=== PATIENT | female | born 1985 | race Caucasian/White ===

== ENCOUNTER 2019-09-03 08:43 | Inpatient (IN) | payer SELFPAY ==
[2019-09-03] VITALS (7 sets, daily range): BP systolic 104–139; BP diastolic 50–85; PULSE 83–128; RESP 16–22; TEMP 37.2–39.1; O2SAT 96–98; BMI 29.8
--- NOTE | 2019-09-03 08:52 | ED_ITS ---
Entered by Judy Nuñez, acting as scribe for Crispin Hirsch DO Sep 03, 2019 08:43 HPI - Chest Pain General: Chief Complaint: Chest Pain Stated Complaint: Chest pain Time Seen by Provider: 09/03/19 08:48 Source: patient Mode of arrival: ambulatory Limitations: no limitations History of Present Illness: HPI narrative: 34 yo f came to the er pov with gianfranco bejaranoy for body aches, fever and cough. Onset was today. Pt states that she has mitral valve prolapse. Patient did also admit to use of methamphetamines 2 days ago. The fever and generalized body aches malaise began shortly after that. MD complaint: chest pain Pertinent past history: other (mitral valve prolapse) Severity: mild Associated symptoms: Reports fever(s); Deny abdominal pain, dyspnea, nausea, palpitations, syncope or vomiting Review of Systems Const: Reports: fever, body aches, fatigue and malaise ENMT: Denies: throat pain, ear pain, nasal discharge or nasal congestion Card: Denies: palpitations or syncope Resp: Reports: non-productive cough; Denies: shortness of breath GI: Denies: abdominal pain, nausea or vomiting : Denies: flank pain, difficulty urinating, painful urination, urinary frequency or urinary urgency Skin/Breast: Denies: rash or itching PFSH ED PFSH: Statuses (acute, chronic, etc) shown below reflect problem list status as previously entered and may not be historically accurate Medical History Congenital mitral valve prolapse (Resolved) History of bacteremia (Acute) IVDU (intravenous drug user) (Acute) Substance abuse (Acute) Surgical History H/O mitral valve repair (Acute) Family History Father Hepatitis C Mother Lung disease Social History Smoking and tobacco status: never smoked Alcohol intake: never Substance/Drug Use: current Substance/Drug use frequency: few times a week Substance/Drug use type: Marijuana, IV Drugs and Methamphetamine Physical Exam Const: GENERAL APPEARANCE: cooperative ORIENTATION/CONSCIOUSNESS: Yes awake, Yes oriented to person, Yes oriented to place and Yes oriented to time HENMT: COMMON NORMALS: normocephalic, head/scalp atraumatic, hearing grossly normal bilaterally, external ears normal, EAC's normal, TM's normal bilaterally, nasal mucous membranes and turbinates normal, moist oral mucous membranes and oropharynx normal HEAD & SCALP: normocephalic and atraumatic NOSE: nasal mucous membranes and turbinates normal EXTERNAL EAR: Yes external ears normal EXTERNAL AUDITORY CANAL: EAC's normal TYMPANIC MEMBRANE: TM's normal bilaterally Eye: COMMON NORMALS: PERRL, EOMs intact bilaterally, conjunctivae normal and no scleral icterus CONJUNCTIVA: Yes conjunctivae normal PUPIL: Yes PERRL Neck/C-Spine: COMMON NORMALS: full ROM, no lymphadenopathy, supple and no JVD Lymph: LYMPHATIC: no lymphadenopathy noted and no lymphedema noted Resp: COMMON NORMALS: normal respiratory effort, no retractions, no use of accessory muscles and clear to auscultation bilaterally AUSCULTATION: clear to auscultation bilaterally Cardio: COMMON NORMALS: no JVD, regular rhythm and no murmurs RATE: tachycardic RHYTHM: regular rhythm Extremity: COMMON NORMALS: normal to inspection, normal capillary refill, no clubbing, cyanosis or edema, no calf tenderness and no pedal edema Neuro: SENSORIUM/ORIENTATION: Yes oriented to person, Yes oriented to place and Yes oriented to time Skin: COMMON NORMALS: no rashes or lesions noted NARRATIVE SKIN EXAM: Neurotic excoriation of the face and forearms GENERAL SKIN EXAM: no rashes or lesions noted Course ED course: I suspect the patient is septic most likely from his IV drug use she is previously had septic emboli according to her old records. Discussed this with her we will start her on IV antibiotics Rocephin 2 g and vancomycin. Discussed with Dr. Chase she will accept the patient to her service and is seen the patient in ER. Vital Signs: Vital signs: Vital Signs Temperature 99.4 F 09/04/19 11:13 Pulse Rate 95 09/04/19 11:13 Respiratory Rate 22 H 09/04/19 11:13 Blood Pressure 156/70 09/04/19 11:13 Pulse Oximetry 96 09/04/19 11:13 MDM - Chest Pain Lab Data: Labs: Lab Results 09/03/19 09/03/19 09/03/19 Range/Units 09:25 09:25 09:25 WBC (4.0-10.0) 10^3/ uL RBC (4.1-5.3) 10^6/u L Hgb (11.5-15.3) g/dL Hct (37.0-47.0) % MCV (81-99) fL MCH (28.0-34.0) pg MCHC (30.0-36.0) g/dL RDW (12.1-15.1) % Plt Count (130-400) 10^3/c mm MPV (7.4-10.4) fL Neut % (Auto) % Lymph % (Auto) % [place] % (Auto) % Eos % (Auto) % Baso % (Auto) % Neut # (Auto) (1.8-7.7) 10^3/u L Lymph # (Auto) (0.8-4.8) 10^3/u L [place] # (Auto) (0.2-0.9) 10^3/u L Eos # (Auto) (0.0-0.8) 10^3/u L Baso # (Auto) (0.0-0.1) 10^3/u L Nucleated RBC % (a uto) % Nucleated RBCs # /100WBC PT (10.5-13.3) SECO NDS INR (0.8-1.2) APTT (23.9-36.7) SECO NDS Sodium (136-145) mmol/L Potassium (3.5-5.1) mmol/L Chloride (98-107) mmol/L Carbon Dioxide (22-29) mmol/L Anion Gap (5-19) BUN (6-20) mg/dL Creatinine (0.5-0.9) mg/dL GFR Calculation (90-130) mL/min Glucose (74-109) mg/dL Lactic Acid (0.5-2.2) mmol/L Calcium (8.6-10.0) mg/Dl Total Bilirubin (0.15-1.2) mg/dL AST (0-32) U/L ALT (0-33) U/L Alkaline Phosphata se (35-105) IU/L Troponin T Baselin e (0-10) ng/mL Troponin T 120 Min [place] (0-10) ng/mL Delta Troponin T (0-10) ABS# Total Protein (6.6-8.7) g/dL Albumin (3.5-5.2) g/dL Globulin (1.3-4.6) g/dL HCG, Qual Negative (Negative) Urine Color Dark yellow (Yellow) Urine Appearance Hazy A (CLEAR) Urine pH 5 (5-7) Ur Specific Gravit y 1.015 (1.005-1.030) Urine Protein 1+ H (Negative) Urine Glucose (UA) Norm (Normal) Urine Ketones Negative (Negative) Urine Occult Blood Neg (Negative) Urine Nitrate Negative (Negative) Urine Bilirubin 1+ H (NEGATIVE) Urine Urobilinogen 12 H (Negative) mg/dL Ur Leukocyte Marcia ase Negative (Negative) Urine RBC None (0-2) /hpf Urine WBC 0-4 H (0-5) /hpf Ur Squamous Epith Cells 25-40 H (0-5) Urine Bacteria 1+ H (NONE) Urine Mucus Trace Influenza Type A A g Negative (Negative) POC Influenza B Ag Negative (Negative) 09/03/19 09/03/19 09/03/19 Range/Units 09:50 09:50 09:50 WBC 10.4 H (4.0-10.0) 10^3/ uL RBC 4.68 (4.1-5.3) 10^6/u L Hgb 13.4 (11.5-15.3) g/dL Hct 40.4 (37.0-47.0) % MCV 86.3 (81-99) fL MCH 28.6 (28.0-34.0) pg MCHC 33.2 (30.0-36.0) g/dL RDW 13.2 (12.1-15.1) % Plt Count 149 (130-400) 10^3/c mm MPV 10.5 H (7.4-10.4) fL Neut % (Auto) 84.5 % Lymph % (Auto) 5.8 % [place] % (Auto) 8.3 % Eos % (Auto) 0.0 % Baso % (Auto) 0.2 % Neut # (Auto) 8.8 H (1.8-7.7) 10^3/u L Lymph # (Auto) 0.6 L (0.8-4.8) 10^3/u L [place] # (Auto) 0.9 (0.2-0.9) 10^3/u L Eos # (Auto) 0.0 (0.0-0.8) 10^3/u L Baso # (Auto) 0.0 (0.0-0.1) 10^3/u L Nucleated RBC % (a uto) 0 % Nucleated RBCs # 0.0 /100WBC PT (10.5-13.3) SECO NDS INR (0.8-1.2) APTT (23.9-36.7) SECO NDS Sodium 132 L (136-145) mmol/L Potassium 3.9 (3.5-5.1) mmol/L Chloride 97 L (98-107) mmol/L Carbon Dioxide 23 (22-29) mmol/L Anion Gap 15.9 (5-19) BUN 15 (6-20) mg/dL Creatinine 0.8 (0.5-0.9) mg/dL GFR Calculation 81.6 L (90-130) mL/min Glucose 126 H (74-109) mg/dL Lactic Acid 1.0 (0.5-2.2) mmol/L Calcium 9.9 (8.6-10.0) mg/Dl Total Bilirubin 0.4 (0.15-1.2) mg/dL AST 25 (0-32) U/L ALT 28 (0-33) U/L Alkaline Phosphata se 94 (35-105) IU/L Troponin T Baselin e (0-10) ng/mL Troponin T 120 Min [place] (0-10) ng/mL Delta Troponin T (0-10) ABS# Total Protein 7.7 (6.6-8.7) g/dL Albumin 3.6 (3.5-5.2) g/dL Globulin 4.1 (1.3-4.6) g/dL HCG, Qual (Negative) Urine Color (Yellow) Urine Appearance (CLEAR) Urine pH (5-7) Ur Specific Gravit y (1.005-1.030) Urine Protein (Negative) Urine Glucose (UA) (Normal) Urine Ketones (Negative) Urine Occult Blood (Negative) Urine Nitrate (Negative) Urine Bilirubin (NEGATIVE) Urine Urobilinogen (Negative) mg/dL Ur Leukocyte Marcia ase (Negative) Urine RBC (0-2) /hpf Urine WBC (0-5) /hpf Ur Squamous Epith Cells (0-5) Urine Bacteria (NONE) Urine Mucus Influenza Type A A g (Negative) POC Influenza B Ag (Negative) 09/03/19 09/03/19 09/03/19 Range/Units 09:50 09:50 11:51 WBC (4.0-10.0) 10^3/ uL RBC (4.1-5.3) 10^6/u L Hgb (11.5-15.3) g/dL Hct (37.0-47.0) % MCV (81-99) fL MCH (28.0-34.0) pg MCHC (30.0-36.0) g/dL RDW (12.1-15.1) % Plt Count (130-400) 10^3/c mm MPV (7.4-10.4) fL Neut % (Auto) % Lymph % (Auto) % [place] % (Auto) % Eos % (Auto) % Baso % (Auto) % Neut # (Auto) (1.8-7.7) 10^3/u L Lymph # (Auto) (0.8-4.8) 10^3/u L [place] # (Auto) (0.2-0.9) 10^3/u L Eos # (Auto) (0.0-0.8) 10^3/u L Baso # (Auto) (0.0-0.1) 10^3/u L Nucleated RBC % (a uto) % Nucleated RBCs # /100WBC PT 14.20 H (10.5-13.3) SECO NDS INR 1.07 (0.8-1.2) APTT 29.1 (23.9-36.7) SECO NDS Sodium (136-145) mmol/L Potassium (3.5-5.1) mmol/L Chloride (98-107) mmol/L Carbon Dioxide (22-29) mmol/L Anion Gap (5-19) BUN (6-20) mg/dL Creatinine (0.5-0.9) mg/dL GFR Calculation (90-130) mL/min Glucose (74-109) mg/dL Lactic Acid (0.5-2.2) mmol/L Calcium (8.6-10.0) mg/Dl Total Bilirubin (0.15-1.2) mg/dL AST (0-32) U/L ALT (0-33) U/L Alkaline Phosphata se (35-105) IU/L Troponin T Baselin e 6 (0-10) ng/mL Troponin T 120 Min [place] 7.10 (0-10) ng/mL Delta Troponin T 1.10 (0-10) ABS# Total Protein (6.6-8.7) g/dL Albumin (3.5-5.2) g/dL Globulin (1.3-4.6) g/dL HCG, Qual (Negative) Urine Color (Yellow) Urine Appearance (CLEAR) Urine pH (5-7) Ur Specific Gravit y (1.005-1.030) Urine Protein (Negative) Urine Glucose (UA) (Normal) Urine Ketones (Negative) Urine Occult Blood (Negative) Urine Nitrate (Negative) Urine Bilirubin (NEGATIVE) Urine Urobilinogen (Negative) mg/dL Ur Leukocyte Marcia ase (Negative) Urine RBC (0-2) /hpf Urine WBC (0-5) /hpf Ur Squamous Epith Cells (0-5) Urine Bacteria (NONE) Urine Mucus Influenza Type A A g (Negative) POC Influenza B Ag (Negative) Imaging Data^: CXR: Radiologist's impression: PORTABLE CHEST HISTORY: chest pain COMPARISON: 01/30/2019 Mild pulmonary hyperexpansion. Slight elevation of the LEFT hemidiaphragm. No pneumonia. Normal vasculature. No pleural effusion or pneumothorax. Cardiac size: Normal. Mediastinum/Aorta: Normal mediastinum. No osseous abnormality seen. Surgical clips near the LEFT thoracic inlet. XR/XR chest 1V portable [id number] IMPRESSION: Mild emphysema. No pneumonia. Dictated By:Linda Ross DO Discharge Plan Discharge Patient Disposition: Admitted As Inpatient Admit Provider: Kayce Chase Clinical Impression: Substance abuse Sepsis Qualifiers: Sepsis type: sepsis due to unspecified organism Sepsis acute organ dysfunction status: with acute organ dysfunction Severe sepsis acute organ dysfunction type: unspecified Severe sepsis shock status: without septic shock Qualified Code(s): A41.9 - Sepsis, unspecified organism Endocarditis Qualifiers: Endocarditis type: infective Infective endocarditis organism: bacterial Chronicity: acute Qualified Code(s): I33.0 - Acute and subacute infective endocarditis Condition: Stable Referrals: Maria T Gipson FNP [Primary Care Provider] - Discharge Date/Time: 09/03/19 15:36 Coding Level of Care Code ED Fine Jewelry Sales Associate for Chg Fwd Exam Problem Focused The documentation recorded by the Joaquin banerjee Stephanie Lyn, accurately reflects the service I personally performed and the decisions made by Torrey reeder Curtis L, DO Sep 03, 2019 08:43
--- NOTE | 2019-09-03 09:03 | XR_ITS ---
WS: [id number] PORTABLE CHEST HISTORY: chest pain COMPARISON: 01/30/2019 Mild pulmonary hyperexpansion. Slight elevation of the LEFT hemidiaphragm. No pneumonia. Normal vascu lature. No pleural effusion or pneumothorax. Cardiac size: Normal. Mediastinum/Aorta: Normal mediastinum. No osseous abnormality seen. Surgical clips near the LEFT thoracic inlet. XR/XR chest 1V portable [id number] IMPRESSION: Mild emphysema. No pneumonia.
[2019-09-03] MEDS: acetaminophen 325 mg Tablet 650 MG PO (09:42)
[2019-09-03 09:45] LABS: HCG Qualitative Urine. Negative (Negative)
[2019-09-03 10:03] LABS: Basophils % 0.2 %; Hematocrit 40.4 % (37.0-47.0); Hemoglobin 13.4 g/dL (11.5-15.3); Lymphocytes # 0.6 10^3/uL (0.8-4.8); Lymphocytes % 5.8 %; Mean Corpuscular HGB Conc 33.2 g/dL (30.0-36.0); Mean Corpuscular Hemoglobin 28.6 pg (28.0-34.0); Mean Corpuscular Volume 86.3 fL (81-99); Mean Platelet Volume 10.5 fL (7.4-10.4); Monocytes # 0.9 10^3/uL (0.2-0.9); Monocytes % 8.3 %; Neutrophils # 8.8 10^3/uL (1.8-7.7); Neutrophils % 84.5 %; Nucleated Red Blood Cells % 0 %; Platelet Count 149 10^3/cmm (130-400); Red Blood Count 4.68 10^6/uL (4.1-5.3); Red Cell Distribution Width 13.2 % (12.1-15.1); White Blood Count 10.4 10^3/uL (4.0-10.0)
[2019-09-03] MEDS: SODIUM CHLORIDE 0.9% 2367.8 ML IV (10:03)
[2019-09-03 10:04] LABS: Add Urine Microscopic? YES; Bilirubin Urine 1+ (NEGATIVE); Blood Urine Neg (Negative); Glucose Urine UA Norm (Normal); Ketones Urine Negative (Negative); Leukocyte Esterase Urine Negative (Negative); Nitrate Urine Negative (Negative); Protein Urine 1+ (Negative); Specific Gravity, Urine 1.015 (1.005-1.030); Urine Appearance Hazy (CLEAR); Urine Color Dark Yellow (Yellow); Urobilinogen Urine 12 mg/dL (Negative); pH Urine 5 (5-7)
[2019-09-03 10:12] LABS: INR 1.07 (0.8-1.2)
[2019-09-03 10:13] LABS: Partial Thromboplastin Time 29.1 SECONDS (23.9-36.7)
[2019-09-03 10:19] LABS: Bacteria Urine 1+; Mucus Urine TRACE; Squamous Epithelial Cell Urine 25-40 (0-5); WBC Urine 0-4 /hpf (0-5)
[2019-09-03 10:20] LABS: Add Urine Culture? No
[2019-09-03 10:21] LABS: Alanine Aminotransferase 28 U/L (0-33); Albumin Level 3.6 g/dL (3.5-5.2); Alkaline Phosphatase 94 IU/L (35-105); Anion Gap 15.9 (5-19); Aspartate Amino Transferase 25 U/L (0-32); Blood Urea Nitrogen 15 mg/dL (6-20); Calcium 9.9 mg/Dl (8.6-10.0); Carbon Dioxide 23 mmol/L (22-29); Chloride 97 mmol/L (98-107); Globulin 4.1 g/dL (1.3-4.6); Glomerular Filtration Rate 81.6 mL/min (90-130); Glucose 126 mg/dL (74-109); Potassium 3.9 mmol/L (3.5-5.1); Sodium 132 mmol/L (136-145); Total Bilirubin 0.4 mg/dL (0.15-1.2); Total Protein 7.7 g/dL (6.6-8.7)
[2019-09-03 10:45] LABS: Influenza A by IFA Negative (Negative); Influenza B by IFA Negative (Negative)
--- NOTE | 2019-09-03 10:57 | ECG_ITS ---
Measurements Intervals [place] Rate: 119 P: 68 WV: 137 QRS: -35 QRSD: 92 T: 40 QT: 284 QTc: 401 SINUS TACHYCARDIA POSSIBLE LEFT ATRIAL ENLARGEMENT [-0.1mV P WAVE IN V1/V2] MARKED LEFT AXIS DEVIATION [QRS AXIS < -30] INCOMPLETE RIGHT BUNDLE BRANCH BLOCK [90+ ms QRS DURATION, TERMINAL R IN V1/V2, 40+ ms S IN I/aVL/V4/V5/V6] Compared to ECG 01/28/2019 14:08:20 Sinus rhythm no longer present T-wave abnormality no longer present Possible ischemia no longer present Electronically Signed On 09-03-2019 15:39:36 METALLURGICAL LAB TECHNICIAN by Wilver Harding M.D. [id number]
[2019-09-03 11:21] LABS: Troponin(5th) Baseline 6 ng/mL (0-10)
--- NOTE | 2019-09-03 12:57 | ECG_ITS ---
Measurements Intervals [place] Rate: 108 P: 70 PA: 140 QRS: -51 QRSD: 88 T: 27 QT: 309 QTc: 415 SINUS TACHYCARDIA LEFT AXIS DEVIATION [QRS AXIS < -30] POSSIBLE RIGHT VENTRICULAR CONDUCTION DELAY [RSR (QR) IN V1/V2] MODERATE ST DEPRESSION [0.05+ mV ST DEPRESSION] Compared to ECG 01/28/2019 14:08:20 ST (T wave) deviation now present Sinus rhythm no longer present Incomplete right bundle-branch block no longer present T-wave abnormality no longer present Possible ischemia no longer present Electronically Signed On 09-03-2019 15:42:10 TRADE SALES ASSISTANT by Wilver Harding M.D. [id number]
[2019-09-03] MEDS: cefTRIAXone 2,000 MG in sodium chloride 0.9% (plus) 50 ML 100 MG IV (13:04)
--- NOTE | 2019-09-03 14:00 | PC.NURSE ---
Med surg is not ready for report, room still dirty
--- NOTE | 2019-09-03 15:25 | PC.PHAR ---
Vancomycin dosing per pharmacy 1250mg q12h Patient: Floor: Age: 34 yo Serum creatinine: 0.8 mg/dL Height: 63.8 Inches Weight (kg): 80 IBW (kg): 54.24 Dosing wt(kg): 80 Estimated Creatinine clearance (ml/min): 84.0 CRCL method: Cockcroft and Gault using ibw(default). Drug selected: Vancomycin Loading dose (mg): Vd (liters): 56.0 (factor used: 0.7 L/kg) Qasim (hr-1): 0.074 Half life (hrs): 9.37 CLvanco= 4.144 L/hr Recommended dose: 1250 mg Interval: 12 hrs Infusion time (hrs): 1 Predicted peak (mcg/mL): 36.6 Predicted trough (mcg/mL): 16.22 Total body weight is being used for vancomycin dosing. Recommendations: Give Vancomycin 1250 mg q 12 hrs with an expected Cpeak of 36.6 mcg/ml and an expected Ctrough of 16.22 mcg/ml
[2019-09-03] MEDS: HYDROcodone-acetaminophen 5-325 mg Tablet 1 TAB PO ×2 (15:40→21:59)
--- NOTE | 2019-09-03 16:22 | PM.HP ---
Providers/Chief Complaint Admitting Physician: Kayce Chase MD Primary Care Provider: Maria T Gipson Chief Complaint: sepsis History of Present Illness Margarita Cortes is a 34 year old female that presents to the emergency department today for onset of fever and chills. She reported that her symptoms started 2 days ago after her last use of IV methamphetamine. She stated that she is continued to have fevers and nausea. She reports that she had not been doing well prior to this episode. She stated that in April of last year she was diagnosed with bacteremia and underwent 6 weeks of IV antibiotics twice a day. She reported that she completed that course and did not miss any doses of antibiotic. She reported that she last injected into her left arm, she has not noticed any skin changes, no skin drainage or identifiable abscess formation. She denies any sick contacts. St[place] and [place], denies using any dirty needles. Patient denies any cough or sputum production. Patient denies any abdominal pain, no diarrhea or constipation. Patient was seen and evaluated in the emergency department noted to have concern for sepsis and given IV antibiotics and IV fluids. Initially noted to be hypotensive, this resolved with IV fluids. At time of my exam patient is reporting chest pain in the right upper chest and shoulder, she stated that it only started after her IV was placed. She does state some pleuritic chest pain with deep inspiration. Review of Systems Const: Reports: fever Eyes: Denies: change in vision ENMT: Denies: throat pain, ear pain, nasal discharge or nasal congestion Card: Denies: palpitations or syncope Resp: Reports: pain on inspiration; Denies: shortness of breath GI: Reports: nausea; Denies: abdominal pain or vomiting : Denies: flank pain, difficulty urinating, painful urination, urinary frequency, urinary urgency, vaginal discharge or irregular period Musc: Denies: extremity pain or muscle cramps Skin/Breast: Denies: rash or itching Neuro: Reports: headache; Denies: dizziness Psych: Denies: anxiety or depression Endo: Denies: excessive urination or hot flashes Boni/Lymph: Denies: easy bruising or easy bleeding Medications/Allergies Home Medications Medication Instructions Recorded Confirmed Last Taken Type aspirin 81 mg PO DAILY 09/03/19 09/03/19 09/01/19 History Allergies Allergy/AdvReac Type Severity Reaction Status Date / Time No Known Allergies Allergy Verified 09/03/19 08:55 PFSH Acute PFSH: Statuses (acute, chronic, etc) shown below reflect problem list status as previously entered and may not be historically accurate Medical History (Updated 09/03/19 @ 16:29 by Kayce Chase DO) Congenital mitral valve prolapse (Resolved) History of bacteremia (Acute) IVDU (intravenous drug user) (Acute) Substance abuse (Acute) Surgical History (Updated 09/03/19 @ 16:29 by Kayce Chase DO) H/O mitral valve repair (Acute) Family History (Updated 09/03/19 @ 16:30 by Kayce Chase DO) Father Hepatitis C Mother Lung disease Social History (Updated 09/03/19 @ 16:32 by Kayce Chase DO) Smoking and tobacco status: never smoked Alcohol intake: never Substance/Drug Use: current Substance/Drug use frequency: few times a week Substance/Drug use type: Marijuana, IV Drugs and Methamphetamine Vitals/I&O/Wt Last Vital Signs Temp 101.6 F H 09/03/19 15:57 Pulse 113 H 09/03/19 15:57 Resp 19 H 09/03/19 15:57 BP 139/82 09/03/19 15:57 Pulse Ox 97 09/03/19 15:57 Weight last 48 hrs Weight 78.925 kg Physical Exam Const: COMMON NORMALS: oriented x3 and alert GENERAL APPEARANCE: cooperative ORIENTATION/CONSCIOUSNESS: Yes awake, Yes oriented to person, Yes oriented to place and Yes oriented to time HENMT: COMMON NORMALS: normocephalic and head/scalp atraumatic HEAD & SCALP: normocephalic and atraumatic Eye: COMMON NORMALS: PERRL PUPIL: Yes PERRL Neck/C-Spine: COMMON NORMALS: supple GENERAL: Yes normal visual inspection Resp: AUSCULTATION: clear to auscultation bilaterally, no rhonchi and no wheezes OTHER: Obvious discomfort with inspiration Cardio: OTHER: Tachycardic, regular rhythm, faint systolic murmur GI: COMMON NORMALS: soft to palpation and non-tender INSPECTION: No abdominal distension AUSCULTATION: Yes normoactive bowel sounds PALPATION: Yes soft : COMMON NORMALS: Yes no CVA tenderness BLADDER/KIDNEY EXAM: Yes no CVA tenderness Back/Pelvis: COMMON NORMALS: no CVA tenderness Extremity: COMMON NORMALS: no clubbing, cyanosis or edema and no calf tenderness Neuro: COMMON NORMALS: oriented x3, CN's II-XII intact bilaterally, moves all extremities and no focal motor deficits SENSORIUM/ORIENTATION: Yes alert, Yes oriented to person, Yes oriented to place and Yes oriented to time SPEECH: speech normal Psych: COMMON NORMALS: mental status grossly normal and cooperative Skin: NARRATIVE SKIN EXAM: Multiple track lewis over the upper extremities Data Micro: Micro: Microbiology 09/03/19 10:32 Blood Culture - Pr eliminary Blood SPECIMEN [facility] 09/03/19 09:50 Blood Culture - Pr eliminary Blood SPECIMEN [facility] Imaging^: CXR: I personally reviewed and interpreted this imaging study as follows: My impression: No acute cardiopulmonary process A&P Assessment and plan (1) Sepsis: Sepsis with concern for recent IV drug use and a history of MSSA bacteremia. We will continue on broad-spectrum IV antibiotics with vancomycin and Rocephin. Patient with fever of 101.6 ?F, tachycardia, hypotension in the ER, now resolved with IV fluids. We will continue with aggressive IV fluids Blood cultures ordered and pending No other identifiable infectious etiology at this time Patient reporting sharp chest pain on the right side of the chest with deep inspiration, will further evaluate with CT angios of the chest Status: Acute Qualifiers: Sepsis acute organ dysfunction status: with acute organ dysfunction Sepsis type: sepsis due to unspecified organism Severe sepsis acute organ dysfunction type: unspecified Severe sepsis shock status: without septic shock Qualified Code(s): A41.9 - Sepsis, unspecified organism; R65.20 - Severe sepsis without septic shock Code(s): A41.9 - Sepsis, unspecified organism (2) IVDU (intravenous drug user): Patient reports regular IV drug use with methamphetamines, last use 2 days ago when her symptoms began. Patient is in agreement to checking hepatitis and HIV status Status: Acute Code(s): F19.90 - Other psychoactive substance use, unspecified, uncomplicated (3) Congenital mitral valve prolapse: Reports congenital heart defect with what sounds like VSD repair and mitral valve repair as a child Status: Resolved Code(s): Q23.8 - Other congenital malformations of aortic and mitral valves Attestations Medical Necessity Statement*: Patient requires hospitalization due to concern for sepsis with recent IV drug use and history of MSSA bacteremia. Expected stay greater than 2 midnights. Coding Level of Care Code Acute Fiberglass Machine Operator for [facility] Fwd Diagnoses Sepsis A41.9; R65.20 Sepsis acute organ dysfunction status: with acute organ dysfunction Sepsis type: sepsis due to unspecified organism Severe sepsis acute organ dysfunction type: unspecified Severe sepsis shock status: without septic shock IVDU (intravenous drug user) F19.90 Congenital mitral valve prolapse Q23.8
--- NOTE | 2019-09-03 16:57 | ECG_ITS ---
Measurements Intervals [place] Rate: 95 P: 46 CO: 123 QRS: -47 QRSD: 110 T: 31 QT: 352 QTc: 443 SINUS RHYTHM INCOMPLETE RIGHT BUNDLE BRANCH BLOCK [90+ ms QRS DURATION, TERMINAL R IN V1/V2, 40+ ms S IN I/aVL/V4/V5/V6] LEFT ANTERIOR FASCICULAR BLOCK [QRS AXIS <= -45, QR IN I, RS IN II] Compared to ECG 01/28/2019 14:08:20 Left anterior fascicular block now present Left-axis deviation no longer present T-wave abnormality no longer present Possible ischemia no longer present Electronically Signed On 09-03-2019 15:41:11 RESEARCH GREENHOUSE SUPERVISOR by Wilver Harding M.D. [id number]
[2019-09-03] MEDS: sodium chloride 0.9% 1,000 ML 125 ML IV (18:26)
[2019-09-03] MEDS: enoxaparin 40 mg/0.4 mL Syringe SUBCUT (18:26)
--- NOTE | 2019-09-03 21:13 | PM.EVENT ---
Event Note Event Note: CTA cancelled as we could not get sufficient IV after multiple attempts. Has an EJ for antibiotics. Discussed with Dr Chase. She will address in am. Pt is on prophylactic lovenox. Discussed with nursing.
[2019-09-04] VITALS (8 sets, daily range): BP systolic 103–156; BP diastolic 66–78; PULSE 62–112; RESP 18–40; TEMP 37.2–39.2; O2SAT 92–96; BMI 29.2
[2019-09-04] MEDS: sodium chloride 0.9% 1,000 ML 125 ML IV ×2 (03:44→15:44)
[2019-09-04] MEDS: acetaminophen 325 mg Tablet 650 MG PO ×2 (04:21→20:31)
[2019-09-04 06:09] LABS: Basophils % 0.1 %; Eosinophils % 0.1 %; Hematocrit 34.4 % (37.0-47.0); Hemoglobin 10.8 g/dL (11.5-15.3); Lymphocytes # 0.7 10^3/uL (0.8-4.8); Mean Corpuscular HGB Conc 31.4 g/dL (30.0-36.0); Mean Corpuscular Hemoglobin 27.3 pg (28.0-34.0); Mean Corpuscular Volume 87.1 fL (81-99); Mean Platelet Volume 11.6 fL (7.4-10.4); Monocytes # 1.5 10^3/uL (0.2-0.9); Monocytes % 18.6 %; Neutrophils # 5.9 10^3/uL (1.8-7.7); Neutrophils % 72.7 %; Nucleated Red Blood Cells % 0 %; Platelet Count 125 10^3/cmm (130-400); Red Blood Count 3.95 10^6/uL (4.1-5.3); Red Cell Distribution Width 13.6 % (12.1-15.1); White Blood Count 8.2 10^3/uL (4.0-10.0)
[2019-09-04 06:31] LABS: Alanine Aminotransferase 16 U/L (0-33); Albumin Level 3.2 g/dL (3.5-5.2); Alkaline Phosphatase 69 IU/L (35-105); Anion Gap 14.3 (5-19); Aspartate Amino Transferase 16 U/L (0-32); Blood Urea Nitrogen 5 mg/dL (6-20); Calcium 8.5 mg/Dl (8.6-10.0); Carbon Dioxide 21 mmol/L (22-29); Chloride 101 mmol/L (98-107); Globulin 2.4 g/dL (1.3-4.6); Glomerular Filtration Rate 140.4 mL/min (90-130); Glucose 156 mg/dL (74-109); Potassium 3.3 mmol/L (3.5-5.1); Sodium 133 mmol/L (136-145); Total Bilirubin 0.3 mg/dL (0.15-1.2); Total Protein 5.6 g/dL (6.6-8.7)
[2019-09-04 06:33] LABS: Slide Review Slide Review Perform
[2019-09-04] MEDS: HYDROcodone-acetaminophen 5-325 mg Tablet 1 TAB PO ×2 (08:44→12:36)
[2019-09-04] MEDS: cefTRIAXone 2,000 MG in sodium chloride 0.9% (plus) 50 ML 100 MG IV (12:39)
--- NOTE | 2019-09-04 15:07 | PC.CHAP ---
Pastoral Care Encounter/Spiritual Assessment Type of Contact [] Declined president and chief executive officer visit [] Patient/Family/Request visit [] Outpatient visit [] Follow-up visit [] Physician referral [] Code/Alert [x] Routine visit [] Staff referral [] Actively dying [] Patient sleeping [] Family support [] [] Out of room [] Palliative care [] [] Receiving care in room [] Pre-surgical visit [] Trauma [] Long length of stay [] ICU visit [] Other: Relational/Emotional Strength [] Patient feels connected with others/family/visitors/staff [] Distress [] Loneliness/isolation [] Abandonment Spirituality of Patient [x] Person of Cesia [] Attends Yazidism of their Cesia [] Believes in Prayer [] Reads Bible or Presybeterian materials [] There are Spiritual issues to be addressed [employer] Systems Administrator Interventions [x] Prayer [x] Active listening [x] Non-anxious presence [x] Spiritual/emotional support [x] Crisis/trauma care [x] Spiritual counseling [] Bereavement support [] Provided bereavement packet [] Provided Bible/devotional materials [] Provided toy/stuffed animal, coloring book to patient or family member [X] Completed spiritual assessment [] Provided Communion [] Anointing/[place] [] Salvation [] Other: Impact on Illness or Injury [] Angry [] Fearful [] Anxious [] Often cries [] Exhaustion [] Unable to work [] Unable to attend restorationist [] Unable to walk/stand [] Unable to read [] Unable to drive [] Unable to eat/drink [] Unable to sleep [] Unable to be with family [] Other: Summary PAYIENTgoes to bahai some times president and chief executive officer had a very time with the patient. Time spent with patient 20 min.
[2019-09-04] MEDS: enoxaparin 40 mg/0.4 mL Syringe SUBCUT (15:43)
--- NOTE | 2019-09-04 16:10 | PM.PN ---
Subjective Subjective: Interval history: Patient in bed at time of exam today. She reported some continued pleuritic pain in the right side of her chest. Denied any nausea or vomiting. Patient reports a headache that improved. Vitals/I&O/Wt Last Vital Signs Temp 99.1 F 09/04/19 15:21 Pulse 90 09/04/19 15:32 Resp 18 09/04/19 15:21 BP 103/73 09/04/19 15:21 Pulse Ox 93 09/04/19 15:32 09/04/19 09/04/19 09/04/19 06:59 14:59 22:59 Intake Total 1456.25 / 1696.25 840 / 840 793.75 / 1633.75 Output Total 120 / 120 801 / 801 Balance 1336.25 / 1576.25 39 / 39 793.75 / 832.75 Weight last 48 hrs Weight 77.252 kg Weight 77.252 kg Weight 78.925 kg Physical Exam Const: COMMON NORMALS: oriented x3 and alert GENERAL APPEARANCE: cooperative ORIENTATION/CONSCIOUSNESS: Yes awake, Yes oriented to person, Yes oriented to place and Yes oriented to time HENMT: COMMON NORMALS: normocephalic and head/scalp atraumatic HEAD & SCALP: normocephalic and atraumatic Eye: COMMON NORMALS: PERRL PUPIL: Yes PERRL Neck/C-Spine: COMMON NORMALS: supple GENERAL: Yes normal visual inspection Resp: COMMON NORMALS: clear to auscultation bilaterally AUSCULTATION: clear to auscultation bilaterally, no rhonchi and no wheezes OTHER: Obvious discomfort with inspiration Cardio: OTHER: Regular rate and regular rhythm, faint systolic murmur GI: COMMON NORMALS: soft to palpation and non-tender INSPECTION: No abdominal distension AUSCULTATION: Yes normoactive bowel sounds PALPATION: Yes soft : COMMON NORMALS: Yes no CVA tenderness BLADDER/KIDNEY EXAM: Yes no CVA tenderness Back/Pelvis: COMMON NORMALS: no CVA tenderness Extremity: COMMON NORMALS: no clubbing, cyanosis or edema and no calf tenderness Neuro: COMMON NORMALS: oriented x3, CN's II-XII intact bilaterally, moves all extremities and no focal motor deficits SENSORIUM/ORIENTATION: Yes alert, Yes oriented to person, Yes oriented to place and Yes oriented to time SPEECH: speech normal Psych: COMMON NORMALS: mental status grossly normal and cooperative Skin: NARRATIVE SKIN EXAM: Multiple track lewis over the upper extremities Data Micro: Micro: Microbiology 09/03/19 09:50 Blood Culture - Pr eliminary Blood Gram positive c occi 09/03/19 10:32 Blood Culture - Pr eliminary Blood Gram positive c occi A&P Assessment and plan (1) Sepsis: Sepsis with concern for recent IV drug use and a history of MSSA bacteremia. Continue on broad-spectrum IV antibiotics with vancomycin and Rocephin. Blood cultures showing gram-positive cocci Patient reporting sharp chest pain on the right side of the chest with deep inspiration, will further evaluate with CTA of the chest Status: Acute Qualifiers: Sepsis acute organ dysfunction status: with acute organ dysfunction Sepsis type: sepsis due to unspecified organism Severe sepsis acute organ dysfunction type: unspecified Severe sepsis shock status: without septic shock Qualified Code(s): A41.9 - Sepsis, unspecified organism; R65.20 - Severe sepsis without septic shock Code(s): A41.9 - Sepsis, unspecified organism (2) IVDU (intravenous drug user): Patient reports regular IV drug use with methamphetamines, last use 2 days prior to admission Status: Acute Code(s): F19.90 - Other psychoactive substance use, unspecified, uncomplicated (3) Congenital mitral valve prolapse: Reports congenital heart defect with what sounds like VSD repair and mitral valve repair as a child Status: Resolved Code(s): Q23.8 - Other congenital malformations of aortic and mitral valves Attestations Medical Necessity Statement*: Continue on broad-spectrum antibiotics and await further blood cultures. 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
[2019-09-05] VITALS (7 sets, daily range): BP systolic 94–133; BP diastolic 61–74; PULSE 70–106; RESP 18–24; TEMP 36.9–39; O2SAT 92–99
[2019-09-05] MEDS: acetaminophen 325 mg Tablet 650 MG PO ×2 (08:50→16:06)
[2019-09-05 08:55] LABS: HIV 1 & 2 Antibody Non-Reactive (Non-Reactiv); HIV 1 & 2 Antigen Non-Reactive (Non-Reactiv)
--- NOTE | 2019-09-05 09:40 | CT_ITS ---
WS: [id number] CTA OF THE CHEST WITH PULMONARY EMBOLISM PROTOCOL TECHNIQUE: High-resolution contrast enhanced CTA of the chest with coronal and sagittal reformatted i mages with pulmonary embolism protocol. MIP images are also reviewed. CLINICAL INFORMATION: chest pain COMPARISON: CTA chest 6 DLP: 518.[address] scans at [facility] use at least one of these dose optimization techniques: automat ed exposure control; mA and/or kV adjustment per patient size (includes targeted exams where dose is matched to clinical indication); or iterative reconstruction. FINDINGS: Proximal main pulmonary arteries are normal. No visualized filling defects in the pulmonary arteries. No visualized pulmonary emboli. Again seen are multiple bilateral pulmonary opacities with varying wall thicknesses suspicious for se ptic emboli. This is significantly progressed since the prior examination with multiple new and large r cavitating opacities.Several of these are in a subpleural location. Largest opacities measuring 2.5 to 3 cm. Associated feeding vessels specific for septic emboli. Small bilateral pleural effusions ar e new from previous. Normal caliber thoracic aorta. Prominent anterior mediastinal and hilar lymph nodes likely reactive. Normal caliber upper abdominal aorta. CT/CT angio chest PE protcl [id number] IMPRESSION: 1. Proximal main pulmonary arteries are normal. No filling defects to indicate pulmonary embolus. 2. Again seen are cavitating bilateral pulmonary opacities significantly progr essed compared to January 28, 2019 most likely due to multifocal bilateral septic emboli with feeding vessels. Also consider superimposed bacterial, fungal, or m ycobacterial cavitating infection. 3. Largest opacities measuring 2.5 CM. 4. Small bilateral pleural effusions.
--- NOTE | 2019-09-05 09:40 | USCV_ITS ---
SebastianMargarita Age: 34 Gender: F : 1985 Exam Date: 09/05/2019 18:06 Ordering Phys: Kayce Chase DO Technologist: Brandy Plummer Exam Location: [facility] [place] Indication: EMBOLI BP: / HR: 97 Rhythm: Sinus Technical Quality: Adequate MEASUREMENTS (Male / Female) Normal Values 2D ECHO LV Diastolic Diameter PLAX 4.2 cm 4.2 - 5.9 / 3.9 - 5.3 cm LV Systolic Diameter PLAX 2.7 cm LV Chamber Size 4.6 cm IVS Diastolic Thickness 1.2 cm 0.6 - 1.0 / 0.6 - 0.9 cm IVS Systolic Thickness 1.4 cm LVPW Diastolic Thickness 1.4 cm 0.6 - 1.0 / 0.6 - 0.9 cm LVPW Systolic Thickness 1.6 cm RV Chamber Size 3.3 cm LVOT Diameter 2.0 cm LV Ejection Fraction 2D Teich 65.7 % LV Ejection Fraction MOD 2C 51.7 % LV Ejection Fraction 2C AL 47.9 % LA Diameter 3.5 cm LA Width 3.2 cm LA Height 3.8 cm RA Width 4.7 cm RA Height 5.3 cm Aorta at Sinotubular Diameter 2.4 cm M-MODE LV Diastolic Diameter MM 4.8 cm 4.2 - 5.9 / 3.9 - 5.3 cm LV Systolic Diameter MM 3.2 cm LV Ejection Fraction MM Teich 59.8 % IVS Diastolic Thickness MM 0.9 cm 0.6 - 1.0 / 0.6 - 0.9 cm IVS Systolic Thickness MM 1.0 cm LVPW Diastolic Thickness MM 1.0 cm 0.6 - 1.0 / 0.6 - 0.9 cm LVPW Systolic Thickness MM 1.3 cm RV Diastolic Diameter MM 1.7 cm Aortic Annulus Diameter 3.4 cm LA Ao Ratio MM 1.0 MV E Point Septal Separation 0.5 cm DOPPLER AV Peak Velocity 209.0 cm/s LVOT Peak Velocity 118.0 cm/s AV Area Cont Eq vti 2.0 cm squared AV Area Cont Eq pk 1.8 cm squared MV Area PHT 4.0 cm squared Mitral E to A Ratio 1.1 MV E' Velocity 13.0 cm/s Mitral E to MV E' Ratio 7.7 Mitral E to LV E' Lateral Ratio 8.5 Mitral E to LV E' Septal Ratio 7.0 TR Peak Velocity 299.9 cm/s TR Peak Gradient 36.0 mmHg TR Mean Velocity 225.9 cm/s TR Mean Gradient 22.7 mmHg TR Velocity Time Integral 72.5 cm TV Peak E Velocity 99.0 cm/s Right Atrial Pressure 3.0 mmHg Pulmonary Artery Systolic Pressu 39.0 mmHg PV Peak Velocity 92.0 cm/s RV Acceleration Time 0.1 s RV Ejection Time 0.3 s RV AcT/ET 0.4 FINDINGS Left Ventricle Normal left ventricular size and systolic function, EF 60 %. No gross wall motion normalities. Right Ventricle The right ventricle is normal in size and function. Right Atrium Mildly increased right atrial size. Left Atrium The left atrium is normal in size. Mitral Valve Minimally thickened mitral valve Aortic Valve Thickened aortic valve. Mild aortic valve regurgitation. Tricuspid Valve Thickening in the septal leaflet of the tricuspid valve. Some echodensity was noted in the chordal structures attached to the septal leaflet. No definite vegetations are noted.moderate tricuspid valve regurgitation. Estimated pulmonary artery peak systolic pressure of 39 mmHg Pulmonic Valve No gross abnormalities noted Pericardium No pericardial effusion. Aorta Normal ascending aorta dimension. CONCLUSIONS Normal left ventricular size and systolic function, EF 60 %. No gross wall motion normalities. Mildly increased right atrial size. Thickened aortic valve. Mild aortic valve regurgitation. Thickening in the septal leaflet of the tricuspid valve. Some echodensity was noted in the chordal structures attached to the septal leaflet. No definite vegetations are note. Estimated pulmonary artery peak systolic pressure of 39 mmHg No pericardial effusion No atrial septal defect, based on color flow Doppler examination Compared to the previous study from January 2019, there may not be a significant change. However because of the difference in the technical quality, exact comparison is difficult Dr Cameron Pena MD [facility] (Electronically Signed) Final Date: 05 September 2019 18:55 S
[2019-09-05] MEDS: iohexol 350 mg/mL 100 mL Btl IV (11:33)
--- NOTE | 2019-09-05 14:20 | P.PN_ITS ---
Subjective Subjective: Interval history: Patient awake in bed at time of exam today. She reported that the pain in the right side of her chest has improved. She denies any nausea or vomiting. Discussed with patient the positive blood culture findings IV antibiotics and further work-up, she verbalized understanding and agreed with plan. Vitals/I&O/Wt Last Vital Signs Temp 98.4 F 09/05/19 12:00 Pulse 78 09/05/19 12:00 Resp 20 H 09/05/19 12:00 BP 108/62 09/05/19 12:00 Pulse Ox 97 09/05/19 12:00 09/04/19 09/05/19 09/05/19 22:59 06:59 14:59 Intake Total 2195.00 / 3035.00 400 / 3435.00 835.75 / 835.75 Output Total 200 / 1001 400 / 400 Balance 1994. / 2033.00 400 / 2434.00 435.75 / 435.75 Weight last 48 hrs Weight 80.331 kg Weight 77.252 kg Weight 77.252 kg Physical Exam Const: COMMON NORMALS: oriented x3 and alert GENERAL APPEARANCE: cooperative ORIENTATION/CONSCIOUSNESS: Yes awake, Yes oriented to person, Yes oriented to place and Yes oriented to time HENMT: COMMON NORMALS: normocephalic and head/scalp atraumatic HEAD & SCALP: normocephalic and atraumatic Eye: COMMON NORMALS: PERRL PUPIL: Yes PERRL Neck/C-Spine: COMMON NORMALS: supple GENERAL: Yes normal visual inspection Resp: COMMON NORMALS: clear to auscultation bilaterally AUSCULTATION: clear to auscultation bilaterally, no rhonchi and no wheezes OTHER: Obvious discomfort with inspiration Cardio: OTHER: Regular rate and regular rhythm, faint systolic murmur GI: COMMON NORMALS: soft to palpation and non-tender INSPECTION: No abdominal distension AUSCULTATION: Yes normoactive bowel sounds PALPATION: Yes soft Extremity: COMMON NORMALS: no clubbing, cyanosis or edema and no calf tenderness Neuro: COMMON NORMALS: oriented x3, CN's II-XII intact bilaterally, moves all extremities and no focal motor deficits SENSORIUM/ORIENTATION: Yes alert, Yes oriented to person, Yes oriented to place and Yes oriented to time SPEECH: speech normal Psych: COMMON NORMALS: mental status grossly normal and cooperative Skin: NARRATIVE SKIN EXAM: Multiple track lewis over the upper extremities Data Micro: Micro: Microbiology 09/03/19 10:32 Blood Culture - Pr eliminary Blood Staphylococcus aureus 09/03/19 09:50 Blood Culture - Pr eliminary Blood Staphylococcus aureus 09/04/19 16:50 Blood Culture - Pr eliminary Blood SPECIMEN [facility] 09/04/19 16:56 Blood Culture - Pr eliminary Blood SPECIMEN [facility] Imaging^: CTA Chest: Radiologist's impression: 1. Proximal main pulmonary arteries are normal. No f illing defects to indicate pulmonary embolus. 2. Again seen are cavitating bilateral pulmonary opacities significantly progressed compared to January 28, 2019 most likely due to multifocal bilateral sep tic emboli with feeding vessels. Also consider superimposed bacterial, fungal, or mycobacterial cavitating infection. 3. Largest opacities measuring 2.5 CM. 4. Small bilateral pleural effusions. A&P Assessment and plan (1) Sepsis: Sepsis with concern for recent IV drug use and a history of MSSA basilio teremia. Continue on broad-spectrum IV antibiotics with vancomycin and Rocephin. Blood cultures showing FRAX at this time, will continue to follow with results Patient with multiple septic emboli on CTA as noted above We will consult cardiology for JESSE Status: Acute Qualifiers: Sepsis acute organ dysfunction status: with acute organ dysfunction Sepsis type: sepsis due to unspecified organism Severe sepsis acute organ dysfunction type: unspecified Severe sepsis shock status: without septic shock Qualified Code(s): A41.9 - Sepsis, unspecified organism; R65.20 - Severe sepsis without septic shock Code(s): A41.9 - Sepsis, unspecified organism (2) IVDU (intravenous drug user): Patient reports regular IV drug use with methamphetamines, last use 2 days prior to admission Status: Acute Code(s): F19.90 - Other psychoactive substance use, unspecified, uncomplicated (3) Congenital mitral valve prolapse: Reports congenital heart defect with what sounds like VSD repair and mitral valve repair as a child Status: Resolved Code(s): Q23.8 - Other congenital malformations of aortic and mitral valves Additional A&P Information Additional A&P Information: Will continue on broad-spectrum antibiotics. Will repeat blood culture. Called cardiology, Dr. Pena, for consultation and for JESSE due to staph aureus on blood cultures. Patient with worsening septic emboli. 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
--- NOTE | 2019-09-05 14:24 | XR_ITS ---
WS: [id number] Portable AP upright chest, 09/05/2019 Clinical Data: POST PICC PLACEMENT Comparison: Portable chest, 09/03/2019 Findings: A right PICC line has been inserted. The original film showed that the tip ended at approxi mately the T7-T8 disc level. The catheter was advanced and now ends at the T8-T9 disc level. No pneum othorax is seen. Impression: Satisfactory placement of right PICC line.
[2019-09-05] MEDS: cefTRIAXone 2,000 MG in sodium chloride 0.9% (plus) 50 ML 100 MG IV (16:11)
[2019-09-05] MEDS: enoxaparin 40 mg/0.4 mL Syringe SUBCUT (16:20)
--- NOTE | 2019-09-05 17:53 | PM.CONSULT ---
Providers/Reason For Consult Consulting Physican/Specialty*: Demetrio Pena MD/cardiology Reason for Consult*: Patient is due history of congenital heart disease, status post heart surgery, presenting with the clinical features of endocarditis Attending Physician: Kayce Chase MD Primary Care Provider: Maria T Gipson History of Present Illness History of Present Illness Margarita Cortes is a 34 year old female with a history of endocarditis and IV drug abuse, is presenting with a 2-day history of fever, chills and generalized weakness. This patient has been using IV methamphetamine for the last 5 years or so. In January of last year, she was admitted to the hospital with similar symptoms and was diagnosed with endocarditis. She had a methicillin sensitive staph aureus at that time. Apparently she had a 6 weeks of antibiotic treatment. Clinically improved. She has been doing okay since then. She refuses IV methamphetamine on a regular basis. She vehemently denies any history of sharing of needles. She has a history of polysubstance abuse- oxycodone and Dilaudid in the past, while she was in [place]. According to her, she has a history of chronic back pain and started using prescription pain medications initially. Later on she started using the street drugs. She participated in a rehabilitation program in [place]. Then when she moved to [place], she started using the IV drugs. She has a history of congenital heart disease. 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 At the age of 5 months, she had open-heart surgery and the defects were closed. The details are not available. She hasn't had any cardiac follow-up. She hasn't had any specific cardiac illness since then. She used to get heart failure? Prior to the open-heart surgery. Her grandfather who also had similar heart problems, as per the patient. She has no history for any recurrent UTI, throat infection. She had a features of possible septic emboli in the lungs based on the CT scan during the last hospital admission. Her transthoracic echocardiogram at that time was unremarkable. The JESSE also did not reveal any vegetations at that time. Patient had a T-max of 103 last night. Currently her temperature is in the 99-100 range. Review of Systems Const: Reports: fever, chills, change in appetite, fatigue, malaise, night sweats and other (Anorexia) Eyes: Denies: change in vision, blurry vision or eye discomfort ENMT: Denies: bleeding gums, nose bleeds or other (Spinning Sensation, Trouble Swallowing) Card: Denies: syncope, pre-syncope, shortness of breath when lying down or leg pain with exertion Resp: Reports: other (She has a pleuritic type of pain involving the right inframammary region.); Denies: productive cough, change in phlegm color or coughing up blood GI: Denies: vomiting, vomiting blood, bloating, blood in stool or black tarry stool : Denies: blood in urine Musc: Denies: neck pain, extremity pain, extremity swelling, redness, muscle cramps, muscle weakness or other (Neck Pain or Swollen Glands) Skin/Breast: Denies: rash, itching, redness, new lesion, changes in skin color, yellow skin, nail changes or breast mass/lump Neuro: Denies: headache, changes in sensation, lack of coordination, frequent falls, dizziness, vertigo, seizure-like activity or other (TIA, Numbness) Psych: Reports: other (Delusions, Disorientation, or Insomnia); Denies: visual hallucinations, auditory hallucinations or tactile hallucinations Endo: Denies: excessive urination, excessive thirst or other (Abnormal Hair Loss) Boni/Lymph: Denies: easy bruising All/Imm: Denies: hives Meds/Allergies Home Medications and Allergies Home Medications Medication Instructions Recorded Confirmed Type aspirin 81 mg PO DAILY 09/03/19 09/03/19 History Allergies Allergy/AdvReac Type Severity Reaction Status Date / Time No Known Allergies Allergy Verified 09/03/19 08:55 Current Medications Current Medications Generic Name Dose Route Start Last Admin Trade Name Freq PRN Reason Stop Dose Admin Acetaminophen 650 mg 09/03/19 15:10 09/05/19 16:06 Tylenol PO 650 mg Q6H PRN Administration Mild/Mod Pain Or Temp >/= 101 Hydrocodone Bitart/Acetaminophen 1 tab 09/03/19 15:10 09/04/19 12:36 Dudley 5-325 Mg PO 1 tab Q4H PRN Administration MODERATE TO SEVERE PAIN Enoxaparin Sodium 40 mg 09/03/19 15:15 09/05/19 16:20 Lovenox SUBCUT 40 mg Q24H TONA Administration Sodium Chloride 1,000 mls @ 75 mls/hr 09/03/19 15:15 09/05/19 10:20 Sodium Chloride 0.9% IV Infused .[id number] TONA Infusion Ceftriaxone Sodium 2,000 mg/ 50 mls @ 100 mls/hr 09/04/19 13:00 09/05/19 16:11 Sodium Chloride IV 100 mls/hr Q24H TONA Administration Protocol PFSH Acute PFSH: Statuses (acute, chronic, etc) shown below reflect problem list status as previously entered and may not be historically accurate Medical History Congenital mitral valve prolapse (Resolved) History of bacteremia (Acute) IVDU (intravenous drug user) (Acute) Known to have moderate tricuspid irritation based on the echocardiogram during the previous hospital admission. Substance abuse (Acute) Tricuspid regurgitation (Acute) Surgical History H/O mitral valve repair (Acute) History of appendectomy (Acute) History of (Acute) x2 History of hysterectomy (Acute) Family History (Updated 09/05/19 @ 18:29 by Cameron Pena MD) Father Hepatitis C Mother Lung disease Grandfather Congenital heart disease ASD with the mitral valve prolapse Social History Smoking and tobacco status: never smoked Alcohol intake: never Substance/Drug Use: current Substance/Drug use frequency: few times a week Substance/Drug use type: Marijuana, IV Drugs and Methamphetamine Vitals/I&O/Wt Last Vital Signs Temp 102.2 F H 09/05/19 16:00 Pulse 93 09/05/19 16:00 Resp 18 09/05/19 16:00 BP 101/69 09/05/19 16:00 Pulse Ox 92 09/05/19 16:00 09/05/19 09/05/19 09/05/19 06:59 14:59 22:59 Intake Total 400 / 3435.00 835.75 / 835.75 Output Total 400 / 400 Balance 400 / 2434.00 435.75 / 435.75 Weight last 48 hrs Weight 177 lb 1.6 oz Weight 170 lb 5 oz Weight 170 lb 5 oz Physical Exam Const: COMMON NORMALS: oriented x3, alert and well nourished GENERAL APPEARANCE: cooperative, well developed, anxious and diaphoretic HENMT: MOUTH: lip normal; no other (ulcers or bleeding) TEETH & GINGIVA: no other (bleeding observed and inflammation present) Eye: COMMON NORMALS: PERRL and conjunctivae normal CONJUNCTIVA: Yes conjunctivae normal SCLERA: sclerae normal PUPIL: Yes PERRL OTHER: Minimal pallor. No icterus or lymphadenopathy. Neck/C-Spine: COMMON NORMALS: thyroid normal THYROID: thyroid normal CAROTIDS: Yes normal carotid upstroke (and runoff) Chest: COMMONS NORMALS: inspection of chest normal Resp: COMMON NORMALS: clear to auscultation bilaterally EFFORT & INSPECTION: Yes symmetric chest movement and No uses accessory muscles AUSCULTATION: clear to auscultation bilaterally, no crackles and no wheezes Cardio: COMMON NORMALS: regular rate and regular rhythm PALPATION: no heave, no palpable S3 and no thrill RATE: regular rate RHYTHM: regular rhythm BRUITS: no abdominal aortic bruits PERIPHERAL PULSES: femoral pulses present positive bilateral (Normal), posterior tibial pulses present positive bilateral (Normal) and dorsalis pedis pulses present positive bilateral (Normal) GI: AUSCULTATION: Yes normoactive bowel sounds and No abdominal bruit PALPATION: No tender, No hepatomegaly, No splenomegaly and No mass Back/Pelvis: GENERAL BACK: No swelling and No other (joint deformities) THORACIC SPINE/UPPER BACK: No kyphosis present LUMBAR SPINE/LOWER BACK: No lumbar scoliosis present Extremity: COMMON NORMALS: negative for no clubbing, cyanosis or edema and negative for no pedal edema GENERAL: No cyanosis Neuro: COMMON NORMALS: oriented x3; negative for no focal motor deficits SENSORIUM/ORIENTATION: Yes alert MOTOR EXAM: No tremor Psych: MOOD & AFFECT: Yes other (Normal mood and affect) Skin: COMMON NORMALS: skin turgor normal; negative for no petechiae GENERAL SKIN EXAM: turgor normal, scars and other (Multiple needle lewis in the upper extremities) NAILS: no clubbing, not discolored and no other (cyanosis) Data Micro: Micro: Microbiology 09/04/19 16:50 Blood Culture - Pr eliminary Blood NEGATIVE TO EDWIN E 09/04/19 16:56 Blood Culture - Pr eliminary Blood NEGATIVE TO EDWIN E 09/03/19 10:32 Blood Culture - Pr eliminary Blood Staphylococcus aureus 09/03/19 09:50 Blood Culture - Pr eliminary Blood Staphylococcus aureus A&P Assessment and plan (1) 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: Most likely patient has endocarditis involving the right side of the heart valves. She has a history of methicillin sensitive staph aureus infection in January 2019. Her current blood culture also grew staph aureus. Hemodynamically she seems to be stable. Transthoracic echocardiogram is pending. She may require a transesophageal echocardiogram which will be decided after reviewing the transthoracic echocardiogram Status: Acute Code(s): I39 - 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 (2) IVDU (intravenous drug user): Patient has a history of multiple drug abuse. She is actively abusing IV methamphetamine. Clinical features may suggest endocarditis involving the right-sided valves . Hemodynamically she is stable. Status: Acute Code(s): F19.90 - Other psychoactive substance use, unspecified, uncomplicated (3) H/O mitral valve repair: Patient had a ASD repair and mitral valve repair as a 5-month-old child. Details are not available. No evidence of any ASD or significant mitral regurgitation based on the JESSE in January. The JESSE report is as mentioned below. Status: Acute Code(s): Z98.890 - Other specified postprocedural states (4) Tricuspid regurgitation: Had moderate tricuspid regurgitation by echocardiogram in January 2019. Most likely she may have infection involving the right-sided valves. Status: Acute Qualifiers: Cardiac valve disease etiology: nonrheumatic Qualified Code(s): I36.1 - Nonrheumatic tricuspid (valve) insufficiency Code(s): I07.1 - Rheumatic tricuspid insufficiency Additional A&P Information Additional A&P Information: Patient has a history of hepatitis?. Currently she has a mild anemia and hypokalemia. 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
[2019-09-05] MEDS: sodium chloride 0.9% 1,000 ML 75 ML IV (21:11)
[2019-09-05] MEDS: HYDROcodone-acetaminophen 5-325 mg Tablet 1 TAB PO (21:45)
[2019-09-06] VITALS: BP 98/66; PULSE 98; RESP 20; TEMP 37.7; O2SAT 96
[2019-09-06 04:00] VITALS: BP 105/73; PULSE 106; RESP 18; TEMP 39.3; O2SAT 94
[2019-09-06] MEDS: acetaminophen 325 mg Tablet 650 MG PO (04:44)
[2019-09-06 05:14] LABS: Basophils % 0.2 %; Eosinophils # 0.1 10^3/uL (0.0-0.8); Eosinophils % 0.7 %; Hemoglobin 10.9 g/dL (11.5-15.3); Lymphocytes # 0.7 10^3/uL (0.8-4.8); Mean Corpuscular HGB Conc 32.1 g/dL (30.0-36.0); Mean Corpuscular Hemoglobin 28.3 pg (28.0-34.0); Mean Corpuscular Volume 88.3 fL (81-99); Mean Platelet Volume 10.4 fL (7.4-10.4); Monocytes # 1.8 10^3/uL (0.2-0.9); Neutrophils # 6.5 10^3/uL (1.8-7.7); Neutrophils % 70.9 %; Nucleated Red Blood Cells % 0 %; Platelet Count 151 10^3/cmm (130-400); Red Blood Count 3.85 10^6/uL (4.1-5.3); Red Cell Distribution Width 13.9 % (12.1-15.1); White Blood Count 9.2 10^3/uL (4.0-10.0)
[2019-09-06 05:36] LABS: Alanine Aminotransferase 16 U/L (0-33); Alkaline Phosphatase 78 IU/L (35-105); Anion Gap 14.5 (5-19); Blood Urea Nitrogen 6 mg/dL (6-20); Calcium 8.4 mg/Dl (8.6-10.0); Carbon Dioxide 24 mmol/L (22-29); Chloride 96 mmol/L (98-107); Globulin 2.7 g/dL (1.3-4.6); Glomerular Filtration Rate 181.6 mL/min (90-130); Glucose 164 mg/dL (74-109); Potassium 3.5 mmol/L (3.5-5.1); Sodium 131 mmol/L (136-145); Total Bilirubin 0.2 mg/dL (0.15-1.2); Total Protein 5.7 g/dL (6.6-8.7)
[2019-09-06 05:56] LABS: Aspartate Amino Transferase 20 U/L (0-32)
[2019-09-06 07:53] VITALS: BP 90/64; RESP 18; TEMP 36.8; O2SAT 96
[2019-09-06] MEDS: sodium chloride 0.9% 1,000 ML 75 ML IV (08:22)
--- NOTE | 2019-09-06 10:07 | P.PN_ITS ---
Subjective Subjective: Interval history: Patient has been afebrile for the last 8 hours. She seems to be responding to the antibiotics. Still has some minimal pain in the right inframammary region, pleuritic type. The echocardiogram from yesterday revealed a moderate tricuspid regurgitation. Thickened tricuspid valve, septal leaflet. No obvious vegetations are noted. Medications: Reviewed: Yes (Patient is currently on vancomycin and ceftriaxone.) Medication Review Details: So far she has no medication side effects. Vitals/I&O/Wt Last Vital Signs Temp 98.2 F 09/06/19 07:53 Pulse 106 H 09/06/19 04:00 Resp 18 09/06/19 07:53 BP 90/64 09/06/19 07:53 Pulse Ox 96 09/06/19 07:53 T-max of 102.7 at 4 AM 09/05/19 09/06/19 09/06/19 22:59 06:59 14:59 Intake Total 530 / 1365.75 400 / 1765.75 838.75 / 838.75 Output Total 200 / 600 Balance 530 / 965.75 200 / 1165.75 838.75 / 838.75 Weight last 48 hrs Weight 181 lb Weight 181 lb 1.6 oz Weight 177 lb 1.6 oz Physical Exam Const: COMMON NORMALS: oriented x3, alert and well nourished GENERAL APPEARANCE: cooperative, well developed, anxious and diaphoretic HENMT: MOUTH: lip normal; no other (ulcers or bleeding) TEETH & GINGIVA: no other (bleeding observed and inflammation present) Eye: COMMON NORMALS: PERRL and conjunctivae normal (No hemorrhages or jaundice) CONJUNCTIVA: Yes conjunctivae normal (No hemorrhages or jaundice) SCLERA: sclerae normal (No discolorations) PUPIL: Yes PERRL OTHER: Minimal pallor. No icterus or lymphadenopathy. Neck/C-Spine: COMMON NORMALS: thyroid normal THYROID: thyroid normal CAROTIDS: Yes normal carotid upstroke (and runoff) Chest: COMMONS NORMALS: inspection of chest normal Resp: COMMON NORMALS: clear to auscultation bilaterally EFFORT & INSPECTION: Yes symmetric chest movement and No uses accessory muscles AUSCULTATION: clear to auscultation bilaterally, no crackles and no wheezes Cardio: COMMON NORMALS: regular rate and regular rhythm PALPATION: no heave, no palpable S3 and no thrill RATE: regular rate RHYTHM: regular rhythm BRUITS: no abdominal aortic bruits PERIPHERAL PULSES: femoral pulses present positive bilateral (Normal), posterior tibial pulses present positive bilateral (Normal) and dorsalis pedis pulses present positive bilateral (Normal) GI: AUSCULTATION: Yes normoactive bowel sounds and No abdominal bruit PALPATION: No tender, No hepatomegaly, No splenomegaly and No mass Back/Pelvis: GENERAL BACK: No swelling and No other (joint deformities) THORACIC SPINE/UPPER BACK: No kyphosis present LUMBAR SPINE/LOWER BACK: No lumbar scoliosis present Extremity: COMMON NORMALS: negative for no clubbing, cyanosis or edema and negative for no pedal edema GENERAL: No cyanosis Neuro: COMMON NORMALS: oriented x3; negative for no focal motor deficits SENSORIUM/ORIENTATION: Yes alert MOTOR EXAM: No tremor Psych: MOOD & AFFECT: Yes other (Normal mood and affect) Skin: COMMON NORMALS: skin turgor normal; negative for no petechiae GENERAL SKIN EXAM: turgor normal, scars and other (Multiple needle lewis in the upper extremities) NAILS: no clubbing, not discolored and no other (cyanosis) Data Micro: Micro: Microbiology 09/06/19 05:45 Blood Culture - Pr eliminary Blood SPECIMEN [facility] 09/06/19 05:45 Blood Culture - Pr eliminary Blood SPECIMEN [facility] 09/04/19 16:50 Blood Culture - Pr eliminary Blood Gram positive c occi 09/04/19 16:56 Blood Culture - Pr eliminary Blood Gram positive c occi 09/03/19 10:32 Blood Culture - Pr eliminary Blood Staphylococcus aureus 09/03/19 09:50 Blood Culture - Pr eliminary Blood Staphylococcus aureus Imaging^: Echo: My impression: Normal left ventricular size and systolic function, EF 60 %. No gross wall motion normalities. Mildly increased right atrial size. Thickened aortic valve. Mild aortic valve regurgitation. Thickening in the septal leaflet of the tricuspid valve. Some echodensity was noted in the chordal structures attached to the septal leaflet. No definite vegetations are note. Estimated pulmonary artery peak systolic pressure of 39 mmHg No pericardial effusion No atrial septal defect, based on color flow Doppler examination Compared to the previous study from January 2019, there may not be a significant change. However because of the difference in the technical quality, exact comparison is difficult A&P Assessment and plan (1) 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: Most likely patient has endocarditis involving the right sided heart valves. She has a history of methicillin sensitive staph aureus infection in January 2019. Her current blood culture also grew staph aureus. Hemodynamically she seems to be stable. The echocardiogram findings are as mentioned below. We may consider doing a transesophageal echocardiogram next week. Status: Acute Code(s): I39 - 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 (2) IVDU (intravenous drug user): Patient has a history of multiple drug abuse. She is actively abusing IV methamphetamine. Clinical features may suggest endocarditis involving the right-sided valves . Hemodynamically she is stable. Status: Acute Code(s): F19.90 - Other psychoactive substance use, unspecified, uncomplicated (3) H/O mitral valve repair: Patient had a ASD repair and mitral valve repair as a 5-month-old child. Details are not available. No evidence of any ASD or significant mitral regurgitation based on the JESSE in January. The JESSE report is as mentioned below. Status: Acute Code(s): Z98.890 - Other specified postprocedural states (4) Tricuspid regurgitation: There is no worsening of the tricuspid irritation, based on the repeat echocardiogram. Status: Acute Qualifiers: Cardiac valve disease etiology: nonrheumatic Qualified Code(s): I36.1 - Nonrheumatic tricuspid (valve) insufficiency Code(s): I07.1 - Rheumatic tricuspid insufficiency Additional A&P Information Additional A&P Information: Patient has a history of hepatitis?. Currently she has a mild anemia and hypokalemia. 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
[2019-09-06 11:32] VITALS: BP 94/62; PULSE 87; RESP 18; TEMP 37.1; O2SAT 93
--- NOTE | 2019-09-06 11:50 | PM.PN ---
Subjective Subjective: Interval history: Patient reports feeling better today, no further fever or chills. She stated that her rib pain is slightly improved. Discussed with patient blood culture findings and concern for bacterial endocarditis, she verbalized understanding Vitals/I&O/Wt Last Vital Signs Temp 98.7 F 09/06/19 11:32 Pulse 87 09/06/19 11:32 Resp 18 09/06/19 11:32 BP 94/62 09/06/19 11:32 Pulse Ox 93 09/06/19 11:32 09/05/19 09/06/19 09/06/19 22:59 06:59 14:59 Intake Total 530 / 1365.75 400 / 1765.75 1898.75 / 1898.75 Output Total 200 / 600 Balance 530 / 965.75 200 / 1165.75 1898.75 / 1898.75 Weight last 48 hrs Weight 82.1 kg Weight 82.146 kg Weight 80.331 kg Physical Exam Const: COMMON NORMALS: oriented x3 and alert GENERAL APPEARANCE: cooperative ORIENTATION/CONSCIOUSNESS: Yes awake, Yes oriented to person, Yes oriented to place and Yes oriented to time HENMT: COMMON NORMALS: normocephalic and head/scalp atraumatic HEAD & SCALP: normocephalic and atraumatic Eye: COMMON NORMALS: PERRL PUPIL: Yes PERRL Neck/C-Spine: COMMON NORMALS: supple GENERAL: Yes normal visual inspection Resp: COMMON NORMALS: clear to auscultation bilaterally AUSCULTATION: clear to auscultation bilaterally, no rhonchi and no wheezes Cardio: OTHER: Regular rate and regular rhythm, faint systolic murmur GI: COMMON NORMALS: soft to palpation and non-tender INSPECTION: No abdominal distension AUSCULTATION: Yes normoactive bowel sounds PALPATION: Yes soft : COMMON NORMALS: Yes no CVA tenderness BLADDER/KIDNEY EXAM: Yes no CVA tenderness Back/Pelvis: COMMON NORMALS: no CVA tenderness Extremity: COMMON NORMALS: no clubbing, cyanosis or edema and no calf tenderness Neuro: COMMON NORMALS: oriented x3, CN's II-XII intact bilaterally, moves all extremities and no focal motor deficits SENSORIUM/ORIENTATION: Yes alert, Yes oriented to person, Yes oriented to place and Yes oriented to time SPEECH: speech normal Psych: COMMON NORMALS: mental status grossly normal and cooperative Skin: NARRATIVE SKIN EXAM: Multiple track lewis over the upper extremities Data Micro: Micro: Microbiology 09/06/19 05:45 Blood Culture - Pr eliminary Blood SPECIMEN [facility] 09/06/19 05:45 Blood Culture - Pr eliminary Blood SPECIMEN [facility] 09/04/19 16:50 Blood Culture - Pr eliminary Blood Gram positive c occi 09/04/19 16:56 Blood Culture - Pr eliminary Blood Gram positive c occi 09/03/19 10:32 Blood Culture - Pr eliminary Blood Staphylococcus aureus 09/03/19 09:50 Blood Culture - Pr eliminary Blood Staphylococcus aureus A&P Assessment and plan (1) Sepsis: Sepsis with concern for recent IV drug use and a history of MSSA bacteremia. Continue on broad-spectrum IV antibiotics with vancomycin and Rocephin. Blood cultures showing staph aureus at this time, will continue to follow with results Patient with multiple septic emboli on CTA as noted above Dr. Pena consulted, appreciate recommendations and assistance in patient's care. Plan for JESSE Status: Acute Qualifiers: Sepsis acute organ dysfunction status: with acute organ dysfunction Sepsis type: sepsis due to unspecified organism Severe sepsis acute organ dysfunction type: unspecified Severe sepsis shock status: without septic shock Qualified Code(s): A41.9 - Sepsis, unspecified organism; R65.20 - Severe sepsis without septic shock Code(s): A41.9 - Sepsis, unspecified organism (2) IVDU (intravenous drug user): Patient reports regular IV drug use with methamphetamines, last use 2 days prior to admission Status: Acute Code(s): F19.90 - Other psychoactive substance use, unspecified, uncomplicated (3) Congenital mitral valve prolapse: Reports congenital heart defect with what sounds like VSD repair and mitral valve repair as a child Status: Resolved Code(s): Q23.8 - Other congenital malformations of aortic and mitral valves Additional A&P Information Additional A&P Information: Will continue on broad-spectrum antibiotics until further microbiology returns. 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
[2019-09-06] MEDS: cefTRIAXone 2,000 MG in sodium chloride 0.9% (plus) 50 ML 100 MG IV (13:14)
[2019-09-06] MEDS: enoxaparin 40 mg/0.4 mL Syringe SUBCUT (15:22)
[2019-09-06] MEDS: HYDROcodone-acetaminophen 5-325 mg Tablet 1 TAB PO ×2 (15:22→21:29)
[2019-09-06 15:33] VITALS: BP 94/64; PULSE 90; RESP 18; TEMP 37.7; O2SAT 98
[2019-09-06 16:34] LABS: Vancomycin Trough 8.1 ug/mL (10-15)
[2019-09-06 19:35] VITALS: BP 91/61; PULSE 84; RESP 18; TEMP 37.7; O2SAT 95
[2019-09-07] VITALS: BP 92/59; PULSE 93; RESP 20; TEMP 37.1; O2SAT 93
--- NOTE | 2019-09-07 00:16 | PC.PHAR ---
Trough level is 8.1. Vancomycin dosage is adjusted from 1250mg IVPB every 12 hours to 1500mg IVPB every 12 hours with another trough to be obtained before the third 1500mg dose.
[2019-09-07 04:00] VITALS: BP 88/65; PULSE 91; RESP 24; TEMP 37.2; O2SAT 95
[2019-09-07 07:31] VITALS: BP 90/62; PULSE 89; RESP 20; TEMP 37.5; O2SAT 96
[2019-09-07] MEDS: HYDROcodone-acetaminophen 5-325 mg Tablet 1 TAB PO ×2 (08:45→20:51)
[2019-09-07] MEDS: ondansetron 2 mg/ML SDV 2 mL 4 MG IVP ×2 (09:37→17:32)
--- NOTE | 2019-09-07 10:10 | PM.PN ---
Subjective Subjective: Interval history: Patient resting comfortably in bed at time of exam this morning. Reported slightly improved pleuritic chest pain on the right, no nausea or vomiting, tolerating regular diet. She verbalizes understanding for continued hospitalization and need for further work-up due to MSSA bacteremia and concern for endocarditis Vitals/I&O/Wt Last Vital Signs Temp 99.5 F 09/07/19 07:31 Pulse 89 09/07/19 07:31 Resp 20 H 09/07/19 07:31 BP 90/62 09/07/19 07:31 Pulse Ox 96 09/07/19 07:31 09/06/19 09/07/19 09/07/19 22:59 06:59 14:59 Intake Total 240 / 240 Output Total 200 / 200 300 / 500 Balance -200 / 2170.75 -300 / 1870.75 240 / 240 Weight last 48 hrs Weight 79.18 kg Weight 82.1 kg Weight 82.146 kg Physical Exam Const: COMMON NORMALS: oriented x3 and alert GENERAL APPEARANCE: cooperative ORIENTATION/CONSCIOUSNESS: Yes awake, Yes oriented to person, Yes oriented to place and Yes oriented to time HENMT: COMMON NORMALS: normocephalic and head/scalp atraumatic HEAD & SCALP: normocephalic and atraumatic Eye: COMMON NORMALS: PERRL PUPIL: Yes PERRL Neck/C-Spine: COMMON NORMALS: supple GENERAL: Yes normal visual inspection Resp: COMMON NORMALS: clear to auscultation bilaterally AUSCULTATION: clear to auscultation bilaterally, no rhonchi and no wheezes Cardio: OTHER: Regular rate and regular rhythm, faint systolic murmur GI: COMMON NORMALS: soft to palpation and non-tender INSPECTION: No abdominal distension AUSCULTATION: Yes normoactive bowel sounds PALPATION: Yes soft : COMMON NORMALS: Yes no CVA tenderness BLADDER/KIDNEY EXAM: Yes no CVA tenderness Back/Pelvis: COMMON NORMALS: no CVA tenderness Extremity: COMMON NORMALS: no clubbing, cyanosis or edema and no calf tenderness Neuro: COMMON NORMALS: oriented x3, CN's II-XII intact bilaterally, moves all extremities and no focal motor deficits SENSORIUM/ORIENTATION: Yes alert, Yes oriented to person, Yes oriented to place and Yes oriented to time SPEECH: speech normal Psych: COMMON NORMALS: mental status grossly normal and cooperative Skin: NARRATIVE SKIN EXAM: Multiple track lewis over the upper extremities Data Micro: Micro: Microbiology 09/06/19 05:45 Blood Culture - Pr eliminary Blood NEGATIVE TO EDWIN E 09/06/19 05:45 Blood Culture - Pr eliminary Blood NEGATIVE TO EDWIN E 09/03/19 10:32 Blood Culture - Fi nal Blood Staphylococcus aureus 09/03/19 09:50 Blood Culture - Fi nal Blood Staphylococcus aureus A&P Assessment and plan (1) Sepsis: Sepsis with concern for recent IV drug use and a history of MSSA bacteremia/bacterial endocarditis Dr. Pena consulted for JESSE Will discuss with infectious disease specialist, LUZ MARINA on vancomycin of 2, will continue with both agents at this time until further recommendations obtained due to patient's recurrence of bacteremia Status: Acute Qualifiers: Sepsis acute organ dysfunction status: with acute organ dysfunction Sepsis type: sepsis due to unspecified organism Severe sepsis acute organ dysfunction type: unspecified Severe sepsis shock status: without septic shock Qualified Code(s): A41.9 - Sepsis, unspecified organism; R65.20 - Severe sepsis without septic shock Code(s): A41.9 - Sepsis, unspecified organism (2) IVDU (intravenous drug user): Patient reports regular IV drug use with methamphetamines, last use 2 days prior to admission Status: Acute Code(s): F19.90 - Other psychoactive substance use, unspecified, uncomplicated (3) Congenital mitral valve prolapse: Reports congenital heart defect with what sounds like VSD repair and mitral valve repair as a child Status: Resolved Code(s): Q23.8 - Other congenital malformations of aortic and mitral valves Additional A&P Information Additional A&P Information: . Attestations Medical Necessity Statement*: Patient requires further hospitalization due to bacterial endocarditis with MSSA bacteremia and IV drug use with recurrence of bacterial endocarditis Coding Level of Care Code Acute Street Supervisor for [facility] Diagnoses Sepsis A41.9; R65.20 Sepsis acute organ dysfunction status: with acute organ dysfunction Sepsis type: sepsis due to unspecified organism Severe sepsis acute organ dysfunction type: unspecified Severe sepsis shock status: without septic shock IVDU (intravenous drug user) F19.90 Congenital mitral valve prolapse Q23.8
--- NOTE | 2019-09-07 10:58 | PC.NURSE ---
Pt had episode of emesis this am stating I just got real hot and nauseated . Cool washcloths placed on forehead. PRN zofran administered with relief noted.
[2019-09-07 11:35] VITALS: BP 93/63; PULSE 72; RESP 18; TEMP 37.3; O2SAT 94
[2019-09-07] MEDS: cefTRIAXone 2,000 MG in sodium chloride 0.9% (plus) 50 ML 100 MG IV (12:32)
--- NOTE | 2019-09-07 13:42 | PM.PN ---
Subjective Subjective: Interval history: Patient continues to remain afebrile. Denies any chest pain or shortness of breath. No chills. No unusual shortness of breath. The echocardiogram from 09/05/2019 revealed a moderate tricuspid regurgitation. Thickened tricuspid valve, septal leaflet. No obvious vegetations are noted. Medications: Reviewed: Yes (Patient is currently on vancomycin and ceftriaxone.) Medication Review Details: So far she has no medication side effects. Vitals/I&O/Wt Last Vital Signs Temp 99.1 F 09/07/19 11:35 Pulse 72 09/07/19 11:35 Resp 18 09/07/19 11:35 BP 93/63 09/07/19 11:35 Pulse Ox 94 09/07/19 11:35 09/06/19 09/07/19 09/07/19 22:59 06:59 14:59 Intake Total 240 / 240 Output Total 200 / 200 300 / 500 Balance -200 / 2220.75 -300 / 1920.75 240 / 240 Weight last 48 hrs Weight 174 lb 9 oz Weight 181 lb Weight 181 lb 1.6 oz Physical Exam Const: COMMON NORMALS: oriented x3, alert and well nourished GENERAL APPEARANCE: cooperative, well developed, anxious and diaphoretic HENMT: MOUTH: lip normal; no other (ulcers or bleeding) TEETH & GINGIVA: no other (bleeding observed and inflammation present) Eye: COMMON NORMALS: PERRL and conjunctivae normal (No hemorrhages or jaundice) CONJUNCTIVA: Yes conjunctivae normal (No hemorrhages or jaundice) SCLERA: sclerae normal (No discolorations) PUPIL: Yes PERRL OTHER: Minimal pallor. No icterus or lymphadenopathy. Neck/C-Spine: COMMON NORMALS: thyroid normal THYROID: thyroid normal CAROTIDS: Yes normal carotid upstroke (and runoff) Chest: COMMONS NORMALS: inspection of chest normal Resp: COMMON NORMALS: clear to auscultation bilaterally EFFORT & INSPECTION: Yes symmetric chest movement and No uses accessory muscles AUSCULTATION: clear to auscultation bilaterally, no crackles and no wheezes Cardio: COMMON NORMALS: regular rate JUGULAR VENOUS DISTENTION: JVD present PALPATION: normal PMI, no heave, no palpable S3 and no thrill RATE: regular rate HEART SOUNDS: murmur systolic Location: left sternal border (Grade 3/6) Intensity: III/ Timing: early and no rubs BRUITS: no abdominal aortic bruits PERIPHERAL PULSES: femoral pulses present positive bilateral (Normal), posterior tibial pulses present positive bilateral (Normal) and dorsalis pedis pulses present positive bilateral (Normal) GI: AUSCULTATION: Yes normoactive bowel sounds and No abdominal bruit PALPATION: No tender, No hepatomegaly, No splenomegaly and No mass Back/Pelvis: GENERAL BACK: No swelling and No other (joint deformities) THORACIC SPINE/UPPER BACK: No kyphosis present LUMBAR SPINE/LOWER BACK: No lumbar scoliosis present Extremity: COMMON NORMALS: negative for no clubbing, cyanosis or edema and negative for no pedal edema GENERAL: No cyanosis Neuro: COMMON NORMALS: oriented x3; negative for no focal motor deficits SENSORIUM/ORIENTATION: Yes alert MOTOR EXAM: No tremor Psych: MOOD & AFFECT: Yes other (Normal mood and affect) Skin: GENERAL SKIN EXAM: no ecchymo, no erythema, scars (Multiple needle lewis) and other (Multiple needle lewis in the upper extremities) NAILS: no clubbing, not discolored and no other (cyanosis) Data Micro: Micro: Microbiology 09/04/19 16:50 Blood Culture - Pr eliminary Blood Staphylococcus aureus 09/06/19 05:45 Blood Culture - Pr eliminary Blood NEGATIVE TO EDWIN E 09/06/19 05:45 Blood Culture - Pr eliminary Blood NEGATIVE TO EDWIN E 09/03/19 10:32 Blood Culture - Fi nal Blood Staphylococcus aureus 09/03/19 09:50 Blood Culture - Fi nal Blood Staphylococcus aureus A&P Assessment and plan (1) 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: Most likely patient has endocarditis involving the right sided heart valves. She has a history of methicillin sensitive staph aureus infection in January 2019. Her current blood culture also grew staph aureus. Hemodynamically she seems to be stable. The echocardiogram findings are as mentioned below. Because of the recurrent endocarditis, I may go and and schedule her for a transesophageal echocardiogram tomorrow. The need for the test was discussed with the patient detail which she understood well. The sensitivity of the organism is still pending Status: Acute Code(s): I39 - 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 (2) IVDU (intravenous drug user): Patient has a history of multiple drug abuse. She is actively abusing IV methamphetamine. Clinical features may suggest endocarditis involving the right-sided valves . Hemodynamically she is stable. Patient is strongly advised to quit the current lifestyle. The implications were once again discussed Status: Acute Code(s): F19.90 - Other psychoactive substance use, unspecified, uncomplicated (3) H/O mitral valve repair: Patient had a ASD repair and mitral valve repair as a 5-month-old child. Details are not available. No evidence of any ASD or significant mitral regurgitation based on the JESSE in January. The JESSE report is as mentioned below. Status: Acute Code(s): Z98.890 - Other specified postprocedural states (4) Tricuspid regurgitation: There is no worsening of the tricuspid regurgitation , based on the repeat echocardiogram. After reviewing the repeat JESSE, further recommendations will be made Status: Acute Qualifiers: Cardiac valve disease etiology: nonrheumatic Qualified Code(s): I36.1 - Nonrheumatic tricuspid (valve) insufficiency Code(s): I07.1 - Rheumatic tricuspid insufficiency Additional A&P Information Additional A&P Information: Patient has a history of hepatitis?. Currently she has a mild anemia and hypokalemia. Attestations Medical Necessity Statement*: Patient requires continued hospital stay for close monitoring and further management Coding Level of Care Code Acute Storage Facility Housekeeper for [facility] Fwd Exam Problem Focused Diagnoses 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 I39 IVDU (intravenous drug user) F19.90 H/O mitral valve repair Z98.890 Tricuspid regurgitation I36.1 Cardiac valve disease etiology: nonrheumatic
[2019-09-07] MEDS: enoxaparin 40 mg/0.4 mL Syringe SUBCUT (14:22)
[2019-09-07 15:29] VITALS: BP 101/68; PULSE 75; RESP 18; TEMP 37; O2SAT 99
--- NOTE | 2019-09-07 19:12 | PC.NURSE ---
Introduction of staff and report received, aidet.
[2019-09-07 19:35] VITALS: BP 92/67; PULSE 83; RESP 22; TEMP 37.2; O2SAT 96
[2019-09-08] VITALS (12 sets, daily range): BP systolic 85–97; BP diastolic 59–68; PULSE 71–90; RESP 16–26; TEMP 36.8–37.6; O2SAT 92–99; BMI 29.7
[2019-09-08 00:32] LABS: Hepatitis A Antibody IgM. Non-Reactive (Nonreactive); Hepatitis B Core IgM Non-Reactive (Nonreactive); Hepatitis B Surface Antigen. Non-Reactive (Nonreactive); Hepatitis C Virus Antibody Reactive (Nonreactive)
--- NOTE | 2019-09-08 08:30 | USCV_ITS ---
Margarita Cortes Age: 34 Gender: F : 1985 Exam Date: 09/08/2019 09:02 Ordering Phys: Cameron Pena MD ([email or web address]) Technologist: Jaswant Meyers Exam Location: [facility] [place] Indication: ENDOCARDITIS BP: / HR: Rhythm: Sinus Technical Quality: MEASUREMENTS (Male / Female) Normal Values Medications Propofol, administered by anesthesia service. Please refer to the anesthesia report for details Complications None Proc. Components The patient was brought to the JESSE examination room(CSU) in a fasting state after obtaining an informed consent. The JESSE probe was passed into the posterior pharynx , mid-esophagus, distal esophagus, and gastric fundus. JESSE was performed at multiple levels. The patient tolerated the procedure well and there were no complications. FINDINGS Left Ventricle Normal left ventricular size and systolic function, EF around 55% Right Ventricle Normal size and ejection fraction. Right Atrium No gross abnormalities noted . Intracavitary masses Left Atrium No intracavitary masses. LA Appendage Appendage is of normal size and contractility. No intracavitary masses noted. IA Septum The septum appeared to be intact with no evidence of any atrial septal defect or patent foramen ovale, by color flow Doppler examination or by saline contrast injection Mitral Valve Normal morphology with no significant lesions. Masses or vegetations noted Aortic Valve The valve is minimally thickened with trace of aortic regurgitation Tricuspid Valve Anterior and the posterior leaflet of the tricuspid valve was found to be thickened with echodensities , appears to be extending into the chordal structures. There is a globular pedunculated lesion, measuring 0.6 x 0.5 cm, possibly attached to one of the chordae of the posterior leaflet with a central echolucency and has minimal free mobility. Mild to moderate tricuspid regurgitation, eccentric. Pulmonic Valve Patient be of normal morphology with no significant abnormality. No masses or vegetations noted Pericardium No pericardial effusion Aorta Was of normal size CONCLUSIONS This exam was completed on a TosmiiCard Aplio 500 with a PET-512MC Transesophogeal transducer. #1. Multiple echodensities on the ventricular side of the posterior and anterior leaflets of the tricuspid valve, possibly involving the chordal structures, may suggest a vegetation , but is very atypical. Post surgical changes is a consideration(she has a history of valve surgery as an infant) #2. Mild to moderate tricuspid regurgitation. #3. Thickened aortic valve with trace of aortic regurgitation #4. No other intracardiac masses. #5. No evidence of ASD or patent foramen ovale, based on the color flow Doppler examination #6. Normal LV size and ejection fraction Compared to the study from 01/30/2019, the echodense mass lesions appear to be new Dr Cameron Pena MD FACC (Electronically Signed) Final Date: 08 September 2019 18:16 S
--- NOTE | 2019-09-08 09:14 | P.ANES_ITS ---
Pre-Anesthetic Assessment Pre-Anesthetic Assessment: Height/Weight: Height 1.63 m Weight 78.471 kg Temp Pulse Resp BP Pulse Ox 99.6 F 85 26 H 89/68 95 09/08/19 09:04 09/08/19 09:04 09/08/19 09:04 09/08/19 09:04 09/08/19 09:04 Preop Diagnosis: Sepsis Proposed Procedure: Operation Date: 09/08/19 09:00 Proposed Procedures p JESSE (Transesophageal Echocardiogram)(Left) - Cameron Pena MD Familial anesthetic complications: No trouble with anesthesia Was Beta Jae taken within 24 hours: N/A Last intake: Dinner at 1600 yesterday 09/07 Social: Social History: No alcohol and No tobacco Comment: methamphetamine use (last used 2 days before hospital admission) Exam: Pre-Anes Outpt Exam: alert, oriented x 3, clear to auscultation bilaterally and regular rate & rhythm Additional Exam Findings (including area of procedure): Murmur Airway: Cervical ROM: WNL MP: 3 Additional comments: Chipped and missing teeth Pulmonary: Pulmonary: None reported Comments: Not currently short of milvia th, did feel short of breath with admission whenever she would bend over CV/HEM: Comments: Hx of ASD repair and MV repair as [age] year old child; currently with murmur, concern for infective endocarditis as patient is IVDU and high fever : : None reported Hepatic: Hepatic: None reported GI: GI: None reported Metabolic: Metabolic: None reported Musc/skel: Musc/skel: None reported Neuropsych: Neuropsych: None reported Anesthetic Plan: ASA status: IV Anesthesia: MAC Risk of > 500 ml blood loss (7ml/kg in children): No Meds/Allergies Current Medications: Current Medications Generic Name Dose Route Start Last Admin Trade Name Freq PRN Reason Stop Dose Admin Acetaminophen 650 mg 09/03/19 15:10 09/06/19 04:44 Tylenol PO 650 mg Q6H PRN Administration Mild/Mod Pain Or Temp >/= 101 Hydrocodone Bitart /Acetaminophen 1 tab 09/03/19 15:10 09/07/19 20:51 Burley 5-325 Mg PO 1 tab Q4H PRN Administration MODERATE TO SEVER E PAIN Enoxaparin Sodium 40 mg 09/03/19 15:15 09/07/19 14:22 Lovenox SUBCUT 40 mg Q24H TONA Administration Ceftriaxone Sodium 2,000 mg/ 50 mls @ 100 mls/ hr 09/04/19 13:00 09/07/19 14:00 Sodium Chloride IV Infused Q24H TONA Infusion Protocol Vancomycin HCl 1,5 00 mg/ 250 mls @ 250 mls /hr 09/07/19 10:00 09/07/19 23:30 Sodium Chloride IV Infused Q12H TONA Infusion Ondansetron HCl 4 mg 09/03/19 15:10 09/07/19 17:32 Zofran IVP 4 mg Q8H PRN Administration vomiting, or N/V if npo PFSH Anesthesia PFSH: Medical History (Updated 09/05/19 @ 18:33 by Cameron Pena MD) Congenital mitral valve prolapse (Resolved) 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 (Acute) History of bacteremia (Acute) IVDU (intravenous drug user) (Acute) Known to have moderate tricuspid irritation based on the echocardiogram during the previous hospital admission. Substance abuse (Acute) Tricuspid regurgitation (Acute) Surgical History (Updated 09/06/19 @ 13:48 by Cameron Pena MD) H/O mitral valve repair (Acute) History of appendectomy (Acute) History of (Acute) x2 History of hysterectomy (Acute) Family History (Updated 09/05/19 @ 18:29 by Cameron Pena MD) Father Hepatitis C Mother Lung disease Grandfather Congenital heart disease ASD with the mitral valve prolapse Social History Smoking and tobacco status: never smoked Alcohol intake: never Substance/Drug Use: current Substance/Drug use frequency: few times a week Substance/Drug use type: Marijuana, IV Drugs and Methamphetamine Data Anesthesia CBC & Chem 7: 09/06/19 04:56 09/06/19 04:56 Other Labs: Laboratory Results - last 48 hr 09/04/19 09/06/19 09:50 04:56 Vancomycin Trough 8.1 L Hepatitis A IgM Ab Non-reactive Hep Bs Antigen Non-reactive Hep B Core IgM Ab Non-reactive Hepatitis C Antibody Reactive Micro: Microbiology 09/04/19 16:50 Blood Culture - Preliminary Blood Staphylococcus aureus 09/06/19 05:45 Blood Culture - Preliminary Blood NEGATIVE TO DATE 09/06/19 05:45 Blood Culture - Preliminary Blood NEGATIVE TO DATE Cardiac Studies: No Data to Display
[2019-09-08] MEDS: sodium chloride 0.9% 1,000 ML 30 ML IV (09:50)
--- NOTE | 2019-09-08 10:08 | SUR.PHASEI ---
Patient reports no pain at this time.
--- NOTE | 2019-09-08 10:15 | SUR.PHASEI ---
Post procedure. No pain reported. Responds to verbal and tactile stimuli. Patient at pre procedure baseline. MD discussed findings with the patient. No c/o at this time or questions. Returned to floor via wheelchair. Report to Danna BRAMBILA.
[2019-09-08 12:03] LABS: Vancomycin Trough 4.7 ug/mL (10-15)
[2019-09-08] MEDS: ondansetron 4 MG Tablet PO (14:22)
[2019-09-08] MEDS: nafcillin 2,000 MG in sodium chloride 0.9% (plus) 50 ML 50 MG IV ×3 (14:23→22:09)
--- NOTE | 2019-09-08 14:24 | P.PN_ITS ---
Subjective Subjective: Interval history: Patient awake in bed at time of exam this afternoon. Reported that she has some nausea after JESSE today, no other concerns. Reported slight improvement in her pleuritic pain on the right Medications: Reviewed: Yes (Patient is currently on vancomycin and ceftriaxone.) Vitals/I&O/Wt Last Vital Signs Temp 98.9 F 09/08/19 11:28 Pulse 71 09/08/19 11:28 Resp 18 09/08/19 13:05 BP 91/62 09/08/19 11:28 Pulse Ox 95 09/08/19 13:05 09/07/19 09/08/19 09/08/19 22:59 06:59 14:59 Intake Total 720 / 1500 250 / 1750 460 / 460 Balance 720 / 1500 250 / 1750 460 / 460 Weight last 48 hrs Weight 78.471 kg Weight 78.67 kg Weight 79.18 kg Physical Exam Const: COMMON NORMALS: oriented x3 and alert GENERAL APPEARANCE: cooperative ORIENTATION/CONSCIOUSNESS: Yes awake, Yes oriented to person, Yes oriented to place and Yes oriented to time HENMT: COMMON NORMALS: normocephalic and head/scalp atraumatic HEAD & SCALP: normocephalic and atraumatic Eye: COMMON NORMALS: PERRL PUPIL: Yes PERRL Neck/C-Spine: COMMON NORMALS: supple GENERAL: Yes normal visual inspection Resp: COMMON NORMALS: clear to auscultation bilaterally AUSCULTATION: clear to auscultation bilaterally, no rhonchi and no wheezes Cardio: OTHER: Regular rate and regular rhythm, faint systolic murmur GI: COMMON NORMALS: soft to palpation and non-tender INSPECTION: No abdominal distension AUSCULTATION: Yes normoactive bowel sounds PALPATION: Yes soft Extremity: COMMON NORMALS: no clubbing, cyanosis or edema and no calf tenderness Neuro: COMMON NORMALS: oriented x3, CN's II-XII intact bilaterally, moves all extremities and no focal motor deficits SENSORIUM/ORIENTATION: Yes alert, Yes oriented to person, Yes oriented to place and Yes oriented to time SPEECH: speech normal Psych: COMMON NORMALS: mental status grossly normal and cooperative Data Micro: Micro: Microbiology 09/04/19 16:50 Blood Culture - Pr eliminary Blood Staphylococcus aureus A&P Assessment and plan (1) Sepsis: 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 Pena Status: Acute Qualifiers: Sepsis acute organ dysfunction status: with acute organ dysfunction Sepsis type: sepsis due to unspecified organism Severe sepsis acute organ dysfunction type: unspecified Severe sepsis shock status: without septic shock Qualified Code(s): A41.9 - Sepsis, unspecified organism; R65.20 - Severe sepsis without septic shock Code(s): A41.9 - Sepsis, unspecified organism (2) IVDU (intravenous drug user): Patient reports regular IV drug use with methamphetamines, last use 2 days prior to admission Status: Acute Code(s): F19.90 - Other psychoactive substance use, unspecified, uncomplicated (3) Congenital mitral valve prolapse: Reports congenital heart defect with what sounds like VSD repair and mitral valve repair as a child Status: Resolved Code(s): Q23.8 - Other congenital malformations of aortic and mitral valves Attestations Medical Necessity Statement*: Patient requires continued hospitalization due to bacterial endocarditis Coding Level of Care Code Acute Help Desk Support for [facility] Diagnoses Sepsis A41.9; R65.20 Sepsis acute organ dysfunction status: with acute organ dysfunction Sepsis type: sepsis due to unspecified organism Severe sepsis acute organ dysfunction type: unspecified Severe sepsis shock status: without septic shock IVDU (intravenous drug user) F19.90 Congenital mitral valve prolapse Q23.8
[2019-09-08] MEDS: enoxaparin 40 mg/0.4 mL Syringe SUBCUT (16:42)
[2019-09-08] MEDS: HYDROcodone-acetaminophen 5-325 mg Tablet 1 TAB PO (16:52)
--- NOTE | 2019-09-08 19:54 | PM.PN ---
Subjective Subjective: Interval history: Patient continues to remain afebrile. Denies any chest pain or shortness of breath. No chills. No unusual shortness of breath. The echocardiogram from 09/05/2019 revealed a moderate tricuspid regurgitation. Thickened tricuspid valve, septal leaflet. No obvious vegetations are noted. She has the transesophageal echocardiogram today. She was found to have echodense mass on the ventricular side of the tricuspid leaflets-both anterior and posterior. There was a small globular pedunculated mass as well on the ventricular side. Medications: Reviewed: Yes (Patient is currently on vancomycin and ceftriaxone.) Medication Review Details: So far she has no medication side effects. Vitals/I&O/Wt Last Vital Signs Temp 99.0 F 09/08/19 15:17 Pulse 90 09/08/19 15:17 Resp 20 H 09/08/19 15:17 BP 86/59 09/08/19 15:17 Pulse Ox 99 09/08/19 15:17 09/08/19 09/08/19 09/08/19 06:59 14:59 22:59 Intake Total 250 / 1750 460 / 460 50 / 510 Balance 250 / 1750 460 / 460 50 / 510 Weight last 48 hrs Weight 173 lb Weight 173 lb 7 oz Weight 174 lb 9 oz Physical Exam Const: COMMON NORMALS: oriented x3, alert and well nourished GENERAL APPEARANCE: cooperative, well developed, anxious and diaphoretic HENMT: MOUTH: lip normal; no other (ulcers or bleeding) TEETH & GINGIVA: no other (bleeding observed and inflammation present) Eye: COMMON NORMALS: PERRL and conjunctivae normal (No hemorrhages or jaundice) CONJUNCTIVA: Yes conjunctivae normal (No hemorrhages or jaundice) SCLERA: sclerae normal (No discolorations) PUPIL: Yes PERRL OTHER: Minimal pallor. No icterus or lymphadenopathy. Neck/C-Spine: COMMON NORMALS: thyroid normal THYROID: thyroid normal CAROTIDS: Yes normal carotid upstroke (and runoff) Chest: COMMONS NORMALS: inspection of chest normal Resp: COMMON NORMALS: clear to auscultation bilaterally EFFORT & INSPECTION: Yes symmetric chest movement and No uses accessory muscles AUSCULTATION: clear to auscultation bilaterally, no crackles and no wheezes Cardio: COMMON NORMALS: regular rate JUGULAR VENOUS DISTENTION: JVD present PALPATION: normal PMI, no heave, no palpable S3 and no thrill RATE: regular rate HEART SOUNDS: murmur systolic Location: left sternal border (Grade 3/6) Intensity: III/ Timing: early and no rubs BRUITS: no abdominal aortic bruits PERIPHERAL PULSES: femoral pulses present positive bilateral (Normal), posterior tibial pulses present positive bilateral (Normal) and dorsalis pedis pulses present positive bilateral (Normal) GI: AUSCULTATION: Yes normoactive bowel sounds and No abdominal bruit PALPATION: No tender, No hepatomegaly, No splenomegaly and No mass Back/Pelvis: GENERAL BACK: No swelling and No other (joint deformities) THORACIC SPINE/UPPER BACK: No kyphosis present LUMBAR SPINE/LOWER BACK: No lumbar scoliosis present Extremity: COMMON NORMALS: negative for no clubbing, cyanosis or edema and negative for no pedal edema GENERAL: No cyanosis Neuro: COMMON NORMALS: oriented x3; negative for no focal motor deficits SENSORIUM/ORIENTATION: Yes alert MOTOR EXAM: No tremor Psych: MOOD & AFFECT: Yes other (Normal mood and affect) Skin: COMMON NORMALS: negative for no petechiae GENERAL SKIN EXAM: no ecchymo, no erythema, scars (Multiple needle lewis) and other (Multiple needle lewis in the upper extremities) NAILS: no clubbing, not discolored and no other (cyanosis) Data Micro: Micro: Microbiology 09/04/19 16:50 Blood Culture - Pr eliminary Blood Staphylococcus aureus A&P Assessment and plan (1) 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: 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 She needs to have a follow-up JESSE in 6 weeks. May continue the antibiotics, based on the sensitivity The JESSE findings are discussed with the patient. Status: Acute Code(s): I39 - 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 (2) IVDU (intravenous drug user): Patient has a history of multiple drug abuse. She is actively abusing IV methamphetamine. Clinical features may suggest endocarditis involving the right-sided valves . Hemodynamically she is stable. Patient is strongly advised to quit the current lifestyle. The implications were once again discussed Status: Acute Code(s): F19.90 - Other psychoactive substance use, unspecified, uncomplicated (3) H/O mitral valve repair: History on the JESSE findings, it is not clear to me whether the patient had any ASD or mitral valve repair . It is possible that she may have had some intervention of the tricuspid leaflets. We will try to get her cardiac surgery report, if possible (Patient had a ASD repair and mitral valve repair as a 5-month-old child. Details are not available. No evidence of any ASD or significant mitral regurgitation based on the JESSE in January. The JESSE report is as mentioned below.) Status: Acute Code(s): Z98.890 - Other specified postprocedural states (4) Tricuspid regurgitation: There is no worsening of the tricuspid regurgitation , based on the repeat echocardiogram. May continue on the current medications. It is a good sign that the patient has no worsening of the TR based on the JESSE Status: Acute Qualifiers: Cardiac valve disease etiology: nonrheumatic Qualified Code(s): I36.1 - Nonrheumatic tricuspid (valve) insufficiency Code(s): I07.1 - Rheumatic tricuspid insufficiency Additional A&P Information Patient has a history of hepatitis?. Currently she has a mild anemia and hypokalemia. 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
[2019-09-09] VITALS: BP 100/67; PULSE 82; RESP 18; TEMP 36.8; O2SAT 96
[2019-09-09] MEDS: nafcillin 2,000 MG in sodium chloride 0.9% (plus) 50 ML 50 MG IV ×3 (02:00→18:48)
[2019-09-09 03:40] LABS: Gentamicin Trough 0.4 ug/mL (0.0-8.0)
[2019-09-09 04:00] VITALS: BP 120/72; PULSE 88; RESP 20; TEMP 36.9; O2SAT 94
[2019-09-09 07:47] VITALS: BP 93/63; PULSE 86; RESP 20; TEMP 37.1; O2SAT 97
--- NOTE | 2019-09-09 09:56 | XR_ITS ---
WS: [id number] CHEST XRAY TECHNIQUE: Portable chest. CLINICAL INFORMATION: PICC PLACEMENT COMPARISON: None. FINDINGS: Right PICC line in good position mid SVC. No pneumothorax. Bilateral patchy infiltrates and cavitary septic emboli unchanged. XR/XR chest 1V portable [id number] IMPRESSION: Right PICC line in good position mid SVC. No pneumothorax.
--- NOTE | 2019-09-09 10:47 | P.PN_ITS ---
Subjective Subjective: Interval history: Patient awake in bed at time of exam today. She reported some continued intermittent pleuritic chest pain on the right side, no other concerns at this time. Discussed with her plan for new PICC line placement and continued IV antibiotics due to concern for bacterial endocarditis and she verbalized understanding. Medications: Reviewed: Yes (Patient is currently on vancomycin and ceftriaxo ne.) Vitals/I&O/Wt Last Vital Signs Temp 98.7 F 09/09/19 07:47 Pulse 86 09/09/19 07:47 Resp 20 H 09/09/19 07:47 BP 93/63 09/09/19 07:47 Pulse Ox 97 09/09/19 07:47 09/08/19 09/09/19 09/09/19 22:59 06:59 14:59 Intake Total 949.5 / 1409.5 305 / 1714.5 360 / 360 Balance 949.5 / 1409.5 305 / 1714.5 360 / 360 Weight last 48 hrs Weight 78.018 kg Weight 78.471 kg Weight 78.67 kg Physical Exam Const: COMMON NORMALS: oriented x3 and alert GENERAL APPEARANCE: cooperative ORIENTATION/CONSCIOUSNESS: Yes awake, Yes oriented to person, Yes oriented to place and Yes oriented to time HENMT: COMMON NORMALS: normocephalic and head/scalp atraumatic HEAD & SCALP: normocephalic and atraumatic Eye: COMMON NORMALS: PERRL PUPIL: Yes PERRL Neck/C-Spine: COMMON NORMALS: supple GENERAL: Yes normal visual inspection Resp: COMMON NORMALS: clear to auscultation bilaterally AUSCULTATION: clear to auscultation bilaterally, no rhonchi and no wheezes Cardio: OTHER: Regular rate and regular rhythm, faint systolic murmur GI: COMMON NORMALS: soft to palpation and non-tender INSPECTION: No abdominal distension AUSCULTATION: Yes normoactive bowel sounds PALPATION: Yes soft : COMMON NORMALS: Yes no CVA tenderness BLADDER/KIDNEY EXAM: Yes no CVA tenderness Back/Pelvis: COMMON NORMALS: no CVA tenderness Extremity: COMMON NORMALS: no clubbing, cyanosis or edema and no calf tenderness Neuro: COMMON NORMALS: oriented x3, CN's II-XII intact bilaterally, moves all extremities and no focal motor deficits SENSORIUM/ORIENTATION: Yes alert, Yes oriented to person, Yes oriented to place and Yes oriented to time SPEECH: speech normal Psych: COMMON NORMALS: mental status grossly normal and cooperative Data Micro: Micro: Microbiology 09/04/19 16:50 Blood Culture - Pr eliminary Blood Staphylococcus aureus A&P Assessment and plan (1) Sepsis: 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 Continue with IV antibiotics, on nafcillin and gentamicin JESSE showing multiple echodensities on the ventricular side of the posterior and anterior leaflets of the tricuspid valve Status: Acute Qualifiers: Sepsis acute organ dysfunction status: with acute organ dysfunction Sepsis type: sepsis due to unspecified organism Severe sepsis acute organ dysfunction type: unspecified Severe sepsis shock status: without septic shock Qualified Code(s): A41.9 - Sepsis, unspecified organism; R65.20 - Severe sepsis without septic shock Code(s): A41.9 - Sepsis, unspecified organism (2) IVDU (intravenous drug user): Patient reports regular IV drug use with methamphetamines, last use 2 days prior to admission Status: Acute Code(s): F19.90 - Other psychoactive substance use, unspecified, uncomplicated (3) Congenital mitral valve prolapse: Reports congenital heart defect with what sounds like VSD repair and mitral valve repair as a child Status: Resolved Code(s): Q23.8 - Other congenital malformations of aortic and mitral valves Additional A&P Information Diet: Regular diet DVT prophylaxis: Lovenox Attestations Medical Necessity Statement*: Patient requires continued hospitalization due to bacterial endocarditis Coding Level of Care Code Acute 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
[2019-09-09 11:38] VITALS: BP 101/66; PULSE 82; RESP 18; TEMP 36.6; O2SAT 97
--- NOTE | 2019-09-09 14:10 | P.PN_ITS ---
Subjective Subjective: Interval history: Patient continues to remain afebrile. Denies any chest pain or shortness of breath. No chills. No unusual shortness of breath. She has the transesophageal echocardiogram yesterday. She was found to have echodense mass on the ventricular side of the tricuspid leaflets-both anterior and posterior. There was a small globular pedunculated mass as well on the ventricular side. Medications: Reviewed: Yes (Patient is currently on vancomycin and ceftriaxone.) Medication Review Details: So far she has no medication side effects. Vitals/I&O/Wt Last Vital Signs Temp 97.9 F 09/09/19 11:38 Pulse 82 09/09/19 11:38 Resp 18 09/09/19 11:38 BP 101/66 09/09/19 11:38 Pulse Ox 97 09/09/19 11:38 09/08/19 09/09/19 09/09/19 22:59 06:59 14:59 Intake Total 949.5 / 1409.5 305 / 1714.5 600 / 600 Balance 949.5 / 1409.5 305 / 1714.5 600 / 600 Weight last 48 hrs Weight 170 lb Weight 172 lb Weight 173 lb Weight 173 lb 7 oz Physical Exam Const: COMMON NORMALS: oriented x3, alert and well nourished GENERAL APPEARANCE: cooperative, well developed, anxious and diaphoretic HENMT: MOUTH: lip normal; no other (ulcers or bleeding) TEETH & GINGIVA: no other (bleeding observed and inflammation present) Eye: COMMON NORMALS: PERRL and conjunctivae normal (No hemorrhages or jaundice) CONJUNCTIVA: Yes conjunctivae normal (No hemorrhages or jaundice) SCLERA: sclerae normal (No discolorations) PUPIL: Yes PERRL OTHER: Minimal pallor. No icterus or lymphadenopathy. Neck/C-Spine: COMMON NORMALS: thyroid normal THYROID: thyroid normal CAROTIDS: Yes normal carotid upstroke (and runoff) Chest: COMMONS NORMALS: inspection of chest normal Resp: COMMON NORMALS: clear to auscultation bilaterally EFFORT & INSPECTION: Yes symmetric chest movement and No uses accessory muscles AUSCULTATION: clear to auscultation bilaterally, no crackles and no wheezes Cardio: COMMON NORMALS: regular rate JUGULAR VENOUS DISTENTION: JVD present PALPATION: normal PMI, no heave, no palpable S3 and no thrill RATE: regular rate HEART SOUNDS: murmur systolic Location: left sternal border (Grade 3/6) Intensity: III/ Timing: early and no rubs BRUITS: no abdominal aortic bruits PERIPHERAL PULSES: femoral pulses present positive bilateral (Normal), posterior tibial pulses present positive bilateral (Normal) and dorsalis pedis pulses present positive bilateral (Normal) GI: AUSCULTATION: Yes normoactive bowel sounds and No abdominal bruit PALPATION: No tender, No hepatomegaly, No splenomegaly and No mass Back/Pelvis: GENERAL BACK: No swelling and No other (joint deformities) THORACIC SPINE/UPPER BACK: No kyphosis present LUMBAR SPINE/LOWER BACK: No lumbar scoliosis present Extremity: COMMON NORMALS: negative for no clubbing, cyanosis or edema and negative for no pedal edema GENERAL: No cyanosis Neuro: COMMON NORMALS: oriented x3; negative for no focal motor deficits SENSORIUM/ORIENTATION: Yes alert MO TOR EXAM: No tremor Psych: MOOD & AFFECT: Yes other (Normal mood and affect) Skin: COMMON NORMALS: negative for no petechiae GENERAL SKIN EXAM: no ecchymo, no erythema, scars (Multiple needle lewis) and other (Multiple needle lewis in the upper extremities) NAILS: no clubbing, not discolored and no other (cyanosis) Data Micro: Micro: Microbiology 09/04/19 16:50 Blood Culture - Pr eliminary Blood Staphylococcus aureus A&P Assessment and plan (1) 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: 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 She needs to have a follow-up JESSE in 6 weeks. May continue the antibiotics, based on the sensitivity The JESSE findings are discussed with the patient. She seems to be sensitive to the current antibiotics. This may be continued. Status: Acute Code(s): I39 - 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 (2) IVDU (intravenous drug user): Patient has a history of multiple drug abuse. She is actively abusing IV methamphetamine. Clinical features may suggest endocarditis involving the right-sided valves . Hemodynamically she is stable. Patient is strongly advised to quit the current lifestyle. The implications were once again discussed Status: Acute Code(s): F19.90 - Other psychoactive substance use, unspecified, uncomplicated (3) Tricuspid regurgitation: There is no worsening of the tricuspid regurgitation , based on the repeat echocardiogram. May continue on the current medications. It is a good sign that the patient has no worsening of the TR based on the JESSE Status: Acute Qualifiers: Cardiac valve disease etiology: nonrheumatic Qualified Code(s): I36.1 - Nonrheumatic tricuspid (valve) insufficiency Code(s): I07.1 - Rheumatic tricuspid insufficiency (4) History of congenital heart disease: Patient has a history of congenital heart disease and had heart surgery at the age of 5 months. According the patient, she had a hole in the heart and a leaky valve?. No surgical report available at this time. She did not have any evidence of mitral valve disease based on the JESSE. It is very possible that she had some surgical intervention of the tricuspid leaflets. Status: Acute Code(s): Z87.74 - Personal history of (corrected) congenital malformations of heart and circulatory system Additional A&P Information Patient has a history of hepatitis?. Currently she has a mild anemia and hypokalemia. Attestations Medical Necessity Statement*: Disposition as per the primary. 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
[2019-09-09 15:40] VITALS: BP 87/63; PULSE 80; RESP 20; TEMP 37.5; O2SAT 95
[2019-09-09] MEDS: enoxaparin 40 mg/0.4 mL Syringe SUBCUT (18:48)
--- NOTE | 2019-09-09 19:16 | PC.NURSE ---
Introduction of staff and report received, aidet.
[2019-09-09] MEDS: HYDROcodone-acetaminophen 5-325 mg Tablet 1 TAB PO (19:48)
[2019-09-09 19:49] VITALS: BP 88/58; PULSE 89; RESP 20; TEMP 36.9; O2SAT 97
[2019-09-09] MEDS: nafcillin 2,000 MG in sodium chloride 0.9% (plus) 50 ML 100 MG IV (22:33)
[2019-09-10] VITALS (7 sets, daily range): BP systolic 82–119; BP diastolic 57–75; PULSE 79–89; RESP 18–20; TEMP 36.8–37.3; O2SAT 93–98
[2019-09-10] MEDS: nafcillin 2,000 MG in sodium chloride 0.9% (plus) 50 ML 100 MG IV ×2 (03:14→22:14)
[2019-09-10] MEDS: nafcillin 2,000 MG in sodium chloride 0.9% (plus) 50 ML 50 MG IV ×3 (06:47→13:59)
--- NOTE | 2019-09-10 12:10 | PM.PN ---
Subjective Subjective: Interval history: Geri has no complaints. Medications: Reviewed: Yes Vitals/I&O/Wt Last Vital Signs Temp 98.7 F 09/10/19 11:24 Pulse 84 09/10/19 11:24 Resp 18 09/10/19 11:24 BP 94/63 09/10/19 11:24 Pulse Ox 96 09/10/19 11:24 09/09/19 09/10/19 09/10/19 22:59 06:59 14:59 Intake Total 640 / 1290 100 / 1390 290 / 290 Balance 640 / 1290 100 / 1390 290 / 290 Weight last 48 hrs Weight 77.819 kg Weight 77.111 kg Weight 78.018 kg Physical Exam Narrative: EXAM NARRATIVE: General exam is no apparent distress Cardiovascular regular rate and rhythm without murmur Lungs clear Abdomen is soft with positive bowel sounds Extremities no cyanosis clubbing or edema. 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 Cultures indicate methicillin sensitive staph aureus. Planning on 10 to 14 days of IV antibiotics, followed by course of amoxicillin and rifampin. This is based on study of conversion to oral treatment on left-sided endocarditis. Unfortunately, patient is not a candidate for long-term IV antibiotics at home secondary to her repetitive IV drug use and it would be unsafe currently to send her home with a PICC line. This is the most reasonable option at this time. Status: Acute Qualifiers: Sepsis acute organ dysfunction status: with acute organ dysfunction Sepsis type: sepsis due to unspecified organism Severe sepsis acute organ dysfunction type: unspecified Severe sepsis shock status: without septic shock Qualified Code(s): A41.9 - Sepsis, unspecified organism; R65.20 - Severe sepsis without septic shock Code(s): A41.9 - Sepsis, unspecified organism (2) IVDU (intravenous drug user): Patient reports regular IV drug use with methamphetamines, last use 2 days prior to admission Status: Acute Code(s): F19.90 - Other psychoactive substance use, unspecified, uncomplicated (3) Congenital mitral valve prolapse: Reports congenital heart defect with what sounds like VSD repair and mitral valve repair as a child Status: Resolved Code(s): Q23.8 - Other congenital malformations of aortic and mitral valves Additional A&P Information Continue Lovenox for DVT prophylaxis Attestations Medical Necessity Statement*: Needs continued hospitalization for IV antibiotics secondary to endocarditis Coding Level of Care Code Acute 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
[2019-09-10] MEDS: enoxaparin 40 mg/0.4 mL Syringe SUBCUT (15:40)
--- NOTE | 2019-09-10 19:35 | P.PN_ITS ---
Subjective Subjective: Interval history: Patient continues to remain afebrile. Denies any chest pain or shortness of breath. No chills. No unusual shortness of breath. She has the transesophageal echocardiogram yesterday. She was found to have echodense mass on the ventricular side of the tricuspid leaflets-both anterior and posterior. There was a small globular pedunculated mass as well on the ventricular side. Medications: Reviewed: Yes (Patient is on nafcillin and gentamicin) Medication Review Details: So far she has no medication side effects. Vitals/I&O/Wt Last Vital Signs Temp 99.2 F 09/10/19 15:31 Pulse 80 09/10/19 15:31 Resp 18 09/10/19 15:31 BP 84/58 09/10/19 15:31 Pulse Ox 96 09/10/19 15:31 09/10/19 09/10/19 09/10/19 06:59 14:59 22:59 Intake Total 100 / 1390 580 / 580 580 / 1160 Balance 100 / 1390 580 / 580 580 / 1160 Weight last 48 hrs Weight 171 lb 9 oz Weight 170 lb Weight 172 lb Physical Exam Const: COMMON NORMALS: oriented x3, alert and well nourished GENERAL APPEARANCE: cooperative, well developed, anxious and diaphoretic HENMT: MOUTH: lip normal; no other (ulcers or bleeding) TEETH & GINGIVA: no other (bleeding observed and inflammation present) Eye: COMMON NORMALS: PERRL and conjunctivae normal (No hemorrhages or jaundice) CONJUNCTIVA: Yes conjunctivae normal (No hemorrhages or jaundice) SCLERA: sclerae normal (No discolorations) PUPIL: Yes PERRL OTHER: Minimal pallor. No icterus or lymphadenopathy. Neck/C-Spine: COMMON NORMALS: thyroid normal THYROID: thyroid normal CAROTIDS: Yes normal carotid upstroke (and runoff) Chest: COMMONS NORMALS: inspection of chest normal Resp: COMMON NORMALS: clear to auscultation bilaterally EFFORT & INSPECTION: Yes symmetric chest movement and No uses accessory muscles AUSCULTATION: clear to auscultation bilaterally, no crackles and no wheezes Cardio: COMMON NORMALS: regular rate JUGULAR VENOUS DISTENTION: JVD present PALPATION: normal PMI, no heave, no palpable S3 and no thrill RATE: regular rate HEART SOUNDS: murmur systolic Location: left sternal border (Grade 3/6) Intensity: III/ Timing: early and no rubs BRUITS: no abdominal aortic bruits PERIPHERAL PULSES: femoral pulses present positive bilateral (Normal), posterior tibial pulses present positive bilateral (Normal) and dorsalis pedis pulses present positive bilateral (Normal) GI: AUSCULTATION: Yes normoactive bowel sounds and No abdominal bruit PALPATION: No tender, No hepatomegaly, No splenomegaly and No mass Back/Pelvis: GENERAL BACK: No swelling and No other (joint deformities) THORACIC SPINE/UPPER BACK: No kyphosis present LUMBAR SPINE/LOWER BACK: No lumbar scoliosis present Extremity: COMMON NORMALS: negative for no clubbing, cyanosis or edema and negative for no pedal edema GENERAL: No cyanosis Neuro: COMMON NORMALS: oriented x3; negative for no focal motor deficits SENSORIUM/ORIENTATION: Yes alert MOTOR EXAM: No tremor Psych: MOOD & AFFECT: Yes other (Normal mood and affect) Skin: COMMON NORMALS: negative for no petechiae GENERAL SKIN EXAM: no ecchymo, no erythema, scars (Multiple needle lewis) and other (Multiple needle lewis in the upper extremities) NAILS: no clubbing, not discolored and no other (cyanosis) A&P Assessment and plan (1) 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: 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 She needs to have a follow-up JESSE in 6 weeks. May continue the antibiotics, based on the sensitivity The JESSE findings are discussed with the patient. She seems to be sensitive to the current antibiotics. This may be continued. Status: Acute Code(s): I39 - 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 (2) IVDU (intravenous drug user): Patient has a history of multiple drug abuse. She is actively abusing IV methamphetamine. Clinical features may suggest endocarditis involving the right-sided valves . Hemodynamically she is stable. Patient is strongly adv ised to quit the current lifestyle. The implications were once again discussed Status: Acute Code(s): F19.90 - Other psychoactive substance use, unspecified, uncomplicated (3) Tricuspid regurgitation: There is no worsening of the tricuspid regurgitation , based on the repeat echocardiogram. May continue on the current medications. It is a good sign that the patient has no worsening of the TR based on the JESSE Status: Acute Qualifiers: Cardiac valve disease etiology: nonrheumatic Qualified Code(s): I36.1 - Nonrheumatic tricuspid (valve) insufficiency Code(s): I07.1 - Rheumatic tricuspid insufficiency (4) History of congenital heart disease: Patient has a history of congenital heart disease and had heart surgery at the age of 5 months. According the patient, she had a hole in the heart and a leaky valve?. No surgical report available at this time. She did not have any evidence of mitral valve disease based on the JESSE. It is very possible that she had some surgical intervention of the tricuspid leaflets. Status: Acute Code(s): Z87.74 - Personal history of (corrected) congenital malformations of heart and circulatory system Additional A&P Information Patient has a history of hepatitis?. Currently she has a mild anemia and hypokalemia. Coding Level of Care Code Acute Pc Installation Engineer for [facility] Diagnoses 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 I39 IVDU (intravenous drug user) F19.90 Tricuspid regurgitation I36.1 Cardiac valve disease etiology: nonrheumatic History of congenital heart disease Z87.74
[2019-09-10] MEDS: sodium chloride 0.9% 100 ML 10 ML (22:16)
[2019-09-11] MEDS: nafcillin 2,000 MG in sodium chloride 0.9% (plus) 50 ML 50 MG IV ×6 (02:01→22:20)
[2019-09-11 02:46] LABS: Basophils % 0.3 %; Eosinophils # 0.3 10^3/uL (0.0-0.8); Eosinophils % 2.8 %; Hematocrit 36.1 % (37.0-47.0); Hemoglobin 11.7 g/dL (11.5-15.3); Lymphocytes # 1.5 10^3/uL (0.8-4.8); Lymphocytes % 16.9 %; Mean Corpuscular HGB Conc 32.4 g/dL (30.0-36.0); Mean Corpuscular Hemoglobin 27.2 pg (28.0-34.0); Mean Platelet Volume 9.2 fL (7.4-10.4); Monocytes # 0.9 10^3/uL (0.2-0.9); Monocytes % 9.9 %; Neutrophils % 67.5 %; Nucleated Red Blood Cells % 0 %; Platelet Count 328 10^3/cmm (130-400); Red Cell Distribution Width 14.1 % (12.1-15.1); White Blood Count 8.9 10^3/uL (4.0-10.0)
[2019-09-11 03:27] LABS: Anion Gap 15.8 (5-19); Blood Urea Nitrogen 10 mg/dL (6-20); Calcium 8.8 mg/Dl (8.6-10.0); Carbon Dioxide 25 mmol/L (22-29); Chloride 99 mmol/L (98-107); Glomerular Filtration Rate 181.6 mL/min (90-130); Glucose 124 mg/dL (74-109); Potassium 4.8 mmol/L (3.5-5.1); Sodium 135 mmol/L (136-145)
[2019-09-11 04:00] VITALS: BP 122/80; PULSE 83; RESP 18; TEMP 36.7; O2SAT 97
[2019-09-11 07:33] VITALS: BP 112/72; PULSE 77; RESP 18; TEMP 36.8; O2SAT 97
[2019-09-11 11:14] VITALS: BP 104/63; PULSE 82; RESP 18; TEMP 37.1; O2SAT 95
--- NOTE | 2019-09-11 13:58 | P.PN_ITS ---
Subjective Subjective: Interval history: Margarita reports she is doing fine. No specific concerns today. No pain. Medications: Reviewed: Yes Vitals/I&O/Wt Last Vital Signs Temp 98.8 F 09/11/19 11:14 Pulse 82 09/11/19 11:14 Resp 18 09/11/19 11:14 BP 104/63 09/11/19 11:14 Pulse Ox 95 09/11/19 11:14 09/10/19 09/11/19 09/11/19 22:59 06:59 14:59 Intake Total 740 / 1370 630 / 2000 760 / 760 Balance 740 / 1370 630 / 2000 760 / 760 Weight last 48 hrs Weight 77.621 kg Weight 77.819 kg Physical Exam Narrative: EXAM NARRATIVE: General exam no apparent distress Cardiovascular regular in rhythm without murmur Lungs clear Abdomen is soft, positive bowel sounds Extremities no cyanosis clubbing or edema Data Micro: Micro: Microbiology 09/04/19 16:56 Blood Culture - Fi nal Blood Staphylococcus aureus 09/04/19 16:50 Blood Culture - Fi nal Blood Staphylococcus aureus 09/06/19 05:45 Blood Culture - Fi nal Blood NO GROWTH AFTER 5 DAYS 09/06/19 05:45 Blood Culture - Fi nal Blood NO GROWTH AFTER 5 DAYS A&P Assessment and plan (1) Sepsis: 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 Cultures indicate methicillin sensiti ve staph aureus. Planning on 10 to 14 days of IV antibiotics, followed by course of amoxicillin and rifampin. This is based on study of conversion to oral treatment on left- sided endocarditis. Unfortunately, patient is not a candidate for long-term IV antibiotics at home secondary to her repetitive IV drug use and it would be unsafe currently to send her home with a PICC line. This is the most reasonable option at this time. I discussed this in detail with the patient. Currently we are planning on giving her IV antibiotics until the or and then discharged home on oral Status: Acute Qualifiers: Sepsis acute organ dysfunction status: with acute organ dysfunction Sepsis type: sepsis due to unspecified organism Severe sepsis acute organ dysfunction type: unspecified Severe sepsis shock status: without septic shock Qualified Code(s): A41.9 - Sepsis, unspecified organism; R65.20 - Severe sepsis without septic shock Code(s): A41.9 - Sepsis, unspecified organism (2) IVDU (intravenous drug user): Patient reports regular IV drug use with methamphetamines, last use 2 days prior to admission Status: Acute Code(s): F19.90 - Other psychoactive substance use, unspecified, uncomplicated (3) Congenital mitral valve prolapse: Reports congenital heart defect with what sounds like VSD repair and mitral valve repair as a child Status: Resolved Code(s): Q23.8 - Other congenital malformations of aortic and mitral valves Additional A&P Information Continue Lovenox for DVT prophylaxis Attestations Medical Necessity Statement*: Needs continued hospitalization for IV antibiotics related to endocarditis Coding Level of Care Code Acute 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
[2019-09-11 15:56] VITALS: BP 123/80; PULSE 71; RESP 18; TEMP 36.7; O2SAT 99
[2019-09-11] MEDS: enoxaparin 40 mg/0.4 mL Syringe SUBCUT (16:26)
--- NOTE | 2019-09-11 18:39 | PM.PN ---
Subjective Subjective: Interval history: The patient is feeling okay with no chest pain. No shortness of breath. No palpitation. The telemetry shows sinus rhythm with no evidence of any arrhythmias or heart block. Patient is on IV antibiotics and has not had any side effects so far. She continues to remain afebrile. Vitals/I&O/Wt Last Vital Signs Temp 98.0 F 09/11/19 15:56 Pulse 71 09/11/19 15:56 Resp 18 09/11/19 15:56 BP 123/80 09/11/19 15:56 Pulse Ox 99 09/11/19 15:56 09/11/19 09/11/19 09/11/19 06:59 14:59 22:59 Intake Total 630 / 1999 810 / 810 50 / 860 Balance 630 / 1999 810 / 810 50 / 860 Weight last 48 hrs Weight 171 lb 2 oz Weight 171 lb 9 oz Physical Exam Narrative: EXAM NARRATIVE: GENERAL: The patient is alert and oriented times three. Not in any acute distress. HEENT: No significant pallor, icterus or lymphadenopathy.Oral cavity: There are no mucous membrane lesions. NECK: Trachea appears to be central. No masses noted. No JVD or thyromegaly appreciated. RESPIRATORY: Chest is symmetrical. No intercostals muscle retraction or any accessory muscle activation. There is no chest wall tenderness. Breath sounds are heard bilaterally. No rales or rhonchi heard. No evidence of any consolidation. BREASTS: Deferred. HEART: The heart sounds are normal. No S3 or S4. Short systolic murmur in the left sternal border. No diastolic murmurs. No pericardial rub.. No pericardial rub ABDOMEN: No vessel pulsations or distention. No tenderness. No organomegaly appreciated. Bowel sounds are normally heard. : Deferred. RECTAL: Deferred. LYMPHATIC: No lymphadenopathy noted in the neck or groin. EXTREMITIES: No edema or cyanosis. No clubbing. Peripheral pulses are palpated in fairly good volume and amplitude. Patient has extensive needle markings in the upper extremities MUSCULOSKELETAL: No acute joint deformities or swelling SKIN: There are no significant scars or skin rash noted. NEUROPSYCHIATRIC: The patient is alert and oriented x3. Appears to be in a good mood. No tremors or rigidity noted. Data Micro: Micro: Microbiology 09/04/19 16:56 Blood Culture - Fi nal Blood Staphylococcus aureus 09/04/19 16:50 Blood Culture - Fi nal Blood Staphylococcus aureus 09/06/19 05:45 Blood Culture - Fi nal Blood NO GROWTH AFTER 5 DAYS 09/06/19 05:45 Blood Culture - Fi nal Blood NO GROWTH AFTER 5 DAYS A&P Assessment and plan (1) 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: Patient has features of her tricuspid valve endocarditis. He has no evidence of any recurrence of septic embolization. Remains afebrile. Seems to be responding to antibiotics appropriately. May continue on the current medications. Status: Acute Code(s): I39 - 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 (2) History of congenital heart disease: Patient had some type of congenital heart surgery details are not available. Her tricuspid valve seems to have had some surgical intervention. Status: Acute Code(s): Z87.74 - Personal history of (corrected) congenital malformations of heart and circulatory system (3) Tricuspid regurgitation: Patient has mild to moderate tricuspid regurgitation by echocardiogram. Clinically there is no worsening of the TR. May continue on the current measures. Consider repeat JESSE in 6 weeks Status: Acute Qualifiers: Cardiac valve disease etiology: nonrheumatic Qualified Code(s): I36.1 - Nonrheumatic tricuspid (valve) insufficiency Code(s): I07.1 - Rheumatic tricuspid insufficiency (4) IVDU (intravenous drug user): Patient has a history of multiple drug abuse. Strongly advised to quit. Patient seems to understand the implications Status: Acute Code(s): F19.90 - Other psychoactive substance use, unspecified, uncomplicated Additional A&P Information Since the patient is stable from a cardiac standpoint, I may sign off at this time. Feel free to contact me, if there is any change of her status. Need to schedule for a JESSE as an outpatient in 6 weeks Attestations Medical Necessity Statement*: Deferred to the primary Coding Level of Care Code Acute Advisor Adv[employer] F[employer] for [employer] Diagnoses 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 I39 History of congenital heart disease Z87.74 Tricuspid regurgitation I36.1 Cardiac valve disease etiology: nonrheumatic IVDU (intravenous drug user) F19.90
[2019-09-11 20:00] VITALS: BP 109/74; PULSE 77; RESP 19; TEMP 36.8; O2SAT 95
[2019-09-11] MEDS: acetaminophen 325 mg Tablet 650 MG PO (20:23)
[2019-09-12] VITALS: BP 111/75; PULSE 78; RESP 19; TEMP 36.3; O2SAT 97
[2019-09-12] MEDS: nafcillin 2,000 MG in sodium chloride 0.9% (plus) 50 ML 50 MG IV ×5 (01:39→18:07)
[2019-09-12 04:00] VITALS: BP 97/64; PULSE 87; RESP 19; TEMP 36.6; O2SAT 98
[2019-09-12 05:02] VITALS: BMI 29.5
[2019-09-12 08:00] VITALS: BP 119/73; PULSE 74; RESP 18; TEMP 36.9; O2SAT 94
[2019-09-12 11:02] VITALS: BP 118/77; PULSE 79; RESP 18; TEMP 36.9; O2SAT 92
--- NOTE | 2019-09-12 11:18 | P.PN_ITS ---
Subjective Subjective: Interval history: Margarita reports she is doing well. She has no complaints. Medications: Reviewed: Yes Vitals/I&O/Wt Last Vital Signs Temp 98.5 F 09/12/19 11:02 Pulse 79 09/12/19 11:02 Resp 18 09/12/19 11:02 BP 118/77 09/12/19 11:02 Pulse Ox 92 09/12/19 11:02 09/11/19 09/12/19 09/12/19 22:59 06:59 14:59 Intake Total 100 / 910 150 / 1060 Balance 100 / 910 150 / 1060 Weight last 48 hrs Weight 78.046 kg Weight 77.621 kg Physical Exam Narrative: EXAM NARRATIVE: General exam no apparent distress Cardiovascular regular rate and rhythm without murmur Lungs clear Abdomen is soft, positive bowel sounds Extremities no cyanosis clubbing or edema Data : 09/11/19 02:30 09/11/19 02:30 Micro: Microbiology 09/04/19 16:56 Blood Culture - Final Blood Staphylococcus aureus 09/04/19 16:50 Blood Culture - Final Blood Staphylococcus aureus 09/06/19 05:45 Blood Culture - Final Blood NO GROWTH AFTER 5 DAYS 09/06/19 05:45 Blood Culture - Final Blood NO GROWTH AFTER 5 DAYS A&P Assessment and plan (1) Sepsis: 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 Cultures indicate methicillin sensitive staph aureus. Planning on 10 to 14 days of IV antibiotics, followed by course of amoxicillin and rifampin. This is based on study of conversion to oral treatment on left- sided endocarditis. Unfortunately, patient is not a candidate for long-term IV antibiotics at home secondary to her repetitive IV drug use and it would be unsafe currently to send her home with a PICC line. This is the most reasonable option at this time. I discussed this in detail with the patient. Currently we are planning on giving her IV antibiotics until the or and then discharged home on oral. No changes to this plan currently. She has remained afebrile. Last cultures negative. Status: Acute Qualifiers: Sepsis acute organ dysfunction status: with acute organ dysfunction Sepsis type: sepsis due to unspecified organism Severe sepsis acute organ dysfunction type: unspecified Severe sepsis shock status: without septic shock Qualified Code(s): A41.9 - Sepsis, unspecified organism; R65.20 - Severe sepsis without septic shock Code(s): A41.9 - Sepsis, unspecified organism (2) IVDU (intravenous drug user): Patient reports regular IV drug use with methamphetamines, last use 2 days prior to admission Status: Acute Code(s): F19.90 - Other psychoactive substance use, unspecified, uncomplicated (3) Congenital mitral valve prolapse: Reports congenital heart defect with what sounds like VSD repair and mitral valve repair as a child Status: Resolved Code(s): Q23.8 - Other congenital malformations of aortic and mitral valves Additional A&P Information Continue Lovenox for DVT prophylaxis Attestations Medical Necessity Statement*: Needs continued hospitalization for IV antibiotics related to endocarditis Coding Level of Care Code Acute 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
[2019-09-12 15:19] VITALS: BP 110/63; PULSE 90; RESP 18; TEMP 37; O2SAT 99
[2019-09-12] MEDS: enoxaparin 40 mg/0.4 mL Syringe SUBCUT (16:13)
[2019-09-12 19:27] VITALS: BP 97/63; PULSE 87; RESP 18; TEMP 37.1; O2SAT 99
[2019-09-13] VITALS (7 sets, daily range): BP systolic 108–126; BP diastolic 71–78; PULSE 76–93; RESP 16–19; TEMP 36.8–37.2; O2SAT 96–100
[2019-09-13] MEDS: nafcillin 2,000 MG in sodium chloride 0.9% (plus) 50 ML 50 MG IV ×6 (00:07→21:43)
--- NOTE | 2019-09-13 10:52 | P.PN_ITS ---
Subjective Subjective: Interval history: Margarita reports that she is doing fine. No changes. Medications: Reviewed: Yes Vitals/I&O/Wt Last Vital Signs Temp 98.7 F 09/13/19 07:34 Pulse 93 09/13/19 07:34 Resp 16 09/13/19 07:34 BP 110/74 09/13/19 07:34 Pulse Ox 96 09/13/19 07:34 09/12/19 09/13/19 09/13/19 22:59 06:59 14:59 Intake Total 50 / 100 150 / 250 120 / 120 Balance 50 / 100 150 / 250 120 / 120 Weight last 48 hrs Weight 78.562 kg Weight 78.046 kg Physical Exam Narrative: EXAM NARRATIVE: General exam no apparent distress Cardiovascular regular rate and rhythm without murmur Lungs clear Abdomen is soft and positive bowel sounds Extremities no cyanosis clubbing or edema Data : 09/11/19 02:30 09/11/19 02:30 A&P Assessment and plan (1) Sepsis: 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 Cultures indicate methicillin sensitive staph aureus. Planning on 10 to 14 days of IV antibiotics, followed by course of amoxicillin and rifampin. This is based on study of conversion to oral treatment on left- sided endocarditis. Unfortunately, patient is not a candidate for long-term IV antibiotics at home secondary to her repetitive IV drug use and it would be unsafe currently to send her home with a PICC line. This is the most reasonable option at this time. I discussed this in detail with the patient. Currently we are planning on giving her IV antibiotics until the and then discharge home on oral. No changes to this plan currently. She has remained afebrile. Last cultures negative. Status: Acute Qualifiers: Sepsis acute organ dysfunction status: with acute organ dysfunction Sepsis type: sepsis due to unspecified organism Severe sepsis acute organ dysf unction type: unspecified Severe sepsis shock status: without septic shock Qualified Code(s): A41.9 - Sepsis, unspecified organism; R65.20 - Severe sepsis without septic shock Code(s): A41.9 - Sepsis, unspecified organism (2) IVDU (intravenous drug user): Patient reports regular IV drug use with methamphetamines, last use 2 days prior to admission Status: Acute Code(s): F19.90 - Other psychoactive substance use, unspecified, uncomplicated (3) Congenital mitral valve prolapse: Reports congenital heart defect with what sounds like VSD repair and mitral valve repair as a child Status: Resolved Code(s): Q23.8 - Other congenital malformations of aortic and mitral valves Additional A&P Information Continue Lovenox for DVT prophylaxis Attestations 2 Medical Necessity Statement*: Needs continued hospitalization for IV antibiotics related to endocarditis Coding Level of Care Code Acute Finger Grip Machine Operator for [facility] F[facility] Diagnoses Sepsis A41.9; R65.20 Sepsis acute organ dysfunction status: with acute organ dysfunction Sepsis type: sepsis due to unspecified organism Severe sepsis acute organ dysfunction type: unspecified Severe sepsis shock status: without septic shock IVDU (intravenous drug user) F19.90 Congenital mitral valve prolapse Q23.8
[2019-09-13] MEDS: enoxaparin 40 mg/0.4 mL Syringe SUBCUT (15:32)
[2019-09-14] MEDS: nafcillin 2,000 MG in sodium chloride 0.9% (plus) 50 ML 50 MG IV ×6 (01:23→21:10)
[2019-09-14 03:42] VITALS: BP 100/67; PULSE 85; RESP 18; TEMP 36.9; O2SAT 97
[2019-09-14 07:26] VITALS: BP 101/71; PULSE 87; RESP 20; TEMP 36.8; O2SAT 98
[2019-09-14 11:02] VITALS: BP 110/57; PULSE 90; RESP 20; TEMP 37; O2SAT 98
--- NOTE | 2019-09-14 13:27 | P.PN_ITS ---
Subjective Subjective: Interval history: Margarita reports she is doing okay. No specific concerns today. Medications: Reviewed: Yes Vitals/I&O/Wt Last Vital Signs Temp 98.6 F 09/14/19 11:02 Pulse 90 09/14/19 11:02 Resp 20 H 09/14/19 11:02 BP 110/57 09/14/19 11:02 Pulse Ox 98 09/14/19 11:02 09/13/19 09/14/19 09/14/19 22:59 06:59 14:59 Intake Total 550 / 1228 260 / 1488 480 / 480 Balance 550 / 1228 260 / 1488 480 / 480 Weight last 48 hrs Weight 75.381 kg Weight 78.562 kg Physical Exam Narrative: EXAM NARRATIVE: General exam is no apparent distress Cardiovascular regular rate and rhythm without murmur Lungs clear Abdomen positive bowel sounds Extremities no cyanosis clubbing or edema Data : 09/11/19 02:30 09/11/19 02:30 A&P Assessment and plan (1) Sepsis: 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 Cultures indicate methicillin sensitive staph aureus. Planning on 10 to 14 days of IV antibiotics, followed by course of amoxicillin and rifampin. This is based on study of conversion to oral treatment on left- sided endocarditis. Unfortunately, patient is not a candidate for long-term IV antibiotics at home secondary to her repetitive IV drug use and it would be unsafe currently to send her home with a PICC line. This is the most reasonable option at this time. I discussed this in detail with the patient. Currently we are planning on giving her IV antibiotics until the and then discharge home on oral. No changes to this plan currently. She has remained afebrile. Last cultures negative on September 06. Status: Acute Qualifiers: Sepsis acute organ dysfunction status: with acute organ dysfunction Sepsis type: sepsis due to unspecified organism Severe sepsis acute organ dysfunction type: unspecified Severe sepsis shock status: without septic shock Qualified Code(s): A41.9 - Sepsis, unspecified organism; R65.20 - Severe sepsis without septic shock Code(s): A41.9 - Sepsis, unspecified organism (2) IVDU (intravenous drug user): Patient reports regular IV drug use with methamphetamines, last use 2 days prior to admission Status: Acute Code(s): F19.90 - Other psychoactive substance use, unspecified, uncomplicated (3) Congenital mitral valve prolapse: Reports congenital heart defect with what sounds like VSD repair and mitral valve repair as a child Status: Resolved Code(s): Q23.8 - Other congenital malformations of aortic and mitral valves Additional A&P Information No changes needed at this time. Continues to remain stable. Continue Lovenox for DVT prophylaxis Attestations Medical Necessity Statement*: Needs continued hospitalization for IV anti biotics secondary to endocarditis Coding Level of Care Code Acute Automatic Packer Operator for [facility] Fwd Diagnoses Sepsis A41.9; R65.20 Sepsis acute organ dysfunction status: with acute organ dysfunction Sepsis type: sepsis due to unspecified organism Severe sepsis acute organ dysfunction type: unspecified Severe sepsis shock status: without septic shock IVDU (intravenous drug user) F19.90 Congenital mitral valve prolapse Q23.8
[2019-09-14] MEDS: enoxaparin 40 mg/0.4 mL Syringe SUBCUT (16:19)
[2019-09-14 17:00] VITALS: BP 106/74; PULSE 91; RESP 18; TEMP 36.9; O2SAT 98
--- NOTE | 2019-09-14 19:00 | PC.NURSE ---
Introduction of staff and report received, aidet.
[2019-09-14 19:54] VITALS: BP 128/82; PULSE 82; RESP 19; TEMP 36.8; O2SAT 99
[2019-09-15] VITALS (7 sets, daily range): BP systolic 105–125; BP diastolic 60–74; PULSE 77–125; RESP 18–20; TEMP 36.6–37.1; O2SAT 93–100
[2019-09-15] MEDS: nafcillin 2,000 MG in sodium chloride 0.9% (plus) 50 ML 50 MG IV ×6 (03:33→21:45)
[2019-09-15] MEDS: enoxaparin 40 mg/0.4 mL Syringe SUBCUT (14:39)
--- NOTE | 2019-09-15 15:21 | USCV_ITS ---
Margarita Cortes Age: 34 Gender: F : 1985 Exam Date: 09/15/2019 16:26 Ordering Phys: Rudi Nielson MD Technologist: Sharmaine Liang [place]am [place] [facility] [place] Indication: dvt HISTORY: pt has PICC PROCEDURES: Venous duplex imaging was performed in only the right upper extremity. The following venous structures were evaluated: internal jugular vein, subclavian vein, axillary vein, and brachial veins. In addition, the basilic vein, cephalic vein, radial vein, and ulnar vein. Serial compression, augmentation maneuvers, and spectral Doppler flow evaluation were performed. FINDINGS: Partial thrombus seen within the right axillary surrounding the PICC line. No other thrombus is noted at this time. Echogenic material in the lumen of the axillary vein, surrounding the PICC line, causing partial compressibility. CONCLUSIONS Features of possible thrombus around the PICC line in the right axillary vein, causing partial occlusion. No previous studies available for comparison Dr Cameron Pena MD [facility] (Electronically Signed) Final Date: 16 September 2019 17:25 S
--- NOTE | 2019-09-15 19:00 | PC.NURSE ---
INTRODUCTION OF STAFF AND REPORT RECEIVED,AIDET.
--- NOTE | 2019-09-15 19:06 | PC.CHAP ---
Pastoral Care Encounter/Spiritual Assessment Type of Contact [] Declined intensive care medicine specialist visit [] Patient/Family/Request visit [] Outpatient visit [] Follow-up visit [] Physician referral [] Code/Alert [x] Routine visit [] Staff referral [] Actively dying [] Patient sleeping [] Family support [] [] Out of room [] Palliative care [] [] Receiving care in room [] Pre-surgical visit [] Trauma [x] Long length of stay [] ICU visit [] Other: Relational/Emotional Strength [] Patient feels connected with others/family/visitors/staff [] Distress [] Loneliness/isolation [] Abandonment Spirituality of Patient [] Person of Cesia [] Attends Faith of their Cesia [] Believes in Prayer [] Reads Bible or Baptism materials [] There are Spiritual issues to be addressed Manager Clinical Informatics Interventions [] Prayer [x] Active listening [x] Non-anxious presence [] Spiritual/emotional support [] Crisis/trauma care [] Spiritual counseling [] Bereavement support [] Provided bereavement packet [] Provided Bible/devotional materials [] Provided toy/stuffed animal, coloring book to patient or family member [] Completed spiritual assessment [] Provided Communion [] Anointing/[place]ron [] Salvation [] Other: Impact on Illness or Injury [] Angry [] Fearful [x] Anxious [] Often cries [] Exhaustion [] Unable to work [] Unable to attend mandaeism [] Unable to walk/stand [] Unable to read [] Unable to drive [] Unable to eat/drink [] Unable to sleep [] Unable to be with family [] Other: Summary Patient expressed that she has been in the hospital nearly two weeks and is ready to go home. She declined prayer and stated that she didn't need anything from the chaplains. I let her know that she could let the nurses know if she wanted to see a intensive care medicine specialist and they would contact us. Time spent with patient 5 minutes
--- NOTE | 2019-09-15 20:20 | PM.PN ---
Subjective Subjective: Interval history: Patient has no significant complaints this morning, no chest pain, no shortness of breath, no lightheadedness, no dizziness Vitals/I&O/Wt Last Vital Signs Temp 98.8 F 09/15/19 19:36 Pulse 78 09/15/19 19:36 Resp 20 H 09/15/19 19:36 BP 112/70 09/15/19 19:36 Pulse Ox 100 09/15/19 19:36 09/15/19 09/15/19 09/15/19 06:59 14:59 22:59 Intake Total 50 / 1680 580 / 580 890 / 1470 Balance 50 / 1680 580 / 580 890 / 1470 Weight last 48 hrs Weight 74.843 kg Weight 75.381 kg Physical Exam Const: COMMON NORMALS: no apparent distress and oriented x3 HENMT: COMMON NORMALS: normocephalic HEAD & SCALP: normocephalic Neck/C-Spine: COMMON NORMALS: no JVD Resp: COMMON NORMALS: normal respiratory effort, no retractions, no use of accessory muscles and clear to auscultation bilaterally AUSCULTATION: clear to auscultation bilaterally Cardio: COMMON NORMALS: no JVD, regular rate, regular rhythm, S1 normal heart sound and S2 normal heart sound RATE: regular rate RHYTHM: regular rhythm HEART SOUNDS: S1 normal and S2 normal GI: COMMON NORMALS: normal to inspection, nondistended, normoactive bowel sounds, soft to palpation, non-tender, no hepatosplenomegaly, no masses and no bruits PALPATION: Yes soft and Yes no hepatosplenomegaly Extremity: COMMON NORMALS: normal capillary refill, no clubbing, cyanosis or edema, no calf tenderness and no pedal edema Neuro: COMMON NORMALS: oriented x3 Psych: COMMON NORMALS: mental status grossly normal Data : 09/11/19 02:30 09/11/19 02:30 A&P Assessment and plan (1) Sepsis: 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 Cultures indicate methicillin sensitive staph aureus. Planning on 10 to 14 days of IV antibiotics, followed by course of amoxicillin and rifampin. This is based on study of conversion to oral treatment on left-sided endocarditis. Unfortunately, patient is not a candidate for long-term IV antibiotics at home secondary to her repetitive IV drug use and it would be unsafe currently to send her home with a PICC line. This is the most reasonable option at this time. I discussed this in detail with the patient. Currently we are planning on giving her IV antibiotics until the and then discharge home on oral. No changes to this plan currently. Status: Acute Qualifiers: Sepsis acute organ dysfunction status: with acute organ dysfunction Sepsis type: sepsis due to unspecified organism Severe sepsis acute organ dysfunction type: unspecified Severe sepsis shock status: without septic shock Qualified Code(s): A41.9 - Sepsis, unspecified organism; R65.20 - Severe sepsis without septic shock Code(s): A41.9 - Sepsis, unspecified organism (2) IVDU (intravenous drug user): Patient reports regular IV drug use with methamphetamines, last use 2 days prior to admission Status: Acute Code(s): F19.90 - Other psychoactive substance use, unspecified, uncomplicated (3) Congenital mitral valve prolapse: Reports congenital heart defect with what sounds like VSD repair and mitral valve repair as a child Status: Resolved Code(s): Q23.8 - Other congenital malformations of aortic and mitral valves Additional A&P Information No changes needed at this time. Continues to remain stable. Continue Lovenox for DVT prophylaxis Attestations Medical Necessity Statement*: She requires continued hospitalization for sepsis secondary to endocarditis Coding Level of Care Code Acute [employer] Internship for [facility] Diagnoses Sepsis A41.9; R65.20 Sepsis acute organ dysfunction status: with acute organ dysfunction Sepsis type: sepsis due to unspecified organism Severe sepsis acute organ dysfunction type: unspecified Severe sepsis shock status: without septic shock IVDU (intravenous drug user) F19.90 Congenital mitral valve prolapse Q23.8
[2019-09-16] VITALS: BP 111/69; PULSE 79; RESP 20; TEMP 37.1; O2SAT 98
[2019-09-16] MEDS: nafcillin 2,000 MG in sodium chloride 0.9% (plus) 50 ML 50 MG IV ×3 (01:40→09:26)
[2019-09-16 04:00] VITALS: BP 102/64; PULSE 82; RESP 20; TEMP 37; O2SAT 98
[2019-09-16 04:51] LABS: Basophils # 0.1 10^3/uL (0.0-0.1); Basophils % 1.1 %; Eosinophils # 0.2 10^3/uL (0.0-0.8); Eosinophils % 3.9 %; Hematocrit 33.5 % (37.0-47.0); Hemoglobin 10.6 g/dL (11.5-15.3); Lymphocytes # 1.1 10^3/uL (0.8-4.8); Lymphocytes % 19.7 %; Mean Corpuscular HGB Conc 31.6 g/dL (30.0-36.0); Mean Corpuscular Hemoglobin 27.3 pg (28.0-34.0); Mean Corpuscular Volume 86.3 fL (81-99); Mean Platelet Volume 9.2 fL (7.4-10.4); Monocytes # 0.8 10^3/uL (0.2-0.9); Monocytes % 14.8 %; Neutrophils # 3.4 10^3/uL (1.8-7.7); Neutrophils % 59.6 %; Nucleated Red Blood Cells % 0 %; Platelet Count 533 10^3/cmm (130-400); Red Blood Count 3.88 10^6/uL (4.1-5.3); White Blood Count 5.7 10^3/uL (4.0-10.0)
[2019-09-16 05:12] LABS: Alanine Aminotransferase 16 U/L (0-33); Albumin Level 2.9 g/dL (3.5-5.2); Alkaline Phosphatase 65 IU/L (35-105); Blood Urea Nitrogen 8 mg/dL (6-20); Calcium 9.2 mg/Dl (8.6-10.0); Carbon Dioxide 26 mmol/L (22-29); Chloride 100 mmol/L (98-107); Globulin 3.9 g/dL (1.3-4.6); Glomerular Filtration Rate 140.4 mL/min (90-130); Glucose 103 mg/dL (74-109); Phosphorus 3.8 mg/dL (2.5-4.5); Sodium 138 mmol/L (136-145); Total Bilirubin 0.3 mg/dL (0.15-1.2); Total Protein 6.8 g/dL (6.6-8.7)
[2019-09-16 05:47] LABS: Aspartate Amino Transferase 18 U/L (0-32)
--- NOTE | 2019-09-16 06:38 | PC.NURSE ---
Pt has done very well this night. no complaints voiced. ambulated in the hallway several times tonight for about 30 minutes each time.
[2019-09-16 07:16] VITALS: BP 121/75; PULSE 78; RESP 18; TEMP 36.9; O2SAT 99
[2019-09-16 11:10] VITALS: BP 97/66; PULSE 89; RESP 20; TEMP 37.2; O2SAT 97
[2019-09-16 12:41] VITALS: BP 97/66; PULSE 89; RESP 20; TEMP 37.2; O2SAT 97
--- NOTE | 2019-09-16 16:58 | PM.DCS ---
Discharge Providers Date of Admission: 09/03/19 12:10 Date of Discharge: 09/16/19 Attending Provider at Admission: Kayce Chase MD Attending Provider at Discharge: Rudi Nielson MD Primary Care Provider: Maria T Gipson Diagnoses at Discharge Discharge Diagnosis (1) Sepsis: Status: Acute Qualifiers: Sepsis acute organ dysfunction status: with acute organ dysfunction Sepsis type: sepsis due to unspecified organism Severe sepsis acute organ dysfunction type: unspecified Severe sepsis shock status: without septic shock Qualified Code(s): A41.9 - Sepsis, unspecified organism; R65.20 - Severe sepsis without septic shock (2) IVDU (intravenous drug user): Status: Acute (3) Congenital mitral valve prolapse: Status: Resolved Reason for Visit Reason for Visit: Reason For Visit: sepsis Hospital Course Discharge Summary: This is a 34-year-old female with a past medical history of intravenous drug use, methamphetamine, who presents to the emergency room due to complaints of fevers and chills. She has a past medical history of bacteremia for which she received 6 weeks of IV antibiotic therapy, April of last year. Patient was admitted for Sepsis secondary to recurrent bacterial endocarditis due to IV drug abuse. Transesophageal echocardiogram showed multiple echodensities on the ventricular side of the posterior and anterior leaflet of the tricuspid valve, cultures indicate methicillin sensitive staph aureus. Repeat blood cultures were unremarkable. Patient received IV nafcillin and gentamicin as inpatient. Unfortunately patient was not deemed a suitable candidate for PICC placement due to her IV drug abuse. Based upon a study in the [place] Journal of Medicine, partial oral versus intravenous antibiotic treatment of endocarditis, published September 26 2018, based on the study it was deemed reasonable to complete a 10-day course of IV antibiotics as inpatient, and transition to 5-week course of oral antibiotics. However the study was done for left-sided endocarditis, and patient had right-sided endocarditis. After discussion of the risks and benefits, patient voiced understanding, all questions answered, agreed to proceed with oral antibiotic therapy as outpatient. Patient was discharged with a total of 5 weeks oral linezolid and rifampin, with weekly CBCs and CMP's, follow-up with her primary care provider on a weekly basis, and a follow-up with cardiology in 5 weeks for repeat echocardiogram. Patient was advised to abstain from IV drug abuse. Physical Exam Const: COMMON NORMALS: no apparent distress and oriented x3 HENMT: COMMON NORMALS: normocephalic HEAD & SCALP: normocephalic Neck/C-Spine: COMMON NORMALS: no JVD Resp: COMMON NORMALS: normal respiratory effort, no retractions, no use of accessory muscles and clear to auscultation bilaterally AUSCULTATION: clear to auscultation bilaterally Cardio: COMMON NORMALS: no JVD, regular rate, regular rhythm, S1 normal heart sound and S2 normal heart sound RATE: regular rate RHYTHM: regular rhythm HEART SOUNDS: S1 normal and S2 normal GI: COMMON NORMALS: normal to inspection, nondistended, normoactive bowel sounds, soft to palpation, non-tender, no hepatosplenomegaly, no masses and no bruits PALPATION: Yes soft and Yes no hepatosplenomegaly Extremity: COMMON NORMALS: normal capillary refill, no clubbing, cyanosis or edema, no calf tenderness and no pedal edema Neuro: COMMON NORMALS: oriented x3 Psych: COMMON NORMALS: mental status grossly normal Discharge Data Data Completed and Pending: Completed Studies During Hospitalization Category Date Time Status CT angio chest PE protcl [id number] Rout ine Cat Scan 09/05/19 09:40 Completed CXRP [XR chest 1V portable [id number]] S tat Exams 09/09/19 09:56 Completed XR chest 1V [id number] Stat Exams 09/05/19 14:24 Completed XR chest 1V royce ble [id number] Urgent Exams 09/03/19 09:03 Completed CV echo complete* [id number] Routine Ultrasound 09/05/19 09:40 Completed CV echo transesop hageal [id number] Routi ne Ultrasound 09/08/19 08:30 Completed Pending at discharge Category Date Time Status US venous duplex upper extremity RT [CV venous duplex Ultrasound 09/15/19 15:21 [place] [id number]] Rout ine Labs from last 24 hours 09/16/19 09/16/19 04:13 04:13 WBC 5.7 RBC 3.88 L Hgb 10.6 L Hct 33.5 L MCV 86.3 MCH 27.3 L MCHC 31.6 RDW 14.0 Plt Count 533 H MPV 9.2 Neut % (Auto) 59.6 Lymph % (Auto) 19.7 [place] % (Auto) 14.8 Eos % (Auto) 3.9 Baso % (Auto) 1.1 Neut # (Auto) 3.4 Lymph # (Auto) 1.1 [place] # (Auto) 0.8 Eos # (Auto) 0.2 Baso # (Auto) 0.1 Nucleated RBC % (a uto) 0 Nucleated RBCs # 0.0 Sodium 138 Potassium 4.0 Chloride 100 Carbon Dioxide 26 Anion Gap 16.0 BUN 8 Creatinine 0.5 GFR Calculation 140.4 H Glucose 103 Calcium 9.2 Phosphorus 3.8 Magnesium 2.0 Total Bilirubin 0.3 AST 18 ALT 16 Alkaline Phosphata se 65 Total Protein 6.8 Albumin 2.9 L Globulin 3.9 Vitals: Last Vital Signs Temp 98.9 F 09/16/19 12:41 Pulse 89 09/16/19 12:41 Resp 20 H 09/16/19 12:41 BP 97/66 09/16/19 12:41 Pulse Ox 97 09/16/19 12:41 Discharge Plan Discharge Patient Disposition: Home, Self-Care Condition: Stable Prescriptions: New rifampin 300 mg capsule 300 mg PO Q8H 35 Days Qty: 105 RF: 0 linezolid 600 mg tablet 600 mg PO BID 35 Days Qty: 70 RF: 0 Continued aspirin 81 mg tablet,delayed release (DR/EC) 81 mg PO DAILY RF: 0 Discharge Orders: Discharge Order (Routine); Ordered 09/16/19 Ordered By: Rudi Nielson Other Ambulatory Orders: Complete Blood Count w/Auto (WEEKLY) Timeframe: 20190923 Location: Determined by Patient Ordered By: Rudi Nielson Complete Blood Count w/Auto (WEEKLY) Timeframe: 20190924 Location: Determined by Patient Ordered By: Rudi Nielson Complete Blood Count w/Auto (WEEKLY) Timeframe: 20190925 Location: Determined by Patient Ordered By: Rudi Nielson Complete Blood Count w/Auto (WEEKLY) Timeframe: 20190926 Location: Determined by Patient Ordered By: Rudi Nielson Complete Blood Count w/Auto (WEEKLY) Timeframe: 20190927 Location: Determined by Patient Ordered By: Rudi Nielson Comprehensive Metabolic Panel (WEEKLY) Timeframe: 20190923 Facility: [facility] - Location: Lab - Main Lab Ordered By: Rudi Nielson Comprehensive Metabolic Panel (WEEKLY) Timeframe: 20190924 Facility: [facility] - Location: Lab - Main Lab Ordered By: Rudi Nielson Comprehensive Metabolic Panel (WEEKLY) Timeframe: 20190925 Facility: [facility] - Location: Lab - Main Lab Ordered By: Rudi Nielson Comprehensive Metabolic Panel (WEEKLY) Timeframe: 20190926 Facility: [facility] - Location: Lab - Main Lab Ordered By: Rudi Nielson Comprehensive Metabolic Panel (WEEKLY) Timeframe: 20190927 Facility: [facility] - Location: Lab - Main Lab Ordered By: Rudi Nielson Referrals: Cameron Pena MD [Physician] - 6 Weeks (endocarditis) WHITNEY TRAN FNP [Referring] - (You have an appointment scheduled with Whitney Tran NP, to establish primary care. Your appointment is for 09/19/19 at 10:30. Please arrive by 10:00 to fill out new patient paperwork and apply for the sliding scale. You will need to bring a copy of your 2018 taxes for the sliding scale application. Please call them with any questions. ) Maria T Gipson FNP [Primary Care Provider] - Discharge Diet: Advance as tolerated Discharge Activity: Resume usual activity Patient Instructions: Rifampin (By mouth), Linezolid (By mouth), Endocarditis (DC), Methamphetamine Abuse (DC) Activity Restrictions/Additional Instructions: -Please take antibiotics as prescribed -Please follow-up with primary care provider in regards to control, as you are on antibiotics that are unsafe during -Please check weekly CBCs and CMP's -Please follow-up with cardiology in 6 weeks for repeat echocardiogram -Please abstain from drug use -If you feel lightheaded, dizzy, fevers, chest pain come back to the emergency room -Please follow-up with primary care in 1 week, require weekly blood draws Discharge Date/Time: 09/16/19 13:12 Discharge Attestations Time Spent in Discharge Care*: greater than 30 min Quality Metrics Clinical Quality Measures During this hospital stay, did patient experience: None Coding Level of Care Code Acute [employer] Operator for [facility] Diagnoses Sepsis A41.9; R65.20 Sepsis acute organ dysfunction status: with acute organ dysfunction Sepsis type: sepsis due to unspecified organism Severe sepsis acute organ dysfunction type: unspecified Severe sepsis shock status: without septic shock IVDU (intravenous drug user) F19.90 Congenital mitral valve prolapse Q23.8
== END 2019-09-16 13:12 | disposition home or self-care (01) | DRG 871 ==
LOC: ER 12:16 → MEDSURG 13:42
PROVIDERS: Internal Medicine; Internal Medicine Cardiovascular Disease; Admitting Provider Family Medicine; Emergency Provider Family Medicine; Family Provider Nurse Practitioner Family; PCP Nurse Practitioner Family; Visit Provider Family Medicine
PROC: B24BZZ4 Ultrasonography of Heart with Aorta, Transesophageal (ICD-10-PCS; CPT 93312; principal; 2019-09-08 09:00)
DX: A41.9 Sepsis, unspecified organism (principal); I33.0 Acute and subacute infective endocarditis; F15.90 Other stimulant use, unspecified, uncomplicated; F12.90 Cannabis use, unspecified, uncomplicated; R65.20 Severe sepsis without septic shock; I07.1 Rheumatic tricuspid insufficiency; Z90.710 Acquired absence of both cervix and uterus; D64.9 Anemia, unspecified; Z23 Encounter for immunization; E87.6 Hypokalemia; F19.90 Other psychoactive substance use, unspecified, uncomplicated; B95.61 Methicillin susceptible Staphylococcus aureus infection as the cause of diseases classified elsewhere; Z79.82 Long term (current) use of aspirin
CPT/HCPCS: 12345; 36415; 36592; 71045; 71275; 80048; 80053; 80074; 80170; 80202; 81003; 81025; 83605; 83735; 84100; 84484; 85025; 85610; 85730; 87040; 87077; 87186; 87205; 87804; 90686; 93005; 93306; 93312; 93320; 93325; 93971; 96372; 96375; 99283; A9270; C1751; J0696; J1580; J1650; J2405; J2704; J3370; J3490; J7030; J7050; Q0162; Q9967

== ENCOUNTER 2020-01-16 00:27 | Inpatient (IN) | payer MEDICAID, SELFPAY ==
[2020-01-16] VITALS (76 sets, daily range): BP systolic 72–155; BP diastolic 45–85; PULSE 94–138; RESP 16–39; TEMP 37–39.6; O2SAT 92–100; BMI 28.4
--- NOTE | 2020-01-16 00:49 | XRR_ITS ---
PROCEDURE INFORMATION: Exam: XR Chest, 2 Views Exam date and time: 01/16/2020 1:21 AM Age: 34 years old Clinical indication: Fever and shortness of breath; Prior surgery; Surgery type: Open heart as infant; Additional info: SOB, fever TECHNIQUE: Imaging protocol: XR of the chest Views: 2 views. COMPARISON: CR XR chest 1V portable [id number] 09/09/2019 9:56 AM FINDINGS: Lungs: The lungs are emphysematous. No acute airspace process is seen. The left hemidiaphragm is slightly elevated. Pleural space: Unremarkable. No pleural effusion. No pneumothorax. Heart/Mediastinum: Unremarkable. No cardiomegaly. Bones/joints: Unremarkable. Soft tissues: Surgical clips are again seen in the lower left aspect of the neck. XR/XR chest 2V* [id number] IMPRESSION: No acute cardiopulmonary abnormality.
--- NOTE | 2020-01-16 00:59 | W.ED.FEVER ---
Documented by User: DAVI Hunter 01/16/20 02:38 HPI - Fever General: Chief Complaint: Fever Stated Complaint: sob/fever 103.6 Time Seen by Provider: 01/16/20 00:44 History of Present Illness: HPI Narrative: Patient is a 34-year-old female comes to the ED with fever and shortness of breath. Symptoms started about a week ago. Patient says it started first with a bad headache and then she started developing fever chills and body aches. Headache is located in the occipital region of head and patient is also complaining of eye discomfort. The last 2 days she started having a productive cough with clear sputum. She also says over the last 2 days she started developing shortness of breath and she feels like something squeezing her chest. She has been very fatigued and feels like sleeping all day. Currently patient says she still has a really bad headache and feels like her eyes hurt. Denies any ear pain, sore throat, abdominal pain, vomiting, dysuria, hematuria, diarrhea, constipation. Endorses having decreased appetite and has not been in taking much fluids. Denies any known sick contact recently. Associated symptoms: Reports chills, headache(s) and nausea; Deny abdominal pain, flank pain, chest pain, diarrhea, dysuria, nasal congestion or vomiting Review of Systems Const: Reports: fever(s), chills and fatigue Eyes: Reports: eye discomfort; Denies: change in vision ENMT: Denies: throat pain, odynophagia, nasal discharge or nasal congestion Card: Denies: chest pain, palpitations, edema, swelling of feet/ankles, dyspnea on exertion or orthopnea Resp: Reports: dyspnea and productive cough (clear sputum); Denies: non-productive cough GI: Reports: nausea; Denies: abdominal pain, vomiting, diarrhea, constipation or hematochezia : Denies: flank pain, dysuria or hematuria Musc: Reports: neck pain; Denies: back pain or extremity swelling Skin/Breast: Denies: rash or new lesions Neuro: Reports: headache(s); Denies: numbness in extremities or weakness in extremities PFS ED PFSH: Medical History Congenital mitral valve prolapse 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 History of bacteremia History of congenital heart disease IVDU (intravenous drug user) Substance abuse Tricuspid regurgitation Surgical History H/O mitral valve repair History of appendectomy History of x2 History of hysterectomy Family History Father Hepatitis C Mother Lung disease Grandfather Congenital heart disease ASD with the mitral valve prolapse Social History Smoking and tobacco status: former smoker Alcohol intake: never Female Reproductive History: Date of last menstrual period: 01/14/20 Physical Exam Const: COMMON NORMALS: patient oriented x3 and alert GENERAL APPEARANCE: cooperative and ill appearing HENMT: COMMON NORMALS: normocephalic HEAD & SCALP: normocephalic MOUTH: moist mucous membranes abnormal Details: parched THROAT: posterior oropharynx normal and uvula midline Eye: COMMON NORMALS: Equal, round and reactive pupils present, EOMs intact bilaterally and conjunctivae normal CONJUNCTIVA: Yes conjunctivae normal PUPIL: Yes Equal, round and reactive pupils present Neck/C-Spine: COMMON NORMALS: supple and no meningeal signs GENERAL: Yes normal visual inspection Resp: COMMON NORMALS: normal respiratory effort, No retractions and No use of accessory muscles AUSCULTATION: wheezes expiratory wheezes and right lower and diminished lung sounds bilateral Cardio: COMMON NORMALS: regular rhythm, S1 normal heart sound present, S2 normal heart sound present, No gallops present (Cardio), No clicks present (Cardio), No murmurs present (Cardio) and Peripheral pulses 2+ throughout RATE: tachycardic RHYTHM: regular rhythm HEART SOUNDS: S1 normal heart sound present and S2 normal heart sound present PERIPHERAL PULSES: Peripheral pulses 2+ throughout GI: COMMON NORMALS: Normal to inspection, nondistended, normoactive bowel sounds present, Soft to palpation, non-tender and no masses PALPATION: Yes Soft to palpation : COMMON NORMALS: Yes no CVA tenderness BLADDER/KIDNEY EXAM: Yes no CVA tenderness Back/Pelvis: COMMON NORMALS: no CVA tenderness Extremity: COMMON NORMALS: normal to inspection and no pedal edema Neuro: COMMON NORMALS: patient oriented x3 and moves all extremities SENSORIUM/ORIENTATION: Yes alert MENINGEAL SIGNS: Yes no meningeal signs, No nuccal rigidity and No Brudzinski's sign present Skin: COMMON NORMALS: no rashes or lesions noted GENERAL SKIN EXAM: no rashes or lesions noted and dry skin Course Vital Signs: Vital signs: Vital Signs Temperature 103.2 F H 01/16/20 00:45 Pulse Rate 104 H 01/16/20 04:35 Respiratory Rate 23 H 01/16/20 04:35 Blood Pressure 78/66 01/16/20 05:00 Pulse Oximetry 98 01/16/20 05:00 MDM - Fever MDM Narrative: Medical decision making narrative: Patient is a 34-year-old female who comes into the ED with fever and shortness of breath. She is also complaining of having a headache that started in the productive cough with clear sputum. Physical exam?bilateral wheezing and diminished lung sounds at right lung base. No meningeal signs. Tachycardia. Vitals blood pressure 95/57, pulse 138, respirations 18, temp 103.2 Fahrenheit, O2 saturation 94% on room air. White blood cell count 17.5 and hemoglobin 11.3. Lactic 0.9. Chest x-ray showed some possible right lower lung infiltrates. Patient has been given IV fluids, 2 g of Rocephin, Zofran and Tylenol. I discussed patient's case with Dr. Cherry and he will be taking over patient care and handling patient admission. Lab Data: Attestation: I reviewed the patient's lab results. Labs: Lab Results 01/16/20 01/16/20 01/16/20 Range/Units 00:58 00:58 00:58 WBC 17.5 H (4.0-10.0) 10^3/ uL RBC 4.18 (4.1-5.3) 10^6/u L Hgb 11.3 L (11.5-15.3) g/dL Hct 35.4 L (37.0-47.0) % MCV 84.7 (81-99) fL MCH 27.0 L (28.0-34.0) pg MCHC 31.9 (30.0-36.0) g/dL RDW 13.4 (12.1-15.1) % Plt Count 243 (130-400) 10^3/c mm MPV 10.3 (7.4-10.4) fL Neut % (Auto) 82.9 % Lymph % (Auto) 6.5 % Freestone % (Auto) 9.3 % Eos % (Auto) 0.0 % Baso % (Auto) 0.2 % Neut # (Auto) 14.5 H (1.8-7.7) 10^3/u L Lymph # (Auto) 1.1 (0.8-4.8) 10^3/u L Freestone # (Auto) 1.6 H (0.2-0.9) 10^3/u L Eos # (Auto) 0.0 (0.0-0.8) 10^3/u L Baso # (Auto) 0.0 (0.0-0.1) 10^3/u L Nucleated RBC % (a uto) 0 % Nucleated RBCs # 0.0 /100WBC D-Dimer (0-0.59) ug/mIFE U Sodium 133 L (136-145) mmol/L Potassium 3.5 (3.5-5.1) mmol/L Chloride 96 L (98-107) mmol/L Carbon Dioxide 22 (22-29) mmol/L Anion Gap 18.5 (5-19) BUN 9 (6-20) mg/dL Creatinine 0.6 (0.5-0.9) mg/dL GFR Calculation 113.8 (90-130) mL/min Glucose 151 H (65-115) mg/dL Calculated Osmolal ity 275 L (285-295) mOsm/k g Lactic Acid (Sepsi s) (0.5-2.2) mmol/L Calcium 8.7 (8.5-10.5) mg/dL Total Bilirubin 0.6 (0.15-1.2) mg/dL AST 16 (0-32) U/L ALT 16 (0-33) U/L Alkaline Phosphata se 113 H (35-105) IU/L Troponin T Baselin e (0-10) ng/mL Troponin T 120 Min kaw (0-10) ng/mL Delta Troponin T (0-10) ABS# Total Protein 7.4 (6.6-8.7) g/dL Albumin 3.5 (3.5-5.2) g/dL Globulin 3.9 (1.3-4.6) g/dL HCG, Qual Negative (Negative) Urine Color (Yellow) Urine Appearance (CLEAR) Urine pH (5-7) Ur Specific Gravit y (1.005-1.030) Urine Protein (Negative) Urine Glucose (UA) (Normal) Urine Ketones (Negative) Urine Blood (Negative) Urine Nitrate (Negative) Urine Bilirubin (NEGATIVE) Urine Urobilinogen (Negative) mg/dL Ur Leukocyte Marcia ase (Negative) Urine RBC (0-2) /hpf Urine WBC (0-5) /hpf Ur Squamous Epith Cells (0-5) Urine Bacteria (NONE) Influenza Type A A g (Negative) Influenza Type B A g (Negative) 01/16/20 01/16/20 01/16/20 Range/Units 00:58 00:58 00:58 WBC (4.0-10.0) 10^3/ uL RBC (4.1-5.3) 10^6/u L Hgb (11.5-15.3) g/dL Hct (37.0-47.0) % MCV (81-99) fL MCH (28.0-34.0) pg MCHC (30.0-36.0) g/dL RDW (12.1-15.1) % Plt Count (130-400) 10^3/c mm MPV (7.4-10.4) fL Neut % (Auto) % Lymph % (Auto) % Freestone % (Auto) % Eos % (Auto) % Baso % (Auto) % Neut # (Auto) (1.8-7.7) 10^3/u L Lymph # (Auto) (0.8-4.8) 10^3/u L Freestone # (Auto) (0.2-0.9) 10^3/u L Eos # (Auto) (0.0-0.8) 10^3/u L Baso # (Auto) (0.0-0.1) 10^3/u L Nucleated RBC % (a uto) % Nucleated RBCs # /100WBC D-Dimer 2.24 H (0-0.59) ug/mIFE U Sodium (136-145) mmol/L Potassium (3.5-5.1) mmol/L Chloride (98-107) mmol/L Carbon Dioxide (22-29) mmol/L Anion Gap (5-19) BUN (6-20) mg/dL Creatinine (0.5-0.9) mg/dL GFR Calculation (90-130) mL/min Glucose (65-115) mg/dL Calculated Osmolal ity (285-295) mOsm/k g Lactic Acid (Sepsi s) 0.9 (0.5-2.2) mmol/L Calcium (8.5-10.5) mg/dL Total Bilirubin (0.15-1.2) mg/dL AST (0-32) U/L ALT (0-33) U/L Alkaline Phosphata se (35-105) IU/L Troponin T Baselin e 6 (0-10) ng/mL Troponin T 120 Min kaw (0-10) ng/mL Delta Troponin T (0-10) ABS# Total Protein (6.6-8.7) g/dL Albumin (3.5-5.2) g/dL Globulin (1.3-4.6) g/dL HCG, Qual (Negative) Urine Color (Yellow) Urine Appearance (CLEAR) Urine pH (5-7) Ur Specific Gravit y (1.005-1.030) Urine Protein (Negative) Urine Glucose (UA) (Normal) Urine Ketones (Negative) Urine Blood (Negative) Urine Nitrate (Negative) Urine Bilirubin (NEGATIVE) Urine Urobilinogen (Negative) mg/dL Ur Leukocyte Marcia ase (Negative) Urine RBC (0-2) /hpf Urine WBC (0-5) /hpf Ur Squamous Epith Cells (0-5) Urine Bacteria (NONE) Influenza Type A A g (Negative) Influenza Type B A g (Negative) 01/16/20 01/16/20 01/16/20 Range/Units 02:00 02:45 02:54 WBC (4.0-10.0) 10^3/ uL RBC (4.1-5.3) 10^6/u L Hgb (11.5-15.3) g/dL Hct (37.0-47.0) % MCV (81-99) fL MCH (28.0-34.0) pg MCHC (30.0-36.0) g/dL RDW (12.1-15.1) % Plt Count (130-400) 10^3/c mm MPV (7.4-10.4) fL Neut % (Auto) % Lymph % (Auto) % Freestone % (Auto) % Eos % (Auto) % Baso % (Auto) % Neut # (Auto) (1.8-7.7) 10^3/u L Lymph # (Auto) (0.8-4.8) 10^3/u L Freestone # (Auto) (0.2-0.9) 10^3/u L Eos # (Auto) (0.0-0.8) 10^3/u L Baso # (Auto) (0.0-0.1) 10^3/u L Nucleated RBC % (a uto) % Nucleated RBCs # /100WBC D-Dimer (0-0.59) ug/mIFE U Sodium (136-145) mmol/L Potassium (3.5-5.1) mmol/L Chloride (98-107) mmol/L Carbon Dioxide (22-29) mmol/L Anion Gap (5-19) BUN (6-20) mg/dL Creatinine (0.5-0.9) mg/dL GFR Calculation (90-130) mL/min Glucose (65-115) mg/dL Calculated Osmolal ity (285-295) mOsm/k g Lactic Acid (Sepsi s) (0.5-2.2) mmol/L Calcium (8.5-10.5) mg/dL Total Bilirubin (0.15-1.2) mg/dL AST (0-32) U/L ALT (0-33) U/L Alkaline Phosphata se (35-105) IU/L Troponin T Baselin e (0-10) ng/mL Troponin T 120 Min kaw 6.00 (0-10) ng/mL Delta Troponin T 0 (0-10) ABS# Total Protein (6.6-8.7) g/dL Albumin (3.5-5.2) g/dL Globulin (1.3-4.6) g/dL HCG, Qual (Negative) Urine Color Yellow (Yellow) Urine Appearance Clear (CLEAR) Urine pH 5 (5-7) Ur Specific Gravit y 1.005 (1.005-1.030) Urine Protein 1+ H (Negative) Urine Glucose (UA) Norm (Normal) Urine Ketones Negative (Negative) Urine Blood 2+ H (Negative) Urine Nitrate Negative (Negative) Urine Bilirubin 1+ H (NEGATIVE) Urine Urobilinogen 1 H (Negative) mg/dL Ur Leukocyte Marcia ase Negative (Negative) Urine RBC 0-4 H (0-2) /hpf Urine WBC 0-4 H (0-5) /hpf Ur Squamous Epith Cells 0-4 H (0-5) Urine Bacteria 1+ H (NONE) Influenza Type A A g Negative (Negative) Influenza Type B A g Negative (Negative) 01/16/20 Range/Units 02:54 WBC (4.0-10.0) 10^3/ uL RBC (4.1-5.3) 10^6/u L Hgb (11.5-15.3) g/dL Hct (37.0-47.0) % MCV (81-99) fL MCH (28.0-34.0) pg MCHC (30.0-36.0) g/dL RDW (12.1-15.1) % Plt Count (130-400) 10^3/c mm MPV (7.4-10.4) fL Neut % (Auto) % Lymph % (Auto) % Freestone % (Auto) % Eos % (Auto) % Baso % (Auto) % Neut # (Auto) (1.8-7.7) 10^3/u L Lymph # (Auto) (0.8-4.8) 10^3/u L Freestone # (Auto) (0.2-0.9) 10^3/u L Eos # (Auto) (0.0-0.8) 10^3/u L Baso # (Auto) (0.0-0.1) 10^3/u L Nucleated RBC % (a uto) % Nucleated RBCs # /100WBC D-Dimer (0-0.59) ug/mIFE U Sodium (136-145) mmol/L Potassium (3.5-5.1) mmol/L Chloride (98-107) mmol/L Carbon Dioxide (22-29) mmol/L Anion Gap (5-19) BUN (6-20) mg/dL Creatinine (0.5-0.9) mg/dL GFR Calculation (90-130) mL/min Glucose (65-115) mg/dL Calculated Osmolal ity (285-295) mOsm/k g Lactic Acid (Sepsi s) (0.5-2.2) mmol/L Calcium (8.5-10.5) mg/dL Total Bilirubin (0.15-1.2) mg/dL AST (0-32) U/L ALT (0-33) U/L Alkaline Phosphata se (35-105) IU/L Troponin T Baselin e (0-10) ng/mL Troponin T 120 Min kaw (0-10) ng/mL Delta Troponin T (0-10) ABS# Total Protein (6.6-8.7) g/dL Albumin (3.5-5.2) g/dL Globulin (1.3-4.6) g/dL HCG, Qual Negative (Negative) Urine Color (Yellow) Urine Appearance (CLEAR) Urine pH (5-7) Ur Specific Gravit y (1.005-1.030) Urine Protein (Negative) Urine Glucose (UA) (Normal) Urine Ketones (Negative) Urine Blood (Negative) Urine Nitrate (Negative) Urine Bilirubin (NEGATIVE) Urine Urobilinogen (Negative) mg/dL Ur Leukocyte Marcia ase (Negative) Urine RBC (0-2) /hpf Urine WBC (0-5) /hpf Ur Squamous Epith Cells (0-5) Urine Bacteria (NONE) Influenza Type A A g (Negative) Influenza Type B A g (Negative) Imaging Data^: CXR: Attestation: I personally reviewed and interpreted this imaging study as follows: My impression: Possible pneumonia in right lower lung. Pending final radiology report. Radiologist's impression: [address] [address] XRay Report Signed Patient: Margarita Cortes Unit #: [id number] : 1985 Age/Sex: 34 / F ADM Date: 01/16/20 Loc: ER Room/Bed: Attending Dr: Ordering Provider/Ordering MD: Aman Gonzalez Date of Service: 01/16/20 Procedure(s): XR chest 2V* [id number] Accession Number(s): [id number] Report Number: [id number] PROCEDURE INFORMATION: Exam: XR Chest, 2 Views Exam date and time: 01/16/2020 1:21 AM Age: 34 years old Clinical indication: Fever and shortness of breath; Prior surgery; Surgery type: Open heart as infant; Additional info: SOB, fever TECHNIQUE: Imaging protocol: XR of the chest Views: 2 views. COMPARISON: CR XR chest 1V portable [id number] 09/09/2019 9:56 AM FINDINGS: Lungs: The lungs are emphysematous. No acute airspace process is seen. The left hemidiaphragm is slightly elevated. Pleural space: Unremarkable. No pleural effusion. No pneumothorax. Heart/Mediastinum: Unremarkable. No cardiomegaly. Bones/joints: Unremarkable. Soft tissues: Surgical clips are again seen in the lower left aspect of the neck. XR/XR chest 2V* [id number] IMPRESSION: No acute cardiopulmonary abnormality. Dictated By: Lew Shepard MD Signed By: Lew Shepard MD Signed Date/Time: 01/16/20158 DD/ 7 EKG Data^: EKG 1: Attestation: I personally reviewed and interpreted this EKG as follows: EKG interpretation date: 01/16/20 Interpretation: Sinus tachycardia, 119 bpm, P waves present, no ST segment elevation or depression seen. 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 Comprehensive Documented by User: Gladis Cherry MD 01/16/20 05:18 HPI - Fever General: Chief Complaint: Fever Stated Complaint: sob/fever 103.6 Time Seen by Provider: 01/16/20 00:44 PFSH ED PFSH: Medical History Congenital mitral valve prolapse 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 History of bacteremia History of congenital heart disease IVDU (intravenous drug user) Substance abuse Tricuspid regurgitation Surgical History H/O mitral valve repair History of appendectomy History of x2 History of hysterectomy Family History Father Hepatitis C Mother Lung disease Grandfather Congenital heart disease ASD with the mitral valve prolapse Social History Smoking and tobacco status: former smoker Alcohol intake: never Course Vital Signs: Vital signs: Vital Signs Temperature 103.2 F H 01/16/20 00:45 Pulse Rate 104 H 01/16/20 04:35 Respiratory Rate 23 H 01/16/20 04:35 Blood Pressure 78/66 01/16/20 05:00 Pulse Oximetry 98 01/16/20 05:00 MDM - Fever MDM Narrative: Medical decision making narrative: Patient presents here with fever along with hypotension and sepsis. Patient's blood pressure is improved here and admission to ICU after IV fluids. Patient's blood pressure is 108/67. Patient has a history of endocarditis. She does have headache but no neck pain or neck stiffness. She has no signs of meningitis. I spoke to hospitalist who has seen patient in the past and will start on IV antibiotics and admit to the ICU. Lab Data: Labs: Lab Results 01/16/20 01/16/20 01/16/20 Range/Units 00:58 00:58 00:58 WBC 17.5 H (4.0-10.0) 10^3/ uL RBC 4.18 (4.1-5.3) 10^6/u L Hgb 11.3 L (11.5-15.3) g/dL Hct 35.4 L (37.0-47.0) % MCV 84.7 (81-99) fL MCH 27.0 L (28.0-34.0) pg MCHC 31.9 (30.0-36.0) g/dL RDW 13.4 (12.1-15.1) % Plt Count 243 (130-400) 10^3/c mm MPV 10.3 (7.4-10.4) fL Neut % (Auto) 82.9 % Lymph % (Auto) 6.5 % Freestone % (Auto) 9.3 % Eos % (Auto) 0.0 % Baso % (Auto) 0.2 % Neut # (Auto) 14.5 H (1.8-7.7) 10^3/u L Lymph # (Auto) 1.1 (0.8-4.8) 10^3/u L Freestone # (Auto) 1.6 H (0.2-0.9) 10^3/u L Eos # (Auto) 0.0 (0.0-0.8) 10^3/u L Baso # (Auto) 0.0 (0.0-0.1) 10^3/u L Nucleated RBC % (a uto) 0 % Nucleated RBCs # 0.0 /100WBC D-Dimer (0-0.59) ug/mIFE U Sodium 133 L (136-145) mmol/L Potassium 3.5 (3.5-5.1) mmol/L Chloride 96 L (98-107) mmol/L Carbon Dioxide 22 (22-29) mmol/L Anion Gap 18.5 (5-19) BUN 9 (6-20) mg/dL Creatinine 0.6 (0.5-0.9) mg/dL GFR Calculation 113.8 (90-130) mL/min Glucose 151 H (65-115) mg/dL Calculated Osmolal ity 275 L (285-295) mOsm/k g Lactic Acid (Sepsi s) (0.5-2.2) mmol/L Calcium 8.7 (8.5-10.5) mg/dL Total Bilirubin 0.6 (0.15-1.2) mg/dL AST 16 (0-32) U/L ALT 16 (0-33) U/L Alkaline Phosphata se 113 H (35-105) IU/L Troponin T Baselin e (0-10) ng/mL Troponin T 120 Min kaw (0-10) ng/mL Delta Troponin T (0-10) ABS# Total Protein 7.4 (6.6-8.7) g/dL Albumin 3.5 (3.5-5.2) g/dL Globulin 3.9 (1.3-4.6) g/dL HCG, Qual Negative (Negative) Urine Color (Yellow) Urine Appearance (CLEAR) Urine pH (5-7) Ur Specific Gravit y (1.005-1.030) Urine Protein (Negative) Urine Glucose (UA) (Normal) Urine Ketones (Negative) Urine Blood (Negative) Urine Nitrate (Negative) Urine Bilirubin (NEGATIVE) Urine Urobilinogen (Negative) mg/dL Ur Leukocyte Marcia ase (Negative) Urine RBC (0-2) /hpf Urine WBC (0-5) /hpf Ur Squamous Epith Cells (0-5) Urine Bacteria (NONE) Influenza Type A A g (Negative) Influenza Type B A g (Negative) 01/16/20 01/16/20 01/16/20 Range/Units 00:58 00:58 00:58 WBC (4.0-10.0) 10^3/ uL RBC (4.1-5.3) 10^6/u L Hgb (11.5-15.3) g/dL Hct (37.0-47.0) % MCV (81-99) fL MCH (28.0-34.0) pg MCHC (30.0-36.0) g/dL RDW (12.1-15.1) % Plt Count (130-400) 10^3/c mm MPV (7.4-10.4) fL Neut % (Auto) % Lymph % (Auto) % Freestone % (Auto) % Eos % (Auto) % Baso % (Auto) % Neut # (Auto) (1.8-7.7) 10^3/u L Lymph # (Auto) (0.8-4.8) 10^3/u L Freestone # (Auto) (0.2-0.9) 10^3/u L Eos # (Auto) (0.0-0.8) 10^3/u L Baso # (Auto) (0.0-0.1) 10^3/u L Nucleated RBC % (a uto) % Nucleated RBCs # /100WBC D-Dimer 2.24 H (0-0.59) ug/mIFE U Sodium (136-145) mmol/L Potassium (3.5-5.1) mmol/L Chloride (98-107) mmol/L Carbon Dioxide (22-29) mmol/L Anion Gap (5-19) BUN (6-20) mg/dL Creatinine (0.5-0.9) mg/dL GFR Calculation (90-130) mL/min Glucose (65-115) mg/dL Calculated Osmolal ity (285-295) mOsm/k g Lactic Acid (Sepsi s) 0.9 (0.5-2.2) mmol/L Calcium (8.5-10.5) mg/dL Total Bilirubin (0.15-1.2) mg/dL AST (0-32) U/L ALT (0-33) U/L Alkaline Phosphata se (35-105) IU/L Troponin T Baselin e 6 (0-10) ng/mL Troponin T 120 Min kaw (0-10) ng/mL Delta Troponin T (0-10) ABS# Total Protein (6.6-8.7) g/dL Albumin (3.5-5.2) g/dL Globulin (1.3-4.6) g/dL HCG, Qual (Negative) Urine Color (Yellow) Urine Appearance (CLEAR) Urine pH (5-7) Ur Specific Gravit y (1.005-1.030) Urine Protein (Negative) Urine Glucose (UA) (Normal) Urine Ketones (Negative) Urine Blood (Negative) Urine Nitrate (Negative) Urine Bilirubin (NEGATIVE) Urine Urobilinogen (Negative) mg/dL Ur Leukocyte Marcia ase (Negative) Urine RBC (0-2) /hpf Urine WBC (0-5) /hpf Ur Squamous Epith Cells (0-5) Urine Bacteria (NONE) Influenza Type A A g (Negative) Influenza Type B A g (Negative) 01/16/20 01/16/20 01/16/20 Range/Units 02:00 02:45 02:54 WBC (4.0-10.0) 10^3/ uL RBC (4.1-5.3) 10^6/u L Hgb (11.5-15.3) g/dL Hct (37.0-47.0) % MCV (81-99) fL MCH (28.0-34.0) pg MCHC (30.0-36.0) g/dL RDW (12.1-15.1) % Plt Count (130-400) 10^3/c mm MPV (7.4-10.4) fL Neut % (Auto) % Lymph % (Auto) % Freestone % (Auto) % Eos % (Auto) % Baso % (Auto) % Neut # (Auto) (1.8-7.7) 10^3/u L Lymph # (Auto) (0.8-4.8) 10^3/u L Freestone # (Auto) (0.2-0.9) 10^3/u L Eos # (Auto) (0.0-0.8) 10^3/u L Baso # (Auto) (0.0-0.1) 10^3/u L Nucleated RBC % (a uto) % Nucleated RBCs # /100WBC D-Dimer (0-0.59) ug/mIFE U Sodium (136-145) mmol/L Potassium (3.5-5.1) mmol/L Chloride (98-107) mmol/L Carbon Dioxide (22-29) mmol/L Anion Gap (5-19) BUN (6-20) mg/dL Creatinine (0.5-0.9) mg/dL GFR Calculation (90-130) mL/min Glucose (65-115) mg/dL Calculated Osmolal ity (285-295) mOsm/k g Lactic Acid (Sepsi s) (0.5-2.2) mmol/L Calcium (8.5-10.5) mg/dL Total Bilirubin (0.15-1.2) mg/dL AST (0-32) U/L ALT (0-33) U/L Alkaline Phosphata se (35-105) IU/L Troponin T Baselin e (0-10) ng/mL Troponin T 120 Min kaw 6.00 (0-10) ng/mL Delta Troponin T 0 (0-10) ABS# Total Protein (6.6-8.7) g/dL Albumin (3.5-5.2) g/dL Globulin (1.3-4.6) g/dL HCG, Qual (Negative) Urine Color Yellow (Yellow) Urine Appearance Clear (CLEAR) Urine pH 5 (5-7) Ur Specific Gravit y 1.005 (1.005-1.030) Urine Protein 1+ H (Negative) Urine Glucose (UA) Norm (Normal) Urine Ketones Negative (Negative) Urine Blood 2+ H (Negative) Urine Nitrate Negative (Negative) Urine Bilirubin 1+ H (NEGATIVE) Urine Urobilinogen 1 H (Negative) mg/dL Ur Leukocyte Marcia ase Negative (Negative) Urine RBC 0-4 H (0-2) /hpf Urine WBC 0-4 H (0-5) /hpf Ur Squamous Epith Cells 0-4 H (0-5) Urine Bacteria 1+ H (NONE) Influenza Type A A g Negative (Negative) Influenza Type B A g Negative (Negative) 01/16/20 Range/Units 02:54 WBC (4.0-10.0) 10^3/ uL RBC (4.1-5.3) 10^6/u L Hgb (11.5-15.3) g/dL Hct (37.0-47.0) % MCV (81-99) fL MCH (28.0-34.0) pg MCHC (30.0-36.0) g/dL RDW (12.1-15.1) % Plt Count (130-400) 10^3/c mm MPV (7.4-10.4) fL Neut % (Auto) % Lymph % (Auto) % Freestone % (Auto) % Eos % (Auto) % Baso % (Auto) % Neut # (Auto) (1.8-7.7) 10^3/u L Lymph # (Auto) (0.8-4.8) 10^3/u L Freestone # (Auto) (0.2-0.9) 10^3/u L Eos # (Auto) (0.0-0.8) 10^3/u L Baso # (Auto) (0.0-0.1) 10^3/u L Nucleated RBC % (a uto) % Nucleated RBCs # /100WBC D-Dimer (0-0.59) ug/mIFE U Sodium (136-145) mmol/L Potassium (3.5-5.1) mmol/L Chloride (98-107) mmol/L Carbon Dioxide (22-29) mmol/L Anion Gap (5-19) BUN (6-20) mg/dL Creatinine (0.5-0.9) mg/dL GFR Calculation (90-130) mL/min Glucose (65-115) mg/dL Calculated Osmolal ity (285-295) mOsm/k g Lactic Acid (Sepsi s) (0.5-2.2) mmol/L Calcium (8.5-10.5) mg/dL Total Bilirubin (0.15-1.2) mg/dL AST (0-32) U/L ALT (0-33) U/L Alkaline Phosphata se (35-105) IU/L Troponin T Baselin e (0-10) ng/mL Troponin T 120 Min kaw (0-10) ng/mL Delta Troponin T (0-10) ABS# Total Protein (6.6-8.7) g/dL Albumin (3.5-5.2) g/dL Globulin (1.3-4.6) g/dL HCG, Qual Negative (Negative) Urine Color (Yellow) Urine Appearance (CLEAR) Urine pH (5-7) Ur Specific Gravit y (1.005-1.030) Urine Protein (Negative) Urine Glucose (UA) (Normal) Urine Ketones (Negative) Urine Blood (Negative) Urine Nitrate (Negative) Urine Bilirubin (NEGATIVE) Urine Urobilinogen (Negative) mg/dL Ur Leukocyte Marcia ase (Negative) Urine RBC (0-2) /hpf Urine WBC (0-5) /hpf Ur Squamous Epith Cells (0-5) Urine Bacteria (NONE) Influenza Type A A g (Negative) Influenza Type B A g (Negative) Imaging Data^: CT Head: Radiologist's impression: [place] [address] CT Scan Report Signed Patient: Margarita Cortes Unit #: [id number] : 1985 Age/Sex: 34 / F ADM Date: 01/16/20 Loc: ER Room/Bed: Attending Dr: Ordering Provider/Ordering MD: Gladis Cherry MD Date of Service: 01/16/20 Procedure(s): CT head wo con* 19554 Accession Number(s): [id number] Report Number: [id number] PROCEDURE INFORMATION: Exam: CT Head Without Contrast Exam date and time: 01/16/2020 2:35 AM Age: 34 years old Clinical indication: Pain; Headache; Additional info: MILLER TECHNIQUE: Imaging protocol: Computed tomography of the head without contrast. Radiation optimization: All CT scans at this facility use at least one of these dose optimization techniques: automated exposure control; mA and/or kV adjustment per patient size (includes targeted exams where dose is matched to clinical indication); or iterative reconstruction. COMPARISON: CT head wo con* [id number] 01/28/2019 9:04 AM RADIATION DOSE METRICS: Total DLP: 735.88 mGy-cm FINDINGS: Brain: There are no areas of abnormally increased or decreased brain parenchymal attenuation. No abnormal intra-axial or extra-axial fluid collections are identified. There is no midline shift. No intracranial hemorrhage identified. Ventricles: The ventricular system is within normal limits for size and configuration. Bones/joints: Unremarkable as visualized. Sinuses: Visualized sinuses are unremarkable. No fluid levels. Mastoid air cells: Visualized mastoid air cells are well aerated. Soft tissues: Unremarkable. CT/CT head wo con* [id number] IMPRESSION: 1. No acute intracranial abnormality identified. CT Chest: Attestation: I personally reviewed and interpreted this imaging study as follows: Radiologist's impression: [place] [address] CT Scan Report Signed Patient: Margarita Cortes Unit #: [id number] : 1985 Age/Sex: 34 / F ADM Date: 01/16/20 Loc: ICU Room/Bed: [place] [address]: Jodi Aguirre MD Ordering Provider/Ordering MD: Jodi Aguirre MD Date of Service: 01/16/20 Procedure(s): CT angio chest PE protcl [id number] Accession Number(s): [id number] Report Number: [id number] PROCEDURE INFORMATION: Exam: CT Angiography Chest With Contrast Exam date and time: 01/16/2020 3:43 AM Age: 34 years old Clinical indication: Dyspnea; Chest pain; Type not specified; Prior surgery; Surgery type: Open heart as infant; Additional info: Chest pain, dyspnea, suspect pe TECHNIQUE: Imaging protocol: Computed tomographic angiography of the chest with intravenous contrast. 3D rendering: MIP and/or 3D reconstructed images were created by the technologist. Radiation optimization: All CT scans at this facility use at least one of these dose optimization techniques: automated exposure control; mA and/or kV adjustment per patient size (includes targeted exams where dose is matched to clinical indication); or iterative reconstruction. Contrast material: OMNI 350; Contrast volume: 95 ml; Contrast route: 20G; COMPARISON: CT angio chest PE protcl [id number] 09/05/2019 11:46 AM RADIATION DOSE METRICS: Total DLP: 626.02 mGy-cm FINDINGS: Pulmonary arteries: The pulmonary arteries are adequately opacified for evaluation to the subsegmental level. There is no filling defect to suggest embolism. Aorta: There is a subtle contour deformity of the distal thoracic aortic arch consistent with pseudo-coarctation. There is no significant luminal narrowing. There is no atherosclerotic disease. No dissection or aneurysm. Lungs: Cavitary pulmonary nodules in both lungs are markedly decreased in size since 09/05/2019. Pleural space: There is no pleural effusion or pneumothorax. Heart: The heart is unremarkable. There is no pericardial effusion. Lymph nodes: There are mildly enlarged bilateral hilar and mediastinal lymph nodes of uncertain significance. These are probably reactive nodes. This finding is stable since 09/05/2019. Bones/joints: The visible portions of the clavicles and shoulders, scapula, ribs, sternum, and spine are unremarkable. Soft tissues: The extrathoracic soft tissues are unremarkable. CT/CT angio chest PE protcl [id number] IMPRESSION: 1. No pulmonary embolism. 2. Decreased size of bilateral cavitary pulmonary lesions since 09/05/2019. Findings suggest resolving infection. Fleischner follow up recommendations for incidental nodules are not indicated. Follow up per patient's medical condition. ct c spine: Attestation: I personally reviewed and interpreted this imaging study as follows: Radiologist's impression: [address] [address] [address] Scan Report Signed Patient: Margarita Cortes Unit #: [id number] : 1985 Age/Sex: 34 / F ADM Date: 01/16/20 [facility] Dr: Jodi Aguirre MD Ordering Provider/Ordering MD: Jodi Aguirre MD Date of Service: 01/16/20 Procedure(s): CT cervical spine w con [id number] Accession Number(s): [id number] Report Number: [id number] PROCEDURE INFORMATION: Exam: CT Cervical Spine With Contrast Exam date and time: 01/16/2020 3:43 AM Age: 34 years old Clinical indication: Epidural abscess/discitis TECHNIQUE: Imaging protocol: Computed tomography images of the cervical spine with intravenous contrast. Radiation optimization: All CT scans at this facility use at least one of these dose optimization techniques: automated exposure control; mA and/or kV adjustment per patient size (includes targeted exams where dose is matched to clinical indication); or iterative reconstruction. Contrast material: OMNI 350; Contrast volume: 95 ml; Contrast route: 20G; COMPARISON: No relevant prior studies available. RADIATION DOSE METRICS: Total DLP: 762.03 mGy-cm FINDINGS: Vertebrae: There is reversal of the normal cervical lordosis. This may be positional or due to muscle spasm. There is otherwise normal alignment of the cervical spine. No fractures or dislocations identified. Note is made of incomplete fusion of the posterior arch of C1, consistent with developmental/congenital variation. Vertebral body heights are well maintained throughout. Discs/Spinal canal/Neural foramina: No epidural abscess or discitis identified. Moderate degenerative disc disease at C6-C7. The bony spinal canal is patent. Soft tissues: No prevertebral soft tissue swelling identified. Lungs: There is a 1.2 cm by 0.9 cm nodular opacity in the right lung apex on series 3, image 76. There is a 1.8 cm x 1.0 cm nodular opacity in the left lung apex on series 3, image 65. These are compatible with foci of hematogenously disseminated infection. CT/CT cervical spine w [facility] [id number] IMPRESSION: 1. No epidural abscess or discitis identified. ct t spine: Attestation: I personally reviewed and interpreted this imaging study as follows: Radiologist's impression: [address] [address] [address] Scan Report Signed Patient: Margarita Cortes Unit #: [id number] : 1985 Age/Sex: 34 / F ADM Date: 01/16/20 Loc: ICU Room/Bed: [place] [address]: Jodi Aguirre MD Ordering Provider/Ordering MD: Jodi Aguirre MD Date of Service: 01/16/20 Procedure(s): CT thoracic spine w con [id number] Accession Number(s): [id number] Report Number: [id number] PROCEDURE INFORMATION: Exam: CT Thoracic Spine With Contrast Exam date and time: 01/16/2020 3:43 AM Age: 34 years old Clinical indication: Other: Epicural abscess/discitis; Additional info: Epidural abscess/discitis TECHNIQUE: Imaging protocol: Computed tomography images of the thoracic spine with intravenous contrast. Radiation optimization: All CT scans at this facility use at least one of these dose optimization techniques: automated exposure control; mA and/or kV adjustment per patient size (includes targeted exams where dose is matched to clinical indication); or iterative reconstruction. Contrast material: OMNI 350; Contrast volume: 95 ml; Contrast route: 20G; COMPARISON: No relevant prior studies available. RADIATION DOSE METRICS: Total DLP: 1119.52 mGy-cm FINDINGS: Vertebrae: Thoracic spine alignment is normal. Vertebral body height is maintained. There is no fracture. Degenerative disc disease is seen in the lower cervical spine. Thoracic discs are unremarkable. Facet joints are unremarkable. There is no paraspinous edema to suggest discitis. Discs/Spinal canal/Neural foramina: No spinal canal stenosis. No sign of diskitis. Epidural space: There is no visible epidural fluid collection, although CT evaluation is limited for identification of epidural fluid collections. Other bones/joints: Visible portions of the ribs are intact. Soft tissues: Paraspinous soft tissues are unremarkable. Lungs: Bilateral pulmonary nodules are decreased since the prior chest CT of 09/05/2019 (see chest CT report). CT/CT thoracic spine w con [id number] IMPRESSION: No sign of spinal infection. ct l spine: Attestation: I personally reviewed and interpreted this imaging study as follows: Radiologist's impression: [place] [address] CT Scan Report Signed Patient: Margarita Cortes Unit #: [id number] : 1985 Age/Sex: 34 / F ADM Date: 01/16/20 Loc: ICU Room/Bed: [place] [address]: Jodi Aguirre MD Ordering Provider/Ordering MD: Jodi Aguirre MD Date of Service: 01/16/20 Procedure(s): CT lumbar spine w con [id number] Accession Number(s): [id number] Report Number: [id number] PROCEDURE INFORMATION: Exam: CT Lumbar Spine With Contrast Exam date and time: 01/16/2020 3:43 AM Age: 34 years old Clinical indication: Epidural abscess, discitis TECHNIQUE: Imaging protocol: Computed tomography images of the lumbar spine with intravenous contrast. Radiation optimization: All CT scans at this facility use at least one of these dose optimization techniques: automated exposure control; mA and/or kV adjustment per patient size (includes targeted exams where dose is matched to clinical indication); or iterative reconstruction. Contrast material: OMNI 350; Contrast volume: 95 ml; Contrast route: 20G; COMPARISON: CR Lumbar Spine 2-3 views* [id number] 01/28/2019 12:42 PM RADIATION DOSE METRICS: Total DLP: 2170.99 mGy-cm FINDINGS: Vertebrae: There is a normal lumbar lordosis. There is normal alignment of the lumbar spine. No fractures or dislocations identified. Vertebral body heights are well maintained throughout. Discs/Spinal canal/Neural foramina: No epidural abscess or discitis identified. The bony spinal canal is patent. The neural foramina are patent. Soft tissues: Unremarkable. CT/CT lumbar spine w con [id number] IMPRESSION: 1. No epidural abscess or discitis identified. Critical Care Time Critical Care Time: Critical Care Time: Yes Total Critical Care Time: 35 Attestation: This case had a high probability of a clinically significant, sudden, or life threatening deterioration of this patient's condition which required my full and direct attention, intervention and personal management. 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
[2020-01-16 01:18] LABS: Basophils % 0.2 %; Hematocrit 35.4 % (37.0-47.0); Hemoglobin 11.3 g/dL (11.5-15.3); Lymphocytes # 1.1 10^3/uL (0.8-4.8); Lymphocytes % 6.5 %; Mean Corpuscular HGB Conc 31.9 g/dL (30.0-36.0); Mean Corpuscular Volume 84.7 fL (81-99); Mean Platelet Volume 10.3 fL (7.4-10.4); Monocytes # 1.6 10^3/uL (0.2-0.9); Monocytes % 9.3 %; Neutrophils # 14.5 10^3/uL (1.8-7.7); Neutrophils % 82.9 %; Nucleated Red Blood Cells % 0 %; Platelet Count 243 10^3/cmm (130-400); Red Blood Count 4.18 10^6/uL (4.1-5.3); Red Cell Distribution Width 13.4 % (12.1-15.1); White Blood Count 17.5 10^3/uL (4.0-10.0)
[2020-01-16 01:28] LABS: HCG, Serum Qual Negative (Negative)
[2020-01-16 01:37] LABS: Alanine Aminotransferase 16 U/L (0-33); Albumin Level 3.5 g/dL (3.5-5.2); Alkaline Phosphatase 113 IU/L (35-105); Anion Gap 18.5 (5-19); Aspartate Amino Transferase 16 U/L (0-32); Blood Urea Nitrogen 9 mg/dL (6-20); Calcium 8.7 mg/dL (8.5-10.5); Carbon Dioxide 22 mmol/L (22-29); Chloride 96 mmol/L (98-107); Globulin 3.9 g/dL (1.3-4.6); Glomerular Filtration Rate 113.8 mL/min (90-130); Glucose 151 mg/dL (65-115); Osmolality Calculated 275 mOsm/kg (285-295); Potassium 3.5 mmol/L (3.5-5.1); Sodium 133 mmol/L (136-145); Total Bilirubin 0.6 mg/dL (0.15-1.2); Total Protein 7.4 g/dL (6.6-8.7)
[2020-01-16] MEDS: acetaminophen 500 mg Tablet PO (01:59)
[2020-01-16] MEDS: ondansetron 2 mg/ML SDV 2 mL 4 MG IVP ×2 (01:59→06:33)
[2020-01-16] MEDS: sodium chloride 0.9% 1,000 ML 999 ML IV ×3 (02:00→02:58)
[2020-01-16 02:05] LABS: Lactic Acid level (Lactate) 0.9 mmol/L (0.5-2.2)
[2020-01-16] MEDS: cefTRIAXone 2,000 MG in sodium chloride 0.9% (plus) 50 ML 100 MG IV (02:05)
[2020-01-16 02:06] LABS: Troponin(5th) Baseline 6 ng/mL (0-10)
[2020-01-16 02:32] LABS: Influenza A by IFA Negative (Negative); Influenza B by IFA Negative (Negative)
--- NOTE | 2020-01-16 02:33 | CTR_ITS ---
PROCEDURE INFORMATION: Exam: CT Head Without Contrast Exam date and time: 01/16/2020 2:35 AM Age: 34 years old Clinical indication: Pain; Headache; Additional info: MILLER TECHNIQUE: Imaging protocol: Computed tomography of the head without contrast. Radiation optimization: All CT scans at this facility use at least one of these dose optimization techniques: automated exposure control; mA and/or kV adjustment per patient size (includes targeted exams where dose is matched to clinical indication); or iterative reconstruction. COMPARISON: CT head wo con* [id number] 01/28/2019 9:04 AM RADIATION DOSE METRICS: Total DLP: 735.88 mGy-cm FINDINGS: Brain: There are no areas of abnormally increased or decreased brain parenchymal attenuation. No abnormal intra-axial or extra-axial fluid collections are identified. There is no midline shift. No intracranial hemorrhage identified. Ventricles: The ventricular system is within normal limits for size and configuration. Bones/joints: Unremarkable as visualized. Sinuses: Visualized sinuses are unremarkable. No fluid levels. Mastoid air cells: Visualized mastoid air cells are well aerated. Soft tissues: Unremarkable. CT/CT head wo con* [id number] IMPRESSION: 1. No acute intracranial abnormality identified. Radiation Dose CTDIVOL = (mGy): DLP = 735.88 (mGy-cm)
[2020-01-16] MEDS: ipratropium-albuterol 3 mL Neb INHALATION (02:54)
[2020-01-16] MEDS: vancomycin 1,000 MG in sodium chloride 0.9% 250 ML 250 MG IV ×3 (02:56→19:34)
[2020-01-16 02:58] LABS: Urine Appearance Clear (CLEAR); Urine Color Yellow (Yellow)
[2020-01-16 02:59] LABS: Bilirubin Urine 1+ (NEGATIVE); Blood Urine 2+ (Negative); Glucose Urine UA Norm (Normal); Ketones Urine Negative (Negative); Leukocyte Esterase Urine Negative (Negative); Nitrate Urine Negative (Negative); Protein Urine 1+ (Negative); Specific Gravity, Urine 1.005 (1.005-1.030); Urobilinogen Urine 1 mg/dL (Negative); pH Urine 5 (5-7)
[2020-01-16 03:01] LABS: HCG Qualitative Urine. Negative (Negative)
[2020-01-16 03:06] LABS: Bacteria Urine 1+; RBC Urine 0-4 /hpf (0-2); Squamous Epithelial Cell Urine 0-4 (0-5); WBC Urine 0-4 /hpf (0-5)
[2020-01-16 03:08] LABS: Troponin 5 2HR Delta 0 ABS# (0-10)
--- NOTE | 2020-01-16 03:09 | PM.HP ---
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 There was a small globular pedunculated mass as well on the ventricular side. She was advised to complete endocarditis rx for 6 weeks and then get a repeat JESSE, however it does not appear patient has followed up since then. She was treated with nafcillin and gentamicin while inpatient. She was not a candidate for PICC line placement and prolonged iv abx treatment due to h/o ongoing drug abuse and high risk behavior. Based upon a study in the [employer] Journal of [employer], partial oral versus intravenous antibiotic treatment of endocarditis, published September 26 2018, based on it was planned to complete a 10-day course of IV antibiotics as inpatient, and transition to 5-week course of oral antibiotics with a combination of oral linezolid and rifampin, which patient was amenable to. She presnted now with c/o fever since 4-5 days and lower back pain with some headache without neck stiffness. Denies IVDU again. States she took her course as prescribed. No cough, chest pain, dyspnea, palpitaions, syncope, rashes Review of Systems General: Reports: 10 or more systems reviewed and unremarkable except in HPI and below Const: Reports: fever(s), chills and body aches Eyes: Denies: change in vision, blurry vision or photophobia ENMT: Reports: hoarseness; Denies: throat pain, enlarged tonsils, odynophagia or nasal congestion Card: Denies: chest pain, palpitations, irregular heart rhythm, edema, swelling of feet/ankles, lightheadedness, pre-syncope, dyspnea on exertion or orthopnea Resp: Denies: dyspnea, productive cough, non-productive cough, wheezing, stridor, pain on inspiration, change in phlegm color, hemoptysis or chest congestion GI: Denies: abdominal pain, nausea, vomiting, hematemesis, coffee ground emesis, dysphagia, heartburn, diarrhea, constipation, GI cramping, change in stool character, hematochezia or melena : Denies: flank pain, difficulty voiding, dysuria, urinary frequency, urinary urgency, urinary hesitancy or hematuria Musc: Denies: neck pain, back pain, extremity pain, joint swelling, joint warmth or deformity Neuro: Denies: headache(s), numbness in extremities, weakness in extremities, sensory changes, difficulty walking, frequent falls, dizziness, vertigo, behavioral changes, Slurred speech present or seizure-like activity Psych: Denies: anxiety, depression, suicidal ideation or homicidal ideation Endo: Denies: polyuria, polydipsia, tired all the time, cold intolerance or hot flashes Boni/Lymph: Denies: easy bruising or easy bleeding Medications/Allergies Home Medications Medication Instructions Recorded Confirmed Last Taken Type aspirin 81 mg PO DAILY 09/03/19 01/17/20 09/01/19 History Allergies Allergy/AdvReac Type Severity Reaction Status Date / Time No Known Allergies Allergy Verified 09/03/19 08:55 PFSH Acute PFSH: Medical History Congenital mitral valve prolapse 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 History of bacteremia History of congenital heart disease IVDU (intravenous drug user) MSSA bacteremia Substance abuse Tricuspid regurgitation Surgical History H/O mitral valve repair History of appendectomy History of x2 History of hysterectomy Family History Father Hepatitis C Mother Lung disease Grandfather Congenital heart disease ASD with the mitral valve prolapse Social History Smoking and tobacco status: former smoker Alcohol intake: never Female Reproductive History: Date of last menstrual period: 01/14/20 Vitals/I&O/Wt Last Vital Signs Temp 103.2 F H 01/16/20 00:45 Pulse 119 H 01/16/20 02:59 Resp 18 01/16/20 02:54 BP 95/57 01/16/20 02:05 Pulse Ox 97 01/16/20 02:59 Weight last 48 hrs Weight 77.564 kg Physical Exam Narrative: EXAM NARRATIVE: GEN: Awake, alert and oriented, no acute distress CVS: S1S2 N RS: CTA B/L Abd: Soft, nt/nd , bs+ [employer]ARE: no focal neuro deficits EXT: no peripheral stigmata of endocarditis Data : 01/18/20 04:22 01/18/20 04:22 Micro: Microbiology 01/16/20 00:58 Blood Culture - Preliminary Blood SPECIMEN COLLECTED 01/16/20 01:10 Blood Culture - Preliminary Blood SPECIMEN COLLECTED A&P Assessment and plan (1) 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: Status: Acute (2) Tricuspid regurgitation: Status: Acute Qualifiers: Cardiac valve disease etiology: nonrheumatic Qualified Code(s): I36.1 - Nonrheumatic tricuspid (valve) insufficiency (3) Congenital mitral valve prolapse: Status: Resolved (4) IVDU (intravenous drug user): Status: Acute (5) Sepsis: Status: Acute Qualifiers: Sepsis acute organ dysfunction status: without acute organ dysfunction Sepsis type: sepsis due to unspecified organism Qualified Code(s): A41.9 - Sepsis, unspecified organism Additional A&P Information Admit to ICU 1. Sepsis: Criteria met with tachycardia, leukocytosis, and likely endocarditis Patient was recently admitted in last 5 months because of infective endocarditis on tricuspid valve and was discharged on oral therapy because of being high risk for IV drug use so PICC line was not placed. Most likely source reactivation of infective endocarditis, but cannot rule out other sources. Gievn back pain an dTTP over lumbar region, high suspicion for MSSA epidural abscess &/or discitis: ordered CT whole spine. Ct head without evidence of pyogenic abscess Bolus 500 cc with normal saline followed by 100 cc/h. Given fever and h/o patient's travelling to [facility] often, will Check COVID-19 SERVER ADMINISTRATOR PCR panel. Isolation precautions. Started on iv vancomycin and ceftriaxone for preusmptive endocarditis 2. History of congenital heart disease: Most likely on review of chart it was ASD with mitral valve prolapse which was fixed as a child. On last JESSE, ASD was closed. Continue aspirin 81 mg daily. Will monitor closely for signs of heart failure. 3. History of IV drug abuse: Currently denies use. Check urine drug screen Full code. Heparin 5000 subcu 8 hourly. 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
--- NOTE | 2020-01-16 03:33 | ECG_ITS ---
Measurements Intervals [place] Rate: 113 P: 60 MA: 131 QRS: -43 QRSD: 106 T: 31 QT: 322 QTc: 442 SINUS TACHYCARDIA LEFT AXIS DEVIATION [QRS AXIS < -30] INCOMPLETE RIGHT BUNDLE BRANCH BLOCK [90+ ms QRS DURATION, TERMINAL R IN V1/V2, 40+ ms S IN I/aVL/V4/V5/V6] Compared to ECG 09/03/2019 14:59:03 Incomplete right bundle-branch block now present ST (T wave) deviation no longer present Electronically Signed On 01-16-2020 18:35:10 CDT by Ashlee Topete M.D. [email or web address]
--- NOTE | 2020-01-16 03:40 | CTR_ITS ---
PROCEDURE INFORMATION: Exam: CT Cervical Spine With Contrast Exam date and time: 01/16/2020 3:43 AM Age: 34 years old Clinical indication: Epidural abscess/discitis TECHNIQUE: Imaging protocol: Computed tomography images of the cervical spine with intravenous contrast. Radiation optimization: All CT scans at this facility use at least one of these dose optimization techniques: automated exposure control; mA and/or kV adjustment per patient size (includes targeted exams where dose is matched to clinical indication); or iterative reconstruction. Contrast material: OMNI 350; Contrast volume: 95 ml; Contrast route: 20G; COMPARISON: No relevant prior studies available. RADIATION DOSE METRICS: Total DLP: 762.03 mGy-cm FINDINGS: Vertebrae: There is reversal of the normal cervical lordosis. This may be positional or due to muscle spasm. There is otherwise normal alignment of the cervical spine. No fractures or dislocations identified. Note is made of incomplete fusion of the posterior arch of C1, consistent with developmental/congenital variation. Vertebral body heights are well maintained throughout. Discs/Spinal canal/Neural foramina: No epidural abscess or discitis identified. Moderate degenerative disc disease at C6-C7. The bony spinal canal is patent. Soft tissues: No prevertebral soft tissue swelling identified. Lungs: There is a 1.2 cm by 0.9 cm nodular opacity in the right lung apex on series 3, image 76. There is a 1.8 cm x 1.0 cm nodular opacity in the left lung apex on series 3, image 65. These are compatible with foci of hematogenously disseminated infection. CT/CT cervical spine w [facility] [id number] IMPRESSION: 1. No epidural abscess or discitis identified. Radiation Dose CTDIVOL = (mGy): DLP = 762.03 (mGy-cm)
--- NOTE | 2020-01-16 03:40 | CTR_ITS ---
PROCEDURE INFORMATION: Exam: CT Lumbar Spine With Contrast Exam date and time: 01/16/2020 3:43 AM Age: 34 years old Clinical indication: Epidural abscess, discitis TECHNIQUE: Imaging protocol: Computed tomography images of the lumbar spine with intravenous contrast. Radiation optimization: All CT scans at this facility use at least one of these dose optimization techniques: automated exposure control; mA and/or kV adjustment per patient size (includes targeted exams where dose is matched to clinical indication); or iterative reconstruction. Contrast material: OMNI 350; Contrast volume: 95 ml; Contrast route: 20G; COMPARISON: CR Lumbar Spine 2-3 views* [id number] 01/28/2019 12:42 PM RADIATION DOSE METRICS: Total DLP: 2170.99 mGy-cm FINDINGS: Vertebrae: There is a normal lumbar lordosis. There is normal alignment of the lumbar spine. No fractures or dislocations identified. Vertebral body heights are well maintained throughout. Discs/Spinal canal/Neural foramina: No epidural abscess or discitis identified. The bony spinal canal is patent. The neural foramina are patent. Soft tissues: Unremarkable. CT/CT lumbar spine w con [id number] IMPRESSION: 1. No epidural abscess or discitis identified. Radiation Dose CTDIVOL = (mGy): DLP = 2170.99 (mGy-cm)
--- NOTE | 2020-01-16 03:40 | CTR_ITS ---
PROCEDURE INFORMATION: Exam: CT Thoracic Spine With Contrast Exam date and time: 01/16/2020 3:43 AM Age: 34 years old Clinical indication: Other: Epicural abscess/discitis; Additional info: Epidural abscess/discitis TECHNIQUE: Imaging protocol: Computed tomography images of the thoracic spine with intravenous contrast. Radiation optimization: All CT scans at this facility use at least one of these dose optimization techniques: automated exposure control; mA and/or kV adjustment per patient size (includes targeted exams where dose is matched to clinical indication); or iterative reconstruction. Contrast material: OMNI 350; Contrast volume: 95 ml; Contrast route: 20G; COMPARISON: No relevant prior studies available. RADIATION DOSE METRICS: Total DLP: 1119.52 mGy-cm FINDINGS: Vertebrae: Thoracic spine alignment is normal. Vertebral body height is maintained. There is no fracture. Degenerative disc disease is seen in the lower cervical spine. Thoracic discs are unremarkable. Facet joints are unremarkable. There is no paraspinous edema to suggest discitis. Discs/Spinal canal/Neural foramina: No spinal canal stenosis. No sign of diskitis. Epidural space: There is no visible epidural fluid collection, although CT evaluation is limited for identification of epidural fluid collections. Other bones/joints: Visible portions of the ribs are intact. Soft tissues: Paraspinous soft tissues are unremarkable. Lungs: Bilateral pulmonary nodules are decreased since the prior chest CT of 09/05/2019 (see chest CT report). CT/CT thoracic spine w con [id number] IMPRESSION: No sign of spinal infection. Radiation Dose CTDIVOL = (mGy): DLP = 1119.52 (mGy-cm)
--- NOTE | 2020-01-16 03:40 | CTR_ITS ---
PROCEDURE INFORMATION: Exam: CT Angiography Chest With Contrast Exam date and time: 01/16/2020 3:43 AM Age: 34 years old Clinical indication: Dyspnea; Chest pain; Type not specified; Prior surgery; Surgery type: Open heart as infant; Additional info: Chest pain, dyspnea, suspect pe TECHNIQUE: Imaging protocol: Computed tomographic angiography of the chest with intravenous contrast. 3D rendering: MIP and/or 3D reconstructed images were created by the technologist. Radiation optimization: All CT scans at this facility use at least one of these dose optimization techniques: automated exposure control; mA and/or kV adjustment per patient size (includes targeted exams where dose is matched to clinical indication); or iterative reconstruction. Contrast material: OMNI 350; Contrast volume: 95 ml; Contrast route: 20G; COMPARISON: CT angio chest PE protcl [id number] 09/05/2019 11:46 AM RADIATION DOSE METRICS: Total DLP: 626.02 mGy-cm FINDINGS: Pulmonary arteries: The pulmonary arteries are adequately opacified for evaluation to the subsegmental level. There is no filling defect to suggest embolism. Aorta: There is a subtle contour deformity of the distal thoracic aortic arch consistent with pseudo-coarctation. There is no significant luminal narrowing. There is no atherosclerotic disease. No dissection or aneurysm. Lungs: Cavitary pulmonary nodules in both lungs are markedly decreased in size since 09/05/2019. Pleural space: There is no pleural effusion or pneumothorax. Heart: The heart is unremarkable. There is no pericardial effusion. Lymph nodes: There are mildly enlarged bilateral hilar and mediastinal lymph nodes of uncertain significance. These are probably reactive nodes. This finding is stable since 09/05/2019. Bones/joints: The visible portions of the clavicles and shoulders, scapula, ribs, sternum, and spine are unremarkable. Soft tissues: The extrathoracic soft tissues are unremarkable. CT/CT angio chest PE protcl [id number] IMPRESSION: 1. No pulmonary embolism. 2. Decreased size of bilateral cavitary pulmonary lesions since 09/05/2019. Findings suggest resolving infection. Fleischner follow up recommendations for incidental nodules are not indicated. Follow up per patient's medical condition. Radiation Dose CTDIVOL = (mGy): DLP = 626.02 (mGy-cm)
[2020-01-16] MEDS: iohexol 350 mg/mL 100 mL Btl IV (04:22)
[2020-01-16 04:36] LABS: D Dimer 2.24 ug/mIFEU (0-0.59)
[2020-01-16 05:26] LABS: Amphetamines Screen Urine Positive (Negative); Barbiturates Screen Urine Negative (Negative); Benzodiazepines Screen Urine Negative (Negative); Cocaine Screen Urine Negative (Negative); Opiate Screen Urine Negative (Negative); PCP Screen Urine Negative (Negative); THC Screen Urine Positive (Negative)
[2020-01-16] MEDS: aspirin 81 mg EC Tablet PO (08:40)
[2020-01-16] MEDS: enoxaparin 40 mg/0.4 mL Syringe SUBCUT (08:40)
--- NOTE | 2020-01-16 08:50 | PC.NURSE ---
transfer to to icu for r/o covid test placed in isolation
[2020-01-16 08:52] LABS: Procalcitonin 0.77 ng/mL (0-0.5)
--- NOTE | 2020-01-16 08:54 | PC.NURSE ---
nasal spec obtained and to lab at this time ...
[2020-01-16 09:03] LABS: Iron 9 ug/dL (37-145); Total Iron Binding Capacity 221 mcg/dl; Unsaturated Iron Binding 212 ug/dL (112-347)
--- NOTE | 2020-01-16 11:20 | P.PN_ITS ---
Subjective Subjective: Interval history: Admitted overnight. H&P and labs and old records noted. Overnight patient's blood pressure have been maintained with mean arterial pressure over 65 mmHg. T-max 101.3. On examination lying comfortably in bed. Denies having nausea, vomiting, headache, palpitations. Telemetry shows patient having persistent tachycardia normal sinus rhythm. Vitals/I&O/Wt Last Vital Signs Temp 100.1 F H 01/16/20 08:00 Pulse 119 H 01/16/20 08:00 Resp 21 H 01/16/20 08:00 BP 93/64 01/16/20 08:00 Pulse Ox 94 01/16/20 08:00 01/15/20 01/16/20 01/16/20 22:59 06:59 14:59 Output Total 150 / 150 Balance -150 / -150 Weight last 48 hrs Weight 77.564 kg Physical Exam Narrative: EXAM NARRATIVE: General: No acute distress, AO x3, pale, diaphoretic, tachycardia, pansystolic murmur HEENT: PERRLA, pupils bilaterally equal and reactive Chest: Normal vesicular breath sounds, no added sounds, equal good air entry bilaterally CVS: S1-S2 regular, tach for the possible cholecystitis left parasternal area, soft pansystolic murmur at apex the , no gallops, no rubs Abdomen: Soft, nontender, no organomegaly, bowel sounds present Neuro: No focal deficits, no facial deformity, AO x3, power 5/5 in all limbs Data : 01/16/20 00:58 01/16/20 00:58 Micro: Microbiology 01/16/20 00:58 Blood Culture - Preliminary Blood SPECIMEN COLLECTED 01/16/20 01:10 Blood Culture - Preliminary Blood SPECIMEN COLLECTED A&P Assessment and plan (1) Sepsis: Status: Acute Qualifiers: Sepsis acute organ dysfunction status: without acute organ dysfunction Sepsis type: sepsis due to unspecified organism Qualified Code(s): A41.9 - Sepsis, unspecified organism (2) 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: Status: Acute (3) Tricuspid regurgitation: Status: Acute Qualifiers: Cardiac valve disease etiology: nonrheumatic Qualified Code(s): I36.1 - Nonrheumatic tricuspid (valve) insufficiency (4) H/O mitral valve repair: Status: Acute (5) Congenital mitral valve prolapse: Status: Resolved (6) IVDU (intravenous drug user): Status: Acute (7) COVID-19 ruled out: Status: Acute Additional A&P Information Sepsis: Criteria met with tachycardia, leukocytosis, borderline blood pressures. 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 Most likely source reactivation of infective endocarditis, but cannot rule out other sources. Other sources as discitis/epidural abscess was ruled out by CT thoracolumbar, cervical spine. On CT chest multiple septic emboli from last time seem to be resolving. Patient has been is regularly in and out of [facility] last 3 months. Check COVID-19. Isolation precautions. Keep mean arterial pressure over 65 mmHg. Keep saturation over 92%. Oxygen supplementation as required. Bolus 500 cc with normal saline followed by 100 cc/h. Check lactate, check procalcitonin check ESR, check CRP. Overnight patient was started on vancomycin and ceftriaxone as per the culture results from last time which were concerning for MSSA. Given borderline blood pressures along with persistent tachycardia will change ceftriaxone to Zosyn to broaden coverage for Pseudomonas. Follow blood cultures. Will de-escalate antibiotics as per the culture results. If patient blood cultures continue to remain positive she would most likely require 6-week course of IV antibiotics versus possible surgical procedure. History of congenital heart disease: Most likely on review of chart it was ASD with mitral valve prolapse which was fixed as a child. On last JESSE, ASD was closed. Continue aspirin 81 mg daily. Will monitor for heart failure. History of IV drug abuse: Amphetamine abuse: We will monitor for withdrawal. Because of history of IV drug abuse patient remains a high risk for PICC line placement for prolonged therapy. We will consult bilingual social worker in advance for safe discharge later. Full code. Heparin 5000 subcu 8 hourly. Regular diet Attestations Medical Necessity Statement*: Severe sepsis, most likely infective endocarditis Time Spent in Patient Care: Greater than 35 minutes Coding Level of Care Code Acute Ophthalmic Medical Assistant for [facility] Fwd Diagnoses Sepsis A41.9 Sepsis acute organ dysfunction status: without acute organ dysfunction Sepsis type: sepsis due to unspecified organism 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 I39 Tricuspid regurgitation I36.1 Cardiac valve disease etiology: nonrheumatic H/O mitral valve repair Z98.890 Congenital mitral valve prolapse Q23.8 IVDU (intravenous drug user) F19.90 COVID-19 ruled out Z03.818
[2020-01-16] MEDS: sodium chloride 0.9% 500 ML 999 ML IV (11:32)
[2020-01-16] MEDS: sodium chloride 0.9% 1,000 ML 100 ML IV (11:48)
[2020-01-16 12:24] LABS: C Reactive Protein 210.6 mg/L (0.0-4.9)
[2020-01-16 13:08] LABS: Erythrocyte Sedimentation Rate 75 mm/hr (0-15)
[2020-01-16 13:12] LABS: Troponin 5 6HR Delta 0 ng/L (0-12)
[2020-01-16] MEDS: acetaminophen 325 mg Tablet 650 MG PO ×2 (14:51→21:02)
--- NOTE | 2020-01-16 16:27 | PC.NURSE ---
b/p down bolus in progress monitor
[2020-01-16] MEDS: albumin 12.5 GM/250 ML VIAL IV (17:01)
[2020-01-16] MEDS: piperacillin-tazobactam 3.375 GM in sodium chloride 0.9% (plus) 50 ML IV (17:05)
[2020-01-16] MEDS: ferrous sulfate EC 325 mg Tablet PO (17:53)
[2020-01-16 17:54] LABS: NT Pro B Type Natriuretic Pept 175 pg/mL (0-125); Thyroid Stimulating Hormone 0.28 uIU/mL (0.27-4.20)
[2020-01-17] VITALS (26 sets, daily range): BP systolic 102–149; BP diastolic 52–90; PULSE 65–117; RESP 12–36; TEMP 36.9–37.2; O2SAT 92–99; BMI 28.4
[2020-01-17] MEDS: piperacillin-tazobactam 3.375 GM in sodium chloride 0.9% (plus) 50 ML IV ×3 (01:55→19:11)
[2020-01-17] MEDS: sodium chloride 0.9% 1,000 ML 100 ML IV ×3 (01:56→19:34)
[2020-01-17] MEDS: acetaminophen 325 mg Tablet 650 MG PO ×4 (03:24→19:10)
[2020-01-17 04:46] LABS: Basophils % 0.2 %; Eosinophils % 0.2 %; Hematocrit 27.3 % (37.0-47.0); Hemoglobin 8.8 g/dL (11.5-15.3); Lymphocytes # 0.8 10^3/uL (0.8-4.8); Mean Corpuscular HGB Conc 32.2 g/dL (30.0-36.0); Mean Corpuscular Hemoglobin 27.7 pg (28.0-34.0); Mean Corpuscular Volume 85.8 fL (81-99); Mean Platelet Volume 10.4 fL (7.4-10.4); Monocytes # 1.8 10^3/uL (0.2-0.9); Monocytes % 16.5 %; Neutrophils % 75.4 %; Nucleated Red Blood Cells % 0 %; Platelet Count 189 10^3/cmm (130-400); Red Blood Count 3.18 10^6/uL (4.1-5.3); Red Cell Distribution Width 13.5 % (12.1-15.1); White Blood Count 10.7 10^3/uL (4.0-10.0)
[2020-01-17 05:02] LABS: Magnesium 2.1 mg/dL (1.7-2.3); Phosphorus 1.3 mg/dL (2.5-4.5)
[2020-01-17 05:04] LABS: Alanine Aminotransferase 13 U/L (0-33); Albumin Level 2.7 g/dL (3.5-5.2); Alkaline Phosphatase 75 IU/L (35-105); Anion Gap 12.2 (5-19); Aspartate Amino Transferase 16 U/L (0-32); Blood Urea Nitrogen 5 mg/dL (6-20); Calcium 8.3 mg/dL (8.5-10.5); Carbon Dioxide 24 mmol/L (22-29); Chloride 102 mmol/L (98-107); Globulin 3.4 g/dL (1.3-4.6); Glomerular Filtration Rate 181.6 mL/min (90-130); Glucose 146 mg/dL (65-115); Osmolality Calculated 278 mOsm/kg (285-295); Potassium 3.2 mmol/L (3.5-5.1); Sodium 135 mmol/L (136-145); Total Bilirubin 0.3 mg/dL (0.15-1.2); Total Protein 6.1 g/dL (6.6-8.7)
--- NOTE | 2020-01-17 07:04 | USCV_ITS ---
SebastianMargarita Age: 34 Gender: F : 1985 Exam Date: 01/17/2020 09:47 Ordering Phys: Jodi Aguirre MD Technologist: Doretha Earl Exam Location: [facility] [place] Indication: Follow up vegitation BP: 126 / 75 HR: 81 Rhythm: Sinus Technical Quality: Fair MEASUREMENTS (Male / Female) Normal Values 2D ECHO LV Diastolic Diameter PLAX 4.1 cm 4.2 - 5.9 / 3.9 - 5.3 cm LV Systolic Diameter PLAX 2.6 cm LV Chamber Size 3.8 cm IVS Diastolic Thickness 1.5 cm 0.6 - 1.0 / 0.6 - 0.9 cm IVS Systolic Thickness 1.9 cm LVPW Diastolic Thickness 0.9 cm 0.6 - 1.0 / 0.6 - 0.9 cm LVPW Systolic Thickness 1.7 cm RV Chamber Size 2.1 cm LVOT Diameter 2.0 cm LV Ejection Fraction 2D Teich 67.3 % LV Ejection Fraction MOD 2C 65.1 % LV Ejection Fraction 2C AL 65.1 % LA Diameter 3.4 cm LA Width 2.6 cm LA Height 6.3 cm RA Width 3.0 cm RA Height 5.3 cm Aorta at Sinotubular Diameter 2.6 cm M-MODE LV Diastolic Diameter MM 4.5 cm 4.2 - 5.9 / 3.9 - 5.3 cm LV Systolic Diameter MM 2.9 cm LV Ejection Fraction MM Teich 67.0 % IVS Diastolic Thickness MM 1.0 cm 0.6 - 1.0 / 0.6 - 0.9 cm IVS Systolic Thickness MM 1.6 cm LVPW Diastolic Thickness MM 1.3 cm 0.6 - 1.0 / 0.6 - 0.9 cm LVPW Systolic Thickness MM 1.4 cm RV Diastolic Diameter MM 1.4 cm Aortic Annulus Diameter 2.9 cm LA Ao Ratio MM 1.1 MV E Point Septal Separation 0.3 cm DOPPLER AV Peak Velocity 179.0 cm/s LVOT Peak Velocity 147.0 cm/s AV Area Cont Eq vti 2.3 cm squared AV Area Cont Eq pk 2.6 cm squared MV Area PHT 6.3 cm squared Mitral E to A Ratio 1.5 MV E' Velocity 19.0 cm/s Mitral E to MV E' Ratio 8.1 Mitral E to LV E' Lateral Ratio 7.4 Mitral E to LV E' Septal Ratio 8.8 TR Peak Velocity 273.0 cm/s TR Peak Gradient 29.9 mmHg TR Mean Velocity 210.8 cm/s TR Mean Gradient 19.1 mmHg TR Velocity Time Integral 72.9 cm TV Peak E Velocity 76.0 cm/s Right Atrial Pressure 8.0 mmHg Pulmonary Artery Systolic Pressu 37.8 mmHg PV Peak Velocity 67.0 cm/s RV Acceleration Time 0.1 s RV Ejection Time 0.3 s RV AcT/ET 0.4 FINDINGS Left Ventricle Mildly increased left ventricular mass. Moderately increased septal wall thickness. Moderately increased posterior wall thickness. Mildly decreased midwall fractional shortening. Moderately increased left ventricular relative wall thickness. Right Ventricle The right ventricle is normal in size and function. Right Atrium Probably mild right atrial enlargement. Left Atrium The left atrium is normal in size. Mitral Valve Thickened anterior leaflet with mild calcification. No vegetation identified. Trace regurgitation without stenosis. Aortic Valve Mild thickening. Trace aortic regurgitation. Tricuspid Valve Mild thickening of the leaflets. Possible small vegetation atrial aspect. Moderate regurgitation. RV systolic pressures elevated at 38 mm Hg. Pulmonic Valve Structurally normal pulmonic valve without significant stenosis. There is no pulmonic regurgitation. Pericardium Normal pericardium without effusion. Aorta Normal ascending aorta dimension. CONCLUSIONS Normal left ventricular chamber size and systolic function. Normal diastolic function. Normal left atrial size. Mild enlargemnt of the right atrium with normal right ventricular size and function. Mitral valve mildly thickened without evidence of left sided valvular vegetation of the mitral or aortic vlave. Trace mitral regurgitation. Trace aortic regurgitation. The tricuspid valve is mildly thickened and may have a small vegetation on the right atrial aspect of the posterior leaflet. There is moderate to severe tricuspid regurgitation and mild pulmonary hypertension. Dr. Hunter Mora MD (Electronically Signed) Final Date: 17 Jan 2020 13:02 S
[2020-01-17] MEDS: enoxaparin 40 mg/0.4 mL Syringe SUBCUT (07:49)
[2020-01-17] MEDS: ferrous sulfate EC 325 mg Tablet PO ×2 (07:49→17:10)
[2020-01-17] MEDS: vancomycin 1,000 MG in sodium chloride 0.9% 250 ML 200 MG IV ×2 (07:50→16:25)
[2020-01-17] MEDS: aspirin 81 mg EC Tablet PO (08:07)
[2020-01-17 10:18] LABS: Coronavirus Lab Test PTC SEE REPORT
--- NOTE | 2020-01-17 10:39 | P.PN_ITS ---
Subjective Subjective: Interval history: No acute events overnight. Patient's blood pressure has been a lot better since yesterday afternoon. T-max in last 24 hours 100.1 Fahrenheit. Has remained afebrile since morning. On examination complaining of headache and mild stiffness in the neck but denies of any nausea, vomiting. Patient looks diaphoretic. Patient states she does not have any s hortness of breath, palpitations, headache. Bedside echocardiogram was done which revealed normal EF with dilated right atrium and moderate to severe TR with possible vegetation on posterior tricuspid valve on the ventricle side, also concerns for mild MR. Vitals/I&O/Wt Last Vital Signs Temp 98.4 F 01/17/20 08:00 Pulse 95 01/17/20 08:52 Resp 27 H 01/17/20 08:00 BP 126/75 01/17/20 08:00 Pulse Ox 95 01/17/20 08:52 01/16/20 01/17/20 01/17/20 22:59 06:59 14:59 Intake Total 1670 / 2270 300 / 2570 200 / 200 Balance 1670 / 2270 300 / 2570 200 / 200 Weight last 48 hrs Weight 77.564 kg Weight 77.564 kg Physical Exam Narrative: EXAM NARRATIVE: General: No acute distress, AO x3, pale, diaphoretic, HEENT: PERRLA, pupils bilaterally equal and reactive Chest: Normal vesicular breath sounds, no added sounds, equal good air entry bilaterally CVS: S1-S2 regular, no tachycardia, pansystolic murmur in fourth intercostal space left parasternal area 3/6, pansystolic murmur soft 2/6 in the aortic area, no S3 gallop. JVD elevated. Abdomen: Soft, nontender, no organomegaly, bowel sounds present Neuro: No focal deficits, no facial deformity, AO x3, power 5/5 in all limbs Data : 01/17/20 04:20 01/17/20 04:20 Micro: Microbiology 01/17/20 06:05 Blood Culture - Preliminary Blood SPECIMEN COLLECTED 01/17/20 04:20 Blood Culture - Preliminary Blood SPECIMEN COLLECTED 01/16/20 01:10 Blood Culture - Preliminary Blood Gram positive cocci 01/16/20 00:58 Blood Culture - Preliminary Blood Gram positive cocci 01/16/20 08:10 MRSA Culture - Final Nose A&P Assessment and plan (1) Gram-positive bacteremia: Status: Acute (2) Sepsis: Status: Acute Qualifiers: Sepsis acute organ dysfunction status: without acute organ dysfunction Sepsis type: sepsis due to unspecified organism Qualified Code(s): A41.9 - Sepsis, unspecified organism (3) 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: Status: Acute (4) Tricuspid regurgitation: Status: Acute Qualifiers: Cardiac valve disease etiology: nonrheumatic Qualified Code(s): I36.1 - Nonrheumatic tricuspid (valve) insufficiency (5) H/O mitral valve repair: Status: Acute (6) Congenital mitral valve prolapse: Status: Resolved (7) IVDU (intravenous drug user): Status: Acute (8) COVID-19 ruled out: Status: Acute Additional A&P Information Gram-positive bacteremia: Sepsis: Criteria met with tachycardia, leukocytosis, borderline blood pressures. 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 Most likely source reactivation of infective endocarditis, but cannot rule out other sources. Other sources as discitis/epidural abscess was ruled out by CT thoracolumbar, cervical spine. On CT chest multiple septic emboli from last time seem to be resolving. COVID-19 ruled out. Remove isolation precautions. Keep mean arterial pressure over 65 mmHg. Keep saturation over 92%. Oxygen supplementation as required. Lactate, procalcitonin, ESR, CRP results appreciated. For now continue with vancomycin and Zosyn. Will de-escalate antibiotics as per the culture results. Confirmed with lab should have speciation by tomorrow. Repeat blood cultures sent today morning. Normal saline at at 50 cc/h. Keep mean arterial pressures over 65 mmHg, saturation over 92%. We will consult cardiology for possible repeat JESSE. Most likely patient would need a repeat JESSE once more stabilized. Does not have any occult signs of heart failure at present. History of congenital heart disease: Most likely on review of chart it was ASD with mitral valve prolapse which was fixed as a child. On last JESSE, ASD was closed. Continue aspirin 81 mg daily. Will monitor for heart failure. Euvolemic at present. History of IV drug abuse: Amphetamine abuse: We will monitor for withdrawal. Because of history of IV drug abuse patient remains a high risk for PICC line placement for prolonged therapy. Trying to arrange for a safe discharge with care coordination. But has been difficult because of difficult social situation getting complicated by history of IV drug abuse. Full code. Heparin 5000 subcu 8 hourly. Regular diet Attestations Medical Necessity Statement*: Gram-positive bacteremia, sepsis Time Spent in Patient Care: Greater than 35 minutes (>than 50% of time sp ent in counselling and/or direct pt care on unit) . Bedside echocardiogram Coding Level of Care Code Acute Project Planner for [facility] Fwd Diagnoses Gram-positive bacteremia R78.81 Sepsis A41.9 Sepsis acute organ dysfunction status: without acute organ dysfunction Sepsis type: sepsis due to unspecified organism 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 I39 Tricuspid regurgitation I36.1 Cardiac valve disease etiology: nonrheumatic H/O mitral valve repair Z98.890 Congenital mitral valve prolapse Q23.8 IVDU (intravenous drug user) F19.90 COVID-19 ruled out Z03.818
--- NOTE | 2020-01-17 11:25 | PM.CONSULT ---
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 There was a small globular pedunculated mass as well on the ventricular side. She was advised to complete endocarditis rx for 6 weeks and then get a repeat JESSE, however it does not appear patient has followed up since then. She was treated with nafcillin and gentamicin while inpatient. She was not a candidate for PICC line placement and prolonged iv abx treatment due to h/o ongoing drug abuse and high risk behavior. Based upon a study in the [place] [employer] of [employer], partial oral versus intravenous antibiotic treatment of endocarditis, published September 26 2018, based on it was planned to complete a 10-day course of IV antibiotics as inpatient, and transition to 5-week course of oral antibiotics with a combination of oral linezolid and rifampin, which patient was amenable to. She states she continued this medication to completion of 35 days. she did ok until about one week ago developing fever and tachynea with tachycardia and malaise with fatigue. She has now been hospitalized with recurrent sepsis, blood culture positive awaiting identification. Placed on IV antibiotic therapy with decrudescence of fever and improving clinical course without evidence of acute right heart failure or left heart failure. 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 She has not had repeat JESSE since her oral therapy. although she states she has abstained from drug use her drug screen is positive for amphetamine. I have been asked to see patient in regards to recurrent infective endocarditis. Review of Systems General: Reports: 10 or more systems reviewed and unremarkable except in HPI and below Const: Reports: fever(s), chills, body aches, fatigue and malaise Card: Reports: palpitations and edema Resp: Reports: dyspnea, non-productive cough and wheezing GI: Reports: nausea Musc: Reports: extremity swelling and joint swelling Neuro: Reports: headache(s) Psych: Reports: anxiety Boni/Lymph: Reports: easy bruising Meds/Allergies Home Medications and Allergies Home Medications Medication Instructions Recorded Confirmed Last Taken Type aspirin 81 mg PO DAILY 09/03/19 01/17/20 09/01/19 History Allergies Allergy/AdvReac Type Severity Reaction Status Date / Time No Known Allergies Allergy Verified 09/03/19 08:55 Current Medications Current Medications Generic Name Dose Route Start Last Admin Trade Name Freq PRN Reason Stop Dose Admin Acetaminophen 650 mg 01/16/20 06:59 01/17/20 07:49 Tylenol PO 650 mg Q6H PRN Administration Mild/Mod Pain Or Temp >/= 101 Aspirin 81 mg 01/16/20 09:00 01/17/20 08:07 Aspirin Ec PO 81 mg DAILY TONA Administration Enoxaparin Sodium 40 mg 01/16/20 07:30 01/17/20 07:49 Lovenox SUBCUT 40 mg Q24H TONA Administration Ferrous Sulfate 325 mg 01/16/20 18:00 01/17/20 07:49 Ferrous Sulfate PO 325 mg BIDWM TONA Administration Vancomycin HCl 1,000 mg/ 250 mls @ 250 mls/hr 01/16/20 11:00 01/17/20 07:50 Sodium Chloride IV 200 mls/hr Q8H TONA Administration Protocol Sodium Chloride 1,000 mls @ 125 mls/hr 01/16/20 11:30 01/17/20 01:56 Sodium Chloride 0.9% IV 100 mls/hr .Q8H TONA Administration Piperacillin Sod/Tazobactam 50 mls @ 12.5 mls/hr 01/16/20 17:30 01/17/20 09:28 Sod 3.375 gm/ Sodium Chloride IV 12.5 mls/hr Q8H TONA Administration Protocol PFSH Acute PFSH: Medical History Congenital mitral valve prolapse 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 History of bacteremia History of congenital heart disease IVDU (intravenous drug user) MSSA bacteremia Substance abuse Tricuspid regurgitation Surgical History H/O mitral valve repair History of appendectomy History of x2 History of hysterectomy Family History Father Hepatitis C Mother Lung disease Grandfather Congenital heart disease ASD with the mitral valve prolapse Social History Smoking and tobacco status: former smoker Alcohol intake: never Female Reproductive History: Date of last menstrual period: 01/15/20 Vitals/I&O/Wt Last Vital Signs Temp 98.4 F 01/17/20 08:00 Pulse 95 01/17/20 08:52 Resp 27 H 01/17/20 08:00 BP 126/75 01/17/20 08:00 Pulse Ox 95 01/17/20 08:52 01/16/20 01/17/20 01/17/20 22:59 06:59 14:59 Intake Total 1670 / 2270 300 / 2570 200 / 200 Balance 1670 / 2270 300 / 2570 200 / 200 Weight last 48 hrs Weight 171 lb Weight 171 lb Physical Exam Narrative: EXAM NARRATIVE: Up walking in room, no acute distress Const: COMMON NORMALS: no acute distress, patient oriented x3 and well nourished GENERAL APPEARANCE: cooperative, ill appearing and appears older than stated age HENMT: COMMON NORMALS: normocephalic HEAD & SCALP: normocephalic TEETH & GINGIVA: Yes abnormal tooth and associated gingiva, Yes gingiva abnormal and Yes poor dentition Lymph: LYMPHATIC: no lymphadenopathy noted Chest: COMMONS NORMALS: normal inspection of the chest and normal palpation of entire chest wall Resp: COMMON NORMALS: normal respiratory effort and No retractions AUSCULTATION: abnormal I/E ratio and breath sounds absent Cardio: COMMON NORMALS: regular rate, regular rhythm and S1 normal heart sound present RATE: regular rate RHYTHM: regular rhythm HEART SOUNDS: S1 normal heart sound present and Murmur heart sound present systolic Location: right sternal border Intensity: II/ Characteristics: soft Timing: holo Extremity: COMMON NORMALS: normal to inspection, full ROM and no clubbing, cyanosis or edema Neuro: COMMON NORMALS: patient oriented x3 Skin: COMMON NORMALS: no rashes or lesions noted NARRATIVE SKIN EXAM: Multiple healed foci of skin popping on the arms. GENERAL SKIN EXAM: no rashes or lesions noted Data Micro: Micro: Microbiology 01/17/20 06:05 Blood Culture - Pr eliminary Blood [facility] 01/17/20 04:20 Blood Culture - Pr eliminary Blood [facility] 01/16/20 01:10 Blood Culture - Pr eliminary Blood Gram positive c occi 01/16/20 00:58 Blood Culture - Pr eliminary Blood Gram positive c occi 01/16/20 08:10 MRSA Culture - Fin al Nose A&P Assessment and plan (1) 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: Continue IV antibiotic therapy with goal of sterilization followed by repeat JESSE for vegetation evaluation and regurgitation of tricuspid apparatus and further evaluation of left side cardiac valve structure and function. The patient does not exhibit acute right heart failure symptoms nor evidence of peripheral embolism from left sided endocarditis. No acute indication for valvular heart surgery. Continue to manage with IV conservative therapy awaiting further information. Status: Acute (2) Gram-positive bacteremia: Identification of organism pending. Follow with sensitivity antibiotic classification and therapy. Status: Acute (3) COVID-19 ruled out: Ruled out. Status: Acute (4) History of congenital heart disease: Further evalution with JESSE. No indication of left sided valvular decompensation. Status: Acute (5) Tricuspid regurgitation: Stable for further evaluation. Status: Acute Qualifiers: Cardiac valve disease etiology: nonrheumatic Qualified Code(s): I36.1 - Nonrheumatic tricuspid (valve) insufficiency (6) H/O mitral valve repair: Stable. Status: Acute (7) IVDU (intravenous drug user): Abstinence. May need institutionalization for prolonged IV treatment. Status: Acute Consult Attestations Medical Necessity Statement: Medically necessary for acute hospitalization for IV antibiotics for sepsis and endocarditis. Time Spent in Patient Care: Greater than 35 minutes (>than 50% of time spent in counselling and/or direct pt care on unit). 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
[2020-01-17] MEDS: ondansetron 2 mg/ML SDV 2 mL 4 MG IVP (14:40)
[2020-01-17 16:23] LABS: Vancomycin Trough 5.1 ug/mL (10-15)
[2020-01-18] VITALS (14 sets, daily range): BP systolic 101–129; BP diastolic 51–76; PULSE 78–108; RESP 14–34; TEMP 36.6–37.8; O2SAT 94–100; BMI 28.4
[2020-01-18] MEDS: ondansetron 2 mg/ML SDV 2 mL 4 MG IVP (00:20)
[2020-01-18] MEDS: piperacillin-tazobactam 3.375 GM in sodium chloride 0.9% (plus) 50 ML IV (04:32)
[2020-01-18 04:37] LABS: Basophils % 0.2 %; Eosinophils # 0.1 10^3/uL (0.0-0.8); Eosinophils % 0.5 %; Hematocrit 27.4 % (37.0-47.0); Hemoglobin 8.7 g/dL (11.5-15.3); Lymphocytes % 10.7 %; Mean Corpuscular HGB Conc 31.8 g/dL (30.0-36.0); Mean Corpuscular Hemoglobin 26.7 pg (28.0-34.0); Mean Platelet Volume 10.4 fL (7.4-10.4); Monocytes # 1.3 10^3/uL (0.2-0.9); Monocytes % 13.3 %; Neutrophils % 74.1 %; Nucleated Red Blood Cells % 0 %; Platelet Count 237 10^3/cmm (130-400); Red Blood Count 3.26 10^6/uL (4.1-5.3); Red Cell Distribution Width 13.6 % (12.1-15.1); White Blood Count 9.4 10^3/uL (4.0-10.0)
[2020-01-18 04:54] LABS: Alanine Aminotransferase 14 U/L (0-33); Albumin Level 2.8 g/dL (3.5-5.2); Alkaline Phosphatase 69 IU/L (35-105); Anion Gap 13.4 (5-19); Aspartate Amino Transferase 19 U/L (0-32); Blood Urea Nitrogen 4 mg/dL (6-20); Calcium 8.7 mg/dL (8.5-10.5); Carbon Dioxide 24 mmol/L (22-29); Chloride 101 mmol/L (98-107); Globulin 3.4 g/dL (1.3-4.6); Glomerular Filtration Rate 181.6 mL/min (90-130); Glucose 121 mg/dL (65-115); Osmolality Calculated 277 mOsm/kg (285-295); Potassium 3.4 mmol/L (3.5-5.1); Sodium 135 mmol/L (136-145); Total Bilirubin 0.4 mg/dL (0.15-1.2); Total Protein 6.2 g/dL (6.6-8.7)
[2020-01-18] MEDS: enoxaparin 40 mg/0.4 mL Syringe SUBCUT (07:01)
[2020-01-18] MEDS: ferrous sulfate EC 325 mg Tablet PO ×2 (07:02→17:31)
[2020-01-18] MEDS: acetaminophen 325 mg Tablet 650 MG PO ×3 (07:07→20:39)
--- NOTE | 2020-01-18 08:11 | XRR_ITS ---
PROCEDURE INFORMATION: Exam: XR Chest, 1 View Exam date and time: 01/18/2020 9:55 AM Age: 34 years old Clinical indication: Cough TECHNIQUE: Imaging protocol: XR of the chest Views: 1 view. COMPARISON: 1. XR CHEST 01/16/2020 1:01 AM 2. CTA CHEST 01/16/2020 3:47 AM FINDINGS: Lungs: Multiple, bilateral, peripheral nodular opacities in both lungs compatible with a lesions better visualized on the recent CTA CHEST. See that separate report. Left basilar atelectasis. Pleural space: No pleural effusion or pneumothorax. Heart/Mediastinum: The cardiac silhouette is not enlarged. The mediastinal contours are normal. Bones/joints: No acute osseous abnormality. Soft tissues: Surgical clips present in the low left neck. XR/XR chest 1V portable [id number] IMPRESSION: 1. Bilateral pulmonary opacities. Consider prior septic emboli. 2. Left basilar atelectasis.
--- NOTE | 2020-01-18 08:12 | PM.PN ---
Subjective Subjective: Interval history: Remains febrile, diaphoretic, mild labored breathing. Able to sit up and go to restroom on own. No complaints of specific pain. Medications: Reviewed: Yes Vitals/I&O/Wt Last Vital Signs Temp 98.9 F 01/17/20 20:00 Pulse 100 01/18/20 04:00 Resp 34 H 01/18/20 04:00 BP 118/62 01/18/20 04:00 Pulse Ox 97 01/17/20 21:00 01/17/20 01/18/20 01/18/20 22:59 06:59 14:59 Intake Total 1663.333 / 3363.333 530 / 3893.333 Output Total 400 / 550 Balance 1263.333 / 2813.333 530 / 3343.333 Weight last 48 hrs Weight 171 lb Weight 171 lb Physical Exam Narrative: EXAM NARRATIVE: Still appears toxic. Const: COMMON NORMALS: patient oriented x3 and well nourished GENERAL APPEARANCE: anxious, ill appearing and appears older than stated age HENMT: COMMON NORMALS: normocephalic HEAD & SCALP: normocephalic TEETH & GINGIVA: Yes gingiva abnormal and Yes poor dentition Eye: COMMON NORMALS: Equal, round and reactive pupils present, EOMs intact bilaterally and conjunctivae normal CONJUNCTIVA: Yes conjunctivae normal PUPIL: Yes Equal, round and reactive pupils present Chest: COMMONS NORMALS: normal inspection of the chest and normal palpation of entire chest wall Cardio: COMMON NORMALS: regular rhythm, S1 normal heart sound present and S2 normal heart sound present RATE: tachycardic RHYTHM: regular rhythm HEART SOUNDS: S1 normal heart sound present, S2 normal heart sound present and Murmur heart sound present (left sternal border, soft.) systolic GI: COMMON NORMALS: Normal to inspection, nondistended, normoactive bowel sounds present and Soft to palpation PALPATION: Yes Soft to palpation Extremity: COMMON NORMALS: normal to inspection, full ROM, capillary refill normal, no clubbing, cyanosis or edema and no pedal edema Neuro: COMMON NORMALS: patient oriented x3, CN's II-XII intact bilaterally, moves all extremities and no focal motor deficits Psych: COMMON NORMALS: mental status grossly normal, Normal thought process present and cooperative THOUGHT PROCESS: Normal thought process present Data : 01/18/20 04:22 01/18/20 04:22 Micro: Microbiology 01/17/20 06:05 Blood Culture - Preliminary Blood NEGATIVE TO DATE 01/17/20 04:20 Blood Culture - Preliminary Blood NEGATIVE TO DATE 01/16/20 01:10 Blood Culture - Preliminary Blood Gram positive cocci 01/16/20 00:58 Blood Culture - Preliminary Blood Gram positive cocci A&P Assessment and plan (1) 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: Reviewed echocardiogram and RV size and function is normal. Small possible vegetation on the atrial aspect. Probably severe TR but only mild elevation of pulmonary pressures. No indication for acute surgery. Encouraging white count is diminishing. Checking CXR as she appears to be slightly labored breathing and pneumonitis is concern. Status: Acute (2) Gram-positive bacteremia: Antibiotic therapy directed at causal organism to be based on bacterial speciation and sensitivities. Institutional treatment likely the only way to ensure disinfection. Status: Acute (3) Tricuspid regurgitation: Stable. No evidence of significant right heart failure. If patient has further decompensation JESSE may be necessary to fully inspect heart valve structures as the transthoracic echo is limited. Status: Acute Qualifiers: Cardiac valve disease etiology: nonrheumatic Qualified Code(s): I36.1 - Nonrheumatic tricuspid (valve) insufficiency (4) H/O mitral valve repair: No evidence by transthoracic echo of left sided valvular vegetations. As above. Status: Acute Attestations Medical Necessity Statement*: Infective endocarditis requires further in hospital and likely convalescent institutionalization if disinfection is to be achieved. Time Spent in Patient Care: 16 - 35 minutes (>than 50% of time spent in counselling and/or direct pt care on unit). 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
[2020-01-18] MEDS: aspirin 81 mg EC Tablet PO (08:40)
[2020-01-18] MEDS: sodium chloride 0.9% 1,000 ML 100 ML IV (08:40)
--- NOTE | 2020-01-18 09:51 | P.PN_ITS ---
Subjective Subjective: Interval history: No acute events overnight. Vitals stable. T-max in last 24 hours 100.1 earlier in the morning at 8 AM. On examination patient sitting in bed. States she is feeling little better. Patient looks diaphoretic. Denies of any chest pain, palpitation, dizziness, weakness in any of her arms, difficulty in breathing. Medications: Reviewed: Yes Vitals/I&O/Wt Last Vital Signs Temp 100.1 F H 01/18/20 08:00 Pulse 91 01/18/20 08:00 Resp 22 H 01/18/20 08:00 BP 109/62 01/18/20 08:00 Pulse Ox 94 01/18/20 08:00 01/17/20 01/18/20 01/18/20 22:59 06:59 14:59 Intake Total 1663.333 / 3363.333 1780 / 5143.333 50 / 50 Output Total 400 / 550 Balance 1263.333 / 2813.333 1780 / 4593.333 50 / 50 Weight last 48 hrs Weight 77.564 kg Weight 77.564 kg Physical Exam Narrative: EXAM NARRATIVE: General: No acute distress, AO x3, pale, diaphoretic, HEENT: PERRLA, pupils bilaterally equal and reactive Chest: Normal vesicular breath sounds, no added sounds, equal good air entry bilaterally CVS: S1-S2 regular, no tachycardia, pansystolic murmur in fourth intercostal space left parasternal area 3/6, pansystolic murmur soft 2/6 in the aortic area, no S3 gallop. JVD elevated. Abdomen: Soft, nontender, no organomegaly, bowel sounds present Neuro: No focal deficits, no facial deformity, AO x3, power 5/5 in all limbs Data : 01/18/20 04:22 01/18/20 04:22 Micro: Microbiology 01/17/20 06:05 Blood Culture - Preliminary Blood NEGATIVE TO DATE 01/17/20 04:20 Blood Culture - Preliminary Blood NEGATIVE TO DATE 01/16/20 01:10 Blood Culture - Preliminary Blood Gram positive cocci 01/16/20 00:58 Blood Culture - Preliminary Blood Gram positive cocci A&P Assessment and plan (1) Gram-positive bacteremia: Status: Acute (2) Sepsis: Status: Acute Qualifiers: Sepsis acute organ dysfunction status: without acute organ dysfunction Sepsis type: sepsis due to unspecified organism Qualified Code(s): A41.9 - Sepsis, unspecified organism (3) 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: Status: Acute (4) Tricuspid regurgitation: Status: Acute Qualifiers: Cardiac valve disease etiology: nonrheumatic Qualified Code(s): I36.1 - Nonrheumatic tricuspid (valve) insufficiency (5) IVDU (intravenous drug user): Status: Acute (6) H/O mitral valve repair: Status: Acute (7) COVID-19 ruled out: Status: Acute (8) Anemia: Status: Acute (9) History of congenital heart disease: Status: Acute Additional A&P Information 34-year-old female past medical history of IV drug abuse, 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 Gram-positive bacteremia: Sepsis: Criteria met with tachycardia, leukocytosis, and likely endocarditis Most likely source again infective endocarditis. Not sure if reactivation of old infection versus new infection because patient it seems continues to use IV drugs as urine tox on admission positive for amphetamines. Other sources as discitis/epidural abscess was ruled out by CT thoracolumbar, cervical spine. On CT chest multiple septic emboli from last time seem to be resolving. COVID-19 ruled out. Remove isolation precautions. Continue vancomycin keeping trough levels around 20. Blood cultures from admission positive for gram-positive bacteria. Speciation and identification still not available. We will discontinue Zosyn. Vanco trough levels prior to third dose. Patient would most likely need IV antibiotic course for 6 more weeks as she has failed outpatient oral therapy. Keep mean arterial pressure over 65 mmHg. Keep saturation over 92%. Oxygen supplementation as required. Patient is tolerating oral diet well. We will will discontinue IV fluids. Tricuspid regurgitation: Most likely because of infective endocarditis. Cannot rule out fenestration of the valve. Case discussed with Dr. Mora from cardiology. He agrees patient would most likely need JESSE but once a little more stabilized. Patient will most likely need JESSE around Sunday. Echocardiogram results appreciated. History of congenital heart disease: Most likely on review of chart it was ASD with mitral valve prolapse which was fixed as a child. On last JESSE, ASD was closed. Continue aspirin 81 mg daily. Will monitor for heart failure. Euvolemic at present. proBNP normal History of IV drug abuse: Amphetamine abuse: We will monitor for withdrawal. Because of history of IV drug abuse patient remains a high risk for PICC line placement for prolonged therapy. Trying to arrange for a safe discharge with care coordination. But has been difficult because of difficult social situation getting complicated by history of IV drug abuse. Anemia: Severe iron deficiency anemia and anemia of chronic disease. Continue with oral iron supplementation. Will avoid IV iron as it could cause more seeding of bacteremia. Full code. Heparin 5000 subcu 8 hourly. Regular diet Out of bed to chair. 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
[2020-01-18 16:35] LABS: Vancomycin Trough 14.8 ug/mL (10-15)
[2020-01-19] VITALS (31 sets, daily range): BP systolic 80–136; BP diastolic 54–96; PULSE 71–107; RESP 15–37; TEMP 37–38.1; O2SAT 93–99
[2020-01-19 05:28] LABS: Basophils % 0.4 %; Eosinophils # 0.1 10^3/uL (0.0-0.8); Eosinophils % 1.2 %; Hematocrit 31.9 % (37.0-47.0); Hemoglobin 9.9 g/dL (11.5-15.3); Lymphocytes # 0.9 10^3/uL (0.8-4.8); Lymphocytes % 9.1 %; Mean Corpuscular Hemoglobin 26.7 pg (28.0-34.0); Mean Platelet Volume 10.4 fL (7.4-10.4); Monocytes # 1.3 10^3/uL (0.2-0.9); Monocytes % 13.7 %; Neutrophils # 7.3 10^3/uL (1.8-7.7); Neutrophils % 74.4 %; Nucleated Red Blood Cells % 0 %; Platelet Count 330 10^3/cmm (130-400); Red Blood Count 3.71 10^6/uL (4.1-5.3); Red Cell Distribution Width 13.9 % (12.1-15.1); White Blood Count 9.8 10^3/uL (4.0-10.0)
[2020-01-19 05:45] LABS: Alanine Aminotransferase 21 U/L (0-33); Albumin Level 2.9 g/dL (3.5-5.2); Alkaline Phosphatase 68 IU/L (35-105); Anion Gap 14.5 (5-19); Aspartate Amino Transferase 28 U/L (0-32); Blood Urea Nitrogen 5 mg/dL (6-20); Calcium 8.5 mg/dL (8.5-10.5); Carbon Dioxide 25 mmol/L (22-29); Chloride 100 mmol/L (98-107); Globulin 3.4 g/dL (1.3-4.6); Glomerular Filtration Rate 113.8 mL/min (90-130); Glucose 124 mg/dL (65-115); Osmolality Calculated 279 mOsm/kg (285-295); Potassium 3.5 mmol/L (3.5-5.1); Sodium 136 mmol/L (136-145); Total Bilirubin 0.4 mg/dL (0.15-1.2); Total Protein 6.3 g/dL (6.6-8.7)
[2020-01-19] MEDS: enoxaparin 40 mg/0.4 mL Syringe SUBCUT (06:15)
[2020-01-19] MEDS: ondansetron 2 mg/ML SDV 2 mL 4 MG IVP (07:02)
[2020-01-19] MEDS: acetaminophen 325 mg Tablet 650 MG PO ×3 (07:02→17:08)
[2020-01-19] MEDS: aspirin 81 mg EC Tablet PO (08:15)
[2020-01-19] MEDS: ferrous sulfate EC 325 mg Tablet PO ×2 (08:15→17:09)
--- NOTE | 2020-01-19 08:50 | P.PN_ITS ---
Subjective Subjective: Interval history: Continued low grade fever. Otherwise comfortable. Mild dyspnea. Medications: Reviewed: Yes Vitals/I&O/Wt Last Vital Signs Temp 100.6 F H 01/19/20 08:30 Pulse 92 01/19/20 08:00 Resp 34 H 01/19/20 08:00 BP 89/69 01/19/20 08:00 Pulse Ox 93 01/19/20 08:00 01/18/20 01/19/20 01/19/20 22:59 06:59 14:59 Intake Total 624 / 1164 730 / 1894 Output Total 500 / 1100 500 / 1600 Balance 124 / 64 230 / 294 Weight last 48 hrs Weight 170 lb Weight 171 lb Physical Exam Const: COMMON NORMALS: no acute distress and patient oriented x3 GENERAL APPEARANCE: appears older than stated age HENMT: COMMON NORMALS: normocephalic and atraumatic HEAD & SCALP: normocephalic and atraumatic Eye: SCLERA: sclerae normal Resp: COMMON NORMALS: normal respiratory effort, No retractions and clear to auscultation bilaterally AUSCULTATION: clear to auscultation bilaterally GI: COMMON NORMALS: Normal to inspection, nondistended, normoactive bowel johnny nds present, Soft to palpation, non-tender and No hepatosplenomegaly present PALPATION: Yes Soft to palpation and Yes No hepatosplenomegaly present Extremity: COMMON NORMALS: normal to inspection, full ROM, capillary refill normal, no joint enlargement and no clubbing, cyanosis or edema Neuro: COMMON NORMALS: patient oriented x3, CN's II-XII intact bilaterally and moves all extremities Psych: COMMON NORMALS: mental status grossly normal, Normal thought process present and cooperative THOUGHT PROCESS: Normal thought process present Data : 01/19/20 04:55 01/19/20 04:55 Micro: Microbiology 01/17/20 04:20 Blood Culture - Preliminary Blood Gram positive cocci 01/17/20 06:05 Blood Culture - Preliminary Blood NEGATIVE TO DATE A&P Assessment and plan (1) Gram-positive bacteremia: On antibiotic therapy. Remains with low grade temp. Status: Acute (2) 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: No clear decompensation from CV perspective. Cotninue antibiotic therapy. Status: Acute (3) History of congenital heart disease: Stable. Status: Acute (4) Tricuspid regurgitation: No right ventricular strain or enlargement or significant pulmonary hypertension at this time. However, transthoracic echo may not show full extent of involvement and if fever persists or decompensation ensues JESSE may be necessary to further define cardiac involvement. Status: Acute Qualifiers: Cardiac valve disease etiology: nonrheumatic Qualified Code(s): I36.1 - Nonrheumatic tricuspid (valve) insufficiency (5) H/O mitral valve repair: No mitral regurgitation or valvular vegetation demonstrated on transthoracic echo. Status: Acute (6) IVDU (intravenous drug user): Out patient convelescence institution would be best approach to ensuring prolonged IV antibiotic therapy. Status: Acute (7) Substance abuse: As above. Status: Acute Attestations Medical Necessity Statement*: IV antibiotic therapy. Time Spent in Patient Care: 16 - 35 minutes (>than 50% of time spent in counselling and/or direct pt care on unit) . Coding Level of Care Code Acute Signaling Project Engineer [facility] Diagnoses Gram-positive bacteremia R78.81 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 I39 History of congenital heart disease Z87.74 Tricuspid regurgitation I36.1 Cardiac valve disease etiology: nonrheumatic H/O mitral valve repair Z98.890 IVDU (intravenous drug user) F19.90 Substance abuse F19.10
--- NOTE | 2020-01-19 13:49 | PC.NURSE ---
transfer patient taken to room 256-2. oriented to room. KOSTA Marcano at bedside to receive patient.
--- NOTE | 2020-01-19 13:53 | PC.NURSE ---
New pt: pt to the floor via wheelchair accompanied by ICU nurse pt oriented to room call light within reach no complaints or needs at this time.
--- NOTE | 2020-01-19 18:48 | PM.PN ---
Subjective Subjective: Interval history: This morning patient has no complaints, had low-grade temperature overnight, no chills, no nausea, no vomiting, patient does not have insurance, understands the reasoning behind our concerns about PICC line placement and her IV drug use Vitals/I&O/Wt Last Vital Signs Temp 99.0 F 01/19/20 13:57 Pulse 80 01/19/20 13:57 Resp 20 H 01/19/20 13:57 BP 114/71 01/19/20 13:57 Pulse Ox 95 01/19/20 13:57 01/19/20 01/19/20 01/19/20 06:59 14:59 22:59 Intake Total 730 / 1894 250 / 250 Output Total 500 / 1600 Balance 230 / 294 250 / 250 Weight last 48 hrs Weight 77.111 kg Weight 77.564 kg Physical Exam Const: COMMON NORMALS: no acute distress and patient oriented x3 HENMT: COMMON NORMALS: normocephalic HEAD & SCALP: normocephalic Neck/C-Spine: COMMON NORMALS: no JVD Resp: COMMON NORMALS: normal respiratory effort, No retractions, No use of accessory muscles and clear to auscultation bilaterally AUSCULTATION: clear to auscultation bilaterally Cardio: COMMON NORMALS: no JVD, regular rate, regular rhythm, S1 normal heart sound present and S2 normal heart sound present RATE: regular rate RHYTHM: regular rhythm HEART SOUNDS: S1 normal heart sound present and S2 normal heart sound present GI: COMMON NORMALS: Normal to inspection, nondistended, normoactive bowel sounds present, Soft to palpation, non-tender, No hepatosplenomegaly present, no masses and no bruits PALPATION: Yes Soft to palpation and Yes No hepatosplenomegaly present Extremity: COMMON NORMALS: capillary refill normal, no clubbing, cyanosis or edema, no calf tenderness and no pedal edema Neuro: COMMON NORMALS: patient oriented x3 Psych: COMMON NORMALS: mental status grossly normal Data : 01/19/20 04:55 01/19/20 04:55 Micro: Microbiology 01/16/20 00:58 Blood Culture - Final Blood Staphylococcus intermedius 01/16/20 01:10 Blood Culture - Final Blood Staphylococcus intermedius 01/17/20 04:20 Blood Culture - Preliminary Blood Gram positive cocci A&P Assessment and plan (1) Gram-positive bacteremia: Status: Acute (2) Sepsis: Status: Acute Qualifiers: Sepsis acute organ dysfunction status: without acute organ dysfunction Sepsis type: sepsis due to unspecified organism Qualified Code(s): A41.9 - Sepsis, unspecified organism (3) 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: Status: Acute (4) Tricuspid regurgitation: Status: Acute Qualifiers: Cardiac valve disease etiology: nonrheumatic Qualified Code(s): I36.1 - Nonrheumatic tricuspid (valve) insufficiency (5) IVDU (intravenous drug user): Status: Acute (6) H/O mitral valve repair: Status: Acute (7) COVID-19 ruled out: Status: Acute (8) Anemia: Status: Acute (9) History of congenital heart disease: Status: Acute Additional A&P Information 34-year-old female past medical history of IV drug abuse, 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 Gram-positive bacteremia: Most likely source again infective endocarditis. Not sure if reactivation of old infection versus new infection because patient it seems continues to use IV drugs as urine tox on admission positive for amphetamines. Other sources as discitis/epidural abscess was ruled out by CT thoracolumbar, cervical spine. On CT chest multiple septic emboli from last time seem to be resolving. COVID-19 ruled out Continue vancomycin keeping trough levels around 20. Blood cultures from admission positive for gram-positive bacteria. Speciation and identification still not available. Vanco trough as per pharmacy protocol Patient does not have insurance, high risk of IV drug abuse in the future, I am very uncomfortable keeping an IV in her, or placing a PICC line, does not have insurance to go to a senior living or LTAC, and a high risk of noncompliance for daily IV infusions through outpatient care center Unfortunately the only reasonable option would try 10-day course of IV antibiotics as inpatient, followed by 5-week course of oral antibiotics On Sunday, Tricuspid regurgitation: Most likely because of infective endocarditis. -TTE echo showed The tricuspid valve is mildly thickened and may have a small vegetation on the right atrial aspect of the posterior leaflet. -Case discussed with Dr. Mora from cardiology. He agrees patient would most likely need JESSE . rhina dimas Patient will most likely need JESSE on Sunday, n.p.o. midnight d. History of congenital heart disease: Most likely on review of chart it was ASD with mitral valve prolapse which was fixed as a child. On last JESSE, ASD was closed. Continue aspirin 81 mg daily. Will monitor for heart failure. Euvolemic at present. proBNP normal History of IV drug abuse: Amphetamine abuse: We will monitor for withdrawal. Because of history of IV drug abuse patient remains a high risk for PICC line placement for prolonged therapy. Trying to arrange for a safe discharge with care coordination. But has been difficult because of difficult social situation getting complicated by history of IV drug abuse. Anemia: Severe iron deficiency anemia and anemia of chronic disease. Continue with oral iron supplementation Full code. Heparin 5000 subcu 8 hourly. Regular diet Out of bed to chair. Attestations Medical Necessity Statement*: Patient cards continued hospitalization for endocarditis Coding Level of Care Code Acute Aesthetics Instructor for [facility] Fwd Diagnoses Gram-positive bacteremia R78.81 Sepsis A41.9 Sepsis acute organ dysfunction status: without acute organ dysfunction Sepsis type: sepsis due to unspecified organism 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 I39 Tricuspid regurgitation I36.1 Cardiac valve disease etiology: nonrheumatic IVDU (intravenous drug user) F19.90 H/O mitral valve repair Z98.890 COVID-19 ruled out Z03.818 Anemia D64.9 History of congenital heart disease Z87.74
[2020-01-19 22:52] LABS: Vancomycin Trough 22.8 ug/mL (10-15)
[2020-01-20] VITALS (21 sets, daily range): BP systolic 73–133; BP diastolic 51–88; PULSE 66–119; RESP 14–40; TEMP 36.5–39.5; O2SAT 90–100
[2020-01-20] MEDS: acetaminophen 325 mg Tablet 650 MG PO ×3 (00:01→21:30)
[2020-01-20 05:30] LABS: Alanine Aminotransferase 22 U/L (0-33); Albumin Level 2.8 g/dL (3.5-5.2); Alkaline Phosphatase 66 IU/L (35-105); Anion Gap 17.1 (5-19); Blood Urea Nitrogen 7 mg/dL (6-20); Calcium 8.4 mg/dL (8.5-10.5); Carbon Dioxide 23 mmol/L (22-29); Chloride 101 mmol/L (98-107); Globulin 3.4 g/dL (1.3-4.6); Glomerular Filtration Rate 113.8 mL/min (90-130); Glucose 101 mg/dL (65-115); Magnesium 2.2 mg/dL (1.7-2.3); Osmolality Calculated 280 mOsm/kg (285-295); Phosphorus 3.1 mg/dL (2.5-4.5); Potassium 4.1 mmol/L (3.5-5.1); Sodium 137 mmol/L (136-145); Total Bilirubin 0.3 mg/dL (0.15-1.2); Total Protein 6.2 g/dL (6.6-8.7)
[2020-01-20 05:44] LABS: Aspartate Amino Transferase 27 U/L (0-32)
[2020-01-20] MEDS: ondansetron 2 mg/ML SDV 2 mL 4 MG IVP (06:25)
[2020-01-20] MEDS: ferrous sulfate EC 325 mg Tablet PO ×2 (07:32→17:57)
[2020-01-20] MEDS: aspirin 81 mg EC Tablet PO (07:33)
[2020-01-20] MEDS: enoxaparin 40 mg/0.4 mL Syringe SUBCUT (07:34)
[2020-01-20 07:55] LABS: Basophils % 0.3 %; Eosinophils # 0.1 10^3/uL (0.0-0.8); Eosinophils % 0.8 %; Hematocrit 30.5 % (37.0-47.0); Hemoglobin 9.7 g/dL (11.5-15.3); Lymphocytes # 0.6 10^3/uL (0.8-4.8); Lymphocytes % 4.5 %; Mean Corpuscular HGB Conc 31.8 g/dL (30.0-36.0); Mean Corpuscular Hemoglobin 26.9 pg (28.0-34.0); Mean Corpuscular Volume 84.5 fL (81-99); Mean Platelet Volume 9.7 fL (7.4-10.4); Monocytes # 1.1 10^3/uL (0.2-0.9); Monocytes % 8.6 %; Neutrophils # 11.1 10^3/uL (1.8-7.7); Neutrophils % 84.4 %; Nucleated Red Blood Cells % 0 %; Platelet Count 403 10^3/cmm (130-400); Red Blood Count 3.61 10^6/uL (4.1-5.3); Red Cell Distribution Width 13.9 % (12.1-15.1); White Blood Count 13.2 10^3/uL (4.0-10.0)
[2020-01-20 10:53] LABS: Procalcitonin 0.22 ng/mL (0-0.5)
--- NOTE | 2020-01-20 10:59 | USCV_ITS ---
Margarita Cortes Age: 34 Gender: F : 1985 Exam Date: 01/20/2020 12:51 Ordering Phys: Ashlee Topete MD ([email or web address]) Technologist: Jaswant Meyers Exam Location: [facility] [place] Indication: INFECTIVE ENDOCARDITIS BP: / HR: Rhythm: Sinus Technical Quality: Good MEASUREMENTS (Male / Female) Normal Values Medications Patient given IV sedation by anesthesia service, for details please refer to the anesthesia report. Complications None. Proc. Components JESSE probe was passed into the posterior pharynx, mid esophagus, distal esophagus and gastric fundus. Images were obtained at multiple levels. FINDINGS Left Ventricle Normal left ventricular size and systolic function with no regional wall motion abnormalities. Left ventricular ejection fraction is estimated at 65 %. Right Ventricle Normal right ventricular size and systolic function. Right Atrium Normal right atrial size. Right atrialpressur estimated at 3 mm Hg. Left Atrium Normal left atrial size. LA Appendage Normal left atrial appendage. Normal flow velocities in the left atrial appendage. No thrombus visualized in the left atrial appendage. IA Septum Normal interatrial septum. No patent foramen ovale. No evidence for an atrial septal defect. Mitral Valve Structurally normal mitral valve. Trace mitral valve regurgitation. Aortic Valve Structurally normal trileaflet aortic valve. No aortic valve stenosis. Mild aortic valve regurgitation. Tricuspid Valve Thickening of anterior and posterior tricuspid valve leaflets. Multiple mobile echodensities seen attached to anterior and posterior leaflets with filamentous extensions as well as to the chordae. The largest echodensity attached to anterior and posterior leaflets; measured at 18 x 10 mm and 8 x 5 mm respectively. Moderate tricuspid valve regurgitation. Pulmonic Valve Structurally normal pulmonic valve. Trace pulmonary valve regurgitation. Pericardium No pericardial effusion. Aorta Normal size aortic root and proximal ascending aorta. No evidence of aortic dilation, aneurysm or dissection. CONCLUSIONS 1. Normal left ventricular size and systolic function with no regional wall motion abnormalities. Left ventricular ejection fraction is estimated at 65 %. 2. Multiple mobile echodensities with filamentous extensions seen attached to anterior and posterior leaflets as well as to the chordae. The largest echodensity attached to anterior and posterior leaflets; measured at 18 x 10 mm and 8 x 5 mm respectively. 3. Moderate tricuspid valve regurgitation. 4. The above findings are highly suggestive of tricuspid valve endocarditis. 5. When compared to previous echocardiogram dated 09/08/2019, vegetations seems to have increased in size and tricuspid valve regurgitation has worsened. Ashlee Topete MD (Electronically Signed) Final Date: 21 Jan 2020 13:01 S
[2020-01-20 11:02] LABS: Hepatitis A Antibody IgM Non-Reactive (Nonreactive); Hepatitis B Core AB, Total Non-Reactive (Nonreactive); Hepatitis B Surface AB 518.9 (0-8.5); Hepatitis B Surface Antigen Non-Reactive (Nonreactive); Hepatitis C Virus Antibody Reactive (Nonreactive)
[2020-01-20 11:05] LABS: C Reactive Protein 81.6 mg/L (0.0-4.9)
--- NOTE | 2020-01-20 11:51 | PM.PN ---
Subjective Subjective: Interval history: 34-year-old lady with history of IV drug abuse with history of an MSSA endocarditis (10 days of IV gentamicin and nafcillin followed by p.o. linezolid and rifampin for 5 weeks), history of repaired congenital heart disease (ASD patch repair possible mitral valve repair ?) Presented with fever shortness of breath and lower back pain. She denies any IV drug abuse but her urine toxicology on admission was positive for amphetamine and marijuana. Her blood culture x2 from 15 January was positive for staph intermedius. She continues to be febrile. Echocardiogram on this hospitalization showed possible small vegetation on the atrial aspect of tricuspid valve. I have been asked to evaluate the patient for transesophageal echocardiogram. Medications: Reviewed: Yes Medication Review Details: Current Medications Acetaminophen (Tylenol) 650 mg PO Q6H PRN PRN Reason: Mild/Mod Pain Or Temp >/= 101 Last Admin: 01/20/20 07:32 Dose: 650 mg Documented by: Aspirin (Aspirin Ec) 81 mg PO DAILY [facility] Last Admin: 01/20/20 07:33 Dose: 81 mg Documented by: Bisacodyl (Dulcolax) 10 mg PO DAILY PRN PRN Reason: CONSTIPATION Enoxaparin Sodium (Lovenox) 40 mg SUBCUT Q24H [facility] Last Admin: 01/20/20 07:34 Dose: 40 mg Documented by: Ferrous Sulfate (Ferrous Sulfate) 325 mg PO BIDWM [facility] Last Admin: 01/20/20 07:32 Dose: 325 mg Documented by: Vancomycin HCl 1,500 mg/ (Sodium Chloride) 250 mls @ 166.667 mls/hr IV Q8H [facility]; Protocol Last Admin: 01/19/20 22:58 Dose: Not Given Documented by: Lactulose (Constulose) 10 gm PO DAILY PRN PRN Reason: CONSTIPA Ondansetron HCl (Zofran) 4 mg IVP Q8H PRN PRN Reason: vomiting, or N/V if npo Last Admin: 01/20/20 06:25 Dose: 4 mg Documented by: Vitals/I&O/Wt Last Vital Signs Temp 98.7 F 01/20/20 11:31 Pulse 78 01/20/20 11:31 Resp 18 01/20/20 11:31 BP 100/63 01/20/20 11:31 Pulse Ox 96 01/20/20 11:31 01/19/20 01/20/20 01/20/20 22:59 06:59 14:59 Intake Total Output Total 700 / 700 Balance -700 / -440 Weight last 48 hrs Weight 184 lb 9.6 oz Weight 188 lb 4 oz Weight 170 lb Physical Exam Const: COMMON NORMALS: no acute distress, patient oriented x3 and alert GENERAL APPEARANCE: cooperative, comfortable, well kempt and well hydrated HENMT: COMMON NORMALS: hearing grossly normal bilaterally, external ears normal and moist oral mucous membranes FACE & SINUS: normal facial exam EXTERNAL EAR: Yes external ears normal MOUTH: lip normal TEETH & GINGIVA: Yes edentulous (mostly); no dentures Eye: COMMON NORMALS: EOMs intact bilaterally and no scleral icterus GENERAL EYE: appearance normal, both eyes and all related structures ALIGNMENT: Yes alignment normal Neck/C-Spine: COMMON NORMALS: supple and no JVD CAROTIDS: Yes normal carotid upstroke Resp: COMMON NORMALS: clear to auscultation bilaterally AUSCULTATION: clear to auscultation bilaterally, no crackles, no rales, no rhonchi and no wheezes Cardio: COMMON NORMALS: no JVD, regular rate, regular rhythm, S1 normal heart sound present, S2 normal heart sound present and Peripheral pulses 2+ throughout PALPATION: normal PMI RATE: regular rate RHYTHM: regular rhythm HEART SOUNDS: S1 normal heart sound present, S2 normal heart sound present, no click, no gallops and no murmurs BRUITS: no carotid bruits PERIPHERAL PULSES: Peripheral pulses 2+ throughout, radial pulses present, posterior tibial pulses present and dorsalis pedis present GI: COMMON NORMALS: Soft to palpation AUSCULTATION: Yes normoactive bowel sounds PALPATION: Yes Soft to palpation, No Tenderness to palpation present (GI), No Guarding due to palpation present (GI) and No Rigid due to palpation Extremity: GENERAL: No clubbing, No cyanosis, Yes edema and No pallor Neuro: COMMON NORMALS: patient oriented x3, CN's II-XII intact bilaterally and no focal motor deficits SENSORIUM/ORIENTATION: Yes alert Psych: COMMON NORMALS: Normal thought process present and speech normal APPEARANCE: Yes well kempt SPEECH: Yes normal speech MOOD & AFFECT: Yes euthymic mood THOUGHT PROCESS: Normal thought process present THOUGHT CONTENT: Yes Normal thought content present Data : 05/26/20 07:45 01/20/20 04:34 Micro: Microbiology 01/20/20 07:45 Blood Culture - Preliminary Blood SPECIMEN COLLECTED 01/20/20 11:02 Blood Culture - Preliminary Blood SPECIMEN COLLECTED 01/17/20 06:05 Blood Culture - Preliminary Blood 01/16/20 00:58 Blood Culture - Final Blood Staphylococcus intermedius 01/16/20 01:10 Blood Culture - Final Blood Staphylococcus intermedius A&P Assessment and plan (1) Gram-positive bacteremia: JESSE was performed without any periprocedural complications. -Tricuspid valve vegetation noted on multiple leaflets. No evidence of paravalvular abscess,perforation or dehiscence. -Full report to follow. Status: Acute (2) 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: H/O TV endocarditis -treated with antibiotics. Compliance questionable. Status: Acute (3) History of congenital heart disease: Status: Acute (4) Tricuspid regurgitation: Status: Acute Qualifiers: Cardiac valve disease etiology: nonrheumatic Qualified Code(s): I36.1 - Nonrheumatic tricuspid (valve) insufficiency (5) IVDU (intravenous drug user): Status: Acute Attestations Medical Necessity Statement*: As per primary team. Procedures Time out/Consent Time Out Performed: Yes Consent for Procedure: Consent obtained from patient, Risks & Benefits reviewed and Agrees to proceed with procedure Procedure Narrative JESSE Procedure note Indication: Gram-positive bacteremia, history of tricuspid valve endocarditis Sedation: Propofol by anesthesia The patient was brought down to ICU. Procedure was explained to the patient in detail and informed consent was obtained. Timeout was called. After achieving adequate sedation, the probe was inserted on first attempt. No blood on the probe post procedure. Prelim report: [Normal left ventricle size and systolic function.] Mobile vegetation noted on tricuspid valve. No left atrial or left atrial appendage mass or thrombus visualized. No ASD or PFO identified Full report to follow. Patient tolerated the procedure well and initial recovery in ICU was transferred to the floor for further management. Coding Level of Care Code Acute [employer] Lot for [facility] Fwd Exam Comprehensive Diagnoses Gram-positive bacteremia R78.81 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 I39 History of congenital heart disease Z87.74 Tricuspid regurgitation I36.1 Cardiac valve disease etiology: nonrheumatic IVDU (intravenous drug user) F19.90
[2020-01-20 12:24] LABS: HIV 1 & 2 Antibody Reactive (Non-Reactiv); HIV 1 & 2 Antigen Non-Reactive (Non-Reactiv)
[2020-01-20] MEDS: sodium chloride 0.9% 1,000 ML 999 ML IV (12:39)
--- NOTE | 2020-01-20 12:40 | P.ANESASSM_ITS ---
Pre-Anesthetic Assessment Pre-Anesthetic Assessment: Height/Weight: Height 1.65 m Weight 83.733 kg Temp Pulse Resp BP Pulse Ox 98.7 F 78 18 100/63 96 01/20/20 11:31 01/20/20 11:31 01/20/20 11:31 01/20/20 11:31 01/20/20 11:31 Preop Diagnosis: Sepsis Proposed Procedure: JESSE Was Beta Jae taken within 24 hours: N/A Last intake: Intake Last Liquid Date 01/19/20 Last Liquid Time 23:59 Last Solid Date 01/19/20 Last Solid Time 23:59 Last Intake: 23:00 Social: Social History: Tobacco Packs per day: 1 Pack years: 16 Exam: Pre-Anes Outpt Exam: alert, oriented x 3, clear to auscultation bilaterally and regular rate & rhythm Airway: Submandibular: WNL Cervical ROM: WNL MP: 2 Dentition: False Additional comments: false upper couple poor lower Pulmonary: Pulmonary: None reported CV/HEM: CV/HEM: Murmur Comments: endocarditis x2. previous mitral and asd repair : : None reported Hepatic: Hepatic: None reported GI: GI: None reported Metabolic: Metabolic: None reported Musc/skel: Musc/skel: None reported Neuropsych: Neuropsych: Anxiety and Depression Anesthetic Plan: ASA status: 3 Anesthesia: MAC Risk of > 500 ml blood loss (7ml/kg in children): No Meds/Allergies Current Medications: Current Medications Generic Name Dose Route Start Last Admin Trade Name Freq PRN Reason Stop Dose Admin Acetaminophen 650 mg 01/16/20 06:59 01/20/20 07:32 Tylenol PO 650 mg Q6H PRN Administration Mild/Mod Pain Or Temp >/= 101 Aspirin 81 mg 01/16/20 09:00 01/20/20 07:33 Aspirin Ec PO 81 mg DAILY [facility] Administration Enoxaparin Sodium 40 mg 01/16/20 07:30 01/20/20 07:34 Lovenox SUBCUT 40 mg Q24H [facility] Administration Ferrous Sulfate 325 mg 01/16/20 18:00 01/20/20 07:32 Ferrous Sulfate PO 325 mg BIDWM [facility] Administration Vancomycin HCl 1,5 00 mg/ 250 mls @ 166.667 mls/hr 01/18/20 23:00 01/19/20 22:58 Sodium Chloride IV Not Given Q8H [facility] Protocol Sodium Chloride 1,000 mls @ 999 m ls/hr 01/20/20 12:31 01/20/20 12:39 Sodium Chloride 0.9% IV 01/20/20 13:31 999 mls/hr .Q1H1M ONE Administration Ondansetron HCl 4 mg 01/16/20 06:59 01/20/20 06:25 Zofran IVP 4 mg Q8H PRN Administration vomiting, or N/V if npo PFSH Anesthesia PFSH: Medical History Congenital mitral valve prolapse 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 History of bacteremia History of congenital heart disease IVDU (intravenous drug user) MSSA bacteremia Substance abuse Tricuspid regurgitation Surgical History H/O mitral valve repair History of appendectomy History of x2 History of hysterectomy Family History Father Hepatitis C Mother Lung disease Grandfather Congenital heart disease ASD with the mitral valve prolapse Social History Smoking and tobacco status: former smoker Alcohol intake: never Female Reproductive History: Date of last menstrual period: 01/15/20 Data Anesthesia CBC & Chem 7: 01/20/20 07:45 01/20/20 04:34 Other Labs: Laboratory Results - last 48 hr 01/18/20 01/19/20 01/19/20 15:58 04:55 04:55 WBC 9.8 RBC 3.71 L Hgb 9.9 L Hct 31.9 L MCV 86.0 MCH 26.7 L MCHC 31.0 RDW 13.9 Plt Count 330 MPV 10.4 Neut % (Auto) 74.4 Lymph % (Auto) 9.1 [place] % (Auto) 13.7 Eos % (Auto) 1.2 Baso % (Auto) 0.4 Neut # (Auto) 7.3 Lymph # (Auto) 0.9 [place] # (Auto) 1.3 H Eos # (Auto) 0.1 Baso # (Auto) 0.0 Nucleated RBC % (auto) 0 Nucleated RBCs # 0.0 Sodium 136 Potassium 3.5 Chloride 100 Carbon Dioxide 25 Anion Gap 14.5 BUN 5 L Creatinine 0.6 GFR Calculation 113.8 Glucose 124 H Calculated Osmolality 279 L Calcium 8.5 Phosphorus Magnesium Total Bilirubin 0.4 AST 28 ALT 21 Alkaline Phosphatase 68 C-Reactive Protein Total Protein 6.3 L Albumin 2.9 L Globulin 3.4 Procalcitonin Vancomycin Trough 14.8 Hepatitis A IgM Ab Hep Bs Antigen Hep Bs Antibody Hep B Core Total Ab Hepatitis C Antibody HIV 1&2 Ab & HIV 1 Ag HIV 1&2 Antibody 01/19/20 01/20/20 01/20/20 22:02 04:34 07:45 WBC 13.2 H RBC 3.61 L Hgb 9.7 L Hct 30.5 L MCV 84.5 MCH 26.9 L MCHC 31.8 RDW 13.9 Plt Count 403 H MPV 9.7 Neut % (Auto) 84.4 Lymph % (Auto) 4.5 [place] % (Auto) 8.6 Eos % (Auto) 0.8 Baso % (Auto) 0.3 Neut # (Auto) 11.1 H Lymph # (Auto) 0.6 L [place] # (Auto) 1.1 H Eos # (Auto) 0.1 Baso # (Auto) 0.0 Nucleated RBC % (auto) 0 Nucleated RBCs # 0.0 Sodium 137 Potassium 4.1 Chloride 101 Carbon Dioxide 23 Anion Gap 17.1 BUN 7 Creatinine 0.6 GFR Calculation 113.8 Glucose 101 Calculated Osmolality 280 L Calcium 8.4 L Phosphorus 3.1 Magnesium 2.2 Total Bilirubin 0.3 AST 27 ALT 22 Alkaline Phosphatase 66 C-Reactive Protein Total Protein 6.2 L Albumin 2.8 L Globulin 3.4 Procalcitonin Vancomycin Trough 22.8 H Hepatitis A IgM Ab Hep Bs Antigen Hep Bs Antibody Hep B Core Total Ab Hepatitis C Antibody HIV 1&2 Ab & HIV 1 Ag HIV 1&2 Antibody 01/20/20 01/20/20 01/20/20 07:45 07:45 07:45 WBC RBC Hgb Hct MCV MCH MCHC RDW Plt Count MPV Neut % (Auto) Lymph % (Auto) [place] % (Auto) Eos % (Auto) Baso % (Auto) Neut # (Auto) Lymph # (Auto) [place] # (Auto) Eos # (Auto) Baso # (Auto) Nucleated RBC % (auto) Nucleated RBCs # Sodium Potassium Chloride Carbon Dioxide Anion Gap BUN Creatinine GFR Calculation Glucose Calculated Osmolality Calcium Phosphorus Magnesium Total Bilirubin AST ALT Alkaline Phosphatase C-Reactive Protein 81.6 H Total Protein Albumin Globulin Procalcitonin 0.22 Vancomycin Trough Hepatitis A IgM Ab Non-reactive Hep Bs Antigen Non-reactive Hep Bs Antibody 518.9 H Hep B Core Total Ab Non-reactive Hepatitis C Antibody Reactive H HIV 1&2 Ab & HIV 1 Ag Non-reactive HIV 1&2 Antibody Reactive H Micro: Microbiology 01/20/20 07:45 Blood Culture - Preliminary Blood SPECIMEN COLLECTED 01/20/20 11:02 Blood Culture - Preliminary Blood SPECIMEN COLLECTED 01/17/20 06:05 Blood Culture - Preliminary Blood 01/16/20 00:58 Blood Culture - Final Blood Staphylococcus intermedius 01/16/20 01:10 Blood Culture - Final Blood Staphylococcus intermedius Cardiac Studies: No Data to Display
--- NOTE | 2020-01-20 12:58 | PM.PN ---
Subjective Subjective: Interval history: This morning patient was examined, had low-grade temperatures overnight, no lightheadedness, no dizziness, no nausea, no vomiting, no chest pain, no palpitations, has been n.p.o. midnight for transesophageal echocardiogram Vitals/I&O/Wt Last Vital Signs Temp 98.7 F 01/20/20 11:31 Pulse 78 01/20/20 11:31 Resp 18 01/20/20 11:31 BP 100/63 01/20/20 11:31 Pulse Ox 96 01/20/20 11:31 01/19/20 01/20/20 01/20/20 22:59 06:59 14:59 Intake Total Output Total 700 / 700 Balance -700 / -440 Weight last 48 hrs Weight 83.733 kg Weight 85.389 kg Weight 77.111 kg Data : 01/20/20 07:45 01/20/20 04:34 Micro: Microbiology 01/20/20 07:45 Blood Culture - Preliminary Blood SPECIMEN COLLECTED 01/20/20 11:02 Blood Culture - Preliminary Blood SPECIMEN COLLECTED 01/17/20 06:05 Blood Culture - Preliminary Blood 01/16/20 00:58 Blood Culture - Final Blood Staphylococcus intermedius 01/16/20 01:10 Blood Culture - Final Blood Staphylococcus intermedius A&P Assessment and plan (1) Gram-positive bacteremia: Status: Acute (2) Sepsis: Status: Acute Qualifiers: Sepsis acute organ dysfunction status: without acute organ dysfunction Sepsis type: sepsis due to unspecified organism Qualified Code(s): A41.9 - Sepsis, unspecified organism (3) 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: Status: Acute (4) Tricuspid regurgitation: Status: Acute Qualifiers: Cardiac valve disease etiology: nonrheumatic Qualified Code(s): I36.1 - Nonrheumatic tricuspid (valve) insufficiency (5) IVDU (intravenous drug user): Status: Acute (6) H/O mitral valve repair: Status: Acute (7) COVID-19 ruled out: Status: Acute (8) Anemia: Status: Acute (9) History of congenital heart disease: Status: Acute (10) HIV antibody positive: -Patient's HIV 1 and 2 antibody were reactive -However patient is HIV wanted to antigens were nonreactive? 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 Gram-positive bacteremia: Most likely source again infective endocarditis. Not sure if reactivation of old infection versus new infection because patient it seems continues to use IV drugs as urine tox on admission positive for amphetamines. -Other possibilities include suture infections from her previous valve surgeries Other sources as discitis/epidural abscess was ruled out by CT thoracolumbar, cervical spine. On CT chest multiple septic emboli from last time seem to be resolving. COVID-19 ruled out Continue vancomycin keeping trough levels around 20. Blood cultures from admission positive for gram-positive bacteria. Speciation and identification still not available. Vanco trough as per pharmacy protocol Patient does not have insurance, high risk of IV drug abuse in the future, I am very uncomfortable keeping an IV in her, or placing a PICC line, does not have insurance to go to a penitentiary or LTAC, and a high risk of noncompliance for daily IV infusions through outpatient care center Unfortunately the only reasonable option would try 10-day course of IV antibiotics as inpatient, followed by 5-week course of oral antibiotics On Sunday, Tricuspid regurgitation: Most likely because of infective endocarditis. -TTE echo showed The tricuspid valve is mildly thickened and may have a small vegetation on the right atrial aspect of the posterior leaflet. -Case discussed with Dr. Topete, will have transesophageal echocardiogram today History of congenital heart disease: Most likely on review of chart it was ASD with mitral valve prolapse which was fixed as a child. On last JESSE, ASD was closed. Continue aspirin 81 mg daily. Will monitor for heart failure. Euvolemic at present. proBNP normal History of IV drug abuse: Amphetamine abuse: We will monitor for withdrawal. Because of history of IV drug abuse patient remains a high risk for PICC line placement for prolonged therapy. Trying to arrange for a safe discharge with care coordination. But has been difficult because of difficult social situation getting complicated by history of IV drug abuse. Anemia: Severe iron deficiency anemia and anemia of chronic disease. Continue with oral iron supplementation Full code. Heparin 5000 subcu 8 hourly. Regular diet Out of bed to chair. Attestations Medical Necessity Statement*: Patient requires hospitalization for gram-positive bacteremia, endocarditis, Coding Level of Care Code Acute Off Premise Service Representative for [facility] Fwd Diagnoses Gram-positive bacteremia R78.81 Sepsis A41.9 Sepsis acute organ dysfunction status: without acute organ dysfunction Sepsis type: sepsis due to unspecified organism 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 I39 Tricuspid regurgitation I36.1 Cardiac valve disease etiology: nonrheumatic IVDU (intravenous drug user) F19.90 H/O mitral valve repair Z98.890 COVID-19 ruled out Z03.818 Anemia D64.9 History of congenital heart disease Z87.74 HIV antibody positive Z21 Hepatitis C B19.20
--- NOTE | 2020-01-20 14:42 | PC.NURSE ---
proceedure started 1250 ended 1315. recovered quickly maintaining sats on room air as [id number]. lab attempting to draw blood for over an hour. patient alert and interactive
[2020-01-20 16:03] LABS: HIV 1 & 2 Antigen Non-Reactive (Non-Reactiv)
[2020-01-20 16:05] LABS: HIV 1 & 2 Antibody Reactive (Non-Reactiv)
[2020-01-21] VITALS: BP 99/64; PULSE 70; RESP 16; TEMP 36.9; O2SAT 94
[2020-01-21 04:00] VITALS: BP 172/65; PULSE 74; RESP 24; TEMP 36.8; O2SAT 94
[2020-01-21 05:31] LABS: Basophils % 0.1 %; Eosinophils # 0.2 10^3/uL (0.0-0.8); Eosinophils % 2.7 %; Hematocrit 30.1 % (37.0-47.0); Hemoglobin 9.4 g/dL (11.5-15.3); Lymphocytes % 12.7 %; Mean Corpuscular HGB Conc 31.2 g/dL (30.0-36.0); Mean Corpuscular Hemoglobin 27.1 pg (28.0-34.0); Mean Corpuscular Volume 86.7 fL (81-99); Mean Platelet Volume 9.6 fL (7.4-10.4); Monocytes # 0.9 10^3/uL (0.2-0.9); Monocytes % 11.3 %; Neutrophils # 5.7 10^3/uL (1.8-7.7); Neutrophils % 72.2 %; Nucleated Red Blood Cells % 0 %; Platelet Count 400 10^3/cmm (130-400); Red Blood Count 3.47 10^6/uL (4.1-5.3); Red Cell Distribution Width 14.1 % (12.1-15.1); White Blood Count 7.9 10^3/uL (4.0-10.0)
[2020-01-21] MEDS: acetaminophen 325 mg Tablet 650 MG PO ×3 (05:31→21:50)
[2020-01-21 05:49] LABS: Alanine Aminotransferase 20 U/L (0-33); Albumin Level 2.7 g/dL (3.5-5.2); Alkaline Phosphatase 54 IU/L (35-105); Anion Gap 14.6 (5-19); Aspartate Amino Transferase 23 U/L (0-32); Blood Urea Nitrogen 8 mg/dL (6-20); Calcium 8.1 mg/dL (8.5-10.5); Carbon Dioxide 24 mmol/L (22-29); Chloride 103 mmol/L (98-107); Globulin 3.3 g/dL (1.3-4.6); Glomerular Filtration Rate 140.4 mL/min (90-130); Glucose 101 mg/dL (65-115); Magnesium 2.2 mg/dL (1.7-2.3); Osmolality Calculated 282 mOsm/kg (285-295); Phosphorus 2.6 mg/dL (2.5-4.5); Potassium 3.6 mmol/L (3.5-5.1); Sodium 138 mmol/L (136-145); Total Bilirubin 0.3 mg/dL (0.15-1.2)
[2020-01-21] MEDS: enoxaparin 40 mg/0.4 mL Syringe SUBCUT (07:04)
[2020-01-21] MEDS: aspirin 81 mg EC Tablet PO (07:04)
[2020-01-21] MEDS: ferrous sulfate EC 325 mg Tablet PO ×2 (07:04→17:22)
[2020-01-21 07:32] VITALS: BP 104/61; PULSE 75; RESP 18; TEMP 36.6; O2SAT 96
--- NOTE | 2020-01-21 11:21 | P.PN_ITS ---
Subjective Subjective: Interval history: This morning patient has no significant complaints, no chest pain, no shortness of breath, no fevers, does state that she feels anxious, patient adamantly refuses IV drug use, states that she is sexually active with her , denies a history of HIV in the past, denies a history of hepatitis C, understands that she is here in the hospital for IV antibiotic treatment until we can switch her over to oral antibiotic treatment Vitals/I&O/Wt Last Vital Signs Temp 97.8 F 01/21/20 07:32 Pulse 75 01/21/20 07:32 Resp 18 01/21/20 07:32 BP 104/61 01/21/20 07:32 Pulse Ox 96 01/21/20 07:32 01/20/20 01/21/20 01/21/20 22:59 06:59 14:59 Intake Total 970 / 970 250 / 1220 240 / 240 Output Total 0 / 0 Balance 970 / 970 250 / 1220 240 / 240 Weight last 48 hrs Weight 83.869 kg Weight 83.733 kg Weight 85.389 kg Physical Exam Const: COMMON NORMALS: no acute distress and patient oriented x3 HENMT: COMMON NORMALS: normocephalic HEAD & SCALP: normocephalic Neck/C-Spine: COMMON NORMALS: no JVD Resp: COMMON NORMALS: normal respiratory effort, No retractions, No use of accessory muscles and clear to auscultation bilaterally AUSCULTATION: clear to auscultation bilaterally Cardio: COMMON NORMALS: no JVD, regular rate, regular rhythm, S1 normal heart sound present and S2 normal heart sound present RATE: regular rate RHYTHM: regular rhythm HEART SOUNDS: S1 normal heart sound present and S2 normal heart sound present GI: COMMON NORMALS: Normal to inspection, nondistended, normoactive bowel sounds present, Soft to palpation, non-tender, No hepatosplenomegaly present, no masses and no bruits PALPATION: Yes Soft to palpation and Yes No hepatosplenomegaly present Extremity: COMMON NORMALS: capillary refill normal, no clubbing, cyanosis or edema, no calf tenderness and no pedal edema Neuro: COMMON NORMALS: patient oriented x3 Psych: COMMON NORMALS: mental status grossly normal Data : 01/21/20 05:03 01/21/20 05:03 Micro: Microbiology 01/17/20 06:05 Blood Culture - Preliminary Blood Staphylococcus aureus 01/17/20 04:20 Blood Culture - Preliminary Blood Staphylococcus aureus 01/20/20 07:45 Blood Culture - Preliminary Blood SPECIMEN COLLECTED 01/20/20 11:02 Blood Culture - Preliminary Blood SPECIMEN COLLECTED A&P Assessment and plan (1) Gram-positive bacteremia: Status: Acute (2) Sepsis: Status: Acute Qualifiers: Sepsis acute organ dysfunction status: without acute organ dysfunction Sepsis type: sepsis due to unspecified organism Qualified Code(s): A41.9 - Sepsis, unspecified organism (3) 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: Status: Acute (4) Tricuspid regurgitation: Status: Acute Qualifiers: Cardiac valve disease etiology: nonrheumatic Qualified Code(s): I36.1 - Nonrheumatic tricuspid (valve) insufficiency (5) IVDU (intravenous drug user): Status: Acute (6) H/O mitral valve repair: Status: Acute (7) COVID-19 ruled out: Status: Acute (8) Anemia: Status: Acute (9) History of congenital heart disease: Status: Acute (10) HIV antibody positive: -Patient's HIV 1 and 2 antibody were reactive -However patient is HIV wanted to antigens were nonreactive? 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 Gram-positive bacteremia secondary to endocarditis: Most likely source again infective endocarditis Transesophageal echocardiogram yesterday shows tricuspid valve vegetation noted on multiple leaflets, no perivalvular abscess, perforation or dehiscence Highly suspicious of new infection as blood cultures positive for Staphylococcus intermedius, and staph aureus Patient is a controversial candidate for valve surgery, due to recurrent drug use I believe that placing a PICC line would carry a very high risk of abuse, and morbidity mortality associated with My plan is to keep her inpatient for 10 days of IV antibiotics, and switch to p.o. medications for remaining 5 weeks, this is based on study other than [employer] partial oral versus intravenous antibiotic treatment of endocarditis published September 26, 2018 which showed in patients with endocarditis on the left side of the heart were in stable condition, changing to oral antibiotic treatment was noninferior to continued intravenous antibiotic treatment. COVID-19 ruled out Continue vancomycin keeping trough levels around 20. Blood cultures from admission positive for gram-positive bacteria. Speciation and identification still not available. Vanco trough as per pharmacy protocol Patient does not have insurance, high risk of IV drug abuse in the future, I am very uncomfortable keeping an IV in her, or placing a PICC line, does not have insurance to go to a senior care or LTAC, and a high risk of noncompliance for daily IV infusions through outpatient care center Unfortunately the only reasonable option would try 10-day course of IV antibiotics as inpatient, followed by 5-week course of oral antibiotics On Sunday, Tricuspid regurgitation: Due to infective endocarditis -Case discussed with Dr. Topete, will involve Dr. Davila in the near future History of congenital heart disease: Most likely on review of chart it was ASD with mitral valve prolapse which was fixed as a child. On last JESSE, ASD was closed. Continue aspirin 81 mg daily. Will monitor for heart failure. Euvolemic at present. p History of IV drug abuse: Amphetamine abuse: We will monitor for withdrawal. Because of history of IV drug abuse patient remains a high risk for PICC line placement for prolonged therapy. Trying to arrange for a safe discharge with care coordination. But has been difficult because of difficult social situation getting complicated by history of IV drug abuse. Anemia: Severe iron deficiency anemia and anemia of chronic disease. Continue with oral iron supplementation Full code. Heparin 5000 subcu 8 hourly. Regular diet Out of bed to chair. Attestations Medical Necessity Statement*: She requires hospitalization, for infective endocarditis, requiring IV antibiotics Coding Level of Care Code Acute Security Door Installer for [facility] Fwd Diagnoses Gram-positive bacteremia R78.81 Sepsis A41.9 Sepsis acute organ dysfunction status: without acute organ dysfunction Sepsis type: sepsis due to unspecified organism 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 I39 Tricuspid regurgitation I36.1 Cardiac valve disease etiology: nonrheumatic IVDU (intravenous drug user) F19.90 H/O mitral valve repair Z98.890 COVID-19 ruled out Z03.818 Anemia D64.9 History of congenital heart disease Z87.74 HIV antibody positive Z21 Hepatitis C B19.20
[2020-01-21 11:31] VITALS: BP 107/67; PULSE 76; RESP 18; TEMP 36.8; O2SAT 97
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
[2020-01-21 12:47] LABS: HIV RNA (CPY/ML) 4.04 (NOT DETECTED); HIV RNA LOG 11000 copies/mL (NOT DETECTED)
[2020-01-21] MEDS: ondansetron 2 mg/ML SDV 2 mL 4 MG IVP (14:31)
[2020-01-21] MEDS: fluoxetine 20 mg Capsule PO (15:32)
[2020-01-21 15:44] VITALS: BP 110/69; PULSE 80; RESP 20; TEMP 36.8; O2SAT 95
[2020-01-21 20:00] VITALS: BP 113/71; PULSE 81; RESP 20; TEMP 37.2; O2SAT 95
--- NOTE | 2020-01-21 21:54 | PM.PN ---
Subjective Subjective: Interval history: No fever for last 24 hr. Medications: Reviewed: Yes Vitals/I&O/Wt Last Vital Signs Temp 99.0 F 01/21/20 20:00 Pulse 81 01/21/20 20:00 Resp 20 H 01/21/20 20:00 BP 113/71 01/21/20 20:00 Pulse Ox 95 01/21/20 20:00 01/21/20 01/21/20 01/21/20 06:59 14:59 22:59 Intake Total 250 / 1220 610 / 610 480 / 1090 Output Total 0 / 0 Balance 250 / 1220 610 / 610 480 / 1090 Weight last 48 hrs Weight 184 lb 14.4 oz Weight 184 lb 9.6 oz Weight 188 lb 4 oz Physical Exam Const: COMMON NORMALS: no acute distress, patient oriented x3 and alert GENERAL APPEARANCE: cooperative, comfortable, well kempt and well hydrated HENMT: COMMON NORMALS: hearing grossly normal bilaterally, external ears normal and moist oral mucous membranes FACE & SINUS: normal facial exam EXTERNAL EAR: Yes external ears normal MOUTH: lip normal TEETH & GINGIVA: Yes edentulous (mostly); no dentures Eye: COMMON NORMALS: EOMs intact bilaterally and no scleral icterus GENERAL EYE: appearance normal, both eyes and all related structures ALIGNMENT: Yes alignment normal Neck/C-Spine: COMMON NORMALS: supple and no JVD CAROTIDS: Yes normal carotid upstroke Resp: COMMON NORMALS: clear to auscultation bilaterally AUSCULTATION: clear to auscultation bilaterally, no crackles, no rales, no rhonchi and no wheezes Cardio: COMMON NORMALS: no JVD, regular rate, regular rhythm, S1 normal heart sound present, S2 normal heart sound present and Peripheral pulses 2+ throughout PALPATION: normal PMI RATE: regular rate RHYTHM: regular rhythm HEART SOUNDS: S1 normal heart sound present, S2 normal heart sound present, no click, no gallops and no murmurs BRUITS: no carotid bruits PERIPHERAL PULSES: Peripheral pulses 2+ throughout, radial pulses present, posterior tibial pulses present and dorsalis pedis present Extremity: GENERAL: No clubbing, No cyanosis, Yes edema and No pallor Neuro: COMMON NORMALS: patient oriented x3 SENSORIUM/ORIENTATION: Yes alert Psych: COMMON NORMALS: Normal thought process present and speech normal APPEARANCE: Yes well kempt SPEECH: Yes normal speech MOOD & AFFECT: Yes euthymic mood THOUGHT PROCESS: Normal thought process present THOUGHT CONTENT: Yes Normal thought content present Data : 01/21/20 05:03 01/21/20 05:03 Micro: Microbiology 01/20/20 07:45 Blood Culture - Preliminary Blood NEGATIVE TO DATE 01/20/20 11:02 Blood Culture - Preliminary Blood NEGATIVE TO DATE 01/17/20 06:05 Blood Culture - Preliminary Blood Staphylococcus aureus 01/17/20 04:20 Blood Culture - Preliminary Blood Staphylococcus aureus Attestation for Other Data: I personally reviewed and interpreted the following: Other data: JESSE CONCLUSIONS 1. Normal left ventricular size and systolic function with no regional wall motion abnormalities. Left ventricular ejection fraction is estimated at 65 %. 2. Multiple mobile echodensities with filamentous extensions seen attached to anterior and posterior leaflets as well as to the chordae. The largest echodensity attached to anterior and posterior leaflets; measured at 18 x 10 mm and 8 x 5 mm respectively. 3. Moderate tricuspid valve regurgitation. 4. The above findings are highly suggestive of tricuspid valve endocarditis. 5. When compared to previous echocardiogram dated 09/08/2019, vegetations seems to have increased in size and tricuspid valve regurgitation has worsened. A&P Assessment and plan (1) Gram-positive bacteremia: JESSE was performed without any periprocedural complications. -Tricuspid valve vegetation on anterior and posterior leaflets (multiple vegetations noted with increased in size). No evidence of paravalvular abscess,perforation or dehiscence. No indication for SX presently. - In case, she has persistent bacteremia, would need to be evaluated by DR. Davila -Bldebi cx x2 with Staph aureus and another set growing Staph intermedius. -On Vancomycin. Unfortunately, she has no insurance and very likely active IVDA. Antibiotic regimen as per primary team. -She would need another JESSE in 6 weeks to assess these vegetations. Status: Acute (2) 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: H/O TV endocarditis -treated with antibiotics in past. Compliance questionable. Status: Acute (3) History of congenital heart disease: ASD and possibly MV repair. Status: Acute (4) Tricuspid regurgitation: Moderate TR Status: Acute Qualifiers: Cardiac valve disease etiology: nonrheumatic Qualified Code(s): I36.1 - Nonrheumatic tricuspid (valve) insufficiency (5) IVDU (intravenous drug user): Status: Acute Attestations Medical Necessity Statement*: As per primary team. Coding Level of Care Code Acute X Ray Equipment Servicer for Clement Arshadd Diagnoses Gram-positive bacteremia R78.81 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 I39 History of congenital heart disease Z87.74 Tricuspid regurgitation I36.1 Cardiac valve disease etiology: nonrheumatic IVDU (intravenous drug user) F19.90
[2020-01-22] VITALS: BP 109/71; PULSE 80; RESP 20; TEMP 37; O2SAT 97
[2020-01-22] MEDS: ondansetron 2 mg/ML SDV 2 mL 4 MG IVP ×3 (01:32→18:41)
[2020-01-22 01:41] LABS: Alanine Aminotransferase 20 U/L (0-33); Alkaline Phosphatase 56 IU/L (35-105); Anion Gap 12.7 (5-19); Aspartate Amino Transferase 20 U/L (0-32); Blood Urea Nitrogen 9 mg/dL (6-20); Calcium 8.1 mg/dL (8.5-10.5); Carbon Dioxide 26 mmol/L (22-29); Chloride 101 mmol/L (98-107); Globulin 2.9 g/dL (1.3-4.6); Glomerular Filtration Rate 140.4 mL/min (90-130); Glucose 97 mg/dL (65-115); Magnesium 2.1 mg/dL (1.7-2.3); Osmolality Calculated 278 mOsm/kg (285-295); Phosphorus 3.3 mg/dL (2.5-4.5); Potassium 3.7 mmol/L (3.5-5.1); Sodium 136 mmol/L (136-145); Total Bilirubin 0.2 mg/dL (0.15-1.2); Total Protein 5.9 g/dL (6.6-8.7)
[2020-01-22 01:43] LABS: Vancomycin Trough 18.1 ug/mL (10-15)
[2020-01-22 01:50] LABS: Basophils % 0.2 %; Eosinophils # 0.2 10^3/uL (0.0-0.8); Eosinophils % 2.7 %; Hematocrit 30.4 % (37.0-47.0); Hemoglobin 9.7 g/dL (11.5-15.3); Lymphocytes # 1.1 10^3/uL (0.8-4.8); Lymphocytes % 13.7 %; Mean Corpuscular HGB Conc 31.9 g/dL (30.0-36.0); Mean Corpuscular Hemoglobin 27.2 pg (28.0-34.0); Mean Corpuscular Volume 85.4 fL (81-99); Mean Platelet Volume 9.6 fL (7.4-10.4); Monocytes # 0.9 10^3/uL (0.2-0.9); Monocytes % 10.8 %; Neutrophils # 5.9 10^3/uL (1.8-7.7); Neutrophils % 71.4 %; Nucleated Red Blood Cells % 0 %; Platelet Count 450 10^3/cmm (130-400); Red Blood Count 3.56 10^6/uL (4.1-5.3); White Blood Count 8.2 10^3/uL (4.0-10.0)
--- NOTE | 2020-01-22 02:14 | PC.PHAR ---
Vancomycion trough level on 01/22/20 at 0100 is 18.1. Continue Vancomycin 1500mg IVPB every 8 hours.
[2020-01-22 04:00] VITALS: BP 108/68; PULSE 75; RESP 20; TEMP 37.1; O2SAT 97
[2020-01-22 07:52] VITALS: BP 116/71; PULSE 85; RESP 16; TEMP 37.7; O2SAT 93
[2020-01-22] MEDS: aspirin 81 mg EC Tablet PO (08:04)
[2020-01-22] MEDS: enoxaparin 40 mg/0.4 mL Syringe SUBCUT (08:04)
[2020-01-22] MEDS: ferrous sulfate EC 325 mg Tablet PO ×2 (08:04→17:37)
[2020-01-22 09:38] LABS: Vancomycin Trough 21.8 ug/mL (10-15)
[2020-01-22] MEDS: acetaminophen 325 mg Tablet 650 MG PO ×2 (09:55→20:21)
[2020-01-22 11:44] VITALS: BP 105/68; PULSE 76; RESP 16; TEMP 37.2; O2SAT 95
--- NOTE | 2020-01-22 12:40 | P.TS_ITS ---
Transfer Summary Providers Date of Admission: 01/16/20 04:43 Date of Discharge: 01/22/20 Attending Provider at Admission: Jodi Aguirre MD Attending Provider at Transfer: Rudi Nielson MD Anticipated Date of Transfer: Anticipated date of transfer: 01/22/20 Receiving Facility & Provider: Receiving Provider: [] Receiving facility: [] Diagnoses at Discharge Discharge Diagnosis (1) Gram-positive bacteremia: Status: Acute (2) 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: Status: Acute (3) History of congenital heart disease: Status: Acute (4) Tricuspid regurgitation: Status: Acute Qualifiers: Cardiac valve disease etiology: nonrheumatic Qualified Code(s): I36.1 - Nonrheumatic tricuspid (valve) insufficiency (5) IVDU (intravenous drug user): Status: Acute Reason for Visit Reason for Visit: Reason For Visit: sob/fever 103.6 Hospital Course Discharge Summary: This is a 34-year-old female with a past medical history of congenital heart disease which sounds like ASD with mitral valve prolapse status post mitral valve repair as a child, on last JESSE ASD closed, with 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 Back in August 2019, had recurrent tricuspid valve endocarditis, then showing echodense mass on the ventricular side of the tricuspid leaflets both anterior and posterior, blood culture showing Staphylococcus aureus, MSSA, even that she was not a candidate for PICC line placement due to IV drug use, received 10 days of IV antibiotics, discharged on 5 weeks of of linezolid and rifampin, according to patient she was compliant but her compliance it is called into question. Of note patient has had evidence of the pulmonary septic emboli from her endocarditis on her January 2019 admission, August 2019 admission, and on this admission pulmonary nodules seem to be decreasing in size. During this admission, patient was found to have tricuspid valve endocarditis, in consultation with cardiology patient's transesophageal echocardiogram showed tricuspid valve vegetation on the anterior and posterior leaflets(multiple vegetations noted with increased in size), vegetation seen on the chordae tendonae, no evidence of perivalvular abscess, perforation or dehiscence; no oxygen requirement, patient remained hemodynamically stable, remained febrile for 72 hours, but for the last 48 hours has remained fever free. Patient's first blood cultures was positive for Staphylococcus intermedius, second blood cultures was positive for Staphylococcus aureus, third blood culture is -24 hours. Since her admission patient has been on vancomycin for antibiotic coverage. In discussion with cardiology, Dr. Estrada, CT surgery Dr. Davila it was deemed that patient would be an appropriate candidate for valve sparing tricuspid valve surgery given the large vegetations on her tricuspid valve and chordae tendineae. In addition given her recurrent drug use, recurrent endocarditis, possible noncompliance, she was not a suitable candidate for ou tpatient PICC line placement and IV antibiotics as outpatient, or outpatient oral antibiotics. Thus the thought was that given her young age, and risk factors she would better served in a large academic center for surgical intervention and infectious disease specialist for reasons below. I spoke to [facility], Dr. Gomez, who accepted the transfer Patient was found to have hip hepatitis C during her admission, she has a chronic history of hepatitis C, has not received any treatment, has not followed up in the past, will require infectious disease consult, and management During this admission, patient was found to have HIV 1 and 2 antibodies reactive, but HIV antigens were nonreactive, repeat blood draw showed the same. I sent out a HIV PCR, on 01/22/2020, I received the results HIV RNA copies were positive for 4.04 copies per mL, 11,000 log copies per mL. Thus patient was HIV 1 RNA positive. I advised patient of her positive HIV status, the news was difficult on her, the public health department was also notified, patient was advised to let her sexual partners know, and any person who she shares needles should be notified. Patient voiced understanding, all questions answered, agreed that she would notify all parties. Given her positive HIV status, what I have experienced here in the past is that doing the HIV work-up, and getting treatment is quite difficult for individuals who do not have insurance and difficult in a small but strong [facility], and as all labs are send outs and can take up to 5 days to return. I will defer further HIV work-up including genotype etc. and starting treatment up to infectious disease specialist at [facility]. For infectious disease specialist at [facility], patient has received vancomycin since 01/16/2020, her last vancomycin trough was 21, We have decreased her vancomycin to 1250 mg every 8 hours, with recheck of the vancomycin trough tomorrow morning. Repeat blood cultures third set, negative 24 hours, I am waiting on the 48-hour cultures TS Data Data Completed and Pending: Completed Studies During Hospitalization Category Date Time Status CT angio chest PE protcl [id number] Urge nt Cat Scan 01/16/20 03:[address] cervical spine w con 10126 Urgen t Cat Scan 01/16/20 03:[address] head wo con* 7 0450 Urgent Cat Scan 01/16/20 02:[address] lumbar spine w con 24701 Urgent Cat Scan 01/16/20 03:[address] thoracic spine w con 17879 Urgen t Cat Scan 01/16/20 03:40 Completed XR chest 1V royce ble [id number] Routine Exams 01/18/20 08:11 Completed XR chest 2V* 7104 6 Stat Exams 01/16/20 00:49 Completed CV echo complete* [id number] Routine Ultrasound 01/17/20 07:04 Completed CV echo transesop hageal 58655 Routi ne Ultrasound 01/20/20 10:59 Completed Pending at discharge Category Date Time Status Blood Culture Sta t Lab 01/20/20 07:45 Results Sputum Culture an d Gram Stain Stat Lab 01/16/20 01:57 Uncollected Labs from last 24 hours 01/22/20 01/22/20 01/22/20 09:15 01:10 01:10 WBC 8.2 RBC 3.56 L Hgb 9.7 L Hct 30.4 L MCV 85.4 MCH 27.2 L MCHC 31.9 RDW 14.0 Plt Count 450 H MPV 9.6 Neut % (Auto) 71.4 Lymph % (Auto) 13.7 Phillips % (Auto) 10.8 Eos % (Auto) 2.7 Baso % (Auto) 0.2 Neut # (Auto) 5.9 Lymph # (Auto) 1.1 Phillips # (Auto) 0.9 Eos # (Auto) 0.2 Baso # (Auto) 0.0 Nucleated RBC % (a uto) 0 Nucleated RBCs # 0.0 Sodium 136 Potassium 3.7 Chloride 101 Carbon Dioxide 26 Anion Gap 12.7 BUN 9 Creatinine 0.5 GFR Calculation 140.4 H Glucose 97 Calculated Osmolal ity 278 L Calcium 8.1 L Phosphorus 3.3 Magnesium 2.1 Total Bilirubin 0.2 AST 20 ALT 20 Alkaline Phosphata se 56 Total Protein 5.9 L Albumin 3.0 L Globulin 2.9 Vancomycin Trough 21.8 H HIV-1 RNA copies/m L HIV-1 RNA (PCR) lo g10 01/22/20 01/20/20 01:10 14:37 WBC RBC Hgb Hct MCV MCH MCHC RDW Plt Count MPV Neut % (Auto) Lymph % (Auto) Phillips % (Auto) Eos % (Auto) Baso % (Auto) Neut # (Auto) Lymph # (Auto) Phillips # (Auto) Eos # (Auto) Baso # (Auto) Nucleated RBC % (a uto) Nucleated RBCs # Sodium Potassium Chloride Carbon Dioxide Anion Gap BUN Creatinine GFR Calculation Glucose Calculated Osmolal ity Calcium Phosphorus Magnesium Total Bilirubin AST ALT Alkaline Phosphata se Total Protein Albumin Globulin Vancomycin Trough 18.1 H HIV-1 RNA copies/m L 4.04 H HIV-1 RNA (PCR) g10 54831 H Vitals: Last Vital Signs Temp 98.9 F 01/22/20 11:44 Pulse 76 01/22/20 11:44 Resp 16 01/22/20 11:44 BP 105/68 01/22/20 11:44 Pulse Ox 95 01/22/20 11:44 TS Medications Medications Home Medications aspirin 81 mg PO DAILY 09/03/19 [History Confirmed 01/17/20] Active Medications Acetaminophen (Tylenol) 650 mg PO Q6H PRN PRN Reason: Mild/Mod Pain Or Temp >/= 101 Last Admin: 01/22/20 09:55 Dose: 650 mg Documented by: Aspirin (Aspirin Ec) 81 mg PO DAILY [facility] Last Admin: 01/22/20 08:04 Dose: 81 mg Documented by: Bisacodyl (Dulcolax) 10 mg PO DAILY PRN PRN Reason: CONSTIPATION Enoxaparin Sodium (Lovenox) 40 mg SUBCUT Q24H [facility] Last Admin: 01/22/20 08:04 Dose: 40 mg Documented by: Ferrous Sulfate (Ferrous Sulfate) 325 mg PO BIDWM [facility] Last Admin: 01/22/20 08:04 Dose: 325 mg Documented by: Fluoxetine HCl (Prozac) 20 mg PO DAILY [facility] Last Admin: 01/22/20 08:04 Dose: Not Given Documented by: Vancomycin HCl 1,500 mg/ (Sodium Chloride) 250 mls @ 166.667 mls/hr IV Q8H [facility]; Protocol Last Admin: 01/22/20 09:49 Dose: 166.6 mls/hr Documented by: Lactulose (Constulose) 10 gm PO DAILY PRN PRN Reason: CONSTIPA Ondansetron HCl (Zofran) 4 mg IVP Q8H PRN PRN Reason: vomiting, or N/V if npo Last Admin: 01/22/20 09:49 Dose: 4 mg Documented by: Discharge Plan Discharge Patient Disposition: Home, Self-Care Condition: Stable Prescriptions: New acetaminophen 325 mg Tablet 650 mg PO Q6H PRN (Reason: Mild/Mod Pain Or Temp >/= 101) Qty: 30 RF: 0 aspirin 81 mg Tablet,Delayed Release (Dr/Ec) 81 mg PO DAILY 30 Days RF: 0 lactulose 20 gram/30 mL Solution 10 g PO DAILY PRN (Reason: CONSTIPA) 30 Days RF: 0 fluoxetine 20 mg Capsule 20 mg PO DAILY 30 Days RF: 0 enoxaparin [Lovenox] 40 mg/0.4 mL Syringe 40 mg SUBCUT Q24H 30 Days Qty: 12 RF: 0 ondansetron HCl (PF) 4 mg/2 mL Solution 4 mg IVP Q8H PRN (Reason: vomiting, or N/V if npo) 30 Days RF: 0 bisacodyl 5 mg Tablet,Delayed Release (Dr/Ec) 10 mg PO DAILY PRN (Reason: Constipation) 30 Days RF: 0 ferrous sulfate 325 mg (65 mg iron) Tablet,Delayed Release (Dr/Ec) 325 mg PO BIDWM 30 Days Qty: 30 RF: 0 vancomycin 1.5 gram recon soln 1.5 gm IVP Q8H Qty: 10 RF: 0 Discontinued aspirin 81 mg tablet,delayed release (DR/EC) 81 mg PO DAILY RF: 0 Discharge Orders: Discharge Order (Routine); Ordered 01/22/20 Ordered By: Rudi Nielson Discharge Diet: Cardiac Discharge Activity: Resume usual activity Transfer Attestations Time Spent in Transfer Care*: less than 30 min Quality Metrics Clinical Quality Measures: During this hospital stay, did patient experience: None Coding Level of Care Code Acute Shift Foreman for g Fwd Diagnoses Gram-positive bacteremia R78.81 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 I39 History of congenital heart disease Z87.74 Tricuspid regurgitation I36.1 Cardiac valve disease etiology: nonrheumatic IVDU (intravenous drug user) F19.90
--- NOTE | 2020-01-22 15:54 | P.PN_ITS ---
Subjective NPU Subjective: Interval history: Margarita presented today reporting that she is being in transfer for definitive treatment of her endocarditis with ongoing and cleaning off the valve. She reports that she feels that the Prozac caused her nausea to the point that she vomited and that happened twice she says though the nurse only says once and so she did not take the medication and we discussed the risks benefits and alternatives of her decreasing the dose to 10 mg that she understood and agreed to proceed as is documented in this note. Mental Status Exam MSE Comments: This is an obese, white female, with limited dress, grooming, and appropriate eye contact. No abnormal movements except for psychomotor retardation. Cooperative with exam in no acute distress. Speech was decreased ra te and volume. Mood described as alright but a little anxious; affect congruent. Thought process, organized. Thought content: patient denied any suicidal or homicidal ideation, there were no delusions reported or noted, patient denied any auditory or visual hallucinations. Attention, concentration, and memory appear intact but were not formally tested. She is alert and oriented times three. Insight and judgment are fair to good. Vitals/I&O/Wt Last Vital Signs Temp 99.1 F 01/23/20 04:00 Pulse 83 01/23/20 04:00 Resp 20 H 01/23/20 04:00 BP 112/69 01/23/20 04:00 Pulse Ox 97 01/23/20 04:00 01/22/20 01/22/20 01/23/20 14:59 22:59 06:59 Intake Total 730 / 730 970 / 1700 360 / 2060 Output Total 400 / 400 400 / 800 Balance 730 / 730 570 / 1300 -40 / 1260 Weight last 48 hrs Weight 84.028 kg Weight 84.776 kg Data NPU : 01/22/20 01:10 01/22/20 01:10 Micro: Microbiology 01/17/20 06:05 Blood Culture - Final Blood Staphylococcus aureus 01/17/20 04:20 Blood Culture - Final Blood Staphylococcus aureus Microbiology 01/17/20 06:05 Blood Blood Culture - Final Staphylococcus aureus 01/17/20 04:20 Blood Blood Culture - Final Staphylococcus aureus A&P Additional A&P Information (1) Substance abuse: (2) IVDU (intravenous drug user): (3) Depression: This is a 34 year old, white female, with a recent history of depression, presenting to the hospital with endocarditis, with other significant medical sequelae, with recent identification of hepatitis C and HIV positivity, who presents with depression and willingness to initiate medication. Continue current medication. decrease Prozac to 10 mg po q daily. Attestations NPU Medical Necessity Statement*: N/A. Please refer to the primary team for medical necessity for inpatient stay. At this point no indication for need for inpatient psychiatric hospitalization. Coding Level of Care Code Acute Converting Supervisor for Clement Perez
[2020-01-22 15:59] VITALS: BP 111/71; PULSE 79; RESP 16; TEMP 37.4; O2SAT 98
[2020-01-22 20:00] VITALS: BP 120/72; PULSE 85; RESP 20; TEMP 37.2; O2SAT 95
[2020-01-23] VITALS: BP 102/67; PULSE 74; RESP 18; TEMP 36.9; O2SAT 96
[2020-01-23 04:00] VITALS: BP 112/69; PULSE 83; RESP 20; TEMP 37.3; O2SAT 97
[2020-01-23 07:25] VITALS: BP 117/73; PULSE 89; RESP 16; TEMP 37.3; O2SAT 97
[2020-01-23 08:04] VITALS: BP 117/73; PULSE 89; RESP 16; TEMP 37.3; O2SAT 97
== END 2020-01-21 07:30 | disposition short-term general hospital (02) | DRG 871 ==
LOC: ER 04:32 → ICU 05:02 → MEDSURG 01-19 13:47 → ICU 01-20 12:29 → MEDSURG 01-20 15:36
PROVIDERS: Emergency Medicine; Physician Assistant; Student in an Organized Health Care Education/Training Program; Admitting Provider Student in an Organized Health Care Education/Training Program; Visit Provider Family Medicine
DX: A41.9 Sepsis, unspecified organism (principal); I33.9 Acute and subacute endocarditis, unspecified; M54.5 Low back pain; Z87.74 Personal history of (corrected) congenital malformations of heart and circulatory system; Z98.890 Other specified postprocedural states; I36.1 Nonrheumatic tricuspid (valve) insufficiency; F15.10 Other stimulant abuse, uncomplicated; Z20.828 Contact with and (suspected) exposure to other viral communicable diseases; D50.9 Iron deficiency anemia, unspecified; D63.8 Anemia in other chronic diseases classified elsewhere; B95.8 Unspecified staphylococcus as the cause of diseases classified elsewhere; B18.2 Chronic viral hepatitis C; Z21 Asymptomatic human immunodeficiency virus [HIV] infection status; F32.9 Major depressive disorder, single episode, unspecified
CPT/HCPCS: 12345; 36415; 70450; 71045; 71046; 71275; 72126; 72129; 72132; 80053; 80202; 80306; 81001; 81025; 83540; 83550; 83605; 83735; 83880; 84100; 84145; 84443; 84484; 84703; 85025; 85045; 85378; 85610; 85651; 86140; 86705; 86706; 86709; 86803; 87040; 87077; 87186; 87205; 87340; 87536; 87635; 87641; 87804; 87806; 93005; 93306; 93312; 93320; 93325; 94640; 94664; 96372; 96375; 99284; J0696; J1650; J2405; J2543; J3370; J7030; J7040; J7050; P9041; Q9967

== ENCOUNTER → 2020-11-04 11:00 | Outpatient (BNVA) | payer BC, SELFPAY | PROVIDERS: Visit Provider Internal Medicine | DX: B19.20 Unspecified viral hepatitis C without hepatic coma (principal); R76.8 Other specified abnormal immunological findings in serum; B18.2 Chronic viral hepatitis C; Z21 Asymptomatic human immunodeficiency virus [HIV] infection status | CPT/HCPCS: 80053; 85025; 87522; 87902 ==

== ENCOUNTER 2020-12-02 09:34 | Outpatient (CLI) | payer BC, MEDICAID, SELFPAY ==
--- NOTE | 2020-12-02 09:40 | MM_ITS ---
WS: [id number] SCREENING DIGITAL MAMMOGRAM WITH CAD HISTORY: SCREENING COMPARISON: None available. Bilateral CC and MLO views submitted. Computer aided detection analyzed. Breast composition: There are scattered areas of fibroglandular density. No suspicious masses, microc alcifications or architectural distortion. MM/[place] [id number] IMPRESSION: BI-RADS: 1-Negative FOLLOW UP: 1 Year Follow-up
== END 2020-12-02 09:35 | disposition home or self-care (01) ==
LOC: RADSHAW 09:39
PROVIDERS: PCP Physician Assistant; Visit Provider Physician Assistant
DX: Z12.31 Encounter for screening mammogram for malignant neoplasm of breast (principal)
CPT/HCPCS: 77067

== ENCOUNTER → 2020-12-21 10:15 | Outpatient (BNVA) | payer BC, MEDICAID, SELFPAY | PROVIDERS: PCP Physician Assistant; Referring Provider Internal Medicine; Visit Provider Student in an Organized Health Care Education/Training Program | DX: Z21 Asymptomatic human immunodeficiency virus [HIV] infection status (principal) | CPT/HCPCS: 80053; 80061; 81003; 86360; 86592; 86777; 86812; 87491; 87536; 87591 ==

== ENCOUNTER 2021-01-26 07:49 | Emergency (ER) | payer BC, MEDICAID, SELFPAY ==
[2021-01-26 07:54] VITALS: BP 151/91; PULSE 57; RESP 16; TEMP 36.4; O2SAT 95; BMI 29.1
--- NOTE | 2021-01-26 08:14 | ECG_ITS ---
[facility] Test Date: 2021-01-26 Pat Name: Margarita Cortes Department: Room: Gender: Female Marketing Information Manager: : 1985 Requested By: Crispin Wade Order Number: [id number] Nida MD: Tiago Forman M.D. Measurements Intervals [place] Rate: 51 P: 29 MA: 126 QRS: -32 QRSD: 99 T: -3 QT: 474 QTc: 438 Interpretive Statements SINUS BRADYCARDIA LEFT AXIS DEVIATION [QRS AXIS < -30] INCOMPLETE RIGHT BUNDLE BRANCH BLOCK [90+ ms QRS DURATION, TERMINAL R IN V1/V2, 40+ ms S IN I/aVL/V4/V5/V6] Compared to ECG 01/16/2020 03:20:53 Sinus tachycardia no longer present Electronically Signed On 01-27-2021 18:54:37 CDT by Tiago Forman M.D. [id number]
--- NOTE | 2021-01-26 08:40 | ED_ITS ---
HPI - General Adult General: Chief complaint: Nausea/Vomiting/Diarrhea Stated complaint: CP, MILLER, N/V Time Seen by Provider: 01/26/21 08:09 History of Present Illness: HPI narrative: 35-year-old female presents with a complaint of nausea vomiting and headache for the last couple of days generalized muscle aches. 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 She is not on any anticoagulants she also has a history of HIV. Onset (ago): day(s) (2) Severity: moderate Relieving factors: none Exacerbating factors: none Associated symptoms: Reports decreased appetite, malaise, nausea, vomiting and weakness; Deny chest pain, confusion, cough, diaphoresis, dyspnea, fevers/chills, headache(s), rash, palpitations, seizures, short of breath or syncope Treatments prior to arrival: none Review of Systems Const: Reports: malaise; Denies: diaphoresis ENMT: Denies: throat pain, ear or mastoid pain, nasal discharge or nasal congestion Card: Denies: chest pain, palpitations or syncope Resp: Denies: dyspnea GI: Reports: nausea and vomiting : Denies: flank pain, difficulty voiding, dysuria, urinary frequency or urinary urgency Skin/Breast: Denies: rash Neuro: Denies: headache(s) or confusion PFSH ED PFSH: Medical History Congenital mitral valve prolapse 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 Hepatitis C History of bacteremia History of congenital heart disease HIV (human immunodeficiency virus infection) Hx of mitral valve prolapse IVDU (intravenous drug user) MSSA bacteremia Substance abuse Tricuspid regurgitation Surgical History H/O mitral valve repair History of appendectomy History of x2 History of hysterectomy Hx of cholecystectomy Family History Father Hepatitis C Diabetes Myocardial infarction Mother Lung disease Grandfather Congenital heart disease ASD with the mitral valve prolapse Dementia Grandmother Cancer Denies family history of CAD (coronary artery disease) Clotting disorder Chronic kidney disease (CKD) Suicide Anesthesia complication Bleeding disorder Stroke Social History (Reviewed 01/26/21 @ 10:50 by CAMRYN Chatterjee Smoking and tobacco status: never smoked Second hand smoke exposure: Yes Alcohol intake: never Female Reproductive History: Date of last menstrual period: 01/06/21 Physical Exam Const: COMMON NORMALS: no acute distress GENERAL APPEARANCE: cooperative and comfortable ORIENTATION/CONSCIOUSNESS: Yes awake, Yes oriented to person, Yes oriented to place and Yes oriented to time HENMT: COMMON NORMALS: normocephalic, atraumatic, hearing grossly normal bilaterally and external ears normal HEAD & SCALP: normocephalic and atraumatic EXTERNAL EAR: Yes external ears normal Neck/C-Spine: COMMON NORMALS: no JVD Resp: COMMON NORMALS: normal respiratory effort, No retractions, No use of accessory muscles and clear to auscultation bilaterally AUSCULTATION: clear to auscultation bilaterally Cardio: COMMON NORMALS: no JVD, regular rate, regular rhythm and No murmurs present (Cardio) RATE: regular rate RHYTHM: regular rhythm GI: COMMON NORMALS: Soft to palpation and No hepatosplenomegaly present AUSCULTATION: Yes normoactive bowel sounds PALPATION: Yes Soft to palpation, No Tenderness to palpation present (GI), No Guarding due to palpation present (GI) and Yes No hepatosplenomegaly present Extremity: COMMON NORMALS: normal to inspection, capillary refill normal, no clubbing, cyanosis or edema, no calf tenderness and no pedal edema Neuro: SENSORIUM/ORIENTATION: Yes oriented to person, Yes oriented to place and Yes oriented to time Skin: COMMON NORMALS: no rashes or lesions noted GENERAL SKIN EXAM: no rashes or lesions noted Course Vital Signs: Vital signs: Vital Signs Temperature 97.6 F 01/26/21 07:54 Pulse Rate 58 L 01/26/21 11:17 Respiratory Rate 16 01/26/21 11:17 Blood Pressure 168/90 01/26/21 11:17 Pulse Oximetry 98 01/26/21 11:17 MDM - General Adult MDM Narrative: Medical decision making narrative: Exam and labs are unremarkable she is somewhat improved. In talking to her some more she uses marijuana in large quantities daily. He does hyperemesis cannabinoid syndrome encourage her to avoid use of marijuana gave her Ativan to use as needed for nausea and vomiting also gave her is also have her use Zostrix cream in the abdomen warm showers follow-up as needed Lab Data: Labs: Lab Results 01/26/21 01/26/21 01/26/21 Range/Units 08:45 08:45 08:45 WBC 9.8 (4.0-10.0) 10^3/ uL RBC 5.13 (4.1-5.3) 10^6/u L Hgb 15.3 (11.5-15.3) g/dL Hct 46.3 (37.0-47.0) % MCV 90.3 (81-99) fL MCH 29.8 (28.0-34.0) pg MCHC 33.0 (30.0-36.0) g/dL RDW 14.6 (12.1-15.1) % Plt Count 251 (130-400) 10^3/c mm MPV 11.2 H (7.4-10.4) fL Neut % (Auto) 74.4 % Lymph % (Auto) 14.8 % Dimmit % (Auto) 9.8 % Eos % (Auto) 0.3 % Baso % (Auto) 0.3 % Neut # (Auto) 7.29 (1.8-7.7) 10^3/u L Lymph # (Auto) 1.5 (0.8-4.8) 10^3/u L Dimmit # (Auto) 1.0 H (0.2-0.9) 10^3/u L Eos # (Auto) 0.0 (0.0-0.8) 10^3/u L Baso # (Auto) 0.0 (0.0-0.1) 10^3/u L Nucleated RBC % (a uto) 0 % Nucleated RBCs # 0.0 /100WBC Sodium 133 L (136-145) mmol/L Potassium 4.1 (3.5-5.1) mmol/L Chloride 95 L (98-107) mmol/L Carbon Dioxide 24 (22-29) mmol/L Anion Gap 18.1 (5-19) BUN 14 (6-20) mg/dL Creatinine 0.7 (0.5-0.9) mg/dL GFR Calculation 94.7 (90-130) mL/min Glucose 145 H (65-115) mg/dL Calculated Osmolal ity 279 L (285-295) mOsm/k g Calcium 9.3 (8.5-10.5) mg/dL Magnesium 2.1 (1.7-2.3) mg/dL Total Bilirubin 0.9 (0.15-1.2) mg/dL AST 38 H (0-32) U/L ALT 38 H (0-33) U/L Alkaline Phosphata se 89 (35-105) IU/L Troponin T Baselin e 6 (0-10) ng/L Troponin T 120 Min redding Delta Troponin T C-Reactive Protein 0.9 (0.0-4.9) mg/L Total Protein 7.8 (6.6-8.7) g/dL Albumin 4.9 (3.5-5.2) g/dL Globulin 2.9 (1.3-4.6) g/dL Lipase 37 (13-60) U/L Urine Color (Yellow) Urine Appearance (CLEAR) Urine pH (5-7) Ur Specific Gravit y (1.005-1.030) Urine Protein (Negative) Urine Glucose (UA) (Normal) Urine Ketones (Negative) Urine Blood (Negative) Urine Nitrate (Negative) Urine Bilirubin (Negative) Prot Sulfosalicyli c Acd (Negative) Urine Urobilinogen (Negative) mg/dL Ur Leukocyte Marcia ase (Negative) Urine RBC (0-2) /hpf Urine WBC (0-5) /hpf Ur Squamous Epith Cells (0-5) /hpf Triple Phos Lois ls /hpf Amorphous Sediment /hpf Urine Bacteria (NONE) /hpf 01/26/21 01/26/21 Range/Units 08:45 10:45 WBC (4.0-10.0) 10^3/ uL RBC (4.1-5.3) 10^6/u L Hgb (11.5-15.3) g/dL Hct (37.0-47.0) % MCV (81-99) fL MCH (28.0-34.0) pg MCHC (30.0-36.0) g/dL RDW (12.1-15.1) % Plt Count (130-400) 10^3/c mm MPV (7.4-10.4) fL Neut % (Auto) % Lymph % (Auto) % Dimmit % (Auto) % Eos % (Auto) % Baso % (Auto) % Neut # (Auto) (1.8-7.7) 10^3/u L Lymph # (Auto) (0.8-4.8) 10^3/u L Dimmit # (Auto) (0.2-0.9) 10^3/u L Eos # (Auto) (0.0-0.8) 10^3/u L Baso # (Auto) (0.0-0.1) 10^3/u L Nucleated RBC % (a uto) % Nucleated RBCs # /100WBC Sodium (136-145) mmol/L Potassium (3.5-5.1) mmol/L Chloride (98-107) mmol/L Carbon Dioxide (22-29) mmol/L Anion Gap (5-19) BUN (6-20) mg/dL Creatinine (0.5-0.9) mg/dL GFR Calculation (90-130) mL/min Glucose (65-115) mg/dL Calculated Osmolal ity (285-295) mOsm/k g Calcium (8.5-10.5) mg/dL Magnesium (1.7-2.3) mg/dL Total Bilirubin (0.15-1.2) mg/dL AST (0-32) U/L ALT (0-33) U/L Alkaline Phosphata se (35-105) IU/L Troponin T Baselin e (0-10) ng/L Troponin T 120 Min redding Cancelled Delta Troponin T Cancelled C-Reactive Protein (0.0-4.9) mg/L Total Protein (6.6-8.7) g/dL Albumin (3.5-5.2) g/dL Globulin (1.3-4.6) g/dL Lipase (13-60) U/L Urine Color Yellow (Yellow) Urine Appearance Cloudy (CLEAR) Urine pH 8 H (5-7) Ur Specific Gravit y 1.015 (1.005-1.030) Urine Protein Trace (Negative) Urine Glucose (UA) Norm (Normal) Urine Ketones 1+ H (Negative) Urine Blood Neg (Negative) Urine Nitrate Negative (Negative) Urine Bilirubin 1+ H (Negative) Prot Sulfosalicyli c Acd Negative (Negative) Urine Urobilinogen 1 H (Negative) mg/dL Ur Leukocyte Marcia ase Trace H (Negative) Urine RBC None (0-2) /hpf Urine WBC 0-4 H (0-5) /hpf Ur Squamous Epith Cells 5-10 H (0-5) /hpf Triple Phos Lois ls 0-4 H /hpf Amorphous Sediment 3+ /hpf Urine Bacteria 2+ H (NONE) /hpf Discharge Plan Discharge Patient Disposition: Home Clinical Impression: Cannabinoid hyperemesis syndrome, HIV infection, asymptomatic Condition: Stable Prescriptions: New Zostrix 0.033 % cream 1 applic topical TID Qty: 56.6 RF: 0 Ativan 2 mg tablet 2 mg PO Q8H PRN (Reason: nausea and vomiting) Qty: 20 RF: 0 No Action gabapentin 300 mg capsule 300 mg PO TID RF: 0 aspirin 81 mg tablet,delayed release (DR/EC) 81 mg PO DAILY RF: 0 Biktarvy 50-200-25 mg tablet 1 tab PO DAILY 90 Days Qty: 90 RF: 0 cyanocobalamin (vitamin B-12) 5,000 mcg capsule 5,000 mcg PO DAILY 90 Days Qty: 90 RF: 0 acetaminophen 325 mg Tablet 650 mg PO Q6H PRN (Reason: Mild/Mod Pain Or Temp >/= 101) Qty: 30 RF: 0 Discharge Orders: Discharge ED (Routine); Ordered 01/26/21 Ordered By: Crispin Hirsch Referrals: Sherie Henry PA [Primary Care Provider] - Discharge Diet: Clear Liquid Discharge Activity: Increase activity as tolerated Patient Instructions: Opioid Safety Activity Restrictions/Additional Instructions: Avoid use of marijuana products. Warm showers can be helpful. Zostrix cream applied to the abdomen can also be helpful. Use Ativan as needed. Coding Level of Care Code ED Light Industrial Supervisor for Chg Fwd Exam Comprehensive
--- NOTE | 2021-01-26 08:41 | XR_ITS ---
WS: [id number] Portable AP upright chest, 01/26/2021 Clinical Data: dyspnea/cough Comparison: Portable chest, 01/18/2020. Findings: No nodules, masses or effusions are seen. The heart is normal. The pulmonary vascularity is not increased. No pneumonia or pneumothorax is seen. There are clips in the left supraclavicular reg ion. There is a monitor lead over the left upper chest. XR/XR chest 1V portable [id number] Impression: Negative chest.
[2021-01-26 09:05] LABS: Basophils % 0.3 %; Eosinophils % 0.3 %; Hematocrit 46.3 % (37.0-47.0); Hemoglobin 15.3 g/dL (11.5-15.3); Lymphocytes # 1.5 10^3/uL (0.8-4.8); Lymphocytes % 14.8 %; Mean Corpuscular Hemoglobin 29.8 pg (28.0-34.0); Mean Corpuscular Volume 90.3 fL (81-99); Mean Platelet Volume 11.2 fL (7.4-10.4); Monocytes % 9.8 %; Neutrophils # 7.29 10^3/uL (1.8-7.7); Neutrophils % 74.4 %; Nucleated Red Blood Cells % 0 %; Platelet Count 251 10^3/cmm (130-400); Red Blood Count 5.13 10^6/uL (4.1-5.3); Red Cell Distribution Width 14.6 % (12.1-15.1); White Blood Count 9.8 10^3/uL (4.0-10.0)
[2021-01-26] MEDS: sodium chloride 0.9% 1,000 ML 999 ML IV (09:07)
[2021-01-26] MEDS: ondansetron 2 mg/ML SDV 2 mL 4 MG IVP (09:07)
[2021-01-26] MEDS: morphine 4 mg/mL SDV 1 mL IVP (09:07)
[2021-01-26 09:22] VITALS: BP 177/104; PULSE 48; RESP 13; O2SAT 98
[2021-01-26 09:27] LABS: Troponin(5th) Baseline 6 ng/L (0-10)
[2021-01-26 09:28] LABS: Alanine Aminotransferase 38 U/L (0-33); Albumin Level 4.9 g/dL (3.5-5.2); Alkaline Phosphatase 89 IU/L (35-105); Blood Urea Nitrogen 14 mg/dL (6-20); C Reactive Protein 0.9 mg/L (0.0-4.9); Calcium 9.3 mg/dL (8.5-10.5); Carbon Dioxide 24 mmol/L (22-29); Chloride 95 mmol/L (98-107); Globulin 2.9 g/dL (1.3-4.6); Glomerular Filtration Rate 94.7 mL/min (90-130); Glucose 145 mg/dL (65-115); Lipase 37 U/L (13-60); Magnesium 2.1 mg/dL (1.7-2.3); Osmolality Calculated 279 mOsm/kg (285-295); Sodium 133 mmol/L (136-145); Total Bilirubin 0.9 mg/dL (0.15-1.2); Total Protein 7.8 g/dL (6.6-8.7)
[2021-01-26 09:31] LABS: Anion Gap 18.1 (5-19); Aspartate Amino Transferase 38 U/L (0-32); Potassium 4.1 mmol/L (3.5-5.1); Urine Appearance Cloudy (CLEAR); Urine Color Yellow (Yellow)
[2021-01-26 09:32] LABS: Add Urine Microscopic? YES; Bilirubin Urine 1+ (Negative); Blood Urine Neg (Negative); Glucose Urine UA Norm (Normal); Ketones Urine 1+ (Negative); Leukocyte Esterase Urine Trace (Negative); Nitrate Urine Negative (Negative); Protein Urine Trace (Negative); Specific Gravity, Urine 1.015 (1.005-1.030); Sulfosalicylic Acid Urine Negative (Negative); Urobilinogen Urine 1 mg/dL (Negative); pH Urine 8 (5-7)
[2021-01-26 09:33] LABS: Amorphous Sediment Urine 3+ /hpf; Bacteria Urine 2+ /hpf; Triple Phosphate Crystal Urine 0-4 /hpf; WBC Urine 0-4 /hpf (0-5)
[2021-01-26 09:34] LABS: Add Urine Culture? No
--- NOTE | 2021-01-26 09:53 | CT_ITS ---
WS: [id number] CT ABDOMEN PELVIS TECHNIQUE: Contrast-enhanced CT of the abdomen and pelvis with coronal and sagittal reformatted image s. CLINICAL INFORMATION: abd pain COMPARISON: CT 2008 DLP: 1302.[address] scans at [facility] use at least one of these dose optimization techniques: automat ed exposure control; mA and/or kV adjustment per patient size (includes targeted exams where dose is matched to clinical indication); or iterative reconstruction. FINDINGS: Prior hysterectomy. Diffuse fatty infiltration liver. Prior cholecystectomy. Mild intrahepatic and co mmon bile duct dilatation likely physiologic postcholecystectomy. Incidental focal fat or hemangioma adjacent to the falciform ligament unchanged since 2007. Normal portal vein and splenic vein. Normal spleen. Normal GE junction. Lung bases are well aerated. Adrenal glands are normal. Normal renal parenchymal enhancement. No hydronephrosis. Normal caliber abdominal aorta. Appendectomy clips right lower quadrant. No evidence of small or large bowel obstruction. Heterogeneous uterine enhancement with bilateral ovarian cysts larger on the left. Fluid in the endom etrium. Peripheral enhancing left ovarian cyst measures 4.1 x 3.6 cm. Smaller left ovarian cyst measu ring 2.3 x 1.2 CM. Normal sigmoid colon. Normal caliber abdominal aorta. No abdominal or pelvic lymphadenopathy. Fat-con taining umbilical hernia. CT/CT abdomen pelvis w con* [id number] IMPRESSION: 1. Prior cholecystectomy. 2. Prior appendectomy. 3. No evidence of small or large bowel obstruction. 4. Heterogeneous uterine enhancement with fluid in the endometrium. 5. Left ovarian cyst measuring 4.1 x 3.6 cm. Smaller left ovarian cyst measuri ng 2.3 x 1.2 cm. 6. No other significant findings.
[2021-01-26] MEDS: iohexol 300 mg/mL 100 mL Btl IV (10:14)
[2021-01-26 11:00] VITALS: BP 168/90; PULSE 58; RESP 16; O2SAT 98
[2021-01-26] MEDS: LORazepam 2 mg/mL INJ 1 mL 1 MG IVP (11:08)
[2021-01-26 11:17] VITALS: BP 168/90; PULSE 58; RESP 16; O2SAT 98
== END 2021-01-26 11:18 | disposition home or self-care (01) ==
PROVIDERS: Emergency Provider Family Medicine; PCP Physician Assistant
DX: R11.10 Vomiting, unspecified (principal); F12.90 Cannabis use, unspecified, uncomplicated; Z21 Asymptomatic human immunodeficiency virus [HIV] infection status; Z79.82 Long term (current) use of aspirin; Z86.19 Personal history of other infectious and parasitic diseases; Z77.22 Contact with and (suspected) exposure to environmental tobacco smoke (acute) (chronic)
CPT/HCPCS: 36415; 71045; 74177; 80053; 81001; 83690; 83735; 84484; 85025; 86140; 87040; 93005; 96361; 96374; 96375; 99284; J2060; J2270; J2405; J7030; Q9967

== ENCOUNTER 2021-06-01 09:02 | Outpatient (CLI) | payer BC, MEDICAID, SELFPAY ==
--- NOTE | 2021-06-01 09:30 | US_ITS ---
WS: [id number] RIGHT UPPER QUADRANT ULTRASOUND HISTORY: R76.8 - Other specified abnormal immunological findings in serum COMPARISON: 02/07/[address] . Liver: 12.7 cm in length. Normal size liver. No bile duct dilatation or mass. Gallbladder: Status post cholecystectomy. CBD: 0.4 cm Pancreas: Normal size and echogenicity. Right kidney: 12.3 cm in length. Normal size and echogenicity. No hydronephrosis or mass. Aorta and IVC: Unremarkable abdominal aorta and IVC. No ascites. US/US liver [id number] IMPRESSION: 1. Prior cholecystectomy. 2. Otherwise normal RIGHT upper quadrant ultrasound.
[2021-06-01 09:46] LABS: Add Urine Microscopic? NO; Charge for UA Resulting for Rev
[2021-06-01 12:00] LABS: Blood Urine Neg (Negative); Glucose Urine UA Norm (Normal); Ketones Urine Negative (Negative); Nitrate Urine Negative (Negative); Protein Urine Neg (Negative); Urine Appearance Clear (CLEAR); Urine Color Yellow (Yellow); pH Urine 7 (5-7)
[2021-06-01 12:01] LABS: Bilirubin Urine Neg (Negative); Leukocyte Esterase Urine Negative (Negative); Urobilinogen Urine Norm (Negative)
[2021-06-03 00:02] LABS: HIV RNA (CPY/ML) <1.30 NOT DETECTED (NOT DETECTED); HIV RNA LOG <20 NOT DETECTED copies/mL (NOT DETECTED)
[2021-06-03 09:03] LABS: Absolute CD4+Cells 571 cells/uL (490-1740); Absolute Lymphocytes 1492 cells/uL (850-3900); Percent CD4 38 % (30-61)
== END 2021-06-01 09:03 | disposition home or self-care (01) ==
PROVIDERS: PCP Physician Assistant; Referring Provider Student in an Organized Health Care Education/Training Program; Visit Provider Internal Medicine
DX: R76.8 Other specified abnormal immunological findings in serum (principal); Z21 Asymptomatic human immunodeficiency virus [HIV] infection status; Z90.49 Acquired absence of other specified parts of digestive tract
CPT/HCPCS: 76705; 81003; 86361; 87536

== ENCOUNTER 2021-06-10 14:07 | Outpatient (CLI) | payer BC, MEDICAID, SELFPAY ==
--- NOTE | 2021-06-10 14:12 | USCV_ITS ---
Margarita Cortes Age: 36 Gender: F : 1985 Exam Date: 06/10/2021 14:20 Ordering Phys: Cameron Pena MD ([email or web address]) Technologist: Sherie Cotto [place] [facility] [place] H/O ASD BP: 110 / 70 HR: 52 Rhythm: Sinus Technical Quality: Adequate MEASUREMENTS (Male / Female) Normal Values 2D ECHO LV Diastolic Diameter PLAX 5.1 cm 4.2 - 5.9 / 3.9 - 5.3 cm LV Systolic Diameter PLAX 2.5 cm IVS Diastolic Thickness 0.9 cm 0.6 - 1.0 / 0.6 - 0.9 cm IVS Systolic Thickness 2.0 cm LVPW Diastolic Thickness 1.2 cm 0.6 - 1.0 / 0.6 - 0.9 cm LVPW Systolic Thickness 2.0 cm LVOT Diameter 2.0 cm LV Ejection Fraction 2D Teich 82.7 % LV Ejection Fraction MOD 2C 78.3 % LV Ejection Fraction 2C AL 78.4 % LA Diameter 3.1 cm LA Width 3.0 cm LA Height 5.0 cm RA Width 3.8 cm RA Height 4.4 cm Aorta at Sinotubular Diameter 2.0 cm M-MODE Aortic Annulus Diameter 2.2 cm LA Ao Ratio MM 1.6 MV E Point Septal Separation 0.2 cm DOPPLER AV Peak Velocity 243.0 cm/s LVOT Peak Velocity 145.0 cm/s AV Area Cont Eq vti 1.9 cm squared AV Area Cont Eq pk 1.9 cm squared MV Peak Velocity 149.0 cm/s MV Area PHT 2.9 cm squared Mitral E to A Ratio 1.9 MV E' Velocity 76.0 cm/s Mitral E to MV E' Ratio 9.5 Mitral E to LV E' Lateral Ratio 8.6 Mitral E to LV E' Septal Ratio 10.5 TR Peak Velocity 228.4 cm/s TR Peak Gradient 20.9 mmHg TR Mean Velocity 165.8 cm/s TR Mean Gradient 11.9 mmHg TR Velocity Time Integral 58.7 cm TV Peak E Velocity 137.0 cm/s Right Atrial Pressure 3.0 mmHg Pulmonary Artery Systolic Pressu 23.9 mmHg PV Peak Velocity 108.0 cm/s RV Acceleration Time 0.1 s RV Ejection Time 0.3 s RV AcT/ET 0.3 FINDINGS Left Ventricle Normal left ventricular size and systolic function, EF 74 %. No regional wall motion abnormalities. Right Ventricle The right ventricle is normal in size and function. Right Atrium Mildly increased right atrial size. Prominent eustachian valve in the right atrium Left Atrium The left atrium is normal in size. Mitral Valve No gross abnormalities noted Aortic Valve Thickened aortic valve. Moderate aortic valve regurgitation. Tricuspid Valve A bioprosthetic valve at the tricuspid position appears to be well-seated.trace to mild tricuspid valve regurgitation. The gradient across the tricuspid valve was found to be 12 mmHg Pulmonic Valve No gross abnormalities noted Pericardium No pericardial effusion. Aorta Normal ascending aorta dimension. CONCLUSIONS Normal left ventricular size and systolic function, EF 74 %. No regional wall motion abnormalities. Mildly increased right atrial size. Prominent eustachian valve in the right atrium. Mildly increased right atrial size. Prominent eustachian valve in the right atrium A bioprosthetic valve at the tricuspid position appears to be well-seated.trace to mild tricuspid valve regurgitation. The gradient across the tricuspid valve was found to be 12 mmHg There is no pericardial effusion. There are no intracardiac masses. Compared to the previous study from 01/17/2020, there is tricuspid valve replacement. Dr Cameron Pena MD [facility] (Electronically Signed) Final Date: 10 June 2021 18:05 S
== END 2021-06-10 14:08 | disposition home or self-care (01) ==
LOC: RAD 14:08
PROVIDERS: PCP Physician Assistant; Visit Provider Internal Medicine Cardiovascular Disease
DX: Q21.1 Atrial septal defect (principal); Z95.2 Presence of prosthetic heart valve
CPT/HCPCS: 93306

== ENCOUNTER 2022-02-23 10:43 | Outpatient (CLI) | payer BC, MEDICAID, SELFPAY ==
--- NOTE | 2022-02-23 11:00 | US_ITS ---
WS: [id number] TRANSABDOMINAL PELVIC AND TRANSVAGINAL PELVIC ULTRASOUND HISTORY: N83.202 - Unspecified ovarian cyst, left side COMPARISON: None available. Uterus: 8.4 cm x 5.0 cm x 3.6 cm. Normal size anteverted uterus. No fibroid or mass. Endometrium: 0.7 cm. Endometrium is poorly visualized. No mass identified. Right ovary: 2.3 cm x 1.9 cm x 1.7 cm. Normal size and echogenicity. Normal vascularity. Left ovary: 3.4 cm x 3.1 cm x 3.0 cm. Mildly complex cyst measures 2.3 x 1.6 x 2.6 cm. There is minim al through transmission. Normal vascularity within the adjacent ovary. Trace free fluid in the cul-de-sac. US/US pelvic with transvaginal IMPRESSION: 1. Suboptimal evaluation of the endometrium. The endometrium is poorly visuali zed in its entirety. 2. Small LEFT ovarian complex cyst.
== END 2022-02-23 10:44 | disposition home or self-care (01) ==
PROVIDERS: PCP Physician Assistant; Visit Provider Obstetrics & Gynecology
DX: N83.202 Unspecified ovarian cyst, left side (principal)
CPT/HCPCS: 76830; 76856

== ENCOUNTER → 2022-04-03 09:39 | Outpatient (BNVA) | payer BC, MEDICAID, SELFPAY | PROVIDERS: PCP Physician Assistant; Visit Provider Obstetrics & Gynecology | DX: N94.6 Dysmenorrhea, unspecified (principal); Z01.812 Encounter for preprocedural laboratory examination | CPT/HCPCS: 80053; 81000; 81025; 85025; 86850; 86900 ==

== ENCOUNTER 2022-04-05 05:50 | Day surgery (SDC) | payer BC, MEDICAID, SELFPAY ==
[2022-04-03 11:43] VITALS: BMI 27.4
[2022-04-05] VITALS (7 sets, daily range): BP systolic 92–109; BP diastolic 58–73; PULSE 54–78; RESP 16–18; TEMP 36.2–37.2; O2SAT 95–98
[2022-04-05 06:12] LABS: OR HCG Qualitative Urine Negative (Negative)
[2022-04-05] MEDS: enoxaparin 30 mg/0.3 mL Syringe SUBCUT (06:28)
[2022-04-05] MEDS: vancomycin 1,000 MG in sodium chloride 0.9% 250 ML 250 MG IV (06:29)
[2022-04-05] MEDS: scopolamine 1.5 Patch 1 PATCH TRANSDERMA (06:38)
[2022-04-05] MEDS: sodium chloride 0.9% 1,000 ML 30 ML IV (06:39)
--- NOTE | 2022-04-05 06:44 | W.PM.OPSUD ---
Surgery/Procedure H&P Update DATE OF PROCEDURE: April 05, 2022 DATE H&P PERFORMED: 04/03/22 H&P UPDATE INFORMATION: I have reviewed H&P completed within last 30 days, I have examined patient prior to procedure and No changes to prior documentation PREOP DIAGNOSIS: Dysmenorrhea, pelvic pain PLANNED PROCEDURE: Operation Date: 04/05/22 07:00 Proposed Procedures p Diagnostic Laparoscopy 78177,R10.2,N94.6(Not Applicable) - Matheus Gallo MD
--- NOTE | 2022-04-05 06:46 | ANES.PREANE2 ---
Pre-Anesthetic Assessment Height/Weight: Height 1.65 m Weight 74.843 kg Temp Pulse Resp BP Pulse Ox O2 Del Method 98.9 F 54 L 18 100/61 96 04/05/22 06:08 04/05/22 06:08 04/05/22 06:08 04/05/22 06:08 04/05/22 06:08 04/05/22 06:12 Preop Diagnosis: Dysmenorrhea, pelvic pain Operation Date: 04/05/22 07:00 Proposed Procedures p Diagnostic Laparoscopy 96500,R10.2,N94.6(Not Applicable) - Matheus Gallo MD Familial anesthetic complications: None Was Beta Jae taken within 24 hours: N/A Was Clonidine taken within 24 hours: N/A Last intake: Intake Last Liquid Date 04/04/22 Last Liquid Time 22:00 Last Solid Date 04/04/22 Last Solid Time 22:00 Social Tobacco and No alcohol Exam alert, oriented x 3, clear to auscultation bilaterally and regular rate & rhythm Airway Mallampati: Class II Dentition: false Pulmonary None reported CV/HEM ASD and MVP s/p repair as infant, Hx of IE d/t Drug use s/p Tricuspid replacement now. No functional disabilities, no SOB, RUIZ, Chest pain. Able to achieve 4 METs w/out symptoms Metabolic HIV positive and Hx Hep C Anesthetic Plan ASA status: 4 Anesthesia: General Risk of > 500 ml blood loss (7ml/kg in children): No Medications/Allergies Home Medications Medication Instructions Recorded Confirmed Last Taken Type acetaminophen 325 mg tablet 650 mg PO Q6H PRN Mild/Mod Pain Or 01/22/20 04/05/22 04/02/22 Rx Temp >/= 101 #30 tabs aspirin 81 mg tablet,delayed 81 mg PO DAILY 11/04/20 04/05/22 04/03/22 History release gabapentin 300 mg capsule 300 mg PO TID 11/04/20 04/05/22 04/04/22 History cyanocobalamin (vitamin B-12) 5,000 mcg PO DAILY 90 days #90 caps 12/27/20 04/05/22 04/04/22 Rx 5,000 mcg capsule bictegravir 50 mg-emtricitabine 1 tab PO DAILY 90 days #90 tabs 10/27/21 04/05/22 04/04/22 Rx 200 mg-tenofovir alafenam 25 mg tablet (Biktarvy) etonogestrel 68 mg subdermal subdermal 02/24/22 04/03/22 04/05/22 History implant (Nexplanon) ondansetron 4 mg disintegrating 4 mg PO Q6H PRN Nausea 02/24/22 04/05/22 04/05/22 History tablet Allergies Allergy/AdvReac Type Severity Reaction Status Date / Time amoxicillin Allergy Severe rash Verified 04/03/22 11:41 Current Medications Generic Name Dose Route Start Last Admin Trade Name Freq PRN Reason Stop Dose Admin Sodium Chloride 1,000 mls @ 30 mls/hr 04/05/22 06:00 04/05/22 06:39 Sodium Chloride 0.9% IV 04/06/22 05:59 30 mls/hr .Q24H TONA Administration Vancomycin HCl 1,000 mg/ 250 mls @ 250 mls/hr 04/05/22 05:57 04/05/22 06:29 Sodium Chloride IV 04/05/22 06:56 250 mls/hr [employer] ONE Administration Protocol [facility] Anesthesia Medical History Congenital mitral valve prolapse 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 Hepatitis C History of bacteremia History of congenital heart disease HIV (human immunodeficiency virus infection) 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 Hx of mitral valve prolapse IVDU (intravenous drug user) MSSA bacteremia Substance abuse Tricuspid regurgitation Surgical History H/O mitral valve repair History of appendectomy History of x2 History of tricuspid valve replacement Hx of cholecystectomy Family History Father Hepatitis C Diabetes Myocardial infarction Mother Lung disease Grandfather Congenital heart disease ASD with the mitral valve prolapse Dementia Grandmother Cancer Breast cancer maternal, 30's and again in 50's Ovarian cancer maternal, 30's Colon cancer maternal, 60 Denies family history of CAD (coronary artery disease) Clotting disorder Chronic kidney disease (CKD) Suicide Anesthesia complication Bleeding disorder Uterine cancer Thyroid condition Stroke Female Reproductive History Date of last menstrual period: 01/15/20 Data Anesthesia Cardiac Studies: Echocardiogram 06/10/21 Echocardiogram Ultrasound 01/17/20 Transesophageal Echocardiogram 01/20/20
--- NOTE | 2022-04-05 07:52 | P.OP_ITS ---
Operative Report Date of procedure: April 05, 2022 Pre-op diagnosis: Preop Diagnosis Dysmenorrhea, pelvic pain Post-op diagnosis: Pelvic adhesions. Endometriosis Post-op findings: Pelvic adhesions. Moderate endometriosis Procedure done: Diagnostic laparoscopy. Lysis of adhesions. Endometriosis lesions fulguration/ablation Specimens removed/disposition: None Surgeon: Matheus Gallo MD Estimated blood loss (mL): 5 IV fluids (mL): 700 Urine output (mL): 100 Complications: None Findings: Posterior cul-de-sac adhesions, posterior pelvis. Endometriosis lesions: Right sacrospinous ligament, cul-de-sac Brief History: Mrs. Fernández 37-year-old female with a history of dysmenorrhea, pelvic pain, Procedure: DESCRIPTION OF PROCEDURE: After informed consent, the patient was taken to the operating room where general anesthesia was administered. The patient was examined under anesthesia and found to have a normal uterus with normal adnexa. She was placed in the dorsal lithotomy position and prepped and draped in sterile fashion. Pre- Procedure Time-Out verifying the correct patient identity, correct procedure verified with consent, correct site and side, correct patient position, availability of correct implants and any special equipment or requirements was performed and acknowledge by the OR team. A weighted speculum was placed in the vagina, and the anterior lip of cervix was grasped with the single toothed tenaculum. A uterine manipulator was advanced into the endocervical. Tenaculum was removed after uterine manipulator was secured. The speculum was removed from the vagina. An intraumbilical incision was made with a scalpel. While tenting up on the abdomen, a Verres needle with sleeve was admitted into the intra-abdominal cavity. A saline drop test was performed and noted to be within normal limits. Pneumoperitoneum was attained with 4 liters of carbon dioxide. The Verres needle was removed. A 5 mm trocar and sleeve were admitted into the abdomen and laparoscopic confirmation of location was achieved, A second incision was made 3 cm above the symphysis pubis, and a 5 mm trocar and sleeve were admitted into the abdomen under direct, laparoscopic visualization without complication. A survey revealed normal abdominal anatomy but pelvic survey shows normal uterus, left ovary with simple cyst 2 cm and right adnexa with follicles. A 5 mm blunt probe was advanced through the second trocar sleeve, and light manipulation of ovaries and uterus to assess the posterior aspects was performed and endometriosis lesions were identified in the posterior cul-de-sac and right sacrospinous ligament with multiple filmy adhesions in the posterior cul-de-sac. With the Voyant laparoscopic device adhesions were lysed and endometriosis lesions were fulgurated/ablated. No bleeding. Then the carbon dioxide was allowed to escape from the abdomen. The instruments were removed, and skin closed with 3-0 Vicryl in a subcuticular fashion and covered with Dermabond. The instruments were removed from the vagina, and excellent hemostasis was noted. The patient tolerated the procedure well, and sponge, lap and needle count were correct times two. The patient taken to the recovery room in good condition.
--- NOTE | 2022-04-05 18:05 | ANE.PACU2 ---
Inpatient post-anesthesia follow up: Airway intact: Yes Vital signs: Temperature 97.1 F Pulse Rate 67 Respiratory Rate 18 Blood Pressure 92/58 Pulse Oximetry 98 Oxygen Delivery Me thod Room Air Oxygen Flow Rate 6 Fraction of Inspir ed Oxygen Hydration adequate: Yes Nausea and vomiting: No Pain level: 1 Mental status: Baseline
== END 2022-04-05 09:05 | disposition home or self-care (01) ==
PROVIDERS: Anesthesiology; PCP Physician Assistant; Visit Provider Obstetrics & Gynecology
PROC: (CPT 49320; principal; 2022-04-05 07:00)
PROC: (CPT 58660; 2022-04-05 07:00)
DX: N94.6 Dysmenorrhea, unspecified (principal); N80.0 Endometriosis of uterus; B20 Human immunodeficiency virus [HIV] disease; Z86.19 Personal history of other infectious and parasitic diseases; Z79.82 Long term (current) use of aspirin
CPT/HCPCS: 58660; 84703; J1100; J1200; J1650; J1885; J2250; J2405; J2704; J2710; J3010; J3370; J3490; J7030; J7050

== ENCOUNTER → 2022-04-27 12:24 | Outpatient (BNVA) | payer BC, MEDICAID, SELFPAY | PROVIDERS: PCP Physician Assistant; Visit Provider Student in an Organized Health Care Education/Training Program | DX: Z21 Asymptomatic human immunodeficiency virus [HIV] infection status (principal) | CPT/HCPCS: 80053; 81003; 85025; 86360; 86480; 86592; 86705; 86706; 86709; 86803; 87340; 87491; 87522; 87536; 87591 ==

== ENCOUNTER → 2023-07-05 14:20 | Outpatient (BNVA) | payer MEDICAID, SELFPAY | PROVIDERS: PCP Physician Assistant; Visit Provider Student in an Organized Health Care Education/Training Program | DX: B20 Human immunodeficiency virus [HIV] disease (principal); B18.2 Chronic viral hepatitis C; Z95.4 Presence of other heart-valve replacement; B02.9 Zoster without complications | CPT/HCPCS: 36415; 80053; 85025; 86360; 86480; 86592; 87522; 87536; 99215 ==

== ENCOUNTER 2024-01-02 21:18 | Emergency (ER) | payer SELFPAY ==
[2024-01-02 21:22] VITALS: BP 140/75; PULSE 77; RESP 18; TEMP 36.6; O2SAT 89
[2024-01-02 21:30] VITALS: O2SAT 91
[2024-01-02 21:55] VITALS: BP 146/107; PULSE 65; RESP 18; O2SAT 95
--- NOTE | 2024-01-02 21:57 | XRR_ITS ---
PROCEDURE INFORMATION: Exam: XR Chest Exam date and time: 01/02/2024 11:08 PM Age: 38 years old Clinical indication: Shortness of breath; Additional info: SOB TECHNIQUE: Imaging protocol: Radiologic exam of the chest. Views: 1 view. COMPARISON: CR XR chest 1V portable [id number] 01/26/2021 9:11 AM FINDINGS: Lungs: No focal consolidation. Pleural spaces: Unremarkable. No pleural effusion. No pneumothorax. Heart/Mediastinum: Unremarkable. No cardiomegaly. Bones/joints: Unremarkable. XR/XR chest 1V portable [id number] IMPRESSION: No focal consolidation.
--- NOTE | 2024-01-02 22:11 | ED_ITS ---
HPI - Nausea/Vomiting/Diarrhea 2 General: Chief complaint: Nausea/Vomiting/Diarrhea Stated complaint: Vomiting\Panic Attacks Time Seen by Provider: 01/02/24 21:34 Source: patient Mode of arrival: ambulatory Limitations: no limitations History of Present Illness: Patient is a 38-year-old female who presents to ED today along with her significant other for evaluation of nausea and vomiting and panic attacks. Patient states she has had nausea and vomiting over the past 3 days. Patient has a longstanding history of cyclical vomiting. She states she has been treating at home with Zofran without relief. Patient is not complaining of abdominal pain or diarrhea. No fevers. She states earlier today her mother was found in her home. Patient states since hearing this news she has been incredibly anxious and experiencing panic attacks. Habitual marijuana use. MD elicited complaint: vomiting and other (anxiety/panic attacks/acute grief reaction) Pertinent past history: cyclical vomiting Onset (ago): day(s) Associated nausea: Yes Associated abdominal pain: No Location of pain: None Severity: moderate Exacerbating factors: eating Relieving factors: none Context: marijuana use Associated symtoms: Reports nausea; Denies chest pain, dysuria, fatigue, headache(s), malaise or syncope Review of Systems 2 Const: Denies: fever(s), chills, body aches, fatigue or malaise Card: Denies: chest pain, edema, syncope or pre-syncope Resp: Reports: dyspnea and chest congestion; Denies: wheezing or hemoptysis GI: Reports: nausea and vomiting; Denies: abdominal pain, hematemesis or diarrhea : Denies: flank pain or dysuria Musc: Denies: neck pain, back pain, extremity pain or joint pain Skin/Breast: Denies: rash Neuro: Denies: headache(s), numbness in extremities, weakness in extremities or sensory changes PFSH ED 2 PFSH: Medical History 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 HIV (human immunodeficiency virus infection) Hx of mitral valve prolapse Hepatitis C MSSA bacteremia History of congenital heart disease 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 Tricuspid regurgitation Congenital mitral valve prolapse IVDU (intravenous drug user) History of bacteremia Substance abuse Surgical History History of tricuspid valve replacement Hx of cholecystectomy History of x2 History of appendectomy H/O mitral valve repair Family History Father Hepatitis C Diabetes Myocardial infarction Mother Lung disease Grandfather Congenital heart disease ASD with the mitral valve prolapse Dementia Grandmother Cancer Breast cancer maternal, 30's and again in 50's Ovarian cancer maternal, 30's Colon cancer maternal, 60 Denies family history of CAD (coronary artery disease) Clotting disorder Chronic kidney disease (CKD) Suicide Anesthesia complication Bleeding disorder Uterine cancer Thyroid disease Stroke Social History Smoking and tobacco/nicotine status: never used tobacco/nicotine Substance/Drug Use: former Female Reproductive History: Date of last menstrual period: 12/30/23 Physical Exam 2 Const: COMMON NORMALS: patient oriented x3, no limitations, alert and well nourished GENERAL APPEARANCE: cooperative, in distress (nauseous appearing- vomit basin in front of her) and appears older than stated age O RIENTATION/CONSCIOUSNESS: Yes awake, Yes oriented to person, Yes oriented to place and Yes oriented to time HENMT: COMMON NORMALS: normocephalic and atraumatic HEAD & SCALP: normal to inspection, normocephalic and atraumatic Neck/C-Spine: COMMON NORMALS: full ROM, no lymphadenopathy, supple and no meningeal signs Chest: COMMONS NORMALS: normal inspection of the chest Resp: COMMON NORMALS: normal respiratory effort AUSCULTATION: rhonchi (somewhat cleared with coughing) Cardio: COMMON NORMALS: regular rate and regular rhythm RATE: regular rate RHYTHM: regular rhythm GI: COMMON NORMALS: Normal to inspection, nondistended, normoactive bowel sounds present, Soft to palpation, non-tender, No hepatosplenomegaly present and no masses PALPATION: Yes Soft to palpation and Yes No hepatosplenomegaly present : COMMON NORMALS: Yes no CVA tenderness BLADDER/KIDNEY EXAM: Yes no CVA tenderness Back/Pelvis: COMMON NORMALS: no CVA tenderness and thoracic and lumbar spine normal to inspection Extremity: COMMON NORMALS: normal to inspection Neuro: COMMON NORMALS: patient oriented x3 SENSORIUM/ORIENTATION: Yes alert, Yes oriented to person, Yes oriented to place and Yes oriented to time MENINGEAL SIGNS: Yes no meningeal signs Skin: COMMON NORMALS: no rashes or lesions noted GENERAL SKIN EXAM: no rashes or lesions noted Course 2 Vital Signs: Vital signs: Vital Signs Temperature 97.9 F 01/02/24 21:22 Pulse Rate 69 01/02/24 23:16 Respiratory Rate 23 H 01/02/24 23:16 Blood Pressure 146/107 01/02/24 21:55 Pulse Oximetry 95 01/02/24 23:16 Oxygen Delivery Me thod Nasal Cannula 01/02/24 23:16 Oxygen Flow Rate 3 01/02/24 21:30 MDM - Nausea/Vomiting/Diarrhea Medical Decision Making Patient feeling much better after IV meds given here. She is here for symptoms related to her cyclical vomiting syndrome as well as panic attacks from the recent loss of her mother. Patient will be given Ativan to go home with to help with her acute grief reaction. This should also be beneficial for her nausea and vomiting as well. Return to ED precautions given. Medical Records I reviewed the patient's medical records. Lab Data I reviewed the patient's lab results. 01/02/24 22:20 01/02/24 22:20 Laboratory Results WBC 13.40 10^3/uL (3.29-11.43) H 01/02/24 22:20 RBC 4.89 10^6/uL (3.85-5.65) 01/02/24 22:20 Hgb 15.20 g/dL (11.27-16.99) 01/02/24 22:20 Hct 43.8 % (36-47) 01/02/24 22:20 MCV 89.6 fl (85-98) 01/02/24 22:20 MCH 31.1 pg (27-33) 01/02/24 22:20 MCHC 34.7 g/dL (30-55) 01/02/24 22:20 RDW 12.8 % (12.1-15.1) 01/02/24 22:20 Plt Count 189 10^3/cmm (157-399) 01/02/24 22:20 MPV 10.6 fL (7.4-10.4) H 01/02/24 22:20 Neut % (Auto) 79.8 % 01/02/24 22:20 Lymph % (Auto) 8.8 % 01/02/24 22:20 [place] % (Auto) 10.9 % 01/02/24 22:20 Eos % (Auto) 0.0 % 01/02/24 22:20 Baso % (Auto) 0.2 % 01/02/24 22:20 Neut # (Auto) 10.69 10^3/uL (1.8-7.7) H 01/02/24 22:20 Lymph # (Auto) 1.2 10^3/uL (0.8-4.8) 01/02/24 22:20 [place] # (Auto) 1.5 10^3/uL (0.2-0.9) H 01/02/24 22:20 Eos # (Auto) 0.0 10^3/uL (0.0-0.8) 01/02/24 22:20 Baso # (Auto) 0.0 10^3/uL (0.0-0.1) 01/02/24 22:20 Nucleated RBC % (auto) 0 % 01/02/24 22:20 Nucleated RBCs # 0.0 /100WBC 01/02/24 22:20 Sodium 132 mmol/L (136-145) L 01/02/24 22:20 Potassium 3.3 mmol/L (3.5-5.1) L 01/02/24 22:20 Chloride 91 mmol/L (98-107) L 01/02/24 22:20 Carbon Dioxide 30 mmol/L (22-29) H 01/02/24 22:20 Anion Gap 14.3 (5-19) 01/02/24 22:20 BUN 10 mg/dL (6-20) 01/02/24 22:20 Creatinine 0.5 mg/dL (0.5-0.9) 01/02/24 22:20 GFR Calculation 137.4 mL/min (90-130) H 01/02/24 22:20 Glucose 143 mg/dL (65-115) H 01/02/24 22:20 Calculated Osmolality 276 mOsm/kg (285-295) L 01/02/24 22:20 Calcium 9.1 mg/dL (8.5-10.5) 01/02/24 22:20 Total Bilirubin 0.9 mg/dL (0.15-1.2) 01/02/24 22:20 AST 28 U/L (0-32) 01/02/24 22:20 ALT 35 U/L (0-33) H 01/02/24 22:20 Alkaline Phosphatase 67 U/L (35-105) 01/02/24 22:20 Total Protein 7.8 g/dL (6.6-8.7) 01/02/24 22:20 Albumin 4.3 g/dL (3.5-5.2) 01/02/24 22:20 Globulin 3.5 g/dL (1.3-4.6) 01/02/24 22:20 Lipase 20 U/L (13-60) 01/02/24 22:20 XR interpretation done by ED provider, pending radiology final review Discharge Plan Discharge Patient Disposition: Home Clinical Impression: Grief reaction, Panic attack, Cyclic vomiting syndrome Condition: Stable Prescriptions: New Ativan 1 mg tablet 1 mg PO Q6H PRN (Reason: anxiety) Qty: 14 0RF No Action gabapentin 300 mg capsule 300 mg PO TID aspirin 81 mg tablet,delayed release (DR/EC) 81 mg PO DAILY valacyclovir [Valtrex] 1 gram tablet 1,000 mg PO Q8H PRN (Reason: shingles ) 7 Days Qty: 21 5RF Shingrix (PF) 50 mcg/0.5 mL suspension for reconstitution 0.5 ml IM ONCE 1 Days Qty: 1 0RF Biktarvy 50-200-25 mg tablet 1 tab PO DAILY 90 Days Qty: 90 5RF Nexplanon 68 mg implant subdermal ondansetron 4 mg tablet,disintegrating 4 mg PO Q6H PRN (Reason: Nausea) cyanocobalamin (vitamin B-12) 5,000 mcg capsule 5,000 mcg PO DAILY 90 Days Qty: 90 0RF medroxyprogesterone 2.5 mg tablet 2.5 mg PO DAILY Qty: 30 0RF ibuprofen 800 mg tablet 800 mg PO TID PRN (Reason: pain) Qty: 60 0RF estradiol 0.5 mg tablet 0.5 mg PO DAILY Qty: 30 3RF acetaminophen 325 mg Tablet 650 mg PO Q6H PRN (Reason: Mild/Mod Pain Or Temp >/= 101) Qty: 30 0RF Orilissa 150 mg tablet 150 mg PO DAILY Qty: 90 0RF Rx Instructions: Endometriosis diagnosed by laparoscopy. Discharge Orders: Discharge ED (Routine); Ordered 01/02/24 Ordered By: Juana Harper Referrals: Sherie Henry PA [Primary Care Provider] - Patient Instructions: Grief and Loss (ED), Panic Attack (ED), Cyclic Vomiting Syndrome (ED) Activity Restrictions/Additional Instructions: As we discussed I have called Ativan into your pharmacy on file. This should help with your panic attack/grief reaction regarding the loss of your mother. This medication most likely will also help with your nausea and vomiting. You may return to the emergency department for intractable nausea/vomiting, severe abdominal pain, fevers, worsening grief reaction, or any other concerns you may have. I hope you begin to feel better soon. Coding Level of Care Code ED Brush Finisher for Clement Perez
[2024-01-02] MEDS: LORazepam 2 mg/mL INJ 10 mL MDV 1 MG IVP (22:12)
[2024-01-02] MEDS: haloperidol inj 5 mg/mL INJ 1 mL 2.5 MG IVP (22:12)
[2024-01-02] MEDS: sodium chloride 0.9% 1,000 ML 999 ML IV (22:15)
[2024-01-02 22:28] LABS: Basophils % 0.2 %; Hematocrit 43.8 % (36-47); Lymphocytes # 1.2 10^3/uL (0.8-4.8); Lymphocytes % 8.8 %; Mean Corpuscular HGB Conc 34.7 g/dL (30-55); Mean Corpuscular Hemoglobin 31.1 pg (27-33); Mean Corpuscular Volume 89.6 fl (85-98); Mean Platelet Volume 10.6 fL (7.4-10.4); Monocytes # 1.5 10^3/uL (0.2-0.9); Monocytes % 10.9 %; Neutrophils # 10.69 10^3/uL (1.8-7.7); Neutrophils % 79.8 %; Nucleated Red Blood Cells % 0 %; Platelet Count 189 10^3/cmm (157-399); Red Blood Count 4.89 10^6/uL (3.85-5.65); Red Cell Distribution Width 12.8 % (12.1-15.1)
[2024-01-02 22:49] LABS: Alanine Aminotransferase 35 U/L (0-33); Albumin Level 4.3 g/dL (3.5-5.2); Alkaline Phosphatase 67 U/L (35-105); Aspartate Amino Transferase 28 U/L (0-32); Blood Urea Nitrogen 10 mg/dL (6-20); Calcium 9.1 mg/dL (8.5-10.5); Carbon Dioxide 30 mmol/L (22-29); Chloride 91 mmol/L (98-107); Creatinine Clr Calc Pharmacy 149.4877; Globulin 3.5 g/dL (1.3-4.6); Glomerular Filtration Rate 137.4 mL/min (90-130); Glucose 143 mg/dL (65-115); Lipase 20 U/L (13-60); Osmolality Calculated 276 mOsm/kg (285-295); Sodium 132 mmol/L (136-145); Total Bilirubin 0.9 mg/dL (0.15-1.2); Total Protein 7.8 g/dL (6.6-8.7)
[2024-01-02 22:52] LABS: Anion Gap 14.3 (5-19); Potassium 3.3 mmol/L (3.5-5.1)
[2024-01-02 23:16] VITALS: PULSE 69; RESP 23; O2SAT 95
[2024-01-02 23:37] VITALS: BP 117/91; PULSE 67; RESP 21; O2SAT 96
== END 2024-01-02 23:39 | disposition home or self-care (01) ==
PROVIDERS: Emergency Provider Physician Assistant; PCP Physician Assistant
DX: F43.20 Adjustment disorder, unspecified (principal); F41.0 Panic disorder [episodic paroxysmal anxiety]; R11.15 Cyclical vomiting syndrome unrelated to migraine; Z79.82 Long term (current) use of aspirin; B20 Human immunodeficiency virus [HIV] disease; Z86.19 Personal history of other infectious and parasitic diseases
CPT/HCPCS: 71045; 80053; 83690; 85025; 96361; 96374; 96375; 99284; J1630; J2060; J7030

== ENCOUNTER → 2024-02-12 14:34 | Outpatient (BNVA) | payer MEDICAID, SELFPAY | PROVIDERS: PCP Physician Assistant; Visit Provider Student in an Organized Health Care Education/Training Program | DX: B18.2 Chronic viral hepatitis C (principal); Z21 Asymptomatic human immunodeficiency virus [HIV] infection status | CPT/HCPCS: 36415; 80053; 81001; 85025; 86705; 86706; 86709; 86803; 87340; 87522; 87536; 87902; 99214 ==

== ENCOUNTER → 2024-03-06 07:08 | Outpatient (CLI) | payer MEDICAID, OTHER, SELFPAY ==
--- NOTE | 2024-03-06 07:15 | USR_ITS ---
PROCEDURE INFORMATION: Exam: US Abdomen, Limited; Right Upper Quadrant Exam date and time: 03/06/2024 7:14 AM Age: 39 years old Clinical indication: Condition or disease; Liver condition; Hepatitis type c - acute; Additional info: Hep c, assess for cirrhosis TECHNIQUE: Imaging protocol: Real time ultrasound of the abdomen with image documentation. Limited exam focused on the right upper quadrant. COMPARISON: CT abdomen pelvis w con* [id number] 01/26/2021 10:03 AM FINDINGS: Liver: Normal echogenicity. There is slightly nodular surface of the liver seen. No discrete mass identified. Patent main portal vein with normal direction of flow. Gallbladder: The gallbladder has been surgically removed. Biliary ducts: Unremarkable CBD measuring 0.6 cm in diameter. No stone visualized. Pancreas: Unremarkable. Right kidney: Unremarkable. Aorta: Unremarkable. Inferior vena cava: Unremarkable. US/US liver [id number] IMPRESSION: Slightly nodular surface of the liver, concerning for cirrhosis.
== END | disposition home or self-care (01) ==
LOC: RAD 07:07
PROVIDERS: PCP Physician Assistant; Visit Provider Student in an Organized Health Care Education/Training Program
DX: B18.2 Chronic viral hepatitis C (principal); Z21 Asymptomatic human immunodeficiency virus [HIV] infection status; K76.9 Liver disease, unspecified
CPT/HCPCS: 76705

== ENCOUNTER 2024-03-31 15:31 | Outpatient (CLI) | payer OTHER, MEDICAID, SELFPAY | END 2024-03-31 15:32 | disposition home or self-care (01) | LOC: LAB 15:33 | PROVIDERS: PCP Physician Assistant; Visit Provider Student in an Organized Health Care Education/Training Program | DX: Z21 Asymptomatic human immunodeficiency virus [HIV] infection status (principal) | CPT/HCPCS: 36415 ==

== ENCOUNTER 2024-05-06 15:13 | Outpatient (CLI) | payer MEDICAID, SELFPAY ==
[2024-05-06 15:41] LABS: Basophils % 0.3 %; Eosinophils # 0.1 10^3/uL (0.0-0.8); Eosinophils % 1.5 %; Hematocrit 39.1 % (36-47); Lymphocytes # 2.2 10^3/uL (0.8-4.8); Lymphocytes % 33.8 %; Mean Corpuscular HGB Conc 33.8 g/dL (30-55); Mean Corpuscular Hemoglobin 31.1 pg (27-33); Mean Platelet Volume 10.5 fL (7.4-10.4); Monocytes # 0.7 10^3/uL (0.2-0.9); Neutrophils # 3.52 10^3/uL (1.8-7.7); Neutrophils % 54.2 %; Nucleated Red Blood Cells % 0 %; Platelet Count 196 10^3/cmm (157-399); Red Blood Count 4.25 10^6/uL (3.85-5.65); Red Cell Distribution Width 13.3 % (12.1-15.1)
[2024-05-06 15:59] LABS: Alanine Aminotransferase 15 U/L (0-33); Albumin Level 4.3 g/dL (3.5-5.2); Alkaline Phosphatase 58 U/L (35-105); Anion Gap 12.8 (5-19); Aspartate Amino Transferase 19 U/L (0-32); Blood Urea Nitrogen 17 mg/dL (6-20); Calcium 8.7 mg/dL (8.5-10.5); Carbon Dioxide 26 mmol/L (22-29); Chloride 103 mmol/L (98-107); Globulin 2.8 g/dL (1.3-4.6); Glomerular Filtration Rate 110.7 mL/min (90-130); Glucose 115 mg/dL (65-115); Osmolality Calculated 288 mOsm/kg (285-295); Potassium 3.8 mmol/L (3.5-5.1); Sodium 138 mmol/L (136-145); Total Bilirubin 0.4 mg/dL (0.15-1.2); Total Protein 7.1 g/dL (6.6-8.7)
[2024-05-07 17:09] LABS: HIV RNA (CPY/ML) NOT DETECTED (NOT DETECTED); HIV RNA LOG NOT DETECTED copies/mL (NOT DETECTED)
== END 2024-05-06 15:14 | disposition home or self-care (01) ==
LOC: LAB 15:14
PROVIDERS: PCP Physician Assistant; Visit Provider Student in an Organized Health Care Education/Training Program
DX: B18.2 Chronic viral hepatitis C (principal); Z21 Asymptomatic human immunodeficiency virus [HIV] infection status
CPT/HCPCS: 36415; 80053; 81596; 85025; 87536

== ENCOUNTER 2025-01-10 10:01 | Emergency (ER) | payer MEDICAID, SELFPAY ==
[2025-01-10 10:14] VITALS: BP 93/64; PULSE 79; RESP 17; TEMP 36.7; O2SAT 99; BMI 30.2
--- NOTE | 2025-01-10 10:19 | XRR_ITS ---
PROCEDURE INFORMATION: Exam: XR Right Wrist Exam date and time: 01/10/2025 11:01 AM Age: 39 years old Clinical indication: Pain; PT states her right elbow started to hurt last night and just had gotten worse. PT states her arm started to swell today. No swelling noted in triage. PT states she sprained her right wrist about 2 weeks ago. TECHNIQUE: Imaging protocol: Radiologic exam of the right wrist. Views: 3 or more views. COMPARISON: No relevant prior studies available. FINDINGS: Bones/joints: Normal. Soft tissues: Normal. XR/XR wrist RT min 3V* [id number] IMPRESSION: No acute findings.
--- NOTE | 2025-01-10 10:54 | USR_ITS ---
PROCEDURE INFORMATION: Exam: US Duplex Right Upper Extremity Veins, Limited Exam date and time: 01/10/2025 11:31 AM Age: 39 years old Clinical indication: Pain; Arm, upper; Right; Additional info: Swelling and pain in rue TECHNIQUE: Imaging protocol: Real-time duplex ultrasound of the right Upper Extremity with 2-D bartlett scale, color Doppler flow and spectral waveform analysis with image documentation. Limited exam focused on the right upper extremity veins. COMPARISON: No relevant prior studies available. FINDINGS: Right deep veins: Unremarkable. Axillary and brachial veins are patent throughout without thrombus. Normal Doppler waveforms. Normal compressibility and/or augmentation response. Visualized internal jugular and subclavian veins are patent. Superficial veins: Unremarkable. Visualized cephalic and basilic veins are patent without thrombus. Soft tissues: Unremarkable. US/[place] [id number] IMPRESSION: No evidence of deep vein thrombosis.
[2025-01-10 11:01] VITALS: BP 97/76; PULSE 80; O2SAT 99
[2025-01-10] MEDS: ketorolac 30 mg/mL INJ 15 MG IM (12:59)
[2025-01-10] MEDS: dexamethasone 10 mg/mL INJ 4 MG IM (12:59)
[2025-01-10 13:01] VITALS: BP 118/80; PULSE 78; O2SAT 99
--- NOTE | 2025-01-10 13:44 | ED_ITS ---
HPI - Extremity Problem General: Chief complaint: Extremity Injury, Upper Stated complaint: right arm pain Time Seen by Provider: 01/10/25 10:57 Source: patient Mode of arrival: ambulatory Limitations: no limitations History of Present Illness: Right elbow and upper arm pain just proximal to the elbow started yesterday evening and worse at the night. Patient reports he is unable to lift or use the elbow due to the pain. Currently rated 5. She took 800 of ibuprofen at 530 this morning. It helped a little bit. She also reports a right wrist pain it was there is ago but is still a little bothersome. Patient denies any other injury and denies any trauma. Feels like the right elbow is a little swollen. Related Data Home Medications ?Medication ?Instructions ?Recorded ?Confirmed aspirin 81 mg tablet,delayed 81 mg PO DAILY 11/04/20 0 10/07/24 release etonogestrel 68 mg subdermal subdermal 02/24/22 implant (Nexplanon) ondansetron 4 mg disintegrating 4 mg PO Q6H PRN Nausea 02/24/22 10/07/24 tablet Previous Rx's ?Medication ?Instructions ?Recorded cyanocobalamin (vitamin B-12) 5,000 mcg PO DAILY 90 da ys #90 caps 12/27/20 5,000 mcg capsule sofosbuvir 400 mg-velpatasvir 100 1 tab PO DAILY hep C relapse 12 02/26/24 mg-voxilaprevir 100 mg tablet weeks #90 tabs bictegravir 50 mg-emtricitabine 1 tab PO DAILY 90 days #90 tabs 10/07/24 200 mg-tenofovir alafenam 25 mg tablet (Biktarvy) ketorolac 10 mg tablet 10 mg PO Q6H PRN pain 5 days #20 01/10/25 tabs Allergies Allergy/AdvReac Type Severity Reaction Status Date / Time amoxicillin Allergy Severe rash Verified 10/07/24 13:34 Review of Systems General: Reports: 10 or more systems reviewed and unremarkable except in HPI and below PFSH ED PFSH: Medical History 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 HIV (human immunodeficiency virus infection) Hx of mitral valve prolapse Hepatitis C MSSA bacteremia History of congenital heart disease 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 Tricuspid regurgitation Congenital mitral valve prolapse IVDU (intravenous drug user) History of bacteremia Substance abuse Surgical History History of tricuspid valve replacement Hx of cholecystectomy History of x2 History of appendectomy H/O mitral valve repair Family History Father Hepatitis C Diabetes Myocardial infarction Mother Lung disease Grandfather Congenital heart disease ASD with the mitral valve prolapse Dementia Grandmother Cancer Breast cancer maternal, 30's and again in 50's Ovarian cancer maternal, 30's Colon cancer maternal, 60 Denies family history of CAD (coronary artery disease) Clotting disorder Chronic kidney disease (CKD) Suicide Anesthesia complication Bleeding disorder Uterine cancer Thyroid disease Stroke Social History Smoking and tobacco/nicotine status: never used tobacco/nicotine Substance/Drug Use: former Physical Exam Narrative: EXAM NARRATIVE: Extremities normal except right arm which has tenderness to the elbow with po ssibly some mild swelling just proximal to the elbow. No obvious deformity. Neurovascular intact distal to pain area. Good range of motion to subacute wrist sprain diagnosed 3 weeks ago. Const: COMMON NORMALS: no acute distress, average body habitus, patient oriented x3, healthy appearing, alert and well nourished GENERAL APPEARANCE: well kempt and well developed HENMT: COMMON NORMALS: normocephalic, atraumatic, external ears normal and moist oral mucous membranes HEAD & SCALP: normocephalic and atraumatic EXTERNAL EAR: Yes external ears normal Eye: COMMON NORMALS: Equal, round and reactive pupils present, EOMs intact bilaterally and conjunctivae normal CONJUNCTIVA: Yes conjunctivae normal PUPIL: Yes Equal, round and reactive pupils present Chest: CHEST: Yes Symmetrical chest wall rise Resp: COMMON NORMALS: normal respiratory effort, No retractions and No use of accessory muscles Cardio: PERIPHERAL PULSES: other (Radial pulses 2+ and symmetric) Extremity: COMMON NORMALS: normal to inspection, capillary refill normal and no clubbing, cyanosis or edema Neuro: COMMON NORMALS: patient oriented x3 SENSORIUM/ORIENTATION: Yes alert Psych: APPEARANCE: Yes well kempt Skin: COMMON NORMALS: no rashes or lesions noted, no wounds, turgor normal and no jaundice GENERAL SKIN EXAM: no rashes or lesions noted and turgor normal Course Vital Signs: Vital signs: Vital Signs Temperature 98.1 F 01/10/25 10:14 Pulse Rate 78 01/10/25 13:01 Respiratory Rate 17 01/10/25 10:14 Blood Pressure 118/80 01/10/25 13:01 Pulse Oximetry 99 01/10/25 13:01 Oxygen Delivery Me thod Room Air 01/10/25 13:01 MDM - Extremity (Nontraumatic) Medical Decision Making Right elbow with some pain and possibly some mild swelling. No DVT on ultrasound is patient reports swelling that sent to her hand as well at times. Wrist x-ray was also unremarkable, so the sprain appears to be healing well with no new fracture. Concerning the elbow we will place this in an Burton wrap as diagnostically have concern for tennis elbow. Differential Diagnosis Likely deep venous thrombosis of upper extremity Medical Records I reviewed the patient's medical records. Lab Data Radiology Impressions Wrist X-Ray 01/10/25 10:19 IMPRESSION: No acute findings. Venous Duplex 01/10/25 10:54 IMPRESSION: No evidence of deep vein thrombosis. ADDENDUM: 01/10/25 1231 The right cephalic and basilic veins were not imaged. All radiology interpretation(s) finalized by discharge ED provider radiology interpretation(s): Personally reviewed and no acute abnormality. Discharge Plan Discharge Patient Disposition: Home Clinical Impression: Lateral epicondylitis/tennis elbow Qualifiers: Laterality: right Qualified Code(s): M77.11 - Lateral epicondylitis, right elbow Condition: Stable Prescriptions: New ketorolac 10 mg tablet 10 mg PO Q6H PRN (Reason: pain) 5 Days Qty: 20 0RF Rx Instructions: don't combine with ibuprofen No Action aspirin 81 mg tablet,delayed release (DR/EC) 81 mg PO DAILY Nexplanon 68 mg implant subdermal ondansetron 4 mg tablet,disintegrating 4 mg PO Q6H PRN (Reason: Nausea) nkeqaqbeyh-omvlamau-dnljpuqgna 400-100-100 mg tablet 1 tab PO DAILY 84 Days Qty: 90 0RF Rx Instructions: must administer with a meal/food Biktarvy 50-200-25 mg tablet 1 tab PO DAILY 90 Days Qty: 90 5RF cyanocobalamin (vitamin B-12) 5,000 mcg capsule 5,000 mcg PO DAILY 90 Days Qty: 90 0RF Discharge Orders: Discharge ED (Routine); Ordered 01/10/25 Ordered By: Juan Guardado Referrals: Sherie Henry PA [Primary Care Provider, [facility] [employer] Intelligence Officer] Discharge Diet: Usual diet Discharge Activity: Resume usual activity and Increase activity as tolerated Patient Instructions: Tennis Elbow (ED) Activity Restrictions/Additional Instructions: If not improving. Please follow-up with orthopedics. Print Language: Sinhala Coding Level of Care Code ED Automatic Punch Press Operator for Clement Perez
[2025-01-10 14:04] VITALS: BP 107/75; PULSE 83; O2SAT 98
== END 2025-01-10 14:06 | disposition home or self-care (01) ==
PROVIDERS: Emergency Provider Emergency Medicine; PCP Physician Assistant
DX: M77.11 Lateral epicondylitis, right elbow (principal); Z79.82 Long term (current) use of aspirin; M79.601 Pain in right arm
CPT/HCPCS: 73110; 93971; 96372; 99284; J1100; J1885

== ENCOUNTER 2025-01-16 10:38 | Inpatient (IN) | payer MEDICAID, SELFPAY ==
[2025-01-16] VITALS (11 sets, daily range): BP systolic 81–118; BP diastolic 59–77; PULSE 65–886; RESP 12–20; TEMP 36.9–37.4; O2SAT 94–98; BMI 29.2
--- NOTE | 2025-01-16 11:08 | CT_ITS ---
WS: [id number] CT HEAD TECHNIQUE: Noncontrast CT of the head obtained from the skullbase to the vertex. CLINICAL INFORMATION: MILLER, fever COMPARISON: 2019 DLP: 1266.[address] scans at [facility] use at least one of these dose optimization techniques: automated exposure control; mA and/or kV adjustment per patient size (includes targeted exams where dose is matched to clinical indication); or iterative reconstruction. FINDINGS: No evidence of intracranial hemorrhage or mass effect. Ventricular system and basal cisterns are patent. No extra-axial fluid collections. No evidence of mass or mass effect. Normal bartlett-white differentiation. Paranasal sinuses and mastoid air cells are well aerated. .Normal visualized soft tissues. CT/CT head wo con* [id number] IMPRESSION: 1. No evidence of intracranial hemorrhage or mass effect. 2. No acute intracranial findings.
--- NOTE | 2025-01-16 11:08 | CT_ITS ---
WS: [id number] CT CERVICAL TRAUMA TECHNIQUE: Noncontrast CT of the cervical spine with coronal and sagittal reformatted images. CLINICAL INFORMATION: neck pain, fever, hx IV drug use COMPARISON:. DLP: 1266.[address] scans at [facility] use at least one of these dose optimization techniques: automated exposure control; mA and/or kV adjustment per patient size (includes targeted exams where dose is matched to clinical indication); or iterative reconstruction. FINDINGS: Straightening with slight reversal of the normal cervical lordosis. Disc space narrowing worse at C6-7 with endplate ridging. Mild central canal stenosis C6-7. Normal craniocervical junction. Normal C1-C2 articulation. Dens is normal in appearance. Normal occipital condyles. Normal incidental incomplete C1 ring. No evidence of acute fracture or dislocation. Normal prevertebral soft tissues. Mastoids air cells are well aerated. CT/CT cervical spin wo con* [id number] IMPRESSION: 1. No evidence of acute fracture or dislocation. 2. Normal prevertebral soft tissues. 3. Mild central canal stenosis C6-7 due to disc osteophyte complex.
--- NOTE | 2025-01-16 11:09 | XRR_ITS ---
PROCEDURE INFORMATION: Exam: XR Chest Exam date and time: 01/16/2025 11:39 AM Age: 39 years old Clinical indication: Fever TECHNIQUE: Imaging protocol: Radiologic exam of the chest. Views: 1 view. COMPARISON: 1. CR XR chest 1V portable [id number] 01/02/2024 11:08 PM 2. CR XR chest 1V portable [id number] 01/26/2021 9:11 AM FINDINGS: Tubes, catheters and devices: Clips over base of left side of neck similar to prior study. Lungs: Small triangular opacity projects over right lung base laterally over posterolateral right 8th rib, appears new compared to prior studies, possibly due to overlap versus small patchy airspace opacity or nodule. No additional new focal infiltrates seen of the lungs. Pleural spaces: No large or obvious pneumothorax nor pleural effusion seen. Heart/Mediastinum: Stable heart size. Evidence of cardiac valve prosthesis. Bones/joints: Curvature, degenerative changes spine. XR/XR chest 1V portable [id number] IMPRESSION: Small triangular opacity projects over right lung base laterally over posterolateral right 8th rib, appears new compared to prior studies, possibly due to overlap versus small patchy airspace opacity or nodule. Follow-up recommended.
--- NOTE | 2025-01-16 11:09 | W.ED.HA ---
Documented by User: DAVI Syk 01/16/25 13:51 HPI - Headache General: Chief Complaint: Headache Stated Complaint: head and neck pain, fever Time Seen by Provider: 01/16/25 10:46 Source: patient Mode of arrival: ambulatory Limitations: no limitations History of Present Illness: Patient is a 39-year-old female with a history of anxiety, hepatitis C, HIV, bacteremia, endocarditis with mitral valve repair, and active IV drug use (last use yesterday with dirty needle ) here with complaints of headache, neck pain, fever. Patient follows up with infectious disease, Dr. Aguirre for the HCV and HIV. She states symptoms have been started over the past 3 days. Patient states she has felt ill with fevers as high as 103 and chills. States she gradually began developing a headache and neck pain/stiffness. She states she has no history of headaches/migraines. She is currently rating her headache at a 7/10. She arrives here with stable vital signs. MD elicited complaint: headache Onset (ago): day(s) Onset description: gradually Severity: severe Pain scale (0-10): 7 Exacerbating factors: none Relieving factors: nothing Associated symptoms: Reports fever(s) and nausea; Deny chest pain, rash or vomiting Treatments prior to arrival: ibuprofen and prescription analgesic (toradol) Related Data Home Medications ?Medication ?Instructions ?Recorded ?Confirmed aspirin 81 mg tablet,delayed 81 mg PO DAILY 11/04/20 01/16/25 release etonogestrel 68 mg subdermal See Rx Instructions .Route .COMPLEX 02/24/22 01/16/25 implant (Nexplanon) ondansetron 4 mg disintegrating 4 mg PO Q6H PRN Nausea 02/24/22 01/16/25 tablet hydroxyzine HCl 25 mg tablet 25 mg PO BID 01/16/25 01/16/25 ketorolac 10 mg tablet 10 mg PO Q6H PRN Pain 01/16/25 01/16/25 mirtazapine 15 mg tablet 15 mg PO BEDTIME 01/16/25 01/16/25 Previous Rx's ?Medication ?Instructions ?Recorded cyanocobalamin (vitamin B-12) 5,000 mcg PO DAILY 90 days #90 caps 12/27/20 5,000 mcg capsule bictegravir 50 mg-emtricitabine 1 tab PO DAILY 90 days #90 tabs 10/07/24 200 mg-tenofovir alafenam 25 mg tablet (Biktarvy) Allergies Allergy/AdvReac Type Severity Reaction Status Date / Time amoxicillin Allergy Severe rash Verified 10/07/24 13:34 Review of Systems Const: Reports: fever(s), chills and body aches Eyes: Denies: change in vision, blurry vision, photophobia, floaters or seeing flashes ENMT: Denies: throat pain, uvular edema, odynophagia, ear or mastoid pain, nasal discharge, nasal congestion or sinus pain Card: Denies: chest pain Resp: Denies: dyspnea, productive cough or non-productive cough GI: Reports: nausea; Denies: abdominal pain, vomiting or diarrhea : Reports: urinary frequency; Denies: flank pain, difficulty voiding, dysuria, urinary urgency or hematuria Musc: Reports: neck pain; Denies: back pain, extremity pain, extremity swelling, joint pain, joint swelling or joint redness Skin/Breast: Denies: rash Neuro: Reports: headache(s); Denies: numbness in extremities, weakness in extremities, sensory changes or dizziness PFSH ED PFSH: Medical History 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 HIV (human immunodeficiency virus infection) Hx of mitral valve prolapse Hepatitis C MSSA bacteremia History of congenital heart disease 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 Tricuspid regurgitation Congenital mitral valve prolapse IVDU (intravenous drug user) History of bacteremia Substance abuse Surgical History History of tricuspid valve replacement Hx of cholecystectomy History of x2 History of appendectomy H/O mitral valve repair Family History Father Hepatitis C Diabetes Myocardial infarction Mother Lung disease Grandfather Congenital heart disease ASD with the mitral valve prolapse Dementia Grandmother Cancer Breast cancer maternal, 30's and again in 50's Ovarian cancer maternal, 30's Colon cancer maternal, 60 Denies family history of CAD (coronary artery disease) Clotting disorder Chronic kidney disease (CKD) Suicide Anesthesia complication Bleeding disorder Uterine cancer Thyroid disease Stroke Social History (Updated 01/16/25 @ 14:47 by Neto Jara MD) Smoking and tobacco/nicotine status: never used tobacco/nicotine Alcohol intake: never Substance/Drug Use: current Substance/Drug use frequency: daily Substance/Drug use type: Amphetamines Other substance/drug use details: Daily injected does not smoke because she did not like the taste of the smo Additional social history: CODE STATUS discussed with patient today she wants DNR 01/16/2025 Marital status: Single Marital status details: Lives alone family members do not know that she is back to using drugs 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 Physical Exam Const: COMMON NORMALS: patient oriented x3, no limitations, alert and well nourished GENERAL APPEARANCE: cooperative and appears older than stated age ORIENTATION/CONSCIOUSNESS: Yes awake, Yes oriented to person, Yes oriented to place and Yes oriented to time HENMT: COMMON NORMALS: normocephalic and atraumatic HEAD & SCALP: normal to inspection, normocephalic and atraumatic FACE & SINUS: other (multiple facial sores) THROAT: no uvular edema Eye: GENERAL EYE: appearance normal, both eyes and all related structures Neck/C-Spine: COMMON NORMALS: no lymphadenopathy and no meningeal signs GENERAL: Yes normal visual inspection, No anterior neck swelling and No submandibular swelling CERVICAL SPINE: Yes pain with cervical ROM OTHER: neg Kerning/Brudzinski's signs but she does seem hesitant to move her neck and does have pain with palpation and ROM testing Resp: COMMON NORMALS: normal respiratory effort and clear to auscultation bilaterally AUSCULTATION: clear to auscultation bilaterally Cardio: COMMON NORMALS: regular rate and regular rhythm RATE: regular rate RHYTHM: regular rhythm GI: COMMON NORMALS: Normal to inspection, nondistended, normoactive bowel sounds present, Soft to palpation, non-tender and no masses PALPATION: Yes Soft to palpation : COMMON NORMALS: Yes no CVA tenderness BLADDER/KIDNEY EXAM: Yes no CVA tenderness Back/Pelvis: COMMON NORMALS: no CVA tenderness, thoracic and lumbar spine normal to inspection and no thoracic nor lumbar tenderness Extremity: GENERAL: Yes normal exam except as noted Neuro: TONY COMA SCALE: document GCS findings Tony coma scale eye opening: Spontaneous Tony coma scale verbal response: Orientated Tony coma scale motor response: Obey commands Mcintosh coma scale total score: 15 COMMON NORMALS: patient oriented x3, moves all extremities, no focal motor deficits, no sensory deficits noted and gait normal SENSORIUM/ORIENTATION: Yes alert, Yes oriented to person, Yes oriented to place and Yes oriented to time MENINGEAL SIGNS: Yes no meningeal signs Course Vital Signs: Vital signs: Vital Signs Temperature 98.4 F 01/16/25 10:50 Pulse Rate 85 01/16/25 10:50 Respiratory Rate 17 01/16/25 10:50 Blood Pressure 118/66 01/16/25 10:50 Pulse Oximetry 97 01/16/25 10:50 Oxygen Delivery Me thod Room Air 01/16/25 10:50 MDM - Headache Medical Decision Making Patient is a 39-year-old female here for concerns of a headache, neck pain/stiffness, as well as a reported fever of 103 yesterday. Vital signs are stable upon arrival. She admittedly is an active IV drug user. She does have previous history of endocarditis and bacteremia related to her IV drug use. She has known hepatitis C and HIV positive. Differential for fever in an immunocompromised IV drug user is broad. She does have an elevated white count of 15.4 and significantly elevated CRP at 197. ESR of 34 and a procalcitonin of 13.3. CT head and cervical spine obtained here and unremarkable. LP puncture attempted by Dr. Cherry unsuccessfully-please see his note for procedure. Will have Dr. Ross try under fluoro. She will be started on IV antibiotics (allergy to penicillins so started on vanc, meropenem, and cefepime) and admitted to hospitalist. Dr. Cherry has seen/assessed patient and agrees with care plan at this time. Medical Records I reviewed the patient's medical records. Lab Data I reviewed the patient's lab results. 01/16/25 11:29 01/16/25 11:29 Radiology Impressions Cervical Spine CT 01/16/25 11:08 IMPRESSION: 1. No evidence of acute fracture or dislocation. 2. Normal prevertebral soft tissues. 3. Mild central canal stenosis C6-7 due to disc osteophyte complex. Head CT 01/16/25 11:08 IMPRESSION: 1. No evidence of intracranial hemorrhage or mass effect. 2. No acute intracranial findings. Chest X-Ray 01/16/25 11:09 IMPRESSION: Small triangular opacity projects over right lung base laterally over posterolateral right 8th rib, appears new compared to prior studies, possibly due to overlap versus small patchy airspace opacity or nodule. Follow-up recommended. Lumbar Puncture Fluoroscopy 01/16/25 13:04 IMPRESSION: Uncomplicated lumbar puncture for CSF. Normal opening pressure: 18 ccH2O. Laboratory Results WBC 15.41 10^3/uL (3.29-11.43) H 01/16/25 11: RBC 4.30 10^6/uL (3.85-5.65) 01/16/25 11:29 Hgb 12.50 g/dL (11.27-16.99) 01/16/25 11:29 Hct 39.7 % (36-47) 01/16/25 11: MCV 92.3 fl (85-98) 01/16/25 11: MCH 29.1 pg (27-33) 01/16/25 11: MCHC 31.5 g/dL (30-55) 01/16/25 11: RDW 12.7 % (12.1-15.1) 01/16/25 11: Plt Count 111 10^3/cmm (157-399) L 01/16/25 11: MPV 11.4 fL (7.4-10.4) H 01/16/25 11: Neut % (Auto) 90.8 % 01/16/25 11: Lymph % (Auto) 3.3 % 01/16/25 11: [place] % (Auto) 4.7 % 01/16/25 11: Eos % (Auto) 0.1 % 01/16/25 11: Baso % (Auto) 0.4 % 01/16/25 11:29 Neut # (Auto) 14.00 10^3/uL (1.8-7.7) H 01/16/25 11:29 Lymph # (Auto) 0.5 10^3/uL (0.8-4.8) L 01/16/25 11:29 [place] # (Auto) 0.7 10^3/uL (0.2-0.9) 01/16/25 11: Eos # (Auto) 0.0 10^3/uL (0.0-0.8) 01/16/25 11: Baso # (Auto) 0.1 10^3/uL (0.0-0.1) 01/16/25 11:29 Nucleated RBC % (auto) 0 % 01/16/25 11:29 Nucleated RBCs # 0.0 /100WBC 01/16/25 11:29 ESR 34 mm/hr (0-15) H 01/16/25 11:29 Sodium 132 mmol/L (136-145) L 01/16/25 11:29 Potassium 3.6 mmol/L (3.5-5.1) 01/16/25 11:29 Chloride 98 mmol/L (98-107) 01/16/25 11:29 Carbon Dioxide 22 mmol/L (22-29) 01/16/25 11:29 Anion Gap 15.6 (5-19) 01/16/25 11:29 BUN 12 mg/dL (6-20) 01/16/25 11:29 Creatinine 0.5 mg/dL (0.5-0.9) 01/16/25 11:29 GFR Calculation 136.6 mL/min (90-130) H 01/16/25 11:29 Glucose 120 mg/dL (65-115) H 01/16/25 11:29 Calculated Osmolality 275 mOsm/kg (285-295) L 01/16/25 11:29 Lactic Acid 1.1 mmol/L (0.5-2.2) 01/16/25 11:29 Calcium 8.6 mg/dL (8.5-10.5) 01/16/25 11:29 Total Bilirubin 1.2 mg/dL (0.15-1.2) 01/16/25 11:29 AST 22 U/L (0-32) 01/16/25 11:29 ALT 19 U/L (0-33) 01/16/25 11:29 Alkaline Phosphatase 97 U/L (35-105) 01/16/25 11:29 C-Reactive Protein 197.1 mg/L (0.0-4.9) H 01/16/25 11:29 Total Protein 6.9 g/dL (6.6-8.7) 01/16/25 11:29 Albumin 3.2 g/dL (3.5-5.2) L 01/16/25 11:29 Globulin 3.7 g/dL (1.3-4.6) 01/16/25 11:29 Procalcitonin 13.31 ng/mL (0-0.5) H 01/16/25 11:29 HCG, Qual Negative (Negative) 01/16/25 11:29 Urine Color Yellow (Yellow) 01/16/25 13:00 Urine Appearance Clear (CLEAR) 01/16/25 13:00 Urine pH 6.0 (5-7) 01/16/25 13:00 Ur Specific [place] 1.007 (1.005-1.030) 01/16/25 13:00 Urine Protein 1+ (Negative) A 01/16/25 13:00 Urine Glucose (UA) Negative (Normal) 01/16/25 13:00 Urine Ketones Negative (Negative) 01/16/25 13:00 Urine Blood Trace (Negative) A 01/16/25 13:00 Urine Nitrate Negative (Negative) 01/16/25 13:00 Urine Bilirubin Negative (Negative) 01/16/25 13:00 Urine Urobilinogen 1.0 mg/dL (Negative) 01/16/25 13:00 Ur Leukocyte Esterase Negative (Negative) 01/16/25 13:00 Urine RBC 0-2 /hpf (0-2) 01/16/25 13:00 Urine WBC 0-5 /hpf (0-5) 01/16/25 13:00 Ur Squamous Epith Cells 0-5 /hpf (0-5) 01/16/25 13:00 Amorphous Sediment Not Reportable 01/16/25 13:00 Urine Bacteria None seen /hpf (NONE) 01/16/25 13:00 Hyaline Casts 0-4 /lpf H 01/16/25 13:00 CSF Appearance Clear (CLEAR) 01/16/25 14:00 CSF Color Colorless (COLORLESS) 01/16/25 14:00 CSF WBC 8 /uL (0-5) H 01/16/25 14:00 CSF RBC 1 10^3/uL (0-0) H 01/16/25 14:00 CSF Mononuclear # Auto 0.007 10^3/uL (50-90) L 01/16/25 14:00 CSF Mononuclear WBCs % 88 % (50-90) 01/16/25 14:00 CSF Polynuclear WBCs # 0.001 10^3/uL (0-10) 01/16/25 14:00 CSF Polynuclear WBCs % 13 % (0-10) H 01/16/25 14:00 CSF Diff Comment Yes 01/16/25 14:00 CSF Glucose 76 mg/dL (40-70) H 01/16/25 14:00 CSF Total Protein 29 mg/dL (15-45) 01/16/25 14:00 Influenza A (PCR) Negative (Negative) 01/16/25 13:00 Influenza Type B (PCR) Negative (Negative) 01/16/25 13:00 RSV (PCR) Negative (Negative) 01/16/25 13:00 SARS-CoV-2 (PCR) Negative (Negative) 01/16/25 13:00 All radiology interpretation(s) finalized by discharge Discharge Plan Discharge Patient Disposition: Admitted As Inpatient Admit Provider: Neto Jara Clinical Impression: Hepatitis C, HIV (human immunodeficiency virus infection), Headache, Neck pain, Fever Condition: Stable Coding Level of Care Code ED Machinist First Class for Chg Fwd Documented by User: Gladis Cherry MD 01/16/25 15:25 HPI - Headache General: Chief Complaint: Headache Stated Complaint: head and neck pain, fever Time Seen by Provider: 01/16/25 10:46 Related Data Home Medications ?Medication ?Instructions ?Recorded ?Confirmed aspirin 81 mg tablet,delayed 81 mg PO DAILY 11/04/20 01/16/25 release etonogestrel 68 mg subdermal See Rx Instructions .Route .COMPLEX 02/24/22 01/16/25 implant (Nexplanon) ondansetron 4 mg disintegrating 4 mg PO Q6H PRN Nausea 02/24/22 01/16/25 tablet hydroxyzine HCl 25 mg tablet 25 mg PO BID 01/16/25 01/16/25 ketorolac 10 mg tablet 10 mg PO Q6H PRN Pain 01/16/25 01/16/25 mirtazapine 15 mg tablet 15 mg PO BEDTIME 01/16/25 01/16/25 Previous Rx's ?Medication ?Instructions ?Recorded cyanocobalamin (vitamin B-12) 5,000 mcg PO DAILY 90 days #90 caps 12/27/20 5,000 mcg capsule bictegravir 50 mg-emtricitabine 1 tab PO DAILY 90 days #90 tabs 10/07/24 200 mg-tenofovir alafenam 25 mg tablet (Biktarvy) Allergies Allergy/AdvReac Type Severity Reaction Status Date / Time amoxicillin Allergy Severe rash Verified 10/07/24 13:34 PFSH ED PFSH: Medical History 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 HIV (human immunodeficiency virus infection) Hx of mitral valve prolapse Hepatitis C MSSA bacteremia History of congenital heart disease 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 Tricuspid regurgitation Congenital mitral valve prolapse IVDU (intravenous drug user) History of bacteremia Substance abuse Surgical History History of tricuspid valve replacement Hx of cholecystectomy History of x2 History of appendectomy H/O mitral valve repair Family History Father Hepatitis C Diabetes Myocardial infarction Mother Lung disease Grandfather Congenital heart disease ASD with the mitral valve prolapse Dementia Grandmother Cancer Breast cancer maternal, 30's and again in 50's Ovarian cancer maternal, 30's Colon cancer maternal, 60 Denies family history of CAD (coronary artery disease) Clotting disorder Chronic kidney disease (CKD) Suicide Anesthesia complication Bleeding disorder Uterine cancer Thyroid disease Stroke Social History (Updated 01/16/25 @ 14:47 by Neto Jara MD) Smoking and tobacco/nicotine status: never used tobacco/nicotine Alcohol intake: never Substance/Drug Use: current Substance/Drug use frequency: daily Substance/Drug use type: Amphetamines Other substance/drug use details: Daily injected does not smoke because she did not like the taste of the smo Additional social history: CODE STATUS discussed with patient today she wants DNR 01/16/2025 Marital status: Single Marital status details: Lives alone family members do not know that she is back to using drugs 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 [employer] Physical Exam Neuro: TONY COMA SCALE: document GCS findings Tony coma scale total score: 15 Procedures Lumbar Puncture Time Out Performed: Yes Patient Position: left lateral decubitus Skin Prep: Povidone-Iodine 1% Local Anesthetic: lidocaine 1% Amount of anesthesia used (mL): 3 Spinal Needle Gauge: 22G Interspace Used: L4-L5 Complications: unable to obtain CSF Course Vital Signs: Vital signs: Vital Signs Temperature 98.4 F 01/16/25 10:50 Pulse Rate 85 01/16/25 10:50 Respiratory Rate 17 01/16/25 10:50 Blood Pressure 118/66 01/16/25 10:50 Pulse Oximetry 97 01/16/25 10:50 Oxygen Delivery Me thod Room Air 01/16/25 10:50 MDM - Headache Lab Data 01/16/25 11:29 01/16/25 11:29 Radiology Impressions Cervical Spine CT 01/16/25 11:08 IMPRESSION: 1. No evidence of acute fracture or dislocation. 2. Normal prevertebral soft tissues. 3. Mild central canal stenosis C6-7 due to disc osteophyte complex. Head CT 01/16/25 11:08 IMPRESSION: 1. No evidence of intracranial hemorrhage or mass effect. 2. No acute intracranial findings. Chest X-Ray 01/16/25 11:09 IMPRESSION: Small triangular opacity projects over right lung base laterally over posterolateral right 8th rib, appears new compared to prior studies, possibly due to overlap versus small patchy airspace opacity or nodule. Follow-up recommended. Lumbar Puncture Fluoroscopy 01/16/25 13:04 IMPRESSION: Uncomplicated lumbar puncture for CSF. Normal opening pressure: 18 ccH2O. Laboratory Results WBC 15.41 10^3/uL (3.29-11.43) H 01/16/25 11:29 RBC 4.30 10^6/uL (3.85-5.65) 01/16/25 11:29 Hgb 12.50 g/dL (11.27-16.99) 01/16/25 11:29 Hct 39.7 % (36-47) 01/16/25 11:29 MCV 92.3 fl (85-98) 01/16/25 11:29 MCH 29.1 pg (27-33) 01/16/25 11:29 MCHC 31.5 g/dL (30-55) 01/16/25 11:29 RDW 12.7 % (12.1-15.1) 01/16/25 11:29 Plt Count 111 10^3/cmm (157-399) L 01/16/25 11:29 MPV 11.4 fL (7.4-10.4) H 01/16/25 11: Neut % (Auto) 90.8 % 01/16/25 11: Lymph % (Auto) 3.3 % 01/16/25 11: [place] % (Auto) 4.7 % 01/16/25 11: Eos % (Auto) 0.1 % 01/16/25 11: Baso % (Auto) 0.4 % 01/16/25 11:29 Neut # (Auto) 14.00 10^3/uL (1.8-7.7) H 01/16/25 11:29 Lymph # (Auto) 0.5 10^3/uL (0.8-4.8) L 01/16/25 11: [place] # (Auto) 0.7 10^3/uL (0.2-0.9) 01/16/25 11:29 Eos # (Auto) 0.0 10^3/uL (0.0-0.8) 01/16/25 11: Baso # (Auto) 0.1 10^3/uL (0.0-0.1) 01/16/25 11: Nucleated RBC % (auto) 0 % 01/16/25 11: Nucleated RBCs # 0.0 /100WBC 01/16/25 11: ESR 34 mm/hr (0-15) H 01/16/25 11:29 Sodium 132 mmol/L (136-145) L 01/16/25 11:29 Potassium 3.6 mmol/L (3.5-5.1) 01/16/25 11:29 Chloride 98 mmol/L (98-107) 01/16/25 11:29 Carbon Dioxide 22 mmol/L (22-29) 01/16/25 11:29 Anion Gap 15.6 (5-19) 01/16/25 11:29 BUN 12 mg/dL (6-20) 01/16/25 11: Creatinine 0.5 mg/dL (0.5-0.9) 01/16/25 11:29 GFR Calculation 136.6 mL/min (90-130) H 01/16/25 11:29 Glucose 120 mg/dL (65-115) H 01/16/25 11:29 Calculated Osmolality 275 mOsm/kg (285-295) L 01/16/25 11:29 Lactic Acid 1.1 mmol/L (0.5-2.2) 01/16/25 11: Calcium 8.6 mg/dL (8.5-10.5) 01/16/25 11: Total Bilirubin 1.2 mg/dL (0.15-1.2) 01/16/25 11: AST 22 U/L (0-32) 01/16/25 11: ALT 19 U/L (0-33) 01/16/25 11: Alkaline Phosphatase 97 U/L (35-105) 01/16/25 11: C-Reactive Protein 197.1 mg/L (0.0-4.9) H 01/16/25 11: Total Protein 6.9 g/dL (6.6-8.7) 01/16/25 11: Albumin 3.2 g/dL (3.5-5.2) L 01/16/25 11: Globulin 3.7 g/dL (1.3-4.6) 01/16/25 11: Procalcitonin 13.31 ng/mL (0-0.5) H 01/16/25 11: HCG, Qual Negative (Negative) 01/16/25 11: Urine Color Yellow (Yellow) 01/16/25 13:00 Urine Appearance Clear (CLEAR) 01/16/25 13:00 Urine pH 6.0 (5-7) 01/16/25 13:00 Ur Specific [place] 1.007 (1.005-1.030) 01/16/25 13:00 Urine Protein 1+ (Negative) A 01/16/25 13:00 Urine Glucose (UA) Negative (Normal) 01/16/25 13:00 Urine Ketones Negative (Negative) 01/16/25 13:00 Urine Blood Trace (Negative) A 01/16/25 13:00 Urine Nitrate Negative (Negative) 01/16/25 13:00 Urine Bilirubin Negative (Negative) 01/16/25 13:00 Urine Urobilinogen 1.0 mg/dL (Negative) 01/16/25 13:00 Ur Leukocyte Esterase Negative (Negative) 01/16/25 13:00 Urine RBC 0-2 /hpf (0-2) 01/16/25 13:00 Urine WBC 0-5 /hpf (0-5) 01/16/25 13:00 Ur Squamous Epith Cells 0-5 /hpf (0-5) 01/16/25 13:00 Amorphous Sediment Not Reportable 01/16/25 13:00 Urine Bacteria None seen /hpf (NONE) 01/16/25 13:00 Hyaline Casts 0-4 /lpf H 01/16/25 13:00 CSF Appearance Clear (CLEAR) 01/16/25 14:00 CSF Color Colorless (COLORLESS) 01/16/25 14:00 CSF WBC 8 /uL (0-5) H 01/16/25 14:00 CSF RBC 1 10^3/uL (0-0) H 01/16/25 14:00 CSF Mononuclear # Auto 0.007 10^3/uL (50-90) L 01/16/25 14:00 CSF Mononuclear WBCs % 88 % (50-90) 01/16/25 14:00 CSF Polynuclear WBCs # 0.001 10^3/uL (0-10) 01/16/25 14:00 CSF Polynuclear WBCs % 13 % (0-10) H 01/16/25 14:00 CSF Diff Comment Yes 01/16/25 14:00 CSF Glucose 76 mg/dL (40-70) H 01/16/25 14:00 CSF Total Protein 29 mg/dL (15-45) 01/16/25 14:00 Influenza A (PCR) Negative (Negative) 01/16/25 13:00 Influenza Type B (PCR) Negative (Negative) 01/16/25 13:00 RSV (PCR) Negative (Negative) 01/16/25 13:00 SARS-CoV-2 (PCR) Negative (Negative) 01/16/25 13:00 Discharge Plan Discharge Patient Disposition: Admitted As Inpatient Admit Provider: Neto Jara Clinical Impression: Hepatitis C, HIV (human immunodeficiency virus infection), Headache, Neck pain, Fever Condition: Stable Coding Level of Care Code ED Machinist First Class for Clement Perez
[2025-01-16 11:40] LABS: Basophils # 0.1 10^3/uL (0.0-0.1); Basophils % 0.4 %; Eosinophils % 0.1 %; Hematocrit 39.7 % (36-47); Lymphocytes # 0.5 10^3/uL (0.8-4.8); Lymphocytes % 3.3 %; Mean Corpuscular HGB Conc 31.5 g/dL (30-55); Mean Corpuscular Hemoglobin 29.1 pg (27-33); Mean Corpuscular Volume 92.3 fl (85-98); Mean Platelet Volume 11.4 fL (7.4-10.4); Monocytes # 0.7 10^3/uL (0.2-0.9); Monocytes % 4.7 %; Neutrophils % 90.8 %; Nucleated Red Blood Cells % 0 %; Platelet Count 111 10^3/cmm (157-399); Red Cell Distribution Width 12.7 % (12.1-15.1); White Blood Count 15.41 10^3/uL (3.29-11.43)
[2025-01-16 11:47] LABS: HCG, Serum Qual Negative (Negative)
[2025-01-16 11:55] LABS: Lactic Sepsis W/Reflex 1.1 mmol/L (0.5-2.2)
[2025-01-16 11:56] LABS: Alanine Aminotransferase 19 U/L (0-33); Albumin Level 3.2 g/dL (3.5-5.2); Alkaline Phosphatase 97 U/L (35-105); Aspartate Amino Transferase 22 U/L (0-32); Blood Urea Nitrogen 12 mg/dL (6-20); C Reactive Protein 197.1 mg/L (0.0-4.9); Calcium 8.6 mg/dL (8.5-10.5); Carbon Dioxide 22 mmol/L (22-29); Chloride 98 mmol/L (98-107); Creatinine Clr Calc Pharmacy 156.1469; Globulin 3.7 g/dL (1.3-4.6); Glomerular Filtration Rate 136.6 mL/min (90-130); Glucose 120 mg/dL (65-115); Osmolality Calculated 275 mOsm/kg (285-295); Sodium 132 mmol/L (136-145); Total Bilirubin 1.2 mg/dL (0.15-1.2); Total Protein 6.9 g/dL (6.6-8.7)
[2025-01-16 12:01] LABS: Anion Gap 15.6 (5-19); Potassium 3.6 mmol/L (3.5-5.1)
[2025-01-16 12:03] LABS: Procalcitonin 13.31 ng/mL (0-0.5)
[2025-01-16 12:07] LABS: Slide Review Slide Review Perform
[2025-01-16 12:08] LABS: Erythrocyte Sedimentation Rate 34 mm/hr (0-15)
--- NOTE | 2025-01-16 13:04 | FL_ITS ---
WS: [id number] LUMBAR PUNCTURE UNDER FLUOROSCOPY: OBTAIN CSF FOR ANALYSIS HISTORY: meningitis r/o; MILLER and neck pain COMPARISON: None available. FLUOROSCOPY TIME: 0min [id number] # of spot films: 1 Procedure, complications, and risk and benefits explained to the patient. Consent was obtained. Recent laboratory work and medication are reviewed prior to procedure. Skin over the lumbar is cleansed with ChloraPrep and anesthetized with 1% buffered lidocaine. Access into the thecal sac is achieved. CSF is removed in a sterile manner and placed in the sterile tubes. Approximately 10 ml is removed without difficulty. No additional CSF removed. Patient started vomiting during the CSF removal. Opening pressure: 18 cc H2O. No complications are encountered. CSF this into the laboratory for analysis as requested. FL/FL guided lumbarpunc dx* [id number] IMPRESSION: Uncomplicated lumbar puncture for CSF. Normal opening pressure: 18 ccH2O.
[2025-01-16 13:09] LABS: Bilirubin Urine Negative (Negative); Blood Urine Trace (Negative); Glucose Urine UA Negative (Normal); Ketones Urine Negative (Negative); Leukocyte Esterase Urine Negative (Negative); Nitrate Urine Negative (Negative); Protein Urine 1+ (Negative); Specific Gravity, Urine 1.007 (1.005-1.030); Urine Appearance Clear (CLEAR); Urine Color Yellow (Yellow)
[2025-01-16 13:14] LABS: Add Urine Microscopic? YES; Bacteria Urine None Seen /hpf; Hyaline Casts Urine 0-4 /lpf; RBC Urine 0-2 /hpf (0-2); Squamous Epithelial Cell Urine 0-5 /hpf (0-5); WBC Urine 0-5 /hpf (0-5)
[2025-01-16 13:44] LABS: Influenza A NEGATIVE (Negative); Influenza B NEGATIVE (Negative); Respiratory Syncytial Virus Ce NEGATIVE (Negative); SARS-CoV-2 PCR NEGATIVE (Negative)
--- NOTE | 2025-01-16 14:41 | PM.HP ---
Providers/Chief Complaint Admitting Physician: Neto Jara MD Primary Care Provider: Sherie Henry Chief Complaint: head and neck pain, fever History of Present Illness Margarita Cortes is a 39 year old female with history of methamphetamine use starting at age 29. 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 She quit methamphetamines completely then but 3 months ago she started injecting again and now has been using daily. She started off with a bag of clean needles but then started reusing them. She was cleaning them with peroxide drying up peroxide in side the syringe ejecting and then rinsing with tap water. She estimates she has been doing that for a week or more. About 3 days ago she had flu symptoms with headache and now she has had intermittent fevers the highest 103. She has sweats chills, headache in the front stiff neck nausea and some dry heaves but minimal vomiting. She denies diarrhea constipation chest pain or shortness of breath she has minimal coughing she is dyspneic on exertion and she has had vision hazy. Patient [place] back pain other than lumbar puncture attempts x 8 she had attempted LP in the ER and then subsequently in IR radiology Review of Systems Narrative: General Positive for fevers chills shakes Cardiovascular no chest pain or palpitations Respiratory minimal cough she does have dyspnea on exertion GI positive for nausea no significant vomiting no diarrhea constipation. 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 and then had mitral valve repair a month later both in 1984 She had tricuspid valve replacement 2019 Medications/Allergies Home Medications ?Medication ?Instructions ?Recorded ?Confirmed ?Last Taken ?Type aspirin 81 mg tablet,delayed 81 mg PO DAILY 11/04/20 01/16/25 01/16/25 History release cyanocobalamin (vitamin B-12) 5,000 mcg PO DAILY 90 days #90 caps 12/27/20 01/16/25 01/16/25 Rx 5,000 mcg capsule etonogestrel 68 mg subdermal See Rx Instructions .Route .COMPLEX 02/24/22 01/16/25 04/05/22 History implant (Nexplanon) ondansetron 4 mg disintegrating 4 mg PO Q6H PRN Nausea 02/24/22 01/16/25 04/05/22 History tablet bictegravir 50 mg-emtricitabine 1 tab PO DAILY 90 days #90 tabs 10/07/24 01/16/25 01/16/25 Rx 200 mg-tenofovir alafenam 25 mg tablet (Biktarvy) hydroxyzine HCl 25 mg tablet 25 mg PO BID 01/16/25 01/16/25 01/15/25 History ketorolac 10 mg tablet 10 mg PO Q6H PRN Pain 01/16/25 01/16/25 01/16/25 History mirtazapine 15 mg tablet 15 mg PO BEDTIME 01/16/25 01/16/25 01/15/25 20:00 History Allergies Allergy/AdvReac Type Severity Reaction Status Date / Time amoxicillin Allergy Severe rash Verified 10/07/24 13:34 PFSH Acute PFSH: Medical History 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 HIV (human immunodeficiency virus infection) Hx of mitral valve prolapse Hepatitis C MSSA bacteremia History of congenital heart disease 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 Tricuspid regurgitation Congenital mitral valve prolapse IVDU (intravenous drug user) History of bacteremia Substance abuse Surgical History History of tricuspid valve replacement Hx of cholecystectomy History of x2 History of appendectomy H/O mitral valve repair Family History Father Hepatitis C Diabetes Myocardial infarction Mother Lung disease Grandfather Congenital heart disease ASD with the mitral valve prolapse Dementia Grandmother Cancer Breast cancer maternal, 30's and again in 50's Ovarian cancer maternal, 30's Colon cancer maternal, 60 Denies family history of CAD (coronary artery disease) Clotting disorder Chronic kidney disease (CKD) Suicide Anesthesia complication Bleeding disorder Uterine cancer Thyroid disease Stroke Social History (Updated 01/16/25 @ 14:47 by Neto Jara MD) Smoking and tobacco/nicotine status: never used tobacco/nicotine Alcohol intake: never Substance/Drug Use: current Substance/Drug use frequency: daily Substance/Drug use type: Amphetamines Other substance/drug use details: Daily injected does not smoke because she did not like the taste of the smo Additional social history: CODE STATUS discussed with patient today she wants DNR 01/16/2025 Marital status: Single Marital status details: Lives alone family members do not know that she is back to using drugs 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 Skin as above she has track lewis up the left dorsal forearm. She has injection site right flexor. No sign of abscess or erythema Musculoskeletal no tenderness over the back or paraspinous tissue with percussion. She does have a bandage at the lower back that she states is painful from being poked for LP CV regular rate and rhythm Lungs clear to auscultation bilaterally Neck supple but patient reports some stiffness Neuro patient is alert and oriented x 3 she moves all extremities symmetrically Psych anxious mood and affect intermittently tearful remorseful Data 01/16/25 11:29 01/16/25 11:29 Micro: Microbiology 01/16/25 11:45 Blood Culture - Preliminary Blood SPECIMEN COLLECTED 01/16/25 11:29 Blood Culture - Preliminary Blood SPECIMEN COLLECTED A&P Assessment and plan (1) Fever: Unclear etiology of fever and leukocytosis. Symptoms are most consistent with meningitis as she has neck stiffness, headache and photophobia. Continue acute meningitis antibiotics until cultures back. White blood count was only 5 there was some red blood cells mildly elevated but she had multiple LP attempts blood but she had multiple attempts C-reactive protein is 197 and procalcitonin 13. Suspicious for deep-seated infection blood cultures have been done (2) Neck pain: As above (3) Headache: As above will start morphine as needed and antiemetics (4) HIV (human immunodeficiency virus infection): Continue home Biktarvy PDMP PDMP Reviewed: Not Reviewed Attestations Medical Necessity Statement*: Admitted to the hospital for observation awaiting pending blood culture Coding Level of Care Code 80247 Diagnoses Fever R50.9 Fever type: unspecified Neck pain M54.2 Headache R51.9 Headache chronicity pattern: acute headache Headache type: unspecified Intractability: intractable HIV (human immunodeficiency virus infection) Z21 HIV symptom status: asymptomatic, with no history of HIV-related illness Time Spent (min) 72
[2025-01-16] MEDS: sodium chloride 0.9% 1,710 ML 1710 ML IV (14:45)
[2025-01-16] MEDS: cefepime 2,000 mg SDV 2000 MG IVP ×2 (14:45→21:08)
[2025-01-16] MEDS: MEROPENEM 2,000 MG in sodium chloride 0.9% (plus) 50 ML 100 MG IV (14:47)
[2025-01-16] MEDS: VANCOMYCIN ADD-Vantage 1,000 MG in 0.9% NaCl ADD-Vantage 250 ML 250 MG IV (14:54)
[2025-01-16 15:03] LABS: CSF Mononuclear # 0.007 10^3/uL (50-90); Mononuclear WBC CSF % 88 % (50-90); Polynuclear Cells ,CSF # 0.001 10^3/uL (0-10); Polynuclear WBC CSF % 13 % (0-10); Red Blood Cell CSF 1 10^3/uL (0-0); White Blood Cell CSF 8 /uL (0-5)
[2025-01-16 15:08] LABS: Cyto Order Verification No Order
[2025-01-16 15:10] LABS: Appearance CSF CLEAR (CLEAR); Color CSF COLORLESS (COLORLESS); Pathology Referral Yes
[2025-01-16 15:20] LABS: Glucose CSF 76 mg/dL (40-70); Total Protein CSF 29 mg/dL (15-45)
[2025-01-16] MEDS: pantoprazole 40 mg SDV IVP (17:23)
[2025-01-16] MEDS: ondansetron 2 mg/ML SDV 2 mL 4 MG IVP (17:23)
[2025-01-16] MEDS: hyDROXYzine 25 mg Capsule PO (17:23)
[2025-01-16] MEDS: acetaminophen 325 mg Tablet 650 MG PO (17:23)
[2025-01-16] MEDS: ketorolac 30 mg/mL INJ IVP (17:24)
[2025-01-16] MEDS: sodium chlor 0.9% + KCl 20 mEq 20 MEQ/1,000 ML BAG 150 MEQ IV ×2 (17:26→23:39)
[2025-01-16] MEDS: meropenem 1,000 mg SDV 1000 MG IVP (21:08)
[2025-01-16] MEDS: mirtazapine 15 mg Tablet PO (21:09)
[2025-01-17] VITALS (10 sets, daily range): BP systolic 81–124; BP diastolic 49–90; PULSE 81–95; RESP 16–20; TEMP 36.4–37.4; O2SAT 96–99
[2025-01-17] MEDS: acetaminophen 325 mg Tablet 650 MG PO ×3 (01:11→23:25)
[2025-01-17] MEDS: ketorolac 30 mg/mL INJ IVP ×2 (01:12→19:46)
[2025-01-17 05:31] LABS: Basophils % 0.3 %; Eosinophils # 0.1 10^3/uL (0.0-0.8); Eosinophils % 0.7 %; Hematocrit 34.7 % (36-47); Lymphocytes # 0.5 10^3/uL (0.8-4.8); Lymphocytes % 4.8 %; Mean Corpuscular HGB Conc 32.6 g/dL (30-55); Mean Corpuscular Hemoglobin 29.4 pg (27-33); Mean Corpuscular Volume 90.1 fl (85-98); Mean Platelet Volume 10.7 fL (7.4-10.4); Monocytes # 0.9 10^3/uL (0.2-0.9); Monocytes % 7.8 %; Neutrophils # 9.72 10^3/uL (1.8-7.7); Neutrophils % 85.7 %; Nucleated Red Blood Cells % 0 %; Platelet Count 66 10^3/cmm (157-399); Red Blood Count 3.85 10^6/uL (3.85-5.65); Red Cell Distribution Width 12.8 % (12.1-15.1); White Blood Count 11.33 10^3/uL (3.29-11.43)
[2025-01-17] MEDS: meropenem 1,000 mg SDV 2000 MG IVP (05:31)
[2025-01-17] MEDS: vancomycin 1,250 MG/250 ML PIGGYBACK 166.67 MG IV ×2 (05:32→16:43)
[2025-01-17 05:49] LABS: Alanine Aminotransferase 14 U/L (0-33); Albumin Level 2.7 g/dL (3.5-5.2); Alkaline Phosphatase 88 U/L (35-105); Anion Gap 13.8 (5-19); Aspartate Amino Transferase 14 U/L (0-32); Blood Urea Nitrogen 18 mg/dL (6-20); Calcium 7.9 mg/dL (8.5-10.5); Carbon Dioxide 21 mmol/L (22-29); Chloride 108 mmol/L (98-107); Creatinine Clr Calc Pharmacy 130.1224; Glomerular Filtration Rate 110.7 mL/min (90-130); Glucose 135 mg/dL (65-115); Osmolality Calculated 292 mOsm/kg (285-295); Potassium 3.8 mmol/L (3.5-5.1); Sodium 139 mmol/L (136-145); Total Bilirubin 0.6 mg/dL (0.15-1.2); Total Protein 5.7 g/dL (6.6-8.7)
--- NOTE | 2025-01-17 08:48 | USCV_ITS ---
Margarita Cortes Age: 39 Gender: F : 1985 Exam Date: 01/17/2025 13:41 Ordering Phys: Neto Jara MD Technologist: Elvis Chisholm Exam Location: [facility] [place] Indication: gram + bacteremia and IV methamphetamine use BP: 89 / 61 HR: 81 Rhythm: Sinus Technical Quality: Adequate MEASUREMENTS (Male / Female) Normal Values 2D ECHO LV Diastolic Diameter PLAX 3.4 cm 4.2 - 5.9 / 3.9 - 5.3 cm IVS Diastolic Thickness 0.8 cm 0.6 - 1.0 / 0.6 - 0.9 cm IVS Systolic Thickness 1.1 cm LVPW Diastolic Thickness 1.3 cm 0.6 - 1.0 / 0.6 - 0.9 cm LVPW Systolic Thickness 2.0 cm LVOT Diameter 2.0 cm LV Ejection Fraction 2D Teich 71.3 % LV Ejection Fraction MOD 4C 71.3 % LV Ejection Fraction MOD 2C 69.2 % LV Ejection Fraction 2C AL 67.9 % LA Diameter 3.0 cm LA Sys Volume AL 49.3 cm cubed LA Sys Volume Index AL 25.5 cm cubed/m squared Aorta at Sinotubular Diameter 2.4 cm IVC Diameter 2.1 cm M-MODE LA Ao Ratio MM 2.0 AV Cusp Separation MM 2.1 cm DOPPLER AV Peak Velocity 231.3 cm/s LVOT Peak Velocity 166.0 cm/s AV Area Cont Eq vti 2.9 cm squared AV Area Cont Eq pk 2.3 cm squared MV Peak Velocity 113.0 cm/s MV Area PHT 6.4 cm squared Mitral E to A Ratio 1.0 TV Peak Velocity 252.3 cm/s TR Peak Velocity 330.0 cm/s TR Peak Gradient 43.6 mmHg TR Mean Velocity 259.0 cm/s TR Mean Gradient 28.7 mmHg TR Velocity Time Integral 64.6 cm PV Peak Velocity 127.0 cm/s RV Ejection Time 0.2 s FINDINGS Left Ventricle Normal left ventricular size, systolic function and wall thickness, with no regional wall motion abnormalities. Left ventricular ejection fraction is estimated at 60 %. Grade II/IV diastolic dysfunction, moderately elevated filling pressures. Right Ventricle The right ventricle is normal in size and function. Right Atrium Moderately increased right atrial size. Left Atrium The left atrium is normal in size. Mitral Valve Structurally normal mitral valve without significant stenosis or prolapse. There is no mitral regurgitation. Aortic Valve Mild aortic valve calcification. No aortic valve stenosis. Moderate aortic valve regurgitation. Tricuspid Valve Tricuspid valve appeared to be thickened , there is a globular 1x1 cm mass attached to the posterior cusp of the tricuspid valve suspicious for vegetation, trace tricuspid valve regurgitation. if clinically indicated JESSE is the good modality to further investigate. Pulmonic Valve Trace pulmonary valve regurgitation. Pericardium Normal pericardium without effusion. Aorta Normal ascending aorta dimension. IVC Dilated IVC with decreased respiratory variation. CONCLUSIONS Normal left ventricular size, systolic function and wall thickness, with no regional wall motion abnormalities. Left ventricular ejection fraction is estimated at 60 %. Grade II/IV diastolic dysfunction, moderately elevated filling pressures. Tricuspid valve appeared to be thickened , there is a globular 1x1 cm mass attached to the posterior cusp of the tricuspid valve suspicious for vegetation, trace tricuspid valve regurgitation. if clinically indicated JESSE is the good modality to further investigate. Mild aortic valve calcification. No aortic valve stenosis. Moderate aortic valve regurgitation. Right atrial pressure is around 15 mm of mercury. Antonio Bird MD (Electronically Signed) Final Date: 18 Jan 2025 13:06 S
[2025-01-17] MEDS: morphine 4 mg/mL SDV 1 mL 2 MG IVP (08:50)
[2025-01-17] MEDS: cyanocobalamin 1,000 mcg Tablet 5000 MCG PO (08:50)
[2025-01-17] MEDS: hyDROXYzine 25 mg Capsule PO ×2 (08:51→17:43)
[2025-01-17] MEDS: NON-FORMULARY MEDICATION (Bictegrav-Emtricit-Tenofov Ala [Biktarvy] 50-200-25 mg tablet) 1 EACH PO (08:51)
[2025-01-17] MEDS: aspirin 81 mg EC Tablet PO (08:51)
[2025-01-17] MEDS: cefepime 2,000 mg SDV 2000 MG IVP (08:55)
--- NOTE | 2025-01-17 09:13 | PHA.VACGOAL ---
Vancomycin Goal - Goal Vancomycin Goal:: 15-20 mg/L Vancomycin Indication:: Other (rule out meningitis, IVDU with hx of endocarditis) - Therapy Current therapy:: Meropenem Day of therpy:: Day [2]of [2] . Actual body weight (kg): 176 lb Dosing weight (kg): 80kg - Data Labs: WBC 11.33 10^3/uL (3.29-11.43) 01/17/25 05:13 RBC 3.85 10^6/uL (3.85-5.65) 01/17/25 05:13 Hgb 11.30 g/dL (11.27-16.99) 01/17/25 05:13 Hct 34.7 % (36-47) L 01/17/25 05:13 MCV 90.1 fl (85-98) 01/17/25 05:13 MCH 29.4 pg (27-33) 01/17/25 05:13 MCHC 32.6 g/dL (30-55) 01/17/25 05:13 RDW 12.8 % (12.1-15.1) 01/17/25 05:13 Sodium 139 mmol/L (136-145) 01/17/25 05:13 Potassium 3.8 mmol/L (3.5-5.1) 01/17/25 05:13 Chloride 108 mmol/L (98-107) H 01/17/25 05:13 Carbon Dioxide 21 mmol/L (22-29) L 01/17/25 05:13 Anion Gap 13.8 (5-19) 01/17/25 05:13 BUN 18 mg/dL (6-20) 01/17/25 05:13 Creatinine 0.6 mg/dL (0.5-0.9) 01/17/25 05:13 GFR Calculation 110.7 mL/min (90-130) 01/17/25 05:13 Treatment plan:: new consult (started by night pharmacy)
[2025-01-17] MEDS: ondansetron 2 mg/ML SDV 2 mL 4 MG IVP ×2 (10:10→16:43)
[2025-01-17] MEDS: lactated ringers 1,000 ML 999 ML IV (10:13)
[2025-01-17] MEDS: potassium chloride ER 20 mEq Tablet 40 MEQ PO (10:13)
--- NOTE | 2025-01-17 11:44 | PC.CHAP ---
Pastoral Care Encounter/Spiritual Assessment Type of Contact [] Declined sales designer visit [] Patient/Family/Request visit [] Outpatient visit [] Follow-up visit [] Physician referral [] Code/Alert [x] Routine visit [] Staff referral [] Actively dying [] Patient sleeping [] Family support [] [] Out of room [] Palliative care [] [] Receiving care in room [] Pre-surgical visit [] Trauma [] Long length of stay [] ICU visit [x] Other:Stop Relational/Emotional Strength [] Patient feels connected with others/family/visitors/staff [] Distress [] Loneliness/isolation [] Abandonment Spirituality of Patient [] Person of Cesia [] Attends Restorationist of their Cesia [] Believes in Prayer [] Reads Bible or Restorationism materials [] There are Spiritual issues to be addressed Filling Station Equipment Mechanic Interventions [] Prayer [] Active listening [] Non-anxious presence [] Spiritual/emotional support [] Crisis/trauma care [] Spiritual counseling [] Bereavement support [] Provided bereavement packet [] Provided Bible/devotional materials [] Provided toy/stuffed animal, coloring book to patient or family member [] Provided Communion [] Anointing/[place] [] Salvation [] Completed spiritual assessment [] Other: Impact on Illness or Injury [] Angry [] Fearful [] Anxious [] Often cries [] Exhaustion [] Unable to work [] Unable to attend adventism [] Unable to walk/stand [] Unable to read [] Unable to drive [] Unable to eat/drink [] Unable to sleep [] Unable to be with family [] Patient intubated [] Other: Summary Time spent with patient
[2025-01-17] MEDS: sodium chlor 0.9% + KCl 20 mEq 20 MEQ/1,000 ML BAG 150 MEQ IV ×2 (12:14→20:59)
--- NOTE | 2025-01-17 15:18 | P.PN_ITS ---
Subjective 2 Subjective: 39-year-old female with histor y of methamphetamine use reusing her own needles recently had blood cultures come back positive for staph aureus in 4 bottles. Her LP was negative for white cells of only 5. Patient states that she feels better except for she does have a headache and then had nausea with morphine for her headache. Patient states it was her kids ages around 20s dad who came to visit her earlier and he does not do drugs other than weed. Patient plans to get clean. She states last time she had a PICC line she did not do drugs down her PICC line. She tells me they told her they did not want to ever have to do her tricuspid valve again and she is feeling embarrassed and stupid for doing drugs again. The story with her mother is that mother unexpectedly and autopsy showed that she had lots of clots in her legs. Notably mother had COPD and was on oxygen but continued to smoke and patient was at the grocery store to buy supplies came back found mother in the doorway dying or and did CPR unsuccessfully. Patient did methamphetamines shortly after her father and then again after her mother . She states that her kids do not do methamphetamines or drugs. We discussed that it would be best for her to do counseling as opposed to using drugs as it becomes stressful for her kids to see her dying of drug use. Patient voices understanding. Patient went to go to the bathroom and RN found marijuana vape in the patient's bed. Vitals/I&O/Wt Last Vital Signs Temp 98.1 F 01/17/25 11:43 Pulse 89 01/17/25 11:43 Resp 17 01/17/25 11:43 BP 83/49 01/17/25 11:43 Pulse Ox 99 01/17/25 11:43 O2 Del Method Room Air 01/17/25 11:43 01/17/25 01/17/25 01/17/25 06:59 14:59 22:59 Intake Total 1660.0 / 3670.0 272.5 / 272.5 Balance 1660.0 / 3670.0 272.5 / 272.5 Weight last 48 hrs Weight 79.832 kg Weight 79.832 kg Weight 79.832 kg Physical Exam 2 Narrative: General well-developed well-nourished female anxious she has multiple excoriations over the face and arms. Skin as above she has track lewis up the left dorsal forearm. She has injection site right flexor. No sign of abscess or erythema Musculoskeletal no tenderness over the back or paraspinous tissue with percussion. She does have a bandage at the lower back that she states is painful from being poked for LP CV regular rate and rhythm Lungs clear to auscultation bilaterally Neck supple but patient reports some stiffness Neuro patient is alert and oriented x 3 she moves all extremities symmetrically Psych anxious mood and affect intermittently tearful remorseful Data 01/17/25 05:13 01/17/25 05:13 Micro: Microbiology 01/16/25 14:00 Gram Stain - Final Cerebrospinal Fluid CSF Culture - Preliminary 01/16/25 11:29 Blood Culture - Preliminary Blood Staphylococcus aureus 01/16/25 11:45 Blood Culture - Preliminary Blood Staphylococcus aureus A&P Assessment and plan (1) Staphylococcus aureus bacteremia without sepsis: Continue vancomycin discontinue cefepime and meropenem. Await sensitivities to see if this is MRSA or MSSA. Will repeat blood cultures tomorrow. If negative consider PICC line or midline at that time given the patient is using weed vape in the hospital but did not mention that to me despite significant counseling she may not be a good candidate for home outpatient PICC line antibiotic infusion Bacteremia noted and high inflammatory markers suspicious for endocarditis. Transthoracic echo has been ordered for to (2) Headache: Patient with nausea vomiting from morphine. She did better with just caffeine (3) HIV (human immunodeficiency virus infection): Continue home Biktarvy (4) Depression: Counseled the patient that it is not her fault that her mother . She had bad COPD was on oxygen and continued to smoke. It sounds like she of DVT which was not known diagnosis at the time and there was nothing the patient could do. Counseled the patient that she should seek counseling. She needs to discontinue drug use and drug use leading to would only be traumatic to her family especially her kids (5) IVDU (intravenous drug user): Patient will need to be monitored no visitors bringing backpacks and paraphernalia into the room (6) Methamphetamine abuse: Patient was counseled at length. She shows poor judgment reusing dirty needles and also vaping THC in the room PDMP PDMP Reviewed: Not Reviewed Attestations 2 Medical Necessity Statement*: Patient remained in the hospital for 2 or 3 more midnights with time to clear her bacteremia and then will need a PICC line, if endocarditis is present she will need cardiology and infectious disease consultation Coding Level of Care Code 87277 Diagnoses Staphylococcus aureus bacteremia without sepsis R78.81; B95.61 Headache R51.9 Headache chronicity pattern: acute headache Headache type: unspecified Intractability: intractable HIV (human immunodeficiency virus infection) Z21 HIV symptom status: asymptomatic, with no history of HIV-related illness Depression F32.9 IVDU (intravenous drug user) F19.90 Methamphetamine abuse F15.10 Time Spent (min) 45
[2025-01-17] MEDS: pantoprazole 40 mg SDV IVP (16:43)
[2025-01-17] MEDS: mirtazapine 15 mg Tablet PO (20:19)
--- NOTE | 2025-01-17 22:37 | ECG_ITS ---
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1985 Requested By: Ladan Kirkland Order Number: [id number] Reading MD: MARCELA BAXTER Measurements Intervals [place] Rate: 74 P: 30 MD: 125 QRS: -29 QRSD: 94 T: -3 QT: 392 QTc: 436 Interpretive Statements SINUS RHYTHM POSSIBLE ANTERIOR MYOCARDIAL INFARCTION , PROBABLY OLD [30 ms Q WAVE IN V3/V4, OR R < 0.2 mV IN V4] Compared to ECG 01/26/2021 08:52:12 Myocardial infarct finding now present Sinus bradycardia no longer present Left-axis deviation no longer present Incomplete right bundle-branch block no longer present Electronically Signed On 01-19-2025 19:06:08 CDT by MARCELA BAXTER [id number]
--- NOTE | 2025-01-17 22:40 | XRR_ITS ---
PROCEDURE INFORMATION: Exam: XR Chest Exam date and time: 01/17/2025 11:35 PM Age: 39 years old Clinical indication: Dyspnea TECHNIQUE: Imaging protocol: Radiologic exam of the chest. Views: 1 view. COMPARISON: CR XR chest 1V portable [id number] 01/16/2025 11:39 AM FINDINGS: Tubes, catheters and devices: There are surgical clips in the left neck prior surgery. Lungs: No focal consolidation or other acute appearing pulmonary opacity. Pleural spaces: No pleural effusion or pneumothorax noted. Heart/Mediastinum: Cardiac silhouette is stable. Bones/joints: No acute osseous abnormality. Intraperitoneal space: There is no free intraperitoneal gas. XR/XR chest 1V portable [id number] IMPRESSION: No acute findings.
[2025-01-17] MEDS: ipratropium-albuterol 3 mL Neb INHALATION (23:16)
[2025-01-17] MEDS: methylPREDNISolone sod succ 125 mg/2 mL INJ IVP (23:24)
[2025-01-18] VITALS (10 sets, daily range): BP systolic 97–123; BP diastolic 62–86; PULSE 64–117; RESP 15–19; TEMP 36.5–36.9; O2SAT 94–98
[2025-01-18] MEDS: ketorolac 30 mg/mL INJ IVP ×2 (03:34→16:03)
[2025-01-18 04:21] LABS: Vancomycin Trough < 4.0 ug/mL (10-15)
[2025-01-18] MEDS: vancomycin 1,250 MG/250 ML PIGGYBACK 166 MG IV ×2 (05:00→19:42)
[2025-01-18] MEDS: pantoprazole 40 mg SDV IVP (05:04)
[2025-01-18] MEDS: NON-FORMULARY MEDICATION (Bictegrav-Emtricit-Tenofov Ala [Biktarvy] 50-200-25 mg tablet) 1 EACH PO (08:37)
[2025-01-18] MEDS: acetaminophen 325 mg Tablet 650 MG PO ×2 (08:38→23:30)
[2025-01-18] MEDS: aspirin 81 mg EC Tablet PO (08:38)
[2025-01-18] MEDS: hyDROXYzine 25 mg Capsule PO ×2 (08:38→19:40)
[2025-01-18] MEDS: cyanocobalamin 1,000 mcg Tablet 5000 MCG PO (11:35)
[2025-01-18] MEDS: vancomycin 1,250 MG/250 ML PIGGYBACK 166.67 MG IV (11:35)
[2025-01-18] MEDS: morphine 4 mg/mL SDV 1 mL 2 MG IVP (14:24)
--- NOTE | 2025-01-18 14:30 | PC.NURSE ---
Patient stated she was hurting in her back and her chest and was breathing at 40x a minute, Patient was at the sink and was having a panic attack. I talked to the patient and calmed her down gave her prn Morphine. Patient was calmer with call light in reach.
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
[2025-01-18] MEDS: LORazepam 1 mg Tablet PO (16:03)
[2025-01-18] MEDS: ondansetron hcl ODT 4 mg Tab PO (19:39)
[2025-01-18] MEDS: mirtazapine 15 mg Tablet 30 MG PO (19:40)
[2025-01-18] MEDS: prochlorperazine 10 mg/2 mL Inj IVP (21:26)
[2025-01-19] VITALS (9 sets, daily range): BP systolic 94–149; BP diastolic 67–99; PULSE 68–97; RESP 15–22; TEMP 36.5–37.9; O2SAT 90–98
[2025-01-19] MEDS: LORazepam 1 mg Tablet PO (00:36)
[2025-01-19] MEDS: ondansetron 2 mg/ML SDV 2 mL 4 MG IVP (00:36)
[2025-01-19] MEDS: ketorolac 30 mg/mL INJ IVP (00:37)
[2025-01-19] MEDS: vancomycin 1,250 MG/250 ML PIGGYBACK 166 MG IV (03:31)
[2025-01-19 03:57] LABS: Basophils # 0.1 10^3/uL (0.0-0.1); Basophils % 0.3 %; Hematocrit 29.7 % (36-47); Lymphocytes # 0.7 10^3/uL (0.8-4.8); Lymphocytes % 3.2 %; Mean Corpuscular Hemoglobin 28.9 pg (27-33); Mean Corpuscular Volume 87.6 fl (85-98); Mean Platelet Volume 12.8 fL (7.4-10.4); Monocytes # 2.3 10^3/uL (0.2-0.9); Monocytes % 10.3 %; Neutrophils # 19.12 10^3/uL (1.8-7.7); Neutrophils % 84.5 %; Nucleated Red Blood Cells % 0 %; Platelet Count 62 10^3/cmm (157-399); Red Blood Count 3.39 10^6/uL (3.85-5.65); Red Cell Distribution Width 13.2 % (12.1-15.1); White Blood Count 22.63 10^3/uL (3.29-11.43)
[2025-01-19] MEDS: pantoprazole 40 mg SDV IVP (05:03)
--- NOTE | 2025-01-19 08:19 | P.CONIM_ITS ---
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 She has a history of IV drug use in the past in the days leading up to the tricuspid valve endocarditis in 2019 and diagnosis of hepatitis C and HIV. Patient remained sober off of drugs for about 3 years, however has recently relapsed with current active IV drug use since the passing of her mother. She has been reusing needles at home washing them with peroxide and tap water. She was last seen in the clinic in September 2024 at which time she was ordered for HCVRNA after retreatment with Vosevi and also ordered for HIV viral load and CD4 count. However patient did not complete these tests as ordered. She is currently admitted to the hospital since January 16, 2025 after presenting with fever up to 103 Fahrenheit, chills and headache along with intractable vomiting. She was noted to be lethargic. Initially concern was for meningitis therefore patient underwent lumbar puncture in the emergency room. Subsequently her blood cultures returned positive for MSSA from admission. Echocardiogram showed a 1 x 1 cm mass, likely of vegetation on the tricuspid valve. At the time of my assessment, patient is sleepy. She wakes up easily to calling her name and is able to give me some history, however this is a marked difference from her recent outpatient visit in September 2024 where she is alert awake oriented independent of all ADLs. She reports that she has been compliant with Biktarvy and completed treatment for hep C as recently ordered. She has a diffuse rash over her face, bilateral upper arms and legs which she states started after a recent course of antibiotics for UTI. She does not remember which antibiotics it was. Denies being currently sexually active. Review of Systems 2 General: Reports: 10 or more systems reviewed and unremarkable except in HPI and below Const: Denies: fever(s), chills or body aches Eyes: Denies: change in vision, blurry vision or photophobia ENMT: Reports: hoarseness; Denies: throat pain, enlarged tonsils, odynophagia or nasal congestion Card: Denies: chest pain, palpitations, irregular heart rhythm, edema, swelling of feet/ankles, lightheadedness, pre-syncope, dyspnea on exertion or orthopnea Resp: Denies: dyspnea, productive cough, non-productive cough, wheezing, stridor, pain on inspiration, change in phlegm color, hemoptysis or chest congestion GI: Denies: abdominal pain, nausea, vomiting, hematemesis, coffee ground emesis, dysphagia, heartburn, diarrhea, constipation, GI cramping, change in stool character, hematochezia or melena : Denies: flank pain, difficulty voiding, dysuria, urinary frequency, urinary urgency, urinary hesitancy or hematuria Musc: Denies: neck pain, back pain, extremity pain, joint swelling, joint warmth or deformity Neuro: Denies: headache(s), numbness in extremities, weakness in extremities, sensory changes, difficulty walking, frequent falls, dizziness, vertigo, behavioral changes, Slurred speech present or seizure-like activity Psych: Denies: anxiety, depression, suicidal ideation or homicidal ideation Endo: Denies: polyuria, polydipsia, tired all the time, cold intolerance or hot flashes Boni/Lymph: Denies: easy bruising or easy bleeding Medications/Allergies Home Medications ?Medication ?Instructions ?Recorded ?Confirmed ?Last Taken ?Type aspirin 81 mg tablet,delayed 81 mg PO DAILY 11/04/20 0 01/16/25 01/16/25 History release cyanocobalamin (vitamin B-12) 5,000 mcg PO DAILY 90 da ys #90 caps 12/27/20 01/16/25 01/16/25 Rx 5,000 mcg capsule etonogestrel 68 mg subdermal See Rx Instructions .Rout e .COMPLEX 02/24/22 01/16/25 04/05/22 History implant (Nexplanon) ondansetron 4 mg disintegrating 4 mg PO Q6H PRN Nausea 02/24/22 01/16/25 04/05/22 History tablet bictegravir 50 mg-emtricitabine 1 tab PO DAILY 90 days #90 tabs 10/07/24 01/16/25 01/16/25 Rx 200 mg-tenofovir alafenam 25 mg tablet (Biktarvy) hydroxyzine HCl 25 mg tablet 25 mg PO BID 01/16/2501/15/25 History ketorolac 10 mg tablet 10 mg PO Q6H PRN Pain 01/16/25 01/16/25 History mirtazapine 15 mg tablet 15 mg PO BEDTIME 01/16/2501/15/25 20:00 History Allergies Allergy/AdvReac Type Severity Reaction Status Date / Time amoxicillin Allergy Severe rash Verified 10/07/24 13:34 Current Medications Generic Name Dose Route Start Last Admin Trade Name Freq PRN Reason Stop Dose Admin Acetaminophen 650 mg 01/16/25 15:43 01/18/25 23:30 Acetaminophen 325 Mg Tablet PO 650 mg Q6H PRN Administration Mild/Mod Pain Or Temp >/= 101 Aspirin 81 mg 01/17/25 09:00 01/18/25 08:38 Aspirin 81 Mg Ec Tablet PO 81 mg DAILY TONA Administration Cyanocobalamin 5,000 mcg 01/17/25 09:00 01/18/25 11:35 Cyanocobalamin 1,000 Mcg Tablet PO 5,000 mcg DAILY TONA Administration Hydroxyzine Pamoate 25 mg 01/18/25 21:00 01/18/25 19:40 Hydroxyzine 25 Mg Capsule PO 25 mg TID TONA Administration Vancomycin HCl 1,250 mg in 250 mls @ 166.667 mls/hr 01/18/25 12:00 01/19/25 05:09 Vancocin IV Infused On Hold: 01/19/25 07:14 Q8H TONA Infusion Ketorolac Tromethamine 30 mg 01/16/25 15:43 01/19/25 00:37 Ketorolac 30 Mg/Ml Inj IVP 01/21/25 15:42 30 mg Q6H PRN Administration MODERATE PAIN Lorazepam 1 mg 01/18/25 15:45 01/19/25 00:36 Lorazepam 1 Mg Tablet PO 1 mg Q8H PRN Administration ANXIETY Mirtazapine 30 mg 01/18/25 21:00 01/18/25 19:40 Mirtazapine 15 Mg Tablet PO 30 mg BEDTIME TONA Administration Non-Formulary Medication 1 tab 01/17/25 09:00 01/18/25 08:37 Dezfooeff-Kedmwusc-Oghtxmz Ala [Biktarvy] PO 1 tab DAILY TONA Administration Ondansetron HCl 4 mg 01/16/25 13:48 01/18/25 19:39 Ondansetron Hcl Odt 4 Mg Tab PO 4 mg Q6H PRN Administration NAUSEA Ondansetron HCl 4 mg 01/16/25 15:43 01/19/25 00:36 Ondansetron 2 Mg/Ml Sdv 2 Ml IVP 4 mg Q8H PRN Administration vomiting, or N/V if npo Pantoprazole Sodium 40 mg 01/18/25 06:00 01/19/25 05:03 Pantoprazole 40 Mg Sdv IVP 40 mg Q24H TONA Administration PFSH Acute 2 PFSH: Medical History 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 HIV (human immunodeficiency virus infection) Hx of mitral valve prolapse Hepatitis C MSSA bacteremia History of congenital heart disease 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 Tricuspid regurgitation Congenital mitral valve prolapse IVDU (intravenous drug user) History of bacteremia Substance abuse Surgical History 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 History of tricuspid valve replacement Hx of cholecystectomy History of x2 History of appendectomy H/O mitral valve repair Family History Father Hepatitis C Diabetes Myocardial infarction Mother Lung disease Grandfather Congenital heart disease ASD with the mitral valve prolapse Dementia Grandmother Cancer Breast cancer maternal, 30's and again in 50's Ovarian cancer maternal, 30's Colon cancer maternal, 60 Denies family history of CAD (coronary artery disease) Clotting disorder Chronic kidney disease (CKD) Suicide Anesthesia complication Bleeding disorder Uterine cancer Thyroid disease Stroke Social History Smoking and tobacco/nicotine status: never used tobacco/nicotine Alcohol intake: never Substance/Drug Use: current Substance/Drug use frequency: daily Substance/Drug use type: Amphetamines Other substance/drug use details: Daily injected does not smoke because she did not like the taste of the smo Additional social history: CODE STATUS discussed with patient today she wants DNR 01/16/2025 Marital status: Single Marital status details: Lives alone family members do not know that she is back to using drugs 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 HEENT: PERRLA, pupils bilaterally equal and reactive, pallors not present Chest: Normal vesicular breath sounds, no added sounds, equal good air entry bilaterally CVS: S1-S2 regular, no murmurs, no tachycardia, no gallops, no rubs Abdomen: Soft, nontender, no organomegaly, bowel sounds present Neuro: No focal deficits, no facial deformity, AO x3, power 5/5 in all limbs Data 01/19/25 02:41 01/19/25 11:55 Micro: Microbiology 01/19/25 02:41 Blood Culture - Preliminary Blood SPECIMEN COLLECTED 01/18/25 16:05 Blood Culture - Preliminary Blood SPECIMEN COLLECTED 01/16/25 14:00 Gram Stain - Final Cerebrospinal Fluid CSF Culture - Preliminary NAME: Margarita Cortes LOC: [facility] #: [id number] AGE/SX: 39/F ROOM: 255 R E01/17/[address]: Jae Florez MD : 1985 BED: 1 D IS: FAX #: STATUS: ADM IN TLOC: Spec #: [id number] Valorie: 01/18/25-1605 Status: RES Req #: [id number] Recd: 01/18/25-[address]: Neto Jara MD Src: Blood SpDesc: Ordered: Bcult Procedure Result Verified Site Blood Culture Preliminary 01/18/25-1619 SPECIMEN COLLECTED NAME: Margarita Cortes LOC: [facility] #: [id number] AGE/SX: 39/F ROOM: [facility] R E01/17/[address]: Jae Florez MD : 1985 BED: 1 D IS: FAX #: STATUS: ADM IN TLOC: Spec #: [id number] Valorie: 01/16/25-1399 Status: COMP Req #: [id number] Recd: 01/16/[address]: Gladis Cherry MD Src: CSF SpDesc: Ordered: CSf Culture GS Procedure Result Verified Site Gram Stain Final 01/16/25 Result RARE WHITE BLOOD CELLS NO ORGANISMS SEEN CSF Culture Final 01/19/25-1303 NO GROWTH ON DAY 3 CSF Culture Preliminary (changed) 01/18/25-1041 NO GROWTH ON DAY 2 CSF Culture Preliminary (changed) 01/17/25-1222 NO GROWTH AT 18-24 HOURS NAME: Margarita Cortes LOC: [facility] #: [id number] AGE/SX: 39/F ROOM: [facility] R E01/17/[address]: Jae Florez MD : 1985 BED: 1 D IS: FAX #: STATUS: ADM IN TLOC: Spec #: [id number] Valorie: 01/16/25-1145 Status: RES Req #: [id number] Recd: 01/16/251146 Sub Dr: Juana Harper Src: Blood SpDesc: Ordered: Bcult Procedure Result Verified Site Blood Culture Preliminary 01/19/25-1020 4 OF 4 BOTTLES POSITIVE GRAM STAIN: GRAM POSITIVE COCCI IN CLUSTERS SEEN IDENTIFICATION BY DIRECT PCR NO RESISTANT GENES DETECTED Organism 1 Staphylococcus aureus Growth 4 BOTTLES Gram Stain Charge Charge for Gram Stain CRITICAL RESULT YES/NO: YES CRITICAL CALLED BY: Val TO AND READ BACK BY: YONATANRENETTA DATE: 01/17/25 TIME: 147 2ND CRITICAL RES YES/NO: YES 2ND CRITICAL CALLED BY: LISE SANDERSON TO AND READ BACK BY: JONO DATE: 01/17/25 2ND CRITICAL TIME: 35 S aureus M.I.C. RX --------- ------ * Ciprofloxacin <=1 S * Clindamycin <=0.5 S * Erythromycin <=0.5 S * Levofloxacin <=1 S * Linezolid 4 S * Moxifloxacin <=0.5 S * Oxacillin <=0.25 S * Penicillin >8 R * Rifampin <=1 S * Tetracycline <=4 S * Trimethoprim/Sulfamethoxazole <=0.5/9.5 S Vancomycin 2 S Daptomycin 1 S Blood Culture Preliminary (changed) 01/17/25-950 4 OF 4 BOTTLES POSITIVE GRAM STAIN: GRAM POSITIVE COCCI IN CLUSTERS SEEN IDENTIFICATION BY DIRECT PCR NO RESISTANT GENES DETECTED RESULTS TO FOLLOW Organism 1 Staphylococcus aureus Growth 4 BOTTLES Gram Stain Charge Charge for Gram Stain CRITICAL RESULT YES/NO: YES CRITICAL CALLED BY: Val TO AND READ BACK BY: [facility] [place]: 01/17/25 TIME: 147 CRITICAL RES YES/NO: YES 2ND CRITICAL CALLED BY: LISE SANDERSON TO AND READ BACK BY: JONO DATE: 01/17/25 2ND CRITICAL TIME: 734 Blood Culture Preliminary (changed) 01/17/25-735 4 OF 4 BOTTLES POSITIVE GRAM STAIN: GRAM POSITIVE COCCI IN CLUSTERS SEEN IDENTIFICATION BY DIRECT PCR NO RESISTANT GENES DETECTED RESULTS TO FOLLOW Organism 1 Staphylococcus aureus Growth 2 BOTTLES Gram Stain Charge Charge for Gram Stain CRITICAL RESULT YES/NO: YES CRITICAL CALLED BY: Val TO AND READ BACK BY: MARTA DATE: 01/17/25 TIME: 147 2ND CRITICAL RES YES/NO: YES 2ND CRITICAL CALLED BY: LISE 2ND TO AND READ BACK BY: JONO DATE: 01/17/25 2ND CRITICAL TIME: 734 Blood Culture Preliminary (changed) 01/17/25-147 2 OF 4 BOTTLES POSITIVE GRAM STAIN: GRAM POSITIVE COCCI IN CLUSTERS SEEN RESULTS TO FOLLOW CRITICAL RESULT YES/NO: YES CRITICAL CALLED BY: Val TO AND READ BACK BY: [facility] [place]: 01/17/25 TIME: 147 Blood Culture Preliminary (changed) 01/16/25-1152 SPECIMEN COLLECTED NAME: Margarita Cortes LOC: [facility] U #: [id number] AGE/SX: 39/F ROOM: 255 R E01/17/[address]: Jae Florez MD : 1985 BED: 1 D IS: FAX #: STATUS: ADM IN TLOC: Spec #: [id number] Valorie: 01/16/25 Status: RES Req #: [id number] Recd: 01/16/25-[address]: Juana Harper Src: Blood SpDesc: Ordered: Bcult Procedure Result Verified Site Blood Culture Preliminary 01/17/25-952 4 OF 4 BOTTLES POSITIVE GRAM STAIN: GRAM POSITIVE COCCI IN CLUSTERS SEEN IDENTIFICATION BY DIRECT PCR NO RESISTANT GENES DETECTED RESULTS TO FOLLOW Organism 1 Staphylococcus aureus Growth 4 BOTTLES Gram Stain Charge Charge for Gram Stain CRITICAL RESULT YES/NO: YES CRITICAL CALLED BY: LISE TO AND READ BACK BY: JONO DATE: 01/17/25 TIME: 736 Blood Culture Preliminary (changed) 01/17/25-736 4 OF 4 BOTTLES POSITIVE GRAM STAIN: GRAM POSITIVE COCCI IN CLUSTERS SEEN RESULTS TO FOLLOW Gram Stain Charge Charge for Gram Stain CRITICAL RESULT YES/NO: YES CRITICAL CALLED BY: LISE TO AND READ BACK BY: JONO DATE: 01/17/25 TIME: 736 Blood Culture Preliminary (changed) 01/17/25-0148 2 OF 4 BOTTLES POSITIVE GRAM STAIN: GRAM POSITIVE COCCI IN CLUSTERS SEEN RESULTS TO FOLLOW Blood Culture Preliminary (changed) 01/16/25-1141 SPECIMEN COLLECTED Other data: Radiology Impressions Cervical Spine CT 01/16/25 11:08 IMPRESSION: 1. No evidence of acute fracture or dislocation. 2. Normal prevertebral soft tissues. 3. Mild central canal stenosis C6-7 due to disc osteophyte complex. Head CT 01/16/25 11:08 IMPRESSION: 1. No evidence of intracranial hemorrhage or mass effect. 2. No acute intracranial findings. Lumbar Puncture Fluoroscopy 01/16/25 13:04 IMPRESSION: Uncomplicated lumbar puncture for CSF. Normal opening pressure: 18 ccH2O. Chest X-Ray 01/17/25 22:40 IMPRESSION: No acute findings. Laboratory Results WBC 22.63 10^3/uL (3.29-11.43) H 01/19/25 02:41 RBC 3.39 10^6/uL (3.85-5.65) L 01/19/25 02:41 Hgb 9.80 g/dL (11.27-16.99) L 01/19/25 02:41 Hct 29.7 % (36-47) L 01/19/25 02:41 MCV 87.6 fl (85-98) 01/19/25 02:41 MCH 28.9 pg (27-33) 01/19/25 02:41 MCHC 33.0 g/dL (30-55) 01/19/25 02:41 RDW 13.2 % (12.1-15.1) 01/19/25 02:41 Plt Count 62 10^3/cmm (157-399) L 01/19/25 02:41 MPV 12.8 fL (7.4-10.4) H 01/19/25 02:41 Neut % (Auto) 84.5 % 01/19/25 02:41 Lymph % (Auto) 3.2 % 01/19/25 02:41 [place] % (Auto) 10.3 % 01/19/25 02:41 Eos % (Auto) 0.0 % 01/19/25 02:41 Baso % (Auto) 0.3 % 01/19/25 02:41 Neut # (Auto) 19.12 10^3/uL (1.8-7.7) H 01/19/25 02:41 Lymph # (Auto) 0.7 10^3/uL (0.8-4.8) L 01/19/25 02:41 [place] # (Auto) 2.3 10^3/uL (0.2-0.9) H 01/19/25 02:41 Eos # (Auto) 0.0 10^3/uL (0.0-0.8) 01/19/25 02:41 Baso # (Auto) 0.1 10^3/uL (0.0-0.1) 01/19/25 02:41 Nucleated RBC % (auto) 0 % 01/19/25 02:41 Nucleated RBCs # 0.0 /100WBC 01/19/25 02:41 ESR 34 mm/hr (0-15) H 01/16/25 11:29 Sodium 136 mmol/L (136-145) 01/19/25 11:55 Potassium 3.8 mmol/L (3.5-5.1) 01/19/25 11:55 Chloride 103 mmol/L (98-107) 01/19/25 11:55 Carbon Dioxide 20 mmol/L (22-29) L 01/19/25 11:55 Anion Gap 16.8 (5-19) 01/19/25 11:55 BUN 15 mg/dL (6-20) 01/19/25 11:55 Creatinine 0.5 mg/dL (0.5-0.9) 01/19/25 11:55 GFR Calculation 136.6 mL/min (90-130) H 01/19/25 11:55 Glucose 153 mg/dL (65-115) H 01/19/25 11:55 Estimat Average Glucose 131 01/19/25 11:55 Hemoglobin A1c 6.2 % (4.0-6.0) H 01/19/25 11:55 Calculated Osmolality 286 mOsm/kg (285-295) 01/19/25 11:55 Lactic Acid 1.1 mmol/L (0.5-2.2) 01/16/25 11:29 Calcium 8.1 mg/dL (8.5-10.5) L 01/19/25 11:55 Iron 15 ug/dL (37-145) L 01/19/25 11:55 TIBC 276 mcg/dl 01/19/25 11:55 % Saturation 5.4 % (20-50) L 01/19/25 11:55 Unsat Iron Binding 261 ug/dL (112-347) 01/19/25 11:55 Total Bilirubin 0.3 mg/dL (0.15-1.2) 01/19/25 11:55 AST 16 U/L (0-32) 01/19/25 11:55 ALT 20 U/L (0-33) 01/19/25 11:55 Alkaline Phosphatase 96 U/L (35-105) 01/19/25 11:55 C-Reactive Protein 197.1 mg/L (0.0-4.9) H 01/16/25 11:29 C-React Prot High Sens 22.400 mg/dL (0.0-0.3) H 01/17/25 05:13 Total Protein 5.8 g/dL (6.6-8.7) L 01/19/25 11:55 Albumin 3.0 g/dL (3.5-5.2) L 01/19/25 11:55 Globulin 2.8 g/dL (1.3-4.6) 01/19/25 11:55 Vitamin B12 > 2000 pg/mL (232-1245) H 01/19/25 11:55 Procalcitonin 9.40 ng/mL (0-0.5) H 01/19/25 11:55 TSH 0.77 uIU/mL (0.27-4.20) 01/19/25 11:55 HCG, Qual Negative (Negative) 01/16/25 11:29 Urine Color Yellow (Yellow) 01/16/25 13:00 Urine Appearance Clear (CLEAR) 01/16/25 13:00 Urine pH 6.0 (5-7) 01/16/25 13:00 Ur Specific [place] 1.007 (1.005-1.030) 01/16/25 13:00 Urine Protein 1+ (Negative) A 01/16/25 13:00 Urine Glucose (UA) Negative (Normal) 01/16/25 13:00 Urine Ketones Negative (Negative) 01/16/25 13:00 Urine Blood Trace (Negative) A 01/16/25 13:00 Urine Nitrate Negative (Negative) 01/16/25 13:00 Urine Bilirubin Negative (Negative) 01/16/25 13:00 Urine Urobilinogen 1.0 mg/dL (Negative) 01/16/25 13:00 Ur Leukocyte Esterase Negative (Negative) 01/16/25 13:00 Urine RBC 0-2 /hpf (0-2) 01/16/25 13:00 Urine WBC 0-5 /hpf (0-5) 01/16/25 13:00 Ur Squamous Epith Cells 0-5 /hpf (0-5) 01/16/25 13:00 Amorphous Sediment Not Reportable 01/16/25 13:00 Urine Bacteria None seen /hpf (NONE) 01/16/25 13:00 Hyaline Casts 0-4 /lpf H 01/16/25 13:00 CSF Appearance Clear (CLEAR) 01/16/25 14:00 CSF Color Colorless (COLORLESS) 01/16/25 14:00 CSF WBC 8 /uL (0-5) H 01/16/25 14:00 CSF RBC 1 10^3/uL (0-0) H 01/16/25 14:00 CSF Mononuclear # Auto 0.007 10^3/uL (50-90) L 01/16/25 14:00 CSF Mononuclear WBCs % 88 % (50-90) 01/16/25 14:00 CSF Polynuclear WBCs # 0.001 10^3/uL (0-10) 01/16/25 14:00 CSF Polynuclear WBCs % 13 % (0-10) H 01/16/25 14:00 CSF Diff Comment Yes 01/16/25 14:00 CSF Glucose 76 mg/dL (40-70) H 01/16/25 14:00 CSF Total Protein 29 mg/dL (15-45) 01/16/25 14:00 Vancomycin Trough < 4.0 ug/mL (10-15) L 01/18/25 03:49 Influenza A (PCR) Negative (Negative) 01/16/25 13:00 Influenza Type B (PCR) Negative (Negative) 01/16/25 13:00 RSV (PCR) Negative (Negative) 01/16/25 13:00 SARS-CoV-2 (PCR) Negative (Negative) 01/16/25 13:00 A&P Assessment and plan (1) Prosthetic valve endocarditis: 39-year-old lady with history of HIV and hepatitis C, unfortunately relapsed with regards to IV drug use currently 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 Blood cultures are positive for MSSA from day of admission. Follow-up blood cultures from 04/20/2025 are pending to date. Noted to have a 1 x 1 cm vegetation on the tricuspid valve. All clinical signs and symptoms consistent with prosthetic valve endocarditis. Discontinue vancomycin Start cefazolin 2 g IV every 8 hours. Patient's chart notes allergy to amoxicillin. Patient reports that she recently had an antibiotic for UTI following which she broke out into a diffuse rash she is uncertain which antibiotic this was but reports that it was likely penicillin . For this reason preferring cefazolin over nafcillin for now. Start gentamicin 3 mg/kg IV every 24 hours in addition to cefazolin. Additionally plan to add rifampin 300 mg 3 times daily, however this would need to wait until we can switch her HIV regimen over. Patient is currently on Biktarvy, rifampin is contraindicated with Biktarvy. Will switch HIV regimen to Atripla and start rifampin alongside. This will need to wait until outpatient pharmacy will be open after as a Atripla or any other HIV medicine is not currently available on formulary as an inpatient. Follow-up blood culture from 825 is currently pending. If patient remains persistently bacteremic or has signs or symptoms of worsening heart failure, will likely need urgent surgery. (2) Endocarditis due to methicillin susceptible Staphylococcus aureus (MSSA): MSSA positive blood cultures as noted above. (3) HIV (human immunodeficiency virus infection): Currently on treatment with Biktarvy since 2019 at which time HIV was a new diagnosis for the patient.. Patient did not complete viral load and CD4 as ordered in September 2024. Last viral load from April 2024 was undetectable. CD4 count from June 2023 at 984. Viral load and CD4 ordered today. Will likely need to switch therapy from Biktarvy to Atripla to enable use of rifampin for endocarditis. (4) Hepatitis C: History of hepatitis C. Patient was first diagnosed in 2019. Patient stated that she had completed Mavyret with Dr. Whalen at that time. HCVRNA rechecked in 2023 was still positive with a log of 6.83. She was retreated with Vosevi in late 2023. Posttreatment HCVRNA was ordered in September however has not been completed. Will check today. Liver imaging from February 2024 had shown a slightly nodular surface of the liver concerning for cirrhosis. She is due for annual HCC surveillance imaging, will obtain repeat imaging while she is currently admitted. (5) Screen for STD (sexually transmitted disease): Patient has a diffuse papular rash affecting face, bilateral upper extremities and legs. She thinks this was related to recent use of an antibiotic however uncertain which one this was. Rash concerning for potentially secondary syphilis. Will check RPR with reflex, FTA-ABS from the serum. Lumbar puncture was obtained upon admission which showed CSF WBC of 8, CSF glucose of 76 and a normal total protein. Given the above picture less likely to be bacterial meningitis however will obtain VDRL from CSF to rule out neurosyphilis. (6) Diffuse papular rash: Patient states this is currently improving. Uncertain cause. May be related to recent outpatient medication use. Syphilis screen pending. (7) Liver cirrhosis: Known liver cirrhosis, repeat abdominal imaging to assess for HCC surveillance (8) Thrombocytopenia: Acute thrombocytopenia most likely related to endocarditis, possibly also contributed by liver cirrhosis. PDMP PDMP Reviewed: Not Reviewed Coding Level of Care Code Acute Code for Chg Fwd High MDM includes number and complexity of problems actively addressed during encounter, amount and/or complexity of data reviewed/ordered and described risk of complication, morbidity or mortality of management as documented Diagnoses Prosthetic valve endocarditis T82.6XXA; I33.0 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; B95.61 HIV (human immunodeficiency virus infection) Z21 HIV symptom status: asymptomatic, with no history of HIV-related illness Chronic hepatitis C without hepatic coma B18.2 Viral hepatitis chronicity: chronic Hepatic coma status: without hepatic coma Screen for STD (sexually transmitted disease) Z11.3 Diffuse papular rash R21 Liver cirrhosis K74.60 Thrombocytopenia D69.6
[2025-01-19] MEDS: hyDROXYzine 25 mg Capsule PO ×2 (09:27→17:39)
[2025-01-19] MEDS: cyanocobalamin 1,000 mcg Tablet 5000 MCG PO (09:27)
[2025-01-19] MEDS: NON-FORMULARY MEDICATION (Bictegrav-Emtricit-Tenofov Ala [Biktarvy] 50-200-25 mg tablet) 1 EACH PO (09:28)
[2025-01-19] MEDS: aspirin 81 mg EC Tablet PO (09:28)
[2025-01-19] MEDS: ceFAZolin 2,000 mg SDV 2000 MG IVP ×2 (10:37→16:49)
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
[2025-01-19] MEDS: SODIUM CHLORIDE 0.9% PHA2DOSE (11:08)
[2025-01-19] MEDS: GENTAMICIN PHA2DOSE (11:08)
[2025-01-19 12:28] LABS: Estmated Average Glucose 131; Hemoglobin A1C 6.2 % (4.0-6.0)
[2025-01-19 12:48] LABS: Thyroid Stimulating Hormone 0.77 uIU/mL (0.27-4.20)
[2025-01-19 13:00] LABS: Alanine Aminotransferase 20 U/L (0-33); Alkaline Phosphatase 96 U/L (35-105); Anion Gap 16.8 (5-19); Aspartate Amino Transferase 16 U/L (0-32); Blood Urea Nitrogen 15 mg/dL (6-20); Calcium 8.1 mg/dL (8.5-10.5); Carbon Dioxide 20 mmol/L (22-29); Chloride 103 mmol/L (98-107); Creatinine Clr Calc Pharmacy 163.4729; Globulin 2.8 g/dL (1.3-4.6); Glomerular Filtration Rate 136.6 mL/min (90-130); Glucose 153 mg/dL (65-115); Iron 15 ug/dL (37-145); Osmolality Calculated 286 mOsm/kg (285-295); Percent Saturation 5.4 % (20-50); Potassium 3.8 mmol/L (3.5-5.1); Sodium 136 mmol/L (136-145); Total Bilirubin 0.3 mg/dL (0.15-1.2); Total Iron Binding Capacity 276 mcg/dl; Total Protein 5.8 g/dL (6.6-8.7); Unsaturated Iron Binding 261 ug/dL (112-347)
[2025-01-19 13:39] LABS: Vitamin B12 > 2000 pg/mL (232-1245)
[2025-01-19 16:11] LABS: Bacillus cereus group Not Detected (NOT DETECT); Bacillus subtillis group Not Detected (NOT DETECT); Corynebacterium Not Detected (NOT DETECT); Cutibacterium acnes (P.acnes) Not Detected (NOT DETECT); Enterococcus Not Detected (NOT DETECT); Enterococcus faecalis Not Detected (NOT DETECT); Enterococcus faecium Not Detected (NOT DETECT); Lactobacillus species Not Detected (NOT DETECT); Listeria Not Detected (NOT DETECT); Listeria monocytogenes Not Detected (NOT DETECT); Micrococcus Not Detected (NOT DETECT); Pan Candida Not Detected (NOT DETECT); Pan Gram-Negative Not Detected (NOT DETECT); Staphylococcus epidermidis Not Detected (NOT DETECT); Staphylococcus lugdunensis Not Detected (NOT DETECT); Staphylococcus species Detected (NOT DETECT); Streptococcus agalactiae Not Detected (NOT DETECT); Streptococcus anginosus group Not Detected (NOT DETECT); Streptococcus pneumoniae Not Detected (NOT DETECT); Streptococcus pyogenes Not Detected (NOT DETECT); Streptococcus species Not Detected (NOT DETECT); mecA Not Detected (NOT DETECT); mecC Not Detected (NOT DETECT)
[2025-01-19] MEDS: mirtazapine 15 mg Tablet 30 MG PO (20:39)
[2025-01-19] MEDS: ipratropium-albuterol 3 mL Neb INHALATION (20:55)
[2025-01-20] VITALS (9 sets, daily range): BP systolic 95–138; BP diastolic 62–91; PULSE 78–111; RESP 16–20; TEMP 36.7–38.3; O2SAT 94–97
[2025-01-20] MEDS: ceFAZolin 2,000 mg SDV 2000 MG IVP ×3 (00:18→15:09)
[2025-01-20] MEDS: pantoprazole 40 mg SDV IVP (05:30)
[2025-01-20] MEDS: ketorolac 30 mg/mL INJ IVP (06:22)
[2025-01-20] MEDS: NON-FORMULARY MEDICATION (Bictegrav-Emtricit-Tenofov Ala [Biktarvy] 50-200-25 mg tablet) 1 EACH PO (08:24)
[2025-01-20] MEDS: hyDROXYzine 25 mg Capsule PO ×2 (08:25→17:14)
[2025-01-20] MEDS: aspirin 81 mg EC Tablet PO (08:25)
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
[2025-01-20] MEDS: SODIUM CHLORIDE 0.9% IV (11:09)
[2025-01-20] MEDS: GENTAMICIN IV (11:09)
[2025-01-20] MEDS: acetaminophen 325 mg Tablet 650 MG PO (15:08)
--- NOTE | 2025-01-20 15:45 | PM.PN ---
Subjective Subjective: Patient febrile to a Tmax of 100.9 Fahrenheit. Blood culture from 525 positive for Staphylococcus aureus. Mental status is better today. Medications: Reviewed: Yes Vitals/I&O/Wt Last Vital Signs Temp 100.2 F H 01/20/25 15:42 Pulse 111 H 01/20/25 15:42 Resp 20 H 01/20/25 15:42 BP 126/91 01/20/25 15:42 Pulse Ox 97 01/20/25 15:42 O2 Del Method Room Air 01/20/25 15:42 O2 Flow Rate 2 01/17/25 23:11 01/20/25 01/20/25 01/20/25 06:59 14:59 22:59 Intake Total 106.6 / 106.6 Balance 106.6 / 106.6 Weight last 48 hrs Weight 86.183 kg Weight 87.589 kg Physical Exam Narrative: General: awake, alert and oriented x 3 HEENT: PERRLA, pupils bilaterally equal and reactive, pallors not present Chest: Normal vesicular breath sounds, no added sounds, equal good air entry bilaterally CVS: S1-S2 regular, no murmurs, no tachycardia, no gallops, no rubs Abdomen: Soft, nontender, no organomegaly, bowel sounds present Neuro: No focal deficits, no facial deformity, AO x3, power 5/5 in all limbs Data 01/19/25 02:41 01/19/25 11:55 Micro: Microbiology 01/19/25 02:41 Blood Culture - Preliminary Blood NEGATIVE TO DATE 01/16/25 11:45 Blood Culture - Final Blood Staphylococcus aureus 01/18/25 16:05 Blood Culture - Preliminary Blood Staphylococcus aureus 01/16/25 14:00 Gram Stain - Final Cerebrospinal Fluid CSF Culture - Final NAME: Margarita Cortes LOC: [facility] U #: [id number] AGE/SX: 39/F ROOM: 255 RE01/17/[address]: Jae Florez MD : 1985 BED: 1 DIS: FAX #: STATUS: ADM IN TLOC: Spec #: [id number] Valorie: 01/19/25-0241 Status: RES Req #: [id number] Recd: 01/19/25-[address]: Neto Jara MD Src: Blood SpDesc: Ordered: Bcult Procedure Result Verified Site Blood Culture Preliminary 01/20/25 NEGATIVE TO DATE Blood Culture Preliminary (changed) 01/19/25-351 SPECIMEN COLLECTED NAME: Margarita Cortes LOC: [facility] #: [id number] AGE/SX: 39/F ROOM: [facility] RE01/17/[address]: Jae Florez MD : 1985 BED: 1 DIS: FAX #: STATUS: ADM IN TLOC: Spec #: [id number] Valorie: 01/18/25-1604 Status: RES Req #: [id number] Recd: 01/18/[address]: Neto Jara MD Src: Blood SpDesc: Ordered: Bcult Procedure Result Verified Site Blood Culture Preliminary 01/19/25 3 of 4 BOTTLES POSITIVE DIRECT GRAM STAIN: GRAM POSITIVE COCCI IN CLUSTERS IDENTIFICATION BY DIRECT PCR RESULTS TO FOLLOW Organism 1 Staphylococcus aureus Growth 3 BOTTLES Gram Stain Charge Charge for Gram Stain CRITICAL RESULT YES/NO: YES CRITICAL CALLED BY: RT TO AND READ BACK BY: ZEB DATE: 01/19/25 TIME: 1628 NAME: Margarita Cortes LOC: [facility] #: [id number] AGE/SX: 39/F ROOM: [facility] RE01/17/[address]: Jae Florez MD : 1985 BED: 1 DIS: FAX #: STATUS: ADM IN TLOC: Spec #: [id number] Valorie: 01/16/25-1144 Status: COMP Req #: [id number] Recd: 01/16/[address]: Juana Harper Src: Blood SpDesc: Ordered: Bcult Procedure Result Verified Site Blood Culture Final 01/19/25-1628 4 OF 4 BOTTLES POSITIVE GRAM STAIN: GRAM POSITIVE COCCI IN CLUSTERS SEEN IDENTIFICATION BY DIRECT PCR NO RESISTANT GENES DETECTED Organism 1 Staphylococcus aureus Growth 4 BOTTLES Gram Stain Charge Charge for Gram Stain CRITICAL RESULT YES/NO: YES CRITICAL CALLED BY: V TO AND READ BACK BY: DEVANG DATE: 01/17/25 TIME: 147 CRITICAL RES YES/NO: YES 2ND CRITICAL CALLED BY: LISE 2ND TO AND READ BACK BY: JONO DATE: 01/17/25 2ND CRITICAL TIME: 734 S aureus M.I.C. RX --------- ------ * Ciprofloxacin <=1 S * Clindamycin <=0.5 S * Erythromycin <=0.5 S * Levofloxacin <=1 S * Linezolid 4 S * Moxifloxacin <=0.5 S * Oxacillin <=0.25 S * Penicillin >8 R * Rifampin <=1 S * Tetracycline <=4 S * Trimethoprim/Sulfamethoxazole <=0.5/9.5 S Vancomycin 2 S Daptomycin 1 S Blood Culture Preliminary (changed) 01/19/25-1020 4 OF 4 BOTTLES POSITIVE GRAM STAIN: GRAM POSITIVE COCCI IN CLUSTERS SEEN IDENTIFICATION BY DIRECT PCR NO RESISTANT GENES DETECTED Organism 1 Staphylococcus aureus Growth 4 BOTTLES Gram Stain Charge Charge for Gram Stain CRITICAL RESULT YES/NO: YES CRITICAL CALLED BY: Val TO AND READ BACK BY: [employer] DATE: 01/17/25 TIME: 147 CRITICAL RES YES/NO: YES 2ND CRITICAL CALLED BY: LISE 2ND TO AND READ BACK BY: JONO DATE: 01/17/25 2ND CRITICAL TIME: 734 S aureus M.I.C. RX --------- ------ * Ciprofloxacin <=1 S * Clindamycin <=0.5 S * Erythromycin <=0.5 S * Levofloxacin <=1 S * Linezolid 4 S * Moxifloxacin <=0.5 S * Oxacillin <=0.25 S * Penicillin >8 R * Rifampin <=1 S * Tetracycline <=4 S * Trimethoprim/Sulfamethoxazole <=0.5/9.5 S Vancomycin 2 S Daptomycin 1 S Blood Culture Preliminary (changed) 01/17/25-950 4 OF 4 BOTTLES POSITIVE GRAM STAIN: GRAM POSITIVE COCCI IN CLUSTERS SEEN IDENTIFICATION BY DIRECT PCR NO RESISTANT GENES DETECTED RESULTS TO FOLLOW Organism 1 Staphylococcus aureus Growth 4 BOTTLES Gram Stain Charge Charge for Gram Stain CRITICAL RESULT YES/NO: YES CRITICAL CALLED BY: Val TO AND READ BACK BY: [facility] DATE: 01/17/25 TIME: 147 2ND CRITICAL RES YES/NO: YES 2ND CRITICAL CALLED BY: LISE 2ND TO AND READ BACK BY: JONO DATE: 01/17/25 2ND CRITICAL TIME: 07 Blood Culture Preliminary (changed) 01/17/25-735 4 OF 4 BOTTLES POSITIVE GRAM STAIN: GRAM POSITIVE COCCI IN CLUSTERS SEEN IDENTIFICATION BY DIRECT PCR NO RESISTANT GENES DETECTED RESULTS TO FOLLOW Organism 1 Staphylococcus aureus Growth 2 BOTTLES Gram Stain Charge Charge for Gram Stain CRITICAL RESULT YES/NO: YES CRITICAL CALLED BY: V TO AND READ BACK BY: [facility] DATE: 01/17/25 TIME: 147 2ND CRITICAL RES YES/NO: YES 2ND CRITICAL CALLED BY: LISE 2ND TO AND READ BACK BY: JONO DATE: 01/17/25 2ND CRITICAL TIME: 734 Blood Culture Preliminary (changed) 01/17/25-147 2 OF 4 BOTTLES POSITIVE GRAM STAIN: GRAM POSITIVE COCCI IN CLUSTERS SEEN RESULTS TO FOLLOW CRITICAL RESULT YES/NO: YES CRITICAL CALLED BY: V TO AND READ BACK BY: [facility] DATE: 01/17/25 TIME: 147 A&P Assessment and plan (1) Prosthetic valve endocarditis: 39-year-old lady with history of HIV and hepatitis C, unfortunately relapsed with regards to IV drug use currently 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 Blood cultures are positive for MSSA from day of admission. Follow-up blood cultures from 04/20/2025 are pending to date. Noted to have a 1 x 1 cm vegetation on the tricuspid valve. All clinical signs and symptoms consistent with prosthetic valve endocarditis. Discontinue vancomycin Start cefazolin 2 g IV every 8 hours. Patient's chart notes allergy to amoxicillin. Patient reports that she recently had an antibiotic for UTI following which she broke out into a diffuse rash she is uncertain which antibiotic this was but reports that it was likely penicillin . For this reason preferring cefazolin over nafcillin for now. Start gentamicin 3 mg/kg IV every 24 hours in addition to cefazolin. Additionally plan to add rifampin 300 mg 3 times daily, however this would need to wait until we can switch her HIV regimen over. Patient is currently on Biktarvy, rifampin is contraindicated with Biktarvy. Will switch HIV regimen to Atripla and start rifampin alongside. This will need to wait until outpatient pharmacy will be open after as a Atripla or any other HIV medicine is not currently available on formulary as an inpatient. Follow-up blood culture from 825 is currently pending. If patient remains persistently bacteremic or has signs or symptoms of worsening heart failure, will likely need urgent surgery. (2) Endocarditis due to methicillin susceptible Staphylococcus aureus (MSSA): MSSA positive blood cultures as noted above. (3) HIV (human immunodeficiency virus infection): Currently on treatment with Biktarvy since 2019 at which time HIV was a new diagnosis for the patient.. Patient did not complete viral load and CD4 as ordered in September 2024. Last viral load from April 2024 was undetectable. CD4 count from June 2023 at 984. Viral load and CD4 ordered today. Will likely need to switch therapy from Biktarvy to Atripla to enable use of rifampin for endocarditis. (4) Hepatitis C: History of hepatitis C. Patient was first diagnosed in 2019. Patient stated that she had completed Mavyret with Dr. Whalen at that time. HCVRNA rechecked in 2023 was still positive with a log of 6.83. She was retreated with Vosevi in late 2023. Posttreatment HCVRNA was ordered in September however has not been completed. Will check today. Liver imaging from February 2024 had shown a slightly nodular surface of the liver concerning for cirrhosis. She is due for annual HCC surveillance imaging, will obtain repeat imaging while she is currently admitted. (5) Screen for STD (sexually transmitted disease): Patient has a diffuse papular rash affecting face, bilateral upper extremities and legs. She thinks this was related to recent use of an antibiotic however uncertain which one this was. Rash concerning for potentially secondary syphilis. Will check RPR with reflex, FTA-ABS from the serum. Lumbar puncture was obtained upon admission which showed CSF WBC of 8, CSF glucose of 76 and a normal total protein. Given the above picture less likely to be bacterial meningitis however will obtain VDRL from CSF to rule out neurosyphilis. (6) Diffuse papular rash: Patient states this is currently improving. Uncertain cause. May be related to recent outpatient medication use. Syphilis screen pending. (7) Liver cirrhosis: Known liver cirrhosis, repeat abdominal imaging to assess for HCC surveillance (8) Thrombocytopenia: Acute thrombocytopenia most likely related to endocarditis, possibly also contributed by liver cirrhosis. Plan January 20, 2025 Daily labs not available today. Febrile to 100.9 Fahrenheit. Blood cultures from January 18, 2025 reported positive for Staphylococcus aureus, presumably will be MSSA compatible with prior cultures from the . Repeat blood cultures from 04/21/2025 are pending so far. Patient started treatment with cefazolin 2 g IV every 8 hours along with gentamicin 3 mg/kg IV every 24 hours on January 19, 2025. Aiming to add rifampin 300 mg 3 times daily once we obtain Atripla, anticipated by tomorrow. In the interim continue Biktarvy for HIV. Pending HIV viral load, CD4 count and HCVRNA. If fails to respond to antibiotic treatment alone, may need to transfer for cardiothoracic surgery and consideration for surgical intervention. This has been discussed with the patient. PDMP PDMP Reviewed: Not Reviewed Attestations Medical Necessity Statement*: Prosthetic tricuspid valve endocarditis with persisting bacteremia Coding Level of Care Code Acute Code for [facility] Diagnoses Prosthetic valve endocarditis T82.6XXA; I33.0 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; B95.61 HIV (human immunodeficiency virus infection) Z21 HIV symptom status: asymptomatic, with no history of HIV-related illness Chronic hepatitis C without hepatic coma B18.2 Viral hepatitis chronicity: chronic Hepatic coma status: without hepatic coma Screen for STD (sexually transmitted disease) Z11.3 Diffuse papular rash R21 Liver cirrhosis K74.60 Thrombocytopenia D69.6
--- NOTE | 2025-01-20 15:53 | US_ITS ---
WS: [id number] Complete ABDOMINAL ULTRASOUND HISTORY: hep C cirrhosis COMPARISON: 03/06/2024 Liver: 19.2 cm in length. Liver is enlarged. No mass. No intrahepatic duct dilatation. Very minimal surface irregularity. Portal Vein: Normal hepatopetal flow with monophasic waveform. Gallbladder: Prior cholecystectomy. CBD: 0.8 cm Pancreas: Normal size and echogenicity. Right kidney: 13.2 cm x 6.3 x 5.2 cm. Cortex:2.2 cm. Normal size and echogenicity. No hydronephrosis or mass. Left kidney: 12.7 cm x 5.0 cm x 4.8 cm. Cortex: 2.0 cm. Normal size and echogenicity. No hydronephrosis or mass. Spleen: 13.1 cm. Normal size and echogenicity. Aorta and IVC: Unremarkable abdominal aorta and IVC. US/US abdomen complete* [id number] Impression: 1. Prior cholecystectomy. 2. Mild hepatomegaly. Mild surface nodularity similar to the most recent exam may indicate early changes of cirrhosis. 3. Negative kidneys.
[2025-01-20 16:12] LABS: Basophils # 0.1 10^3/uL (0.0-0.1); Basophils % 0.3 %; Eosinophils % 0.2 %; Hematocrit 30.6 % (36-47); Lymphocytes # 1.1 10^3/uL (0.8-4.8); Lymphocytes % 6.4 %; Mean Corpuscular HGB Conc 33.3 g/dL (30-55); Mean Corpuscular Hemoglobin 29.3 pg (27-33); Mean Corpuscular Volume 87.9 fl (85-98); Mean Platelet Volume 12.7 fL (7.4-10.4); Monocytes # 1.7 10^3/uL (0.2-0.9); Monocytes % 10.1 %; Neutrophils % 78.5 %; Nucleated Red Blood Cells % 0 %; Platelet Count 69 10^3/cmm (157-399); Red Blood Count 3.48 10^6/uL (3.85-5.65); Red Cell Distribution Width 13.8 % (12.1-15.1)
[2025-01-20 16:35] LABS: Alanine Aminotransferase 17 U/L (0-33); Albumin Level 2.9 g/dL (3.5-5.2); Alkaline Phosphatase 110 U/L (35-105); Anion Gap 18.3 (5-19); Aspartate Amino Transferase 18 U/L (0-32); Blood Urea Nitrogen 10 mg/dL (6-20); Calcium 7.7 mg/dL (8.5-10.5); Carbon Dioxide 23 mmol/L (22-29); Chloride 96 mmol/L (98-107); Creatinine Clr Calc Pharmacy 162.1451; Globulin 2.7 g/dL (1.3-4.6); Glomerular Filtration Rate 136.6 mL/min (90-130); Glucose 107 mg/dL (65-115); Osmolality Calculated 278 mOsm/kg (285-295); Potassium 3.3 mmol/L (3.5-5.1); Sodium 134 mmol/L (136-145); Total Bilirubin 0.5 mg/dL (0.15-1.2); Total Protein 5.6 g/dL (6.6-8.7)
[2025-01-20 16:36] LABS: Magnesium 1.4 mg/dL (1.7-2.3)
[2025-01-20 16:39] LABS: Ammonia 42 umol/L (11-51)
[2025-01-20 16:55] LABS: Hepatitis B Core AB, Total Non-Reactive (Nonreactive); Hepatitis B Surface Antigen Non-Reactive (Nonreactive)
[2025-01-20 16:56] LABS: Folate Level 10.3 ng/mL (4.8-37.3)
[2025-01-20] MEDS: mirtazapine 15 mg Tablet 30 MG PO (20:30)
[2025-01-21] VITALS (9 sets, daily range): BP systolic 94–144; BP diastolic 62–91; PULSE 77–99; RESP 16–20; TEMP 36.8–37.8; O2SAT 92–98
[2025-01-21] MEDS: ceFAZolin 2,000 mg SDV 2000 MG IVP ×3 (00:04→15:32)
[2025-01-21] MEDS: ketorolac 30 mg/mL INJ IVP (00:11)
[2025-01-21 04:36] LABS: Basophils # 0.1 10^3/uL (0.0-0.1); Basophils % 0.3 %; Eosinophils # 0.1 10^3/uL (0.0-0.8); Eosinophils % 0.6 %; Hematocrit 33.3 % (36-47); Lymphocytes # 1.8 10^3/uL (0.8-4.8); Mean Corpuscular HGB Conc 32.4 g/dL (30-55); Mean Corpuscular Hemoglobin 28.3 pg (27-33); Mean Corpuscular Volume 87.2 fl (85-98); Mean Platelet Volume 12.6 fL (7.4-10.4); Monocytes # 2.1 10^3/uL (0.2-0.9); Monocytes % 12.3 %; Neutrophils # 12.13 10^3/uL (1.8-7.7); Nucleated Red Blood Cells % 0 %; Platelet Count 104 10^3/cmm (157-399); Red Blood Count 3.82 10^6/uL (3.85-5.65); Red Cell Distribution Width 13.8 % (12.1-15.1); White Blood Count 16.62 10^3/uL (3.29-11.43)
[2025-01-21 04:50] LABS: Alanine Aminotransferase 17 U/L (0-33); Albumin Level 2.8 g/dL (3.5-5.2); Alkaline Phosphatase 95 U/L (35-105); Anion Gap 13.3 (5-19); Aspartate Amino Transferase 16 U/L (0-32); Blood Urea Nitrogen 10 mg/dL (6-20); Carbon Dioxide 28 mmol/L (22-29); Chloride 98 mmol/L (98-107); Creatinine Clr Calc Pharmacy 135.1209; Globulin 2.7 g/dL (1.3-4.6); Glomerular Filtration Rate 110.7 mL/min (90-130); Glucose 122 mg/dL (65-115); Osmolality Calculated 282 mOsm/kg (285-295); Potassium 3.3 mmol/L (3.5-5.1); Sodium 136 mmol/L (136-145); Total Bilirubin 0.6 mg/dL (0.15-1.2); Total Protein 5.5 g/dL (6.6-8.7)
[2025-01-21 04:55] LABS: Magnesium 1.8 mg/dL (1.7-2.3)
[2025-01-21] MEDS: pantoprazole 40 mg SDV IVP (05:35)
[2025-01-21] MEDS: ondansetron 2 mg/ML SDV 2 mL 4 MG IVP (07:57)
[2025-01-21] MEDS: acetaminophen 325 mg Tablet 650 MG PO ×2 (09:11→17:44)
[2025-01-21] MEDS: LORazepam 1 mg Tablet 0.5 MG PO ×2 (09:11→17:44)
[2025-01-21] MEDS: hyDROXYzine 25 mg Capsule PO ×2 (09:11→17:44)
[2025-01-21] MEDS: aspirin 81 mg EC Tablet PO (09:12)
[2025-01-21] MEDS: NON-FORMULARY MEDICATION (Bictegrav-Emtricit-Tenofov Ala [Biktarvy] 50-200-25 mg tablet) 1 EACH PO (09:12)
[2025-01-21] MEDS: scopolamine 1 mg PATCH 1 PATCH TRANSDERMA (10:54)
[2025-01-21] MEDS: SODIUM CHLORIDE 0.9% IV (10:56)
[2025-01-21] MEDS: GENTAMICIN IV (10:56)
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
[2025-01-21 12:34] LABS: RPR w(Moniotor) w/REFL Titer NON-REACTIVE (NON-REACTIVE)
[2025-01-21] MEDS: metoclopramide 5 mg/mL SDV 2 mL IVP (14:23)
--- NOTE | 2025-01-21 14:36 | P.PN_ITS ---
Subjective 2 Subjective: Infectious disease progress note. Tmax 100.2 Fahrenheit last afternoon at 3 PM. She is nauseous this morning. Leukocytosis at 16,000 today.Blood culture from January 19 thus far negative. Medications: Reviewed: Yes Medication Review Details: vancomycin 01/16-01/18 Cefazolin 2 g IV every 8 hours started January 19-current gentamicin 3mg/kg iv every 24 hrs 01/19- current day 3 rifampin 300mg TID 01/21- Bikatrvy- started 2019 to 01/21 Atripla starting 01/22 Vitals/I&O/Wt Last Vital Signs Temp 98.4 F 01/21/25 11:57 Pulse 77 01/21/25 11:57 Resp 19 H 01/21/25 11:57 BP 128/79 01/21/25 11:57 Pulse Ox 93 01/21/25 11:57 O2 Del Method Room Air 01/21/25 11:57 O2 Flow Rate 0 01/21/25 08:00 01/20/25 01/21/25 01/21/25 22:59 06:59 14:59 Intake Total 240 / 346.6 466.6 / 466.6 Balance 240 / 346.6 466.6 / 466.6 Weight last 48 hrs Weight 82.554 kg Weight 86.183 kg Physical Exam 2 Narrative: General: awake, alert and oriented x 3 HEENT: PERRLA, pupils bilaterally equal and reactive, pallors not present Chest: Normal vesicular breath sounds, no added sounds, equal good air entry bilaterally CVS: S1-S2 regular, no murmurs, no tachycardia, no gallops, no rubs Abdomen: Soft, nontender, no organomegaly, bowel sounds present Neuro: No focal deficits, no facial deformity, AO x3, power 5/5 in all limbs Data 01/21/25 04:20 01/21/25 04:20 Micro: Microbiology 01/18/25 16:05 Blood Culture - Preliminary Blood Staphylococcus aureus 01/21/25 04:29 Blood Culture - Preliminary Blood SPECIMEN COLLECTED 01/21/25 04:20 Blood Culture - Preliminary Blood SPECIMEN COLLECTED A&P Assessment and plan (1) Prosthetic valve endocarditis: 39-year-old lady with history of HIV and hepatitis C, unfortunately relapsed with regards to IV drug use currently 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 Blood cultures are positive for MSSA from day of admission. Follow-up blood cultures from 04/20/2025 are pending to date. Noted to have a 1 x 1 cm vegetation on the tricuspid valve. All clinical signs and symptoms consistent with prosthetic valve endocarditis. Discontinue vancomycin Start cefazolin 2 g IV every 8 hours. Patient's chart notes allergy to amoxicillin. Patient reports that she recently had an antibiotic for UTI following which she broke out into a diffuse rash she is uncertain which antibiotic this was but reports that it was likely penicillin . For this reason preferring cefazolin over nafcillin for now. Start gentamicin 3 mg/kg IV every 24 hours in addition to cefazolin. Additionally plan to add rifampin 300 mg 3 times daily, however this would need to wait until we can switch her HIV regimen over. Patient is currently on Biktarvy, rifampin is contraindicated with Biktarvy. Will switch HIV regimen to Atripla and start rifampin alongside. This will need to wait until outpatient pharmacy will be open after as a Atripla or any other HIV medicine is not currently available on formulary as an inpatient. Follow-up blood culture from 82 is currently pending. If patient remains persistently bacteremic or has signs or symptoms of worsening heart failure, will likely need urgent surgery. (2) Endocarditis due to methicillin susceptible Staphylococcus aureus (MSSA): MSSA positive blood cultures as noted above. (3) HIV (human immunodeficiency virus infection): Currently on treatment with Biktarvy since 2019 at which time HIV was a new diagnosis for the patient.. Patient did not complete viral load and CD4 as ordered in September 2024. Last viral load from April 2024 was undetectable. CD4 count from June 2023 at 984. Viral load and CD4 ordered today. Will likely need to switch therapy from Biktarvy to Atripla to enable use of rifampin for endocarditis. (4) Hepatitis C: History of hepatitis C. Patient was first diagnosed in 2019. Patient stated that she had completed Mavyret with Dr. Whalen at that time. HCVRNA rechecked in 2023 was still positive with a log of 6.83. She was retreated with Vosevi in late 2023. Posttreatment HCVRNA was ordered in September however has not been completed. Will check today. Liver imaging from February 2024 had shown a slightly nodular surface of the liver concerning for cirrhosis. She is due for annual HCC surveillance imaging, will obtain repeat imaging while she is currently admitted. (5) Screen for STD (sexually transmitted disease): Patient has a diffuse papular rash affecting face, bilateral upper extremities and legs. She thinks this was related to recent use of an antibiotic however uncertain which one this was. Rash concerning for potentially secondary syphilis. Will check RPR with reflex, FTA-ABS from the serum. Lumbar puncture was obtained upon admission which showed CSF WBC of 8, CSF glucose of 76 and a normal total protein. Given the above picture less likely to be bacterial meningitis however will obtain VDRL from CSF to rule out neurosyphilis. (6) Diffuse papular rash: Patient states this is currently improving. Uncertain cause. May be related to recent outpatient medication use. Syphilis screen pending. (7) Liver cirrhosis: Known liver cirrhosis, repeat abdominal imaging to assess for HCC surveillance (8) Thrombocytopenia: Acute thrombocytopenia most likely related to endocarditis, possibly also contributed by liver cirrhosis. Plan January 20, 2025 Daily labs not available today. Febrile to 100.9 Fahrenheit. Blood cultures from January 18, 2025 reported positive for Staphylococcus aureus, presumably will be MSSA compatible with prior cultures from the . Repeat blood cultures from 04/21/2025 are pending so far. Patient started treatment with cefazolin 2 g IV every 8 hours along with gentamicin 3 mg/kg IV every 24 hours on January 19, 2025. Aiming to add rifampin 300 mg 3 times daily once we obtain Atripla, anticipated by tomorrow. In the interim continue Biktarvy for HIV. Pending HIV viral load, CD4 count and HCVRNA. If fails to respond to antibiotic treatment alone, may need to transfer for cardiothoracic surgery and consideration for surgical intervention. This has been discussed with the patient. January 21, 2025 Tmax as noted above. Leukocytosis at 16,000 today. Thus far blood cultures from 01/19/2025 are negative. Started cefazolin plus gentamicin on January 18. Add rifampin 300 mg 3 times daily today. Discontinue Biktarvy and switch to Atripla to allow concomitant administration wth Rifampin PDMP PDMP Reviewed: Not Reviewed Attestations 2 Medical Necessity Statement*: prosthetic valve endocarditis Coding Level of Care Code Acute Code for [facility] Diagnoses Prosthetic valve endocarditis T82.6XXA; I33.0 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; B95.61 HIV (human immunodeficiency virus infection) Z21 HIV symptom status: asymptomatic, with no history of HIV-related illness Chronic hepatitis C without hepatic coma B18.2 Viral hepatitis chronicity: chronic Hepatic coma status: without hepatic coma Screen for STD (sexually transmitted disease) Z11.3 Diffuse papular rash R21 Liver cirrhosis K74.60 Thrombocytopenia D69.6
--- NOTE | 2025-01-21 14:37 | CT_ITS ---
WS: [id number] CT LUMBAR SPINE, with contrast HISTORY: assess for osteomyelitis/discitis/epidural abscess TECHNIQUE: Contiguous 2.0 mm axial imaging are performed. Sagittal and coronal reformats are submitted and reviewed. All CT scans at [facility] use at least one of these dose optimization techniques: automated exposure control; mA and/or kV adjustment per patient size (includes targeted exams where dose is matched to clinical indication); or iterative reconstruction. IV contrast: Omnipaque 100 mL. DLP: 1218.72 mGy.cm COMPARISON: None available. Normal lumbar alignment. No bone destruction. Disc spaces and vertebral body heights are maintained. Visualized sacrum is normal. Paraspinal soft tissues are negative for abscess or inflammation. No epidural abscess identified by CT. No adrenal mass. Prior cholecystectomy. No retroperitoneal adenopathy. No renal obstruction. CT/CT lumbar spine w con [id number] IMPRESSION: 1. No enhancing masses or abscesses in the lumbar spine. 2. No epidural enhancement. 3. No central stenosis.
--- NOTE | 2025-01-21 14:38 | CT_ITS ---
WS: [id number] CT THORACIC SPINE with contrast HISTORY: assess for osteomyelitis/discitis/epidural abscess TECHNIQUE: Contiguous 2.5 mm axial images are reviewed to thoracic spine. Images are reformatted in sagittal and coronal planes. All CT scans at [facility] use at least one of these dose optimization techniques: automated exposure control; mA and/or kV adjustment per patient size (includes targeted exams where dose is matched to clinical indication); or iterative reconstruction. DLP: 1218.72 mGy.cm COMPARISON: 01/16/2020 Contrast: Omnipaque 100 mL. Normal thoracic alignment. No destructive bone lesions are osteomyelitis. No epidural enhancement. No paravertebral soft tissue enhancement. Mild soft tissue thickening along the RIGHT mid thoracic vertebral bodies was present on the prior study. There are numerous cavitary irregularly-shaped pulmonary masses in both lungs. Largest measures approximately 2.4 x 1.4 cm LEFT lower lobe. LEFT upper lobe 2.8 x 1.9 cm mass. Small mediastinal and hilar lymph nodes. Numerous lymph nodes are present. CT/CT thoracic spine w con [id number] IMPRESSION: 1. No thoracic spine osteomyelitis identified. 2. Numerous bilateral, multilobar pulmonary cavitary lesions. With history of positive blood cultures suspect septic embolic disease. 3. Reactive mediastinal and hilar lymph nodes.
[2025-01-21] MEDS: iohexol 350 mg/mL 500 mL Btl (per mL) IV (15:10)
[2025-01-21] MEDS: rifAMPin 300 mg Capsule PO ×2 (15:32→21:54)
[2025-01-21 16:18] LABS: Lyme AB Screen <0.90 index
[2025-01-21] MEDS: mirtazapine 15 mg Tablet 30 MG PO (21:54)
[2025-01-21] MEDS: ipratropium-albuterol 3 mL Neb INHALATION (23:24)
[2025-01-22] VITALS (9 sets, daily range): BP systolic 92–159; BP diastolic 57–79; PULSE 74–95; RESP 16–18; TEMP 36.7–38.9; O2SAT 91–96
[2025-01-22] MEDS: ceFAZolin 2,000 mg SDV 2000 MG IVP ×3 (00:36→16:19)
[2025-01-22] MEDS: acetaminophen 325 mg Tablet 650 MG PO (04:00)
[2025-01-22] MEDS: pantoprazole 40 mg SDV IVP (05:45)
[2025-01-22 06:15] LABS: Magnesium 1.6 mg/dL (1.7-2.3)
[2025-01-22 07:42] LABS: Basophils # 0.1 10^3/uL (0.0-0.1); Basophils % 0.3 %; Eosinophils % 0.2 %; Hematocrit 30.4 % (36-47); Lymphocytes # 1.4 10^3/uL (0.8-4.8); Lymphocytes % 8.6 %; Mean Corpuscular HGB Conc 32.9 g/dL (30-55); Mean Corpuscular Hemoglobin 28.2 pg (27-33); Mean Corpuscular Volume 85.6 fl (85-98); Mean Platelet Volume 12.1 fL (7.4-10.4); Monocytes # 2.3 10^3/uL (0.2-0.9); Monocytes % 14.2 %; Neutrophils # 12.38 10^3/uL (1.8-7.7); Neutrophils % 75.7 %; Nucleated Red Blood Cells % 0 %; Platelet Count 123 10^3/cmm (157-399); Red Blood Count 3.55 10^6/uL (3.85-5.65); Red Cell Distribution Width 13.5 % (12.1-15.1); White Blood Count 16.36 10^3/uL (3.29-11.43)
[2025-01-22 08:00] LABS: Alanine Aminotransferase 17 U/L (0-33); Albumin Level 2.6 g/dL (3.5-5.2); Alkaline Phosphatase 101 U/L (35-105); Anion Gap 15.9 (5-19); Aspartate Amino Transferase 20 U/L (0-32); Blood Urea Nitrogen 6 mg/dL (6-20); Calcium 8.1 mg/dL (8.5-10.5); Carbon Dioxide 26 mmol/L (22-29); Chloride 96 mmol/L (98-107); Creatinine Clr Calc Pharmacy 130.4797; Globulin 3.3 g/dL (1.3-4.6); Glomerular Filtration Rate 110.7 mL/min (90-130); Glucose 132 mg/dL (65-115); Osmolality Calculated 279 mOsm/kg (285-295); Sodium 135 mmol/L (136-145); Total Protein 5.9 g/dL (6.6-8.7)
[2025-01-22] MEDS: hyDROXYzine 25 mg Capsule PO ×2 (08:10→16:32)
[2025-01-22] MEDS: rifAMPin 300 mg Capsule PO ×3 (08:10→21:25)
[2025-01-22] MEDS: aspirin 81 mg EC Tablet PO (08:10)
[2025-01-22] MEDS: ATRIPLA 1 EACH PO (08:10)
[2025-01-22 08:18] LABS: Potassium 2.9 mmol/L (3.5-5.1)
--- NOTE | 2025-01-22 08:42 | CTR_ITS ---
PROCEDURE INFORMATION: Exam: CT Chest With Contrast; Diagnostic Exam date and time: 01/22/2025 5:20 PM Age: 39 years old Clinical indication: Other: Septic emboli; Fever; Additional info: Septic emboli, persistent fever, n/v, hiv TECHNIQUE: Imaging protocol: Diagnostic computed tomography of the chest with contrast. Radiation optimization: All CT scans at this facility use at least one of these dose optimization techniques: automated exposure control; mA and/or kV adjustment per patient size (includes targeted exams where dose is matched to clinical indication); or iterative reconstruction. Contrast material: OMNIPAQUE 350; Contrast volume: 100 ml; Contrast route: INTRAVENOUS (IV); COMPARISON: CR (CHEST, ) 01/17/2025 11:35 PM RADIATION DOSE METRICS: Total DLP (mGy-cm): 1012.91 FINDINGS: Lungs: Multiple cavitary and non-cavitary nodules in both lungs with the largest cavitary nodule in the right lower lobe measuring 1.6 cm and the largest cavitary nodule (or collection of nodules) in the left lower lobe measuring 2.6 cm. Pleural spaces: Unremarkable. No pneumothorax. No pleural effusion. Heart: Tricuspid valve prosthesis. The heart size is normal. Heart RV/LV ratio: The RV/LV ratio is 1.1. Lymph nodes: Prominent mediastinal and hilar lymph nodes are most likely reactive. Vasculature: Filling defects into subsegmental pulmonary artery branches in the posterior right lower lobe, which are contiguous with non cavitary nodules. Bones/joints: Unremarkable. No acute fracture. Soft tissues: Unremarkable. PROCEDURE INFORMATION: Exam: CT Abdomen And Pelvis With Contrast Exam date and time: 01/22/2025 5:20 PM Age: 39 years old Clinical indication: Other: Septic emboli; Fever; Additional info: Septic emboli, persistent fever, n/v, hiv TECHNIQUE: Imaging protocol: Computed tomography of the abdomen and pelvis with contrast. Radiation optimization: All CT scans at this facility use at least one of these dose optimization techniques: automated exposure control; mA and/or kV adjustment per patient size (includes targeted exams where dose is matched to clinical indication); or iterative reconstruction. Contrast material: OMNIPAQUE 350; Contrast volume: 100 ml; Contrast route: INTRAVENOUS (IV); COMPARISON: CT abdomen pelvis w con* [id number] 01/26/2021 10:03 AM RADIATION DOSE METRICS: Total DLP (mGy-cm): 1012.91 FINDINGS: Tubes, catheters and devices: Clips and scarring in the right groin. Clips in the lower abdomen. Liver: Circumscribed hypodense lesions in the liver are too small to characterize and are most likely cysts. No follow-up imaging is recommended. Focal fatty infiltration in the left liver lobe. Gallbladder and biliary ducts: Cholecystectomy. Mild prominence of the bile ducts is consistent with reservoir effect. Pancreas: Normal. No ductal dilation. Spleen: Normal. No splenomegaly. Adrenal glands: Normal. No mass. Kidneys and ureters: 1 mm nonobstructing right renal calculus. Hypodense lesion in the right kidney is too small to characterize and is most likely a tiny cyst. No follow-up imaging is recommended. The kidneys are otherwise unremarkable. No hydronephrosis. Stomach and bowel: Unremarkable. No obstruction. No mucosal thickening. Appendix: Appendectomy. Intraperitoneal space: Trace pelvic fluid, most likely physiologic. No pneumoperitoneum. Vasculature: Unremarkable. No abdominal aortic aneurysm. Lymph nodes: Unremarkable. No enlarged lymph nodes. Urinary bladder: Unremarkable as visualized. Reproductive: 2.9 cm oval homogeneous oval lesion in the left adnexa, 73 Hounsfield units. The uterus and right ovary are unremarkable. Bones/joints: Unremarkable. No acute fracture. Soft tissues: Small fat containing umbilical hernia. CT/CT chest abdpel w/*[id number] IMPRESSION: 1. Multiple cavitary and non cavitary nodules in both lungs, consistent with septic emboli. 2. Two small filling defects within subsegmental pulmonary artery branches in the right lower lobe which are contiguous with non cavitary nodules, consistent with septic emboli. 3. Slightly increased RV/LV ratio could indicate mildly elevated right heart pressure. IMPRESSION: 1. No acute findings. 2. Probable 2.9 cm hemorrhagic cyst in the left adnexa. No further imaging is recommended. (Reference: Sean) References: Sean et al. Management of Incidental Adnexal Findings on CT and MRI: A White Paper of the ACR Incidental Findings Committee, J Am Valorie Radiol. 2019;17(2):248-254. COMMENTS: Consistent with the [employer]'s Incidental Findings Committee white paper (J Am Valorie Radiol 2018): Any incidental renal lesion less than 1 cm or classified as too small to characterize, or any incidental cystic renal lesion characterized as simple-appearing, is likely benign. No follow-up imaging is recommended for these lesions per consensus recommendations based on imaging criteria.
[2025-01-22] MEDS: metoclopramide 5 mg/mL SDV 2 mL IVP (10:49)
[2025-01-22] MEDS: potassium chloride oral liq 20 mEq/15 mL UDC 80 MEQ PO (10:50)
[2025-01-22 11:21] LABS: Erythrocyte Sedimentation Rate 16 mm/hr (0-15)
[2025-01-22 11:46] LABS: C Reactive Protein 131.8 mg/L (0.0-4.9)
[2025-01-22 11:54] LABS: HEP C RNA Viral Load Quant <1.18 NOT DETECTED Log IU/mL (NOT DETECTED); HEP C RNA Viral Load Quant <15 NOT DETECTED IU/mL (NOT DETECTED)
[2025-01-22 13:18] LABS: HIV RNA (CPY/ML) NOT DETECTED (NOT DETECTED); HIV RNA LOG NOT DETECTED copies/mL (NOT DETECTED)
[2025-01-22 13:38] LABS: Lipase 15 U/L (13-60)
--- NOTE | 2025-01-22 13:40 | PM.PN ---
Subjective Subjective: Infectious disease progress note. Patient febrile to 102 Fahrenheit overnight. She is nauseous today has had multiple episodes of vomiting. No diarrhea. Medications: Reviewed: Yes Medication Review Details: vancomycin 01/16-01/18; subtherapeutic trough at 4 prior to switch to cefazolin. Cefazolin 2 g IV every 8 hours started January 19-current gentamicin 3mg/kg iv every 24 hrs 01/19- current day 4 of rifampin 300mg TID 01/21- Bikatrvy- started 2019 to 01/21 Atripla starting 01/22 Vitals/I&O/Wt Last Vital Signs Temp 98.5 F 01/22/25 11:11 Pulse 92 01/22/25 11:11 Resp 17 01/22/25 11:11 BP 92/63 01/22/25 11:11 Pulse Ox 95 01/22/25 11:11 O2 Del Method Room Air 01/22/25 11:11 O2 Flow Rate 91 01/22/25 00:00 Weight last 48 hrs Weight 80.286 kg Weight 82.554 kg Physical Exam Narrative: General: awake, alert and oriented x 3 HEENT: PERRLA, pupils bilaterally equal and reactive, pallors not present Chest: Normal vesicular breath sounds, no added sounds, equal good air entry bilaterally CVS: S1-S2 regular, no murmurs, no tachycardia, no gallops, no rubs Abdomen: Soft, nontender, no organomegaly, bowel sounds present Neuro: No focal deficits, no facial deformity, AO x3, power 5/5 in all limbs Data 01/22/25 05:05 01/22/25 05:05 Micro: Microbiology 01/21/25 04:29 Blood Culture - Preliminary Blood NEGATIVE TO DATE 01/21/25 04:20 Blood Culture - Preliminary Blood NEGATIVE TO DATE 01/18/25 16:05 Blood Culture - Preliminary Blood Staphylococcus aureus M.I.C. RX --------- ------ * Ciprofloxacin <=1 S * Clindamycin <=0.5 S * Erythromycin <=0.5 S * Levofloxacin <=1 S * Linezolid 4 S * Moxifloxacin <=0.5 S * Oxacillin <=0.25 S * Penicillin >8 R * Rifampin <=1 S * Tetracycline <=4 S * Trimethoprim/Sulfamethoxazole <=0.5/9.5 S Vancomycin 2 S Daptomycin <=0.5 S NAME: Margarita Cortes LOC: [facility] U #: [id number] AGE/SX: 39/F ROOM: [facility] RE01/17/[address]: Jae Florez MD : 1985 BED: 1 DIS: FAX #: STATUS: ADM IN TLOC: Spec #: [id number] Valorie: 01/19/25 Status: RES Req #: [id number] Recd: 01/19/[address]: Neto Jara MD Src: Blood SpDesc: Ordered: Bcult Procedure Result Verified Site Blood Culture Preliminary 01/20/25 NEGATIVE TO DATE Blood Culture Preliminary (changed) 01/19/25 SPECIMEN COLLECTED A&P Assessment and plan (1) Prosthetic valve endocarditis: 39-year-old lady with history of HIV and hepatitis C, unfortunately relapsed with regards to IV drug use currently 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 Blood cultures are positive for MSSA from day of admission. Follow-up blood cultures from 04/20/2025 are pending to date. Noted to have a 1 x 1 cm vegetation on the tricuspid valve. All clinical signs and symptoms consistent with prosthetic valve endocarditis. Discontinue vancomycin Start cefazolin 2 g IV every 8 hours. Patient's chart notes allergy to amoxicillin. Patient reports that she recently had an antibiotic for UTI following which she broke out into a diffuse rash she is uncertain which antibiotic this was but reports that it was likely penicillin . For this reason preferring cefazolin over nafcillin for now. Start gentamicin 3 mg/kg IV every 24 hours in addition to cefazolin. Additionally plan to add rifampin 300 mg 3 times daily, however this would need to wait until we can switch her HIV regimen over. Patient is currently on Biktarvy, rifampin is contraindicated with Biktarvy. Will switch HIV regimen to Atripla and start rifampin alongside. This will need to wait until outpatient pharmacy will be open after as a Atripla or any other HIV medicine is not currently available on formulary as an inpatient. Follow-up blood culture from 825 is currently pending. If patient remains persistently bacteremic or has signs or symptoms of worsening heart failure, will likely need urgent surgery. (2) Endocarditis due to methicillin susceptible Staphylococcus aureus (MSSA): MSSA positive blood cultures as noted above. (3) HIV (human immunodeficiency virus infection): Currently on treatment with Biktarvy since 2019 at which time HIV was a new diagnosis for the patient.. Patient did not complete viral load and CD4 as ordered in September 2024. Last viral load from April 2024 was undetectable. CD4 count from June 2023 at 984. Viral load and CD4 ordered today. Will likely need to switch therapy from Biktarvy to Atripla to enable use of rifampin for endocarditis. (4) Hepatitis C: History of hepatitis C. Patient was first diagnosed in 2019. Patient stated that she had completed Mavyret with Dr. Whalen at that time. HCVRNA rechecked in 2023 was still positive with a log of 6.83. She was retreated with Vosevi in late 2023. Posttreatment HCVRNA was ordered in September however has not been completed. Will check today. Liver imaging from February 2024 had shown a slightly nodular surface of the liver concerning for cirrhosis. She is due for annual HCC surveillance imaging, will obtain repeat imaging while she is currently admitted. (5) Screen for STD (sexually transmitted disease): Patient has a diffuse papular rash affecting face, bilateral upper extremities and legs. She thinks this was related to recent use of an antibiotic however uncertain which one this was. Rash concerning for potentially secondary syphilis. Will check RPR with reflex, FTA-ABS from the serum. Lumbar puncture was obtained upon admission which showed CSF WBC of 8, CSF glucose of 76 and a normal total protein. Given the above picture less likely to be bacterial meningitis however will obtain VDRL from CSF to rule out neurosyphilis. (6) Diffuse papular rash: Patient states this is currently improving. Uncertain cause. May be related to recent outpatient medication use. Syphilis screen pending. (7) Liver cirrhosis: Known liver cirrhosis, repeat abdominal imaging to assess for HCC surveillance (8) Thrombocytopenia: Acute thrombocytopenia most likely related to endocarditis, possibly also contributed by liver cirrhosis. (9) Septic embolism: Plan January 20, 2025 Daily labs not available today. Febrile to 100.9 Fahrenheit. Blood cultures from January 18, 2025 reported positive for Staphylococcus aureus, presumably will be MSSA compatible with prior cultures from the . Repeat blood cultures from 04/21/2025 are pending so far. Patient started treatment with cefazolin 2 g IV every 8 hours along with gentamicin 3 mg/kg IV every 24 hours on January 19, 2025. Aiming to add rifampin 300 mg 3 times daily once we obtain Atripla, anticipated by tomorrow. In the interim continue Biktarvy for HIV. Pending HIV viral load, CD4 count and HCVRNA. If fails to respond to antibiotic treatment alone, may need to transfer for cardiothoracic surgery and consideration for surgical intervention. This has been discussed with the patient. January 21, 2025 Tmax as noted above. Leukocytosis at 16,000 today. Thus far blood cultures from 01/19/2025 are negative. Started cefazolin plus gentamicin on January 18. Add rifampin 300 mg 3 times daily today. Discontinue Biktarvy and switch to Atripla to allow concomitant administration wth Rifampin January 22, 2025 Febrile to 102 Fahrenheit. Leukocytosis at 16,000, stable. CT of the thoracolumbar spine that was performed yesterday did not show any signs of osteomyelitis discitis or epidural abscess. Incidentally note was made of multiple pulmonary lesions which appeared to be septic emboli. These were most likely present on admission, discovered only yesterday. Platelet count is improving at 123 today. Blood culture from 01/19/2025 and from yesterday remains negative so far. Most patients with PVE are expected become afebrile three to five days after initiation of appropriate antimicrobial therapy. Patient is day 4 of cefazolin and gentamicin today. Patients with?Staphylococcus aureus?PVE may respond more slowly, remaining febrile for five to seven days after initiation of therapy. Currently patient is not exhibiting any signs of heart failure. Septic emboli were likely present on admission, detected on CT yesterday. CT of the abdomen and pelvis is being ordered today by the primary team to assess for any abdominal sources of infection given patient has persistent vomiting. Currently blood culture is negative as of January 19, 2025. If patient develops persisting bacteremia, persistent fever beyond 5 to 7 days of appropriate antibiotic therapy, it may be suggestive of a paravalvular extension of infection in which case a JESSE would recommended to be repeated. At this present time, as of the last echocardiogram there are no signs of prosthetic valve dysfunction or paravalvular extension of infection therefore continuation of IV antibiotics is recommended. Should there be a change in the cardiac status, patient may need to be referred for early valvular surgery. Continue cefazolin, gentamicin and rifampin. Gentamicin trough is due today. HIV viral load is not detected. HIV regimen changed from Biktarvy to Atripla to allow for concomitant administration of rifampin. HCVRNA not detected, correlating with successfully treated hepatitis C infection. Pending CD4 count. PDMP PDMP Reviewed: Not Reviewed Attestations Medical Necessity Statement*: Prosthetic valve endocarditis needing iv abx Coding Level of Care Code Acute Code for [facility] Diagnoses Prosthetic valve endocarditis T82.6XXA; I33.0 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; B95.61 HIV (human immunodeficiency virus infection) Z21 HIV symptom status: asymptomatic, with no history of HIV-related illness Chronic hepatitis C without hepatic coma B18.2 Viral hepatitis chronicity: chronic Hepatic coma status: without hepatic coma Screen for STD (sexually transmitted disease) Z11.3 Diffuse papular rash R21 Liver cirrhosis K74.60 Thrombocytopenia D69.6 Septic embolism I76
[2025-01-22 14:15] LABS: Gentamicin Trough 0.3 ug/mL (0.0-8.0)
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
[2025-01-22] MEDS: GENTAMICIN IV (16:13)
[2025-01-22] MEDS: SODIUM CHLORIDE 0.9% IV (16:13)
[2025-01-22] MEDS: prochlorperazine 10 mg Tablet 5 MG PO (16:31)
[2025-01-22] MEDS: iohexol 350 mg/mL 500 mL Btl (per mL) IV (17:23)
[2025-01-22 17:34] LABS: Absolute CD4 + Cells 500 cells/uL (490-1740); Absolute Lymphocytes 1309 cells/uL (850-3900); Absoulte CD8+Cells 478 cells/uL (180-1170); CD4/CD8 Ratio 1.04 (0.86-5.00); Percent CD8 37 % (12-42); Percentage CD4 38 % (30-61)
[2025-01-22] MEDS: ipratropium-albuterol 3 mL Neb INHALATION (20:11)
[2025-01-22] MEDS: mirtazapine 15 mg Tablet 30 MG PO (21:25)
[2025-01-22 23:24] LABS: Treponema pallidum Ab NON-REACTIVE
[2025-01-23] VITALS (11 sets, daily range): BP systolic 90–125; BP diastolic 59–83; PULSE 75–110; RESP 15–26; TEMP 36.7–38.4; O2SAT 93–96
[2025-01-23] MEDS: metoclopramide 5 mg/mL SDV 2 mL IVP ×3 (00:58→17:02)
[2025-01-23] MEDS: ceFAZolin 2,000 mg SDV 2000 MG IVP ×3 (00:59→17:44)
[2025-01-23] MEDS: acetaminophen 325 mg Tablet 650 MG PO (02:13)
[2025-01-23] MEDS: pantoprazole 40 mg SDV IVP (05:25)
[2025-01-23 06:34] LABS: Basophils # 0.1 10^3/uL (0.0-0.1); Basophils % 0.3 %; Eosinophils # 0.1 10^3/uL (0.0-0.8); Eosinophils % 0.4 %; Hematocrit 30.7 % (36-47); Lymphocytes # 2.4 10^3/uL (0.8-4.8); Lymphocytes % 12.8 %; Mean Corpuscular HGB Conc 33.9 g/dL (30-55); Mean Corpuscular Hemoglobin 28.8 pg (27-33); Mean Platelet Volume 11.6 fL (7.4-10.4); Monocytes # 1.9 10^3/uL (0.2-0.9); Monocytes % 10.2 %; Neutrophils # 13.56 10^3/uL (1.8-7.7); Neutrophils % 73.4 %; Nucleated Red Blood Cells % 0 %; Platelet Count 175 10^3/cmm (157-399); Red Blood Count 3.61 10^6/uL (3.85-5.65); Red Cell Distribution Width 13.6 % (12.1-15.1); White Blood Count 18.48 10^3/uL (3.29-11.43)
[2025-01-23 06:52] LABS: C Reactive Protein 144.1 mg/L (0.0-4.9)
[2025-01-23 06:53] LABS: Alanine Aminotransferase 10 U/L (0-33); Albumin Level 2.8 g/dL (3.5-5.2); Alkaline Phosphatase 92 U/L (35-105); Anion Gap 14.9 (5-19); Aspartate Amino Transferase 9 U/L (0-32); Blood Urea Nitrogen 6 mg/dL (6-20); Carbon Dioxide 27 mmol/L (22-29); Chloride 97 mmol/L (98-107); Creatinine Clr Calc Pharmacy 157.0035; Globulin 3.4 g/dL (1.3-4.6); Glomerular Filtration Rate 136.6 mL/min (90-130); Glucose 124 mg/dL (65-115); Osmolality Calculated 281 mOsm/kg (285-295); Sodium 136 mmol/L (136-145); Total Bilirubin 2.5 mg/dL (0.15-1.2); Total Protein 6.2 g/dL (6.6-8.7)
[2025-01-23 06:58] LABS: Erythrocyte Sedimentation Rate 24 mm/hr (0-15)
[2025-01-23 07:14] LABS: Slide Review Slide Review Perform
[2025-01-23 07:17] LABS: Potassium 2.9 mmol/L (3.5-5.1)
[2025-01-23 07:28] LABS: Adenovirus Not Detected (NOT DETECT); Chlamydia Pneumoniae Not Detected (NOT DETECT); Coronavirus 229E,HKU1,NL63,OC4 Not Detected (NOT DETECT); Human Metapneumovirus Not Detected (NOT DETECT); Human Rhinovirus/Enterovirus Not Detected (NOT DETECT); Influenza A Not Detected (NOT DETECT); Influenza A H1 Not Detected (NOT DETECT); Influenza A H1-2009 Not Detected (NOT DETECT); Influenza A H3 Not Detected (NOT DETECT); Influenza B Not Detected (NOT DETECT); Mycoplasma Pneumoniae Not Detected (NOT DETECT); Parainfluenza Virus Type 1 Not Detected (NOT DETECT); Parainfluenza Virus Type 2 Not Detected (NOT DETECT); Parainfluenza Virus Type 3 Not Detected (NOT DETECT); Parainfluenza Virus Type 4 Not Detected (NOT DETECT); Respiratory Syncytial Virus A Not Detected (NOT DETECT); Respiratory Syncytial Virus B Not Detected (NOT DETECT); SARS-COV-2 Not Detected (NOT DETECT)
[2025-01-23] MEDS: rifAMPin 300 mg Capsule PO ×3 (08:18→21:18)
[2025-01-23] MEDS: hyDROXYzine 25 mg Capsule PO ×2 (08:18→17:47)
[2025-01-23] MEDS: aspirin 81 mg EC Tablet PO (08:18)
[2025-01-23] MEDS: prochlorperazine 10 mg Tablet 5 MG PO (08:18)
[2025-01-23] MEDS: ATRIPLA 1 EACH PO (08:19)
[2025-01-23] MEDS: lidocaine 1% 5 ML in potassium chloride premix 100 ML 26.25 ML IV (09:06)
[2025-01-23] MEDS: potassium chloride ER 20 mEq Tablet 40 MEQ PO (09:12)
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
[2025-01-23] MEDS: ibuprofen Oral Susp 100 mg/5mL UDC 200 MG PO (14:10)
[2025-01-23] MEDS: potassium chloride ER 20 mEq Tablet 80 MEQ PO (14:10)
--- NOTE | 2025-01-23 14:18 | PM.PN ---
Vitals/I&O/Wt Last Vital Signs Temp 99.9 F H 01/23/25 11:14 Pulse 86 01/23/25 11:14 Resp 17 01/23/25 11:14 BP 91/62 01/23/25 11:14 Pulse Ox 93 01/23/25 11:14 O2 Del Method Room Air 01/23/25 11:14 O2 Flow Rate 91 01/22/25 00:00 01/22/25 01/23/25 01/23/25 22:59 06:59 14:59 Intake Total 226.6 / 226.6 205 / 205 Balance 226.6 / 226.6 205 / 205 Weight last 48 hrs Weight 80.739 kg Weight 80.286 kg Data 01/23/25 06:18 01/23/25 06:18 A&P PDMP PDMP Reviewed: Not Reviewed Coding Level of Care Code Acute Code for [facility]
--- NOTE | 2025-01-23 14:51 | P.PN_ITS ---
Subjective 2 Subjective: Infectious disease progress note. Patient febrile to 101 Fahrenheit overnight. Still complaining of nausea to be her most persistent symptom. Medications: Reviewed: Yes Medication Review Details: vancomycin 01/16-01/18; subtherapeutic trough at 4 prior to switch to cefazolin. Cefazolin 2 g IV every 8 hours started January 19-current gentamicin 3mg/kg iv every 24 hrs 01/19- current day rifampin 300mg TID 01/21- Bikatrvy- started 01/21 Atripla starting 01/22 Vitals/I&O/Wt Last Vital Signs Temp 99.9 F H 01/23/25 11:14 Pulse 86 01/23/25 11:14 Resp 17 01/23/25 11:14 BP 91/62 01/23/25 11:14 Pulse Ox 93 01/23/25 11:14 O2 Del Method Room Air 01/23/25 11:14 O2 Flow Rate 91 01/22/25 00:00 01/22/25 01/23/25 01/23/25 22:59 06:59 14:59 Intake Total 226.6 / 226.6 205 / 205 Balance 226.6 / 226.6 205 / 205 Weight last 48 hrs Weight 80.739 kg Weight 80.286 kg Physical Exam 2 Narrative: General: awake, alert and oriented x 3 HEENT: PERRLA, pupils bilaterally equal and reactive, pallors not present Chest: Normal vesicular breath sounds, no added sounds, equal good air entry bilaterally CVS: S1-S2 regular, no murmurs, no tachycardia, no gallops, no rubs Abdomen: Soft, nontender, no organomegaly, bowel sounds present Neuro: No focal deficits, no facial deformity, AO x3, power 5/5 in all limbs Extremities: Unchanged rash over face, bilateral upper extremities and lower extremities. Data 01/23/25 06:18 01/23/25 06:18 Micro: Microbiology 01/21/25 04:29 Blood Culture - Preliminary Blood NEGATIVE TO DATE 01/21/25 04:20 Blood Culture - Preliminary Blood NEGATIVE TO DATE 01/18/25 16:05 Blood Culture - Preliminary Blood Staphylococcus aureus M.I.C. RX --------- ------ * Ciprofloxacin <=1 S * Clindamycin <=0.5 S * Erythromycin <=0.5 S * Levofloxacin <=1 S * Linezolid 4 S * Moxifloxacin <=0.5 S * Oxacillin <=0.25 S * Penicillin >8 R * Rifampin <=1 S * Tetracycline <=4 S * Trimethoprim/Sulfamethoxazole <=0.5/9.5 S Vancomycin 2 S Daptomycin <=0.5 S [id number] U #: [id number] AGE/SX: 39/F ROOM: 255 R E01/17/[address]: Jae Florez MD : 1985 BED: 1 D IS: FAX #: STATUS: ADM IN TLOC: Spec #: [id number] Valorie: 01/19/25 Status: RES Req #: [id number] Recd: 01/19/[address]: Neto Jara MD Src: Blood SpDesc: Ordered: Bcult Procedure Result Verified Site Blood Culture Preliminary 01/20/25 NEGATIVE TO DATE Blood Culture Preliminary (changed) 01/19/25 SPECIMEN COLLECTED A&P Assessment and plan (1) Prosthetic valve endocarditis: 39-year-old lady with history of HIV and hepatitis C, unfortunately relapsed with regards to IV drug use currently 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 Blood cultures are positive for MSSA from day of admission. Follow-up blood cultures from 04/20/2025 are pending to date. Noted to have a 1 x 1 cm vegetation on the tricuspid valve. All clinical signs and symptoms consistent with prosthetic valve endocarditis. Discontinue vancomycin Start cefazolin 2 g IV every 8 hours. Patient's chart notes allergy to amoxicillin. Patient reports that she recently had an antibiotic for UTI following which she broke out into a diffuse rash she is uncertain which antibiotic this was but reports that it was likely penicillin . For this reason preferring cefazolin over nafcillin for now. Start gentamicin 3 mg/kg IV every 24 hours in addition to cefazolin. Additionally plan to add rifampin 300 mg 3 times daily, however this would need to wait until we can switch her HIV regimen over. Patient is currently on Biktarvy, rifampin is contraindicated with Biktarvy. Will switch HIV regimen to Atripla and start rifampin alongside. This will need to wait until outpatient pharmacy will be open after as a Atripla or any other HIV medicine is not currently available on formulary as an inpatient. Follow-up blood culture from 825 is currently pending. If patient remains persistently bacteremic or has signs or symptoms of worsening heart failure, will likely need urgent surgery. (2) Endocarditis due to methicillin susceptible Staphylococcus aureus (MSSA): MSSA positive blood cultures as noted above. (3) HIV (human immunodeficiency virus infection): Currently on treatment with Biktarvy since 2019 at which time HIV was a new diagnosis for the patient.. Patient did not complete viral load and CD4 as ordered in September 2024. Last viral load from April 2024 was undetectable. CD4 count from June 2023 at 984. Viral load and CD4 ordered today. Will likely need to switch therapy from Biktarvy to Atripla to enable use of rifampin for endocarditis. (4) Hepatitis C: History of hepatitis C. Patient was first diagnosed in 2019. Patient stated that she had completed Mavyret with Dr. Whalen at that time. HCVRNA rechecked in 2023 was still positive with a log of 6.83. She was retreated with Vosevi in late 2023. Posttreatment HCVRNA was ordered in September however has not been completed. Will check today. Liver imaging from February 2024 had shown a slightly nodular surface of the liver concerning for cirrhosis. She is due for annual HCC surveillance imaging, will obtain repeat imaging while she is currently admitted. (5) Screen for STD (sexually transmitted disease): Patient has a diffuse papular rash affecting face, bilateral upper extremities and legs. She thinks this was related to recent use of an antibiotic however uncertain which one this was. Rash concerning for potentially secondary syphilis. Will check RPR with reflex, FTA-ABS from the serum. Lumbar puncture was obtained upon admission which showed CSF WBC of 8, CSF glucose of 76 and a normal total protein. Given the above picture less likely to be bacterial meningitis however will obtain VDRL from CSF to rule out neurosyphilis. (6) Diffuse papular rash: Patient states this is currently improving. Uncertain cause. May be related to recent outpatient medication use. Syphilis screen pending. (7) Liver cirrhosis: Known liver cirrhosis, repeat abdominal imaging to assess for HCC surveillance (8) Thrombocytopenia: Acute thrombocytopenia most likely related to endocarditis, possibly also contributed by liver cirrhosis. (9) Septic embolism: Plan January 20, 2025 Daily labs not available today. Febrile to 100.9 Fahrenheit. Blood cultures from January 18, 2025 reported positive for Staphylococcus aureus, presumably will be MSSA compatible with prior cultures from the . Repeat blood cultures from 04/21/2025 are pending so far. Patient started treatment with cefazolin 2 g IV every 8 hours along with gentamicin 3 mg/kg IV every 24 hours on January 19, 2025. Aiming to add rifampin 300 mg 3 times daily once we obtain Atripla, anticipated by tomorrow. In the interim continue Biktarvy for HIV. Pending HIV viral load, CD4 count and HCVRNA. If fails to respond to antibiotic treatment alone, may need to transfer for cardiothoracic surgery and consideration for surgical intervention. This has been discussed with the patient. January 21, 2025 Tmax as noted above. Leukocytosis at 16,000 today. Thus far blood cultures from 01/19/2025 are negative. Started cefazolin plus gentamicin on January 18. Add rifampin 300 mg 3 times daily today. Discontinue Biktarvy and switch to Atripla to allow concomitant administration wth Rifampin January 22, 2025 Febrile to 102 Fahrenheit. Leukocytosis at 16,000, stable. CT of the thoracolumbar spine that was performed yesterday did not show any signs of osteomyelitis discitis or epidural abscess. Incidentally note was made of multiple pulmonary lesions which appeared to be septic emboli. These were most likely present on admission, discovered only yesterday. Platelet count is improving at 123 today. Blood culture from 01/19/2025 and from yesterday remains negative so far. Most patients with PVE are expected become afebrile three to five days after initiation of appropriate antimicrobial therapy. Patient is day 4 of cefazolin and gentamicin today. Patients with?Staphylococcus aureus?PVE may respond more slowly, remaining febrile for five to seven days after initiation of therapy. Currently patient is not exhibiting any signs of heart failure. Septic emboli were likely present on admission, detected on CT yesterday. CT of the abdomen and pelvis is being ordered today by the primary team to assess for any abdominal sources of infection given patient has persistent vomiting. Currently blood culture is negative as of January 19, 2025. If patient develops persisting bacteremia, persistent fever beyond 5 to 7 days of appropriate antibiotic therapy, it may be suggestive of a paravalvular extension of infection in which case a JESSE would recommended to be repeated. At this present time, as of the last echocardiogram there are no signs of prosthetic valve dysfunction or paravalvular extension of infection therefore continuation of IV antibiotics is recommended. Should there be a change in the cardiac status, patient may need to be referred for early valvular surgery. Continue cefazolin, gentamicin and rifampin. Gentamicin trough is due today. HIV viral load is not detected. HIV regimen changed from Biktarvy to Atripla to allow for concomitant administration of rifampin. HCVRNA not detected, correlating with successfully treated hepatitis C infection. Pending CD4 count. January 23, 2025 Febrile 101 Fahrenheit. Leukocytosis at 18,000. CT of the abdomen and pelvis negative for any acute events. Reviewed demonstrated bilateral septic emboli involving the lungs. Platelet count continues to improve. Blood culture remaining negative so far from January 19 and January 21, 2025. Continue cefazolin, gentamicin (last trough at 0.3), and rifampin. Patient continues to be febrile to 101. Day 5 of organism directed therapy today started with cefazolin. If patient continues to be febrile over the next 24 hours, recommend to repeat JESSE to assess for any paravalvular extension of infection. Considered transitioning cefazolin to nafcillin, however patient reports allergy to amoxicillin as diffuse rash. Currently she has a rash affecting her face arms and legs which patient states started after being given amoxicillin recently for UTI. She is hesitant to switch therapy to nafcillin at this time. RPR negative. HIV viral load undetectable, CD4 count 500, HCV RNA undetectable. Unlikely [place] , PCT. PDMP PDMP Reviewed: Not Reviewed Attestations 2 Medical Necessity Statement*: Prosthetic valve endocarditis needing iv abx Coding Level of Care Code Acute Code for [facility] Diagnoses Prosthetic valve endocarditis T82.6XXA; I33.0 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; B95.61 HIV (human immunodeficiency virus infection) Z21 HIV symptom status: asymptomatic, with no history of HIV-related illness Chronic hepatitis C without hepatic coma B18.2 Viral hepatitis chronicity: chronic Hepatic coma status: without hepatic coma Screen for STD (sexually transmitted disease) Z11.3 Diffuse papular rash R21 Liver cirrhosis K74.60 Thrombocytopenia D69.6 Septic embolism I76
[2025-01-23] MEDS: GENTAMICIN IV (16:58)
[2025-01-23] MEDS: SODIUM CHLORIDE 0.9% IV (16:58)
--- NOTE | 2025-01-23 20:28 | PC.NURSE ---
Patient arrived from [facility] in w/c. Patient oriented to room and unit. Patient is working on meal tray and requests water.
[2025-01-23] MEDS: ipratropium-albuterol 3 mL Neb INHALATION (20:54)
[2025-01-23 21:01] LABS: RMSF IGG NOT DETECTED; RMSF IGM NOT DETECTED
[2025-01-23] MEDS: mirtazapine 15 mg Tablet 30 MG PO (21:18)
[2025-01-23 21:46] LABS: VDRL on CSF NON-REACTIVE
[2025-01-24] VITALS (56 sets, daily range): BP systolic 102–147; BP diastolic 69–88; PULSE 84–101; RESP 12–38; TEMP 37.1–38.2; O2SAT 93–96
[2025-01-24] MEDS: ceFAZolin 2,000 mg SDV 2000 MG IVP (00:42)
[2025-01-24] MEDS: metoclopramide 5 mg/mL SDV 2 mL IVP (01:01)
[2025-01-24] MEDS: pantoprazole 40 mg SDV IVP (05:24)
[2025-01-24] MEDS: ondansetron 2 mg/ML SDV 2 mL 4 MG IVP ×2 (05:24→13:35)
[2025-01-24 06:07] LABS: Basophils # 0.1 10^3/uL (0.0-0.1); Basophils % 0.2 %; Eosinophils % 0.2 %; Hematocrit 32.2 % (36-47); Lymphocytes # 2.1 10^3/uL (0.8-4.8); Lymphocytes % 9.9 %; Mean Corpuscular HGB Conc 32.9 g/dL (30-55); Mean Corpuscular Hemoglobin 28.5 pg (27-33); Mean Corpuscular Volume 86.6 fl (85-98); Mean Platelet Volume 10.9 fL (7.4-10.4); Monocytes # 1.8 10^3/uL (0.2-0.9); Monocytes % 8.2 %; Neutrophils # 16.91 10^3/uL (1.8-7.7); Nucleated Red Blood Cells % 0 %; Platelet Count 236 10^3/cmm (157-399); Red Blood Count 3.72 10^6/uL (3.85-5.65); Red Cell Distribution Width 13.9 % (12.1-15.1); White Blood Count 21.41 10^3/uL (3.29-11.43)
[2025-01-24 06:24] LABS: Erythrocyte Sedimentation Rate 48 mm/hr (0-15)
[2025-01-24 06:32] LABS: Alanine Aminotransferase 8 U/L (0-33); Albumin Level 2.9 g/dL (3.5-5.2); Alkaline Phosphatase 89 U/L (35-105); Anion Gap 17.6 (5-19); Aspartate Amino Transferase 11 U/L (0-32); Blood Urea Nitrogen 7 mg/dL (6-20); Calcium 8.1 mg/dL (8.5-10.5); Carbon Dioxide 22 mmol/L (22-29); Chloride 95 mmol/L (98-107); Creatinine Clr Calc Pharmacy 130.8363; Globulin 3.8 g/dL (1.3-4.6); Glomerular Filtration Rate 110.7 mL/min (90-130); Glucose 160 mg/dL (65-115); Osmolality Calculated 273 mOsm/kg (285-295); Potassium 3.6 mmol/L (3.5-5.1); Sodium 131 mmol/L (136-145); Total Bilirubin 1.6 mg/dL (0.15-1.2); Total Protein 6.7 g/dL (6.6-8.7)
[2025-01-24 06:36] LABS: C Reactive Protein 143.6 mg/L (0.0-4.9)
[2025-01-24] MEDS: rifAMPin 300 mg Capsule PO ×3 (10:09→21:05)
[2025-01-24] MEDS: ceFAZolin 2,000 MG in sodium chloride 0.9% (plus) 100 ML 200 MG IV ×2 (10:09→17:24)
[2025-01-24] MEDS: hyDROXYzine 25 mg Capsule PO ×2 (10:10→17:23)
[2025-01-24] MEDS: aspirin 81 mg EC Tablet PO (10:10)
[2025-01-24] MEDS: sodium chloride 0.9% (plus) 100 ML 200 ML (10:10)
[2025-01-24] MEDS: ATRIPLA 1 EACH PO (10:32)
--- NOTE | 2025-01-24 11:01 | PM.CONSULT ---
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 Transthoracic echocardiogram demonstrated possible mass on tricuspid prosthetic valve measuring 1 x 1 cm. She was started on appropriate antibiotic therapy on Sunday however is still having fevers and up trending WBC. ID and primary team requested transesophageal echocardiogram to rule out complications of the valve and accurate sizing of vegetation. Patient denies chest pain at this time. Review of Systems General: Reports: 10 or more systems reviewed and unremarkable except in HPI and below Medications/Allergies Home Medications ?Medication ?Instructions ?Recorded ?Confirmed ?Last Taken ?Type aspirin 81 mg tablet,delayed 81 mg PO DAILY 11/04/20 01/16/25 01/16/25 History release cyanocobalamin (vitamin B-12) 5,000 mcg PO DAILY 90 days #90 caps 12/27/20 01/16/25 01/16/25 Rx 5,000 mcg capsule etonogestrel 68 mg subdermal See Rx Instructions .Route .COMPLEX 02/24/22 01/16/25 04/05/22 History implant (Nexplanon) ondansetron 4 mg disintegrating 4 mg PO Q6H PRN Nausea 02/24/22 01/16/25 04/05/22 History tablet bictegravir 50 mg-emtricitabine 1 tab PO DAILY 90 days #90 tabs 10/07/24 01/16/25 01/16/25 Rx 200 mg-tenofovir alafenam 25 mg tablet (Biktarvy) hydroxyzine HCl 25 mg tablet 25 mg PO BID 01/16/25 01/16/25 01/15/25 History ketorolac 10 mg tablet 10 mg PO Q6H PRN Pain 01/16/25 01/16/25 01/16/25 History mirtazapine 15 mg tablet 15 mg PO BEDTIME 01/16/25 01/16/25 01/15/25 20:00 History efavirenz 600 mg-emtricitabine 200 1 tab PO DAILY 30 days #30 tabs 01/20/25 Unknown Rx mg-tenofovir disoprox 300 mg tablet Allergies Allergy/AdvReac Type Severity Reaction Status Date / Time amoxicillin Allergy Severe rash Verified 10/07/24 13:34 Current Medications Generic Name Dose Route Start Last Admin Trade Name Freq PRN Reason Stop Dose Admin Acetaminophen 650 mg 01/16/25 15:43 01/23/25 02:13 Acetaminophen 325 Mg Tablet PO 650 mg Q6H PRN Administration Mild/Mod Pain Or Temp >/= 101 Albuterol/Ipratropium 3 ml 01/18/25 03:19 01/23/25 20:54 Ipratropium-Albuterol 3 Ml Neb INHALATION 3 ml Q6H PRN Administration SHORTNESS OF BREATH Aspirin 81 mg 01/17/25 09:00 01/24/25 10:10 Aspirin 81 Mg Ec Tablet PO 81 mg DAILY TONA Administration Hydroxyzine Pamoate 25 mg 01/19/25 18:00 01/24/25 10:10 Hydroxyzine 25 Mg Capsule PO 25 mg BID TONA Administration Gentamicin Sulfate 264 mg/ 106.6 mls @ 213.2 mls/hr 01/23/25 16:00 01/23/25 17:44 Sodium Chloride IV Infused Q24H TONA Infusion As Directed Cefazolin Sodium 2,000 mg/ 100 mls @ 200 mls/hr 01/24/25 10:00 01/24/25 10:09 Sodium Chloride IV 200 mls/hr Q8H TONA Administration Ibuprofen 200 mg 01/23/25 12:00 01/24/25 05:44 Ibuprofen Oral Susp 100 Mg/5ml Udc PO Not Given Q6H TONA Lorazepam 0.5 mg 01/19/25 11:16 01/21/25 17:44 Lorazepam 1 Mg Tablet PO 0.5 mg Q8H PRN Administration ANXIETY Metoclopramide HCl 5 mg 01/21/25 10:03 01/24/25 01:01 Metoclopramide 5 Mg/Ml Sdv 2 Ml IVP 5 mg Q6H PRN Administration NAUSEA AND VOMITING Mirtazapine 30 mg 01/18/25 21:00 01/23/25 21:18 Mirtazapine 15 Mg Tablet PO 30 mg BEDTIME TONA Administration Non-Formulary Medication 1 tab 01/22/25 09:00 01/24/25 10:32 Atripla PO 1 tab DAILY TONA Administration Ondansetron HCl 4 mg 01/24/25 04:35 01/24/25 05:24 Ondansetron 2 Mg/Ml Sdv 2 Ml IVP 4 mg Q6H PRN Administration NAUSEA AND VOMITING Pantoprazole Sodium 40 mg 01/18/25 06:00 01/24/25 05:24 Pantoprazole 40 Mg Sdv IVP 40 mg Q24H TONA Administration Prochlorperazine 5 mg 01/16/25 15:43 01/23/25 08:18 Prochlorperazine 10 Mg Tablet PO 5 mg Q8H PRN Administration N/V Rifampin 300 mg 01/21/25 15:00 01/24/25 10:09 Rifampin 300 Mg Capsule PO 300 mg TID TONA Administration PFSH Acute PFSH: Medical History 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 HIV (human immunodeficiency virus infection) Hx of mitral valve prolapse Hepatitis C MSSA bacteremia History of congenital heart disease 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 Tricuspid regurgitation Congenital mitral valve prolapse IVDU (intravenous drug user) History of bacteremia Substance abuse Surgical History 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 History of tricuspid valve replacement Hx of cholecystectomy History of x2 History of appendectomy H/O mitral valve repair Family History Father Hepatitis C Diabetes Myocardial infarction Mother Lung disease Grandfather Congenital heart disease ASD with the mitral valve prolapse Dementia Grandmother Cancer Breast cancer maternal, 30's and again in 50's Ovarian cancer maternal, 30's Colon cancer maternal, 60 Denies family history of CAD (coronary artery disease) Clotting disorder Chronic kidney disease (CKD) Suicide Anesthesia complication Bleeding disorder Uterine cancer Thyroid disease Stroke Social History Smoking and tobacco/nicotine status: never used tobacco/nicotine Alcohol intake: never Substance/Drug Use: current Substance/Drug use frequency: daily Substance/Drug use type: Amphetamines Other substance/drug use details: Daily injected does not smoke because she did not like the taste of the smo Additional social history: CODE STATUS discussed with patient today she wants DNR 01/16/2025 Marital status: Single Marital status details: Lives alone family members do not know that she is back to using drugs 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 [] NECK: No jugular vein distension. [] HEENT: No cyanosis. No icterus. No pallor. [] HEART: Regular S1 and S2. Grade 3/6 systolic murmur LUNGS: Clear to auscultate bilaterally. [] CENTRAL NERVOUS SYSTEM: Grossly nonfocal. [] EXTREMITIES: Lower extremities with 1+ edema bilaterally. 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 NPO for now. Thank you for involving us with care of this patient. Please call with questions. PDMP PDMP Reviewed: Not Reviewed Consult Attestations Medical Necessity Statement: Care expected to cross 2 midnights. Coding Level of Care Code Acute Code for [facility] Diagnoses 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; B95.61 Prosthetic valve endocarditis T82.6XXA; I33.0
--- NOTE | 2025-01-24 11:15 | ANES.PREANE2 ---
Pre-Anesthetic Assessment Height/Weight: Height 5 ft 5 in Weight 178 lb Temp Pulse Resp BP Pulse Ox O2 Del Method O2 Flow Rate 99.2 F 91 18 110/88 96 Room Air 91 01/24/25 08:00 01/24/25 08:00 01/24/25 08:00 01/24/25 08:00 01/24/25 08:00 01/24/25 08:00 01/22/25 00:00 Preop Diagnosis: Concern for infective endocarditis Was Beta Jae taken within 24 hours: N/A Was Clonidine taken within 24 hours: N/A Social Alcohol Smokes marijuana daily Exam alert and oriented x 3 Airway Submandibular: within normal limits Cervical ROM: within normal limits Mallampati: Class I Comments: Comments: Edentulous Anesthetic Plan ASA status: 4 Anesthesia: MAC Other: Patient initially admitted 01/16/2025 with concern of infective endocarditis. Procalcitonin was 13 at admission Chronic methamphetamine abuse HIV positive, on home Biktarvy Hep C positive Smokes marijuana daily Tricuspid valve replacement in 2019 from IV drug abuse Labs from today reviewed, WBC 21.4, hemoglobin 10.6, NA 131 Echo performed on 01/13/2025 showing EF of 60% with tricuspid regurg and concern for vegetation Plan for MAC anesthesia Medications/Allergies Home Medications ?Medication ?Instructions ?Recorded ?Confirmed ?Last Taken ?Type aspirin 81 mg tablet,delayed 81 mg PO DAILY 11/04/20 01/16/25 01/16/25 History release cyanocobalamin (vitamin B-12) 5,000 mcg PO DAILY 90 days #90 caps 12/27/20 01/16/25 01/16/25 Rx 5,000 mcg capsule etonogestrel 68 mg subdermal See Rx Instructions .Route .COMPLEX 02/24/22 01/16/25 04/05/22 History implant (Nexplanon) ondansetron 4 mg disintegrating 4 mg PO Q6H PRN Nausea 02/24/22 01/16/25 04/05/22 History tablet bictegravir 50 mg-emtricitabine 1 tab PO DAILY 90 days #90 tabs 10/07/24 01/16/25 01/16/25 Rx 200 mg-tenofovir alafenam 25 mg tablet (Biktarvy) hydroxyzine HCl 25 mg tablet 25 mg PO BID 01/16/25 01/16/25 01/15/25 History ketorolac 10 mg tablet 10 mg PO Q6H PRN Pain 01/16/25 01/16/25 01/16/25 History mirtazapine 15 mg tablet 15 mg PO BEDTIME 01/16/25 01/16/25 01/15/25 20:00 History efavirenz 600 mg-emtricitabine 200 1 tab PO DAILY 30 days #30 tabs 01/20/25 Unknown Rx mg-tenofovir disoprox 300 mg tablet Allergies Allergy/AdvReac Type Severity Reaction Status Date / Time amoxicillin Allergy Severe rash Verified 10/07/24 13:34 Current Medications Generic Name Dose Route Start Last Admin Trade Name Freq PRN Reason Stop Dose Admin Acetaminophen 650 mg 01/16/25 15:43 01/23/25 02:13 Acetaminophen 325 Mg Tablet PO 650 mg Q6H PRN Administration Mild/Mod Pain Or Temp >/= 101 Albuterol/Ipratropium 3 ml 01/18/25 03:19 01/23/25 20:54 Ipratropium-Albuterol 3 Ml Neb INHALATION 3 ml Q6H PRN Administration SHORTNESS OF BREATH Aspirin 81 mg 01/17/25 09:00 01/24/25 10:10 Aspirin 81 Mg Ec Tablet PO 81 mg DAILY TONA Administration Hydroxyzine Pamoate 25 mg 01/19/25 18:00 01/24/25 10:10 Hydroxyzine 25 Mg Capsule PO 25 mg BID TONA Administration Gentamicin Sulfate 264 mg/ 106.6 mls @ 213.2 mls/hr 01/23/25 16:00 01/23/25 17:44 Sodium Chloride IV Infused Q24H TONA Infusion As Directed Cefazolin Sodium 2,000 mg/ 100 mls @ 200 mls/hr 01/24/25 10:00 01/24/25 10:09 Sodium Chloride IV 200 mls/hr Q8H TONA Administration Ibuprofen 200 mg 01/23/25 12:00 01/24/25 05:44 Ibuprofen Oral Susp 100 Mg/5ml Udc PO Not Given Q6H TONA Lorazepam 0.5 mg 01/19/25 11:16 01/21/25 17:44 Lorazepam 1 Mg Tablet PO 0.5 mg Q8H PRN Administration ANXIETY Metoclopramide HCl 5 mg 01/21/25 10:03 01/24/25 01:01 Metoclopramide 5 Mg/Ml Sdv 2 Ml IVP 5 mg Q6H PRN Administration NAUSEA AND VOMITING Mirtazapine 30 mg 01/18/25 21:00 01/23/25 21:18 Mirtazapine 15 Mg Tablet PO 30 mg BEDTIME TONA Administration Non-Formulary Medication 1 tab 01/22/25 09:00 01/24/25 10:32 Atripla PO 1 tab DAILY TONA Administration Ondansetron HCl 4 mg 01/24/25 04:35 01/24/25 05:24 Ondansetron 2 Mg/Ml Sdv 2 Ml IVP 4 mg Q6H PRN Administration NAUSEA AND VOMITING Pantoprazole Sodium 40 mg 01/18/25 06:00 01/24/25 05:24 Pantoprazole 40 Mg Sdv IVP 40 mg Q24H TONA Administration Prochlorperazine 5 mg 01/16/25 15:43 01/23/25 08:18 Prochlorperazine 10 Mg Tablet PO 5 mg Q8H PRN Administration N/V Rifampin 300 mg 01/21/25 15:00 01/24/25 10:09 Rifampin 300 Mg Capsule PO 300 mg TID TONA Administration Additional Medication Information vancomycin 01/16-01/18; subtherapeutic trough at 4 prior to switch to cefazolin. 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 HIV (human immunodeficiency virus infection) Hx of mitral valve prolapse Hepatitis C MSSA bacteremia History of congenital heart disease 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 Tricuspid regurgitation Congenital mitral valve prolapse IVDU (intravenous drug user) History of bacteremia Substance abuse Surgical History 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 History of tricuspid valve replacement Hx of cholecystectomy History of x2 History of appendectomy H/O mitral valve repair Family History Father Hepatitis C Diabetes Myocardial infarction Mother Lung disease Grandfather Congenital heart disease ASD with the mitral valve prolapse Dementia Grandmother Cancer Breast cancer maternal, 30's and again in 50's Ovarian cancer maternal, 30's Colon cancer maternal, 60 Denies family history of CAD (coronary artery disease) Clotting disorder Chronic kidney disease (CKD) Suicide Anesthesia complication Bleeding disorder Uterine cancer Thyroid disease Stroke Social History Smoking and tobacco/nicotine status: never used tobacco/nicotine Alcohol intake: never Substance/Drug Use: current Substance/Drug use frequency: daily Substance/Drug use type: Amphetamines Other substance/drug use details: Daily injected does not smoke because she did not like the taste of the smo Additional social history: CODE STATUS discussed with patient today she wants DNR 01/16/2025 Marital status: Single Marital status details: Lives alone family members do not know that she is back to using drugs 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5 H 1.6 H (0.15-1.2) mg/dL AST 9 11 (0-32) U/L ALT 10 8 (0-33) U/L Alkaline Phosphatase 92 89 (35-105) U/L Albumin 2.8 L 2.9 L (3.5-5.2) g/dL COVID Results 01/23/25 05:39 Coronavirus 229E (PCR) Not detected SARS-CoV-2 (PCR) Not detected Coags 01/22/25 01/22/25 01/23/25 05:05 10:36 06:18 ESR 16 H 24 H C-Reactive Protein 131.8 H 144.1 H 01/24/25 05:45 ESR 48 H C-Reactive Protein 143.6 H Microbiology 01/24/25 05:46 Blood Culture - Preliminary Blood SPECIMEN COLLECTED 01/24/25 05:45 Blood Culture - Preliminary Blood SPECIMEN COLLECTED 01/16/25 11:29 Blood Culture - Final Blood Staphylococcus aureus 01/19/25 02:41 Blood Culture - Final Blood Staphylococcus aureus 01/18/25 16:05 Blood Culture - Final Blood Staphylococcus aureus Cardiac Studies: Echocardiogram 01/17/25 Echocardiogram Ultrasound 01/17/20 Transesophageal Echocardiogram 01/20/20
--- NOTE | 2025-01-24 11:22 | W.PM.OPSUD ---
Surgery/Procedure H&P Update DATE OF PROCEDURE: January 24, 2025 DATE H&P PERFORMED: 01/24/25 H&P UPDATE INFORMATION: I have reviewed H&P completed within last 30 days, I have examined patient prior to procedure and No changes to prior documentation PREOP DIAGNOSIS: Assess for endocarditis/ valve complication PRIMARY INDICATION FOR PROCEDURE: Assess for endocarditis PLANNED PROCEDURE: Transesophageal echocardiogram Anesthesia team available
--- NOTE | 2025-01-24 11:41 | PC.NURSE ---
in icu 5 for procedure fernando time out done at bedside
--- NOTE | 2025-01-24 12:00 | USCV_ITS ---
Margarita Cortes Age: 39 Gender: F : 1985 Exam Date: 01/24/2025 11:30 Ordering Phys: Jae Florez MD Technologist: Elvis Chisholm [place] [facility] [place]: tricuspid valve ie BP: / HR: Rhythm: Sinus Technical Quality: Adequate MEASUREMENTS (Male / Female) Normal Values Medications Per anesthesia team Complications None Proc. Components After anesthesia team sedated patient, we proceeded with insertion of JESSE probe. FINDINGS Left Ventricle LV systolic function is normal Right Ventricle Normal in size and function Right Atrium Grossly normal Left Atrium Normal LA Appendage No left atrial appendage thrombus IA Septum Normal Mitral Valve Structurally normal mitral valve. Mild mitral regurgitation Aortic Valve Structurally normal aortic valve. Tricuspid Valve Prosthetic tricuspid valve. There is a large size 1.78x1.5cm vegetation seen on prosthetic valve. Mild tricuspid regurgitation. Pulmonic Valve Grossly normal Pericardium Normal Aorta Normal CONCLUSIONS LV systolic function is normal. No atrial left atrial appendage thrombus. Mild mitral regurgitation. Prosthetic tricuspid valve. There is a large 1.78 x 1.5 cm vegetation seen on prosthetic valve. Mild tricuspid regurgitation Tiago Forman MD (Electronically Signed) Final Date: 25 January 2025 12:17 S
--- NOTE | 2025-01-24 12:38 | PC.NURSE ---
report given and transfer back to room 105
--- NOTE | 2025-01-24 13:12 | PC.NURSE ---
Addendum entered by Gloria Pena RN 01/24/25 13:18: alert and awake and oriented x 4.denies pain.swallowing w/o diff. Original Note: pt was transferred to icu for brief period for fernando.she returned to room 105 at 1235.pt is alert and];\-\k0[facility]74
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
--- NOTE | 2025-01-24 15:18 | PM.PN ---
Subjective Subjective: ID progress note underwent JESSE today states that she feels much better today , nausea is improved, she is hungry and wants to eat T max 99.9F last 24 hrs she was started on NSAIDs yesterday Medications: Reviewed: Yes Medication Review Details: vancomycin 01/16-01/18; subtherapeutic trough at 4 prior to switch to cefazolin. Cefazolin 2 g IV every 8 hours started January 19-current gentamicin 3mg/kg iv every 24 hrs 01/19- current day 6 of rifampin 300mg TID 01/21- Bikatrvy- started 2019 to 01/21 Atripla starting 01/22 ; needs VL check in one month Vitals/I&O/Wt Last Vital Signs Temp 99.2 F 01/24/25 08:00 Pulse 91 01/24/25 10:50 Resp 31 H 01/24/25 10:50 BP 110/88 01/24/25 11:45 Pulse Ox 96 01/24/25 08:00 O2 Del Method Room Air 01/24/25 08:00 O2 Flow Rate 91 01/22/25 00:00 01/22/25 01/23/25 01/23/25 22:59 06:59 14:59 Intake Total 226.6 / 226.6 205 / 205 Balance 226.6 / 226.6 205 / 205 Weight last 48 hrs Weight 80.739 kg Physical Exam Narrative: General: awake, alert and oriented x 3 HEENT: PERRLA, pupils bilaterally equal and reactive, pallors not present Chest: Normal vesicular breath sounds, no added sounds, equal good air entry bilaterally CVS: S1-S2 regular, no murmurs, no tachycardia, no gallops, no rubs Abdomen: Soft, nontender, no organomegaly, bowel sounds present Neuro: No focal deficits, no facial deformity, AO x3, power 5/5 in all limbs Extremities: Unchanged rash over face, bilateral upper extremities and lower extremities. Data 01/24/25 05:45 01/24/25 05:45 Micro: Microbiology 01/24/25 05:46 Blood Culture - Preliminary Blood SPECIMEN COLLECTED 01/24/25 05:45 Blood Culture - Preliminary Blood SPECIMEN COLLECTED 01/16/25 11:29 Blood Culture - Final Blood Staphylococcus aureus 01/19/25 02:41 Blood Culture - Final Blood Staphylococcus aureus 01/18/25 16:05 Blood Culture - Final Blood Staphylococcus aureus 01/21/25 04:29 Blood Culture - Preliminary Blood NEGATIVE TO DATE 01/21/25 04:20 Blood Culture - Preliminary Blood NEGATIVE TO DATE 01/18/25 16:05 Blood Culture - Preliminary Blood Staphylococcus aureus M.I.C. RX --------- ------ * Ciprofloxacin <=1 S * Clindamycin <=0.5 S * Erythromycin <=0.5 S * Levofloxacin <=1 S * Linezolid 4 S * Moxifloxacin <=0.5 S * Oxacillin <=0.25 S * Penicillin >8 R * Rifampin <=1 S * Tetracycline <=4 S * Trimethoprim/Sulfamethoxazole <=0.5/9.5 S Vancomycin 2 S Daptomycin <=0.5 S SPECIMEN COLLECTED NAME: Margarita Cortes LOC: [facility] U #: [id number] AGE/SX: 39/F ROOM: [facility] RE01/17/[address]: Jae Florez MD : 1985 BED: 1 DIS: FAX #: STATUS: ADM IN TLOC: Spec #: [id number] Valorie: 01/19/25-024 Status: COMP Req #: [id number] Recd: 01/19/25-[address]: Neto Jara MD Src: Blood SpDesc: Ordered: Bcult Procedure Result Verified Site Blood Culture Final 01/23/25-1533 3 OF 4 BOTTLES POSITIVE DIRECT GRAM STAIN: GRAM POSITIVE COCCI IN CLUSTERS SENSITIVITIES ON [id number] Organism 1 Staphylococcus aureus Growth 3 BOTTLES Gram Stain Charge Charge for Gram Stain CRITICAL RESULT YES/NO: YES CRITICAL CALLED BY: RT TO AND READ BACK BY: ZEB DATE: 01/19/25 TIME: 1629 A&P Assessment and plan (1) Prosthetic valve endocarditis: 39-year-old lady with history of HIV and hepatitis C, unfortunately relapsed with regards to IV drug use currently 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 Blood cultures are positive for MSSA from day of admission. Follow-up blood cultures from 04/20/2025 are pending to date. Noted to have a 1 x 1 cm vegetation on the tricuspid valve. All clinical signs and symptoms consistent with prosthetic valve endocarditis. Discontinue vancomycin Start cefazolin 2 g IV every 8 hours. Patient's chart notes allergy to amoxicillin. Patient reports that she recently had an antibiotic for UTI following which she broke out into a diffuse rash she is uncertain which antibiotic this was but reports that it was likely penicillin . For this reason preferring cefazolin over nafcillin for now. Start gentamicin 3 mg/kg IV every 24 hours in addition to cefazolin. Additionally plan to add rifampin 300 mg 3 times daily, however this would need to wait until we can switch her HIV regimen over. Patient is currently on Biktarvy, rifampin is contraindicated with Biktarvy. Will switch HIV regimen to Atripla and start rifampin alongside. This will need to wait until outpatient pharmacy will be open after as a Atripla or any other HIV medicine is not currently available on formulary as an inpatient. Follow-up blood culture from 825 is currently pending. If patient remains persistently bacteremic or has signs or symptoms of worsening heart failure, will likely need urgent surgery. (2) Endocarditis due to methicillin susceptible Staphylococcus aureus (MSSA): MSSA positive blood cultures as noted above. (3) HIV (human immunodeficiency virus infection): Currently on treatment with Biktarvy since 2019 at which time HIV was a new diagnosis for the patient.. Patient did not complete viral load and CD4 as ordered in September 2024. Last viral load from April 2024 was undetectable. CD4 count from June 2023 at 984. Viral load and CD4 ordered today. Will likely need to switch therapy from Biktarvy to Atripla to enable use of rifampin for endocarditis. (4) Hepatitis C: History of hepatitis C. Patient was first diagnosed in 2019. Patient stated that she had completed Mavyret with Dr. Whalen at that time. HCVRNA rechecked in 2023 was still positive with a log of 6.83. She was retreated with Vosevi in late 2023. Posttreatment HCVRNA was ordered in September however has not been completed. Will check today. Liver imaging from February 2024 had shown a slightly nodular surface of the liver concerning for cirrhosis. She is due for annual HCC surveillance imaging, will obtain repeat imaging while she is currently admitted. (5) Screen for STD (sexually transmitted disease): Patient has a diffuse papular rash affecting face, bilateral upper extremities and legs. She thinks this was related to recent use of an antibiotic however uncertain which one this was. Rash concerning for potentially secondary syphilis. Will check RPR with reflex, FTA-ABS from the serum. Lumbar puncture was obtained upon admission which showed CSF WBC of 8, CSF glucose of 76 and a normal total protein. Given the above picture less likely to be bacterial meningitis however will obtain VDRL from CSF to rule out neurosyphilis. (6) Diffuse papular rash: Patient states this is currently improving. Uncertain cause. May be related to recent outpatient medication use. Syphilis screen pending. (7) Liver cirrhosis: Known liver cirrhosis, repeat abdominal imaging to assess for HCC surveillance (8) Thrombocytopenia: Acute thrombocytopenia most likely related to endocarditis, possibly also contributed by liver cirrhosis. (9) Septic embolism: Plan January 20, 2025 Daily labs not available today. Febrile to 100.9 Fahrenheit. Blood cultures from January 18, 2025 reported positive for Staphylococcus aureus, presumably will be MSSA compatible with prior cultures from the . Repeat blood cultures from 04/21/2025 are pending so far. Patient started treatment with cefazolin 2 g IV every 8 hours along with gentamicin 3 mg/kg IV every 24 hours on January 19, 2025. Aiming to add rifampin 300 mg 3 times daily once we obtain Atripla, anticipated by tomorrow. In the interim continue Biktarvy for HIV. Pending HIV viral load, CD4 count and HCVRNA. If fails to respond to antibiotic treatment alone, may need to transfer for cardiothoracic surgery and consideration for surgical intervention. This has been discussed with the patient. January 21, 2025 Tmax as noted above. Leukocytosis at 16,000 today. Thus far blood cultures from 01/19/2025 are negative. Started cefazolin plus gentamicin on January 18. Add rifampin 300 mg 3 times daily today. Discontinue Biktarvy and switch to Atripla to allow concomitant administration wth Rifampin January 22, 2025 Febrile to 102 Fahrenheit. Leukocytosis at 16,000, stable. CT of the thoracolumbar spine that was performed yesterday did not show any signs of osteomyelitis discitis or epidural abscess. Incidentally note was made of multiple pulmonary lesions which appeared to be septic emboli. These were most likely present on admission, discovered only yesterday. Platelet count is improving at 123 today. Blood culture from 01/19/2025 and from yesterday remains negative so far. Most patients with PVE are expected become afebrile three to five days after initiation of appropriate antimicrobial therapy. Patient is day 4 of cefazolin and gentamicin today. Patients with?Staphylococcus aureus?PVE may respond more slowly, remaining febrile for five to seven days after initiation of therapy. Currently patient is not exhibiting any signs of heart failure. Septic emboli were likely present on admission, detected on CT yesterday. CT of the abdomen and pelvis is being ordered today by the primary team to assess for any abdominal sources of infection given patient has persistent vomiting. Currently blood culture is negative as of January 19, 2025. If patient develops persisting bacteremia, persistent fever beyond 5 to 7 days of appropriate antibiotic therapy, it may be suggestive of a paravalvular extension of infection in which case a JESSE would recommended to be repeated. At this present time, as of the last echocardiogram there are no signs of prosthetic valve dysfunction or paravalvular extension of infection therefore continuation of IV antibiotics is recommended. Should there be a change in the cardiac status, patient may need to be referred for early valvular surgery. Continue cefazolin, gentamicin and rifampin. Gentamicin trough is due today. HIV viral load is not detected. HIV regimen changed from Biktarvy to Atripla to allow for concomitant administration of rifampin. HCVRNA not detected, correlating with successfully treated hepatitis C infection. Pending CD4 count. January 23, 2025 Febrile 101 Fahrenheit. Leukocytosis at 18,000. CT of the abdomen and pelvis negative for any acute events. Reviewed demonstrated bilateral septic emboli involving the lungs. Platelet count continues to improve. Blood culture remaining negative so far from January 19 and January 21, 2025. Continue cefazolin, gentamicin (last trough at 0.3), and rifampin. Patient continues to be febrile to 101. Day 5 of organism directed therapy today started with cefazolin. If patient continues to be febrile over the next 24 hours, recommend to repeat JESSE to assess for any paravalvular extension of infection. Considered transitioning cefazolin to nafcillin, however patient reports allergy to amoxicillin as diffuse rash. Currently she has a rash affecting her face arms and legs which patient states started after being given amoxicillin recently for UTI. She is hesitant to switch therapy to nafcillin at this time. RPR negative. HIV viral load undetectable, CD4 count 500, HCV RNA undetectable. Unlikely [place] , PCT. January 24, 2025 T max 99F now. Feels much better today, less nausesous, wants to eat today. leukocytosis at 21K, uptrending from 18K, however clinically patient appears better today. JESSE completed. Large vegetation of 1.7 x 1.8 cm on tricuspid valve with mild TR per verbal report, No paravalvular extension of infection or abscess noted. Blood cx last + on 01/19, thus far negative from 01/21. Continue Cefazolin 2g iv every 8 hrs, gentamicin and rifampin. Cr reviewed normal. PDMP PDMP Reviewed: Not Reviewed Attestations Medical Necessity Statement*: Prosthetic valve endocarditis needing iv abx Coding Level of Care Code Acute Code for [facility] Diagnoses Prosthetic valve endocarditis T82.6XXA; I33.0 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; B95.61 HIV (human immunodeficiency virus infection) Z21 HIV symptom status: asymptomatic, with no history of HIV-related illness Chronic hepatitis C without hepatic coma B18.2 Viral hepatitis chronicity: chronic Hepatic coma status: without hepatic coma Screen for STD (sexually transmitted disease) Z11.3 Diffuse papular rash R21 Liver cirrhosis K74.60 Thrombocytopenia D69.6 Septic embolism I76
[2025-01-24] MEDS: GENTAMICIN IV (16:36)
[2025-01-24] MEDS: SODIUM CHLORIDE 0.9% IV (16:36)
[2025-01-24 16:49] LABS: E. Chaffeensis AB IGG <1:64; E. Chaffeensis AB IGM <1:20
[2025-01-24] MEDS: ibuprofen Oral Susp 100 mg/5mL UDC 200 MG PO (17:24)
[2025-01-24] MEDS: heparin 5,000 unit/mL INJ 1 mL 5000 UNIT SUBCUT (17:24)
[2025-01-24] MEDS: mirtazapine 15 mg Tablet 30 MG PO (21:05)
[2025-01-24] MEDS: prochlorperazine 10 mg Tablet 5 MG PO (21:05)
[2025-01-24] MEDS: acetaminophen 325 mg Tablet 650 MG PO (21:10)
[2025-01-25] VITALS (8 sets, daily range): BP systolic 87–103; BP diastolic 66–81; PULSE 80–116; RESP 18–47; TEMP 36.8–39.4; O2SAT 92–96
[2025-01-25] MEDS: LORazepam 1 mg Tablet 0.5 MG PO (00:07)
[2025-01-25] MEDS: ceFAZolin 2,000 MG in sodium chloride 0.9% (plus) 100 ML 200 MG IV ×3 (01:55→20:27)
[2025-01-25] MEDS: ondansetron 2 mg/ML SDV 2 mL 4 MG IVP (05:08)
[2025-01-25] MEDS: pantoprazole 40 mg SDV IVP (05:08)
[2025-01-25] MEDS: heparin 5,000 unit/mL INJ 1 mL 5000 UNIT SUBCUT ×2 (05:08→18:26)
[2025-01-25 06:34] LABS: Basophils # 0.1 10^3/uL (0.0-0.1); Basophils % 0.3 %; Eosinophils # 0.1 10^3/uL (0.0-0.8); Eosinophils % 0.5 %; Hematocrit 34.7 % (36-47); Lymphocytes # 1.3 10^3/uL (0.8-4.8); Lymphocytes % 7.1 %; Mean Corpuscular Hemoglobin 28.5 pg (27-33); Monocytes # 0.9 10^3/uL (0.2-0.9); Monocytes % 5.3 %; Neutrophils # 14.84 10^3/uL (1.8-7.7); Neutrophils % 84.5 %; Nucleated Red Blood Cells % 0 %; Platelet Count 269 10^3/cmm (157-399); Red Cell Distribution Width 14.2 % (12.1-15.1); White Blood Count 17.58 10^3/uL (3.29-11.43)
[2025-01-25 06:38] LABS: Erythrocyte Sedimentation Rate 61 mm/hr (0-15)
[2025-01-25 06:55] LABS: Alanine Aminotransferase 8 U/L (0-33); Albumin Level 2.9 g/dL (3.5-5.2); Alkaline Phosphatase 88 U/L (35-105); Aspartate Amino Transferase 14 U/L (0-32); Blood Urea Nitrogen 10 mg/dL (6-20); Calcium 7.9 mg/dL (8.5-10.5); Carbon Dioxide 22 mmol/L (22-29); Creatinine Clr Calc Pharmacy 157.0035; Globulin 4.1 g/dL (1.3-4.6); Glomerular Filtration Rate 136.6 mL/min (90-130); Glucose 228 mg/dL (65-115); Total Bilirubin 1.8 mg/dL (0.15-1.2)
[2025-01-25 06:56] LABS: C Reactive Protein 121.6 mg/L (0.0-4.9)
[2025-01-25 07:11] LABS: Chloride 93 mmol/L (98-107); Osmolality Calculated 270 mOsm/kg (285-295); Sodium 127 mmol/L (136-145)
[2025-01-25 07:38] LABS: Anion Gap 15.5 (5-19); Potassium 3.5 mmol/L (3.5-5.1)
[2025-01-25] MEDS: ATRIPLA 1 EACH PO (08:39)
[2025-01-25] MEDS: hyDROXYzine 25 mg Capsule PO ×2 (08:39→18:27)
[2025-01-25] MEDS: aspirin 81 mg EC Tablet PO (08:40)
[2025-01-25] MEDS: rifAMPin 300 mg Capsule PO ×3 (08:40→20:22)
[2025-01-25] MEDS: metoclopramide 5 mg/mL SDV 2 mL IVP ×2 (11:03→20:24)
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
--- NOTE | 2025-01-25 12:28 | PM.PN ---
Subjective Subjective: Infectious disease progress note No acute interim events. Patient states she feels much better today. She has been avoiding taking any Tylenol or ibuprofen as she thinks it is giving her gastritis. She is able to finish her breakfast today. She has more energy and states she feels much improved compared to admission date. Leukocytosis is stable at 17,000 today. Blood culture remains negative thus far from 01/21 and January 24. Medications: Reviewed: Yes Medication Review Details: vancomycin 01/16-01/18; subtherapeutic trough at 4 prior to switch to cefazolin. Cefazolin 2 g IV every 8 hours started January 19-current gentamicin 3mg/kg iv every 24 hrs 01/19- current day 7 rifampin 300mg TID 01/21- [facility]- started 2019 to 01/21 Atripla starting 01/22 Vitals/I&O/Wt Last Vital Signs Temp 102.9 F H 01/25/25 12:00 Pulse 89 01/25/25 12:00 Resp 26 H 01/25/25 12:00 BP 92/69 01/25/25 12:00 Pulse Ox 96 01/25/25 12:00 O2 Del Method Room Air 01/25/25 12:00 O2 Flow Rate 91 01/22/25 00:00 01/24/25 01/25/25 01/25/25 22:59 06:59 14:59 Intake Total 544.6 / 644.6 100 / 744.6 120 / 120 Output Total 200 / 200 300 / 300 Balance 344.6 / 444.6 100 / 544.6 -180 / -180 Physical Exam Narrative: General: No acute distress, AO x3 HEENT: PERRLA, pupils bilaterally equal and reactive, pallors not present Chest: Normal vesicular breath sounds, no added sounds, equal good air entry bilaterally CVS: S1-S2 regular, no murmurs, no tachycardia, no gallops, no rubs Abdomen: Soft, nontender, no organomegaly, bowel sounds present Neuro: No focal deficits, no facial deformity, AO x3, power 5/5 in all limbs Data 01/25/25 06:14 01/25/25 06:14 Micro: Microbiology 01/24/25 05:46 Blood Culture - Preliminary Blood NEGATIVE TO DATE 01/24/25 05:45 Blood Culture - Preliminary Blood NEGATIVE TO DATE Other data: Date of Service: 01/24/25 Procedure(s): CV req echo JESSE bedside [id number] CONCLUSIONS LV systolic function is normal. No atrial left atrial appendage thrombus. Mild mitral regurgitation. Prosthetic tricuspid valve. There is a large 1.78 x 1.5 cm vegetation seen on prosthetic valve. 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 Blood cultures are positive for MSSA from day of admission. Follow-up blood cultures from 04/20/2025 are pending to date. Noted to have a 1 x 1 cm vegetation on the tricuspid valve. All clinical signs and symptoms consistent with prosthetic valve endocarditis. Discontinue vancomycin Start cefazolin 2 g IV every 8 hours. Patient's chart notes allergy to amoxicillin. Patient reports that she recently had an antibiotic for UTI following which she broke out into a diffuse rash she is uncertain which antibiotic this was but reports that it was likely penicillin . For this reason preferring cefazolin over nafcillin for now. Start gentamicin 3 mg/kg IV every 24 hours in addition to cefazolin. Additionally plan to add rifampin 300 mg 3 times daily, however this would need to wait until we can switch her HIV regimen over. Patient is currently on Biktarvy, rifampin is contraindicated with Biktarvy. Will switch HIV regimen to Atripla and start rifampin alongside. This will need to wait until outpatient pharmacy will be open after as a Atripla or any other HIV medicine is not currently available on formulary as an inpatient. Follow-up blood culture from 825 is currently pending. If patient remains persistently bacteremic or has signs or symptoms of worsening heart failure, will likely need urgent surgery. (2) Endocarditis due to methicillin susceptible Staphylococcus aureus (MSSA): MSSA positive blood cultures as noted above. (3) HIV (human immunodeficiency virus infection): Currently on treatment with Biktarvy since 2019 at which time HIV was a new diagnosis for the patient.. Patient did not complete viral load and CD4 as ordered in September 2024. Last viral load from April 2024 was undetectable. CD4 count from June 2023 at 984. Viral load and CD4 ordered today. Will likely need to switch therapy from Biktarvy to Atripla to enable use of rifampin for endocarditis. (4) Hepatitis C: History of hepatitis C. Patient was first diagnosed in 2019. Patient stated that she had completed Mavyret with Dr. Whalen at that time. HCVRNA rechecked in 2023 was still positive with a log of 6.83. She was retreated with Vosevi in late 2023. Posttreatment HCVRNA was ordered in September however has not been completed. Will check today. Liver imaging from February 2024 had shown a slightly nodular surface of the liver concerning for cirrhosis. She is due for annual HCC surveillance imaging, will obtain repeat imaging while she is currently admitted. (5) Screen for STD (sexually transmitted disease): Patient has a diffuse papular rash affecting face, bilateral upper extremities and legs. She thinks this was related to recent use of an antibiotic however uncertain which one this was. Rash concerning for potentially secondary syphilis. Will check RPR with reflex, FTA-ABS from the serum. Lumbar puncture was obtained upon admission which showed CSF WBC of 8, CSF glucose of 76 and a normal total protein. Given the above picture less likely to be bacterial meningitis however will obtain VDRL from CSF to rule out neurosyphilis. (6) Diffuse papular rash: Patient states this is currently improving. Uncertain cause. May be related to recent outpatient medication use. Syphilis screen pending. (7) Liver cirrhosis: Known liver cirrhosis, repeat abdominal imaging to assess for HCC surveillance (8) Thrombocytopenia: Acute thrombocytopenia most likely related to endocarditis, possibly also contributed by liver cirrhosis. (9) Septic embolism: Plan January 20, 2025 Daily labs not available today. Febrile to 100.9 Fahrenheit. Blood cultures from January 18, 2025 reported positive for Staphylococcus aureus, presumably will be MSSA compatible with prior cultures from the . Repeat blood cultures from 04/21/2025 are pending so far. Patient started treatment with cefazolin 2 g IV every 8 hours along with gentamicin 3 mg/kg IV every 24 hours on January 19, 2025. Aiming to add rifampin 300 mg 3 times daily once we obtain Atripla, anticipated by tomorrow. In the interim continue Biktarvy for HIV. Pending HIV viral load, CD4 count and HCVRNA. If fails to respond to antibiotic treatment alone, may need to transfer for cardiothoracic surgery and consideration for surgical intervention. This has been discussed with the patient. January 21, 2025 Tmax as noted above. Leukocytosis at 16,000 today. Thus far blood cultures from 01/19/2025 are negative. Started cefazolin plus gentamicin on January 18. Add rifampin 300 mg 3 times daily today. Discontinue Biktarvy and switch to Atripla to allow concomitant administration wth Rifampin January 22, 2025 Febrile to 102 Fahrenheit. Leukocytosis at 16,000, stable. CT of the thoracolumbar spine that was performed yesterday did not show any signs of osteomyelitis discitis or epidural abscess. Incidentally note was made of multiple pulmonary lesions which appeared to be septic emboli. These were most likely present on admission, discovered only yesterday. Platelet count is improving at 123 today. Blood culture from 01/19/2025 and from yesterday remains negative so far. Most patients with PVE are expected become afebrile three to five days after initiation of appropriate antimicrobial therapy. Patient is day 4 of cefazolin and gentamicin today. Patients with?Staphylococcus aureus?PVE may respond more slowly, remaining febrile for five to seven days after initiation of therapy. Currently patient is not exhibiting any signs of heart failure. Septic emboli were likely present on admission, detected on CT yesterday. CT of the abdomen and pelvis is being ordered today by the primary team to assess for any abdominal sources of infection given patient has persistent vomiting. Currently blood culture is negative as of January 19, 2025. If patient develops persisting bacteremia, persistent fever beyond 5 to 7 days of appropriate antibiotic therapy, it may be suggestive of a paravalvular extension of infection in which case a JESSE would recommended to be repeated. At this present time, as of the last echocardiogram there are no signs of prosthetic valve dysfunction or paravalvular extension of infection therefore continuation of IV antibiotics is recommended. Should there be a change in the cardiac status, patient may need to be referred for early valvular surgery. Continue cefazolin, gentamicin and rifampin. Gentamicin trough is due today. HIV viral load is not detected. HIV regimen changed from Biktarvy to Atripla to allow for concomitant administration of rifampin. HCVRNA not detected, correlating with successfully treated hepatitis C infection. Pending CD4 count. January 23, 2025 Febrile 101 Fahrenheit. Leukocytosis at 18,000. CT of the abdomen and pelvis negative for any acute events. Reviewed demonstrated bilateral septic emboli involving the lungs. Platelet count continues to improve. Blood culture remaining negative so far from January 19 and January 21, 2025. Continue cefazolin, gentamicin (last trough at 0.3), and rifampin. Patient continues to be febrile to 101. Day 5 of organism directed therapy today started with cefazolin. If patient continues to be febrile over the next 24 hours, recommend to repeat JESSE to assess for any paravalvular extension of infection. Considered transitioning cefazolin to nafcillin, however patient reports allergy to amoxicillin as diffuse rash. Currently she has a rash affecting her face arms and legs which patient states started after being given amoxicillin recently for UTI. She is hesitant to switch therapy to nafcillin at this time. RPR negative. HIV viral load undetectable, CD4 count 500, HCV RNA undetectable. Unlikely [place] , PCT. January 24, 2025 T max 99F now. Feels much better today, less nausesous, wants to eat today. leukocytosis at 21K, uptrending from 18K, however clinically patient appears better today. JESSE completed. Large vegetation of 1.7 x 1.8 cm on tricuspid valve with mild TR per verbal report, No paravalvular extension of infection or abscess noted. Blood cx last + on 01/19, thus far negative from 01/21. Continue Cefazolin 2g iv every 8 hrs, gentamicin and rifampin. Cr reviewed normal. January 25, 2025 Tmax 102 Fahrenheit this afternoon. Patient has been refusing ibuprofen and Tylenol due to gastritis She is continuing to feel clinically better. White blood cell count at 17,000 today. Blood cultures are remaining negative from 01/21 and January 24 thus far. JESSE with large 1.7 x 1.5 cm vegetation on the prosthetic valve. Mild TR. Evidence of septic emboli to the lungs. No drainable collection. Abdominal CT without any persisting intra-abdominal source of infection. CT of the cervical thoracic and lumbar spine without any signs of discitis osteomyelitis or epidural abscess. Since blood cultures are clear, patient is clinically improving, JESSE without any evidence of paravalvular extension of infection, leukocytosis remains stable at 17,000, continue treatment with cefazolin gentamicin and rifampin. Platelet count is recovered. Stable kidney and liver function. Fever curve yesterday with a Tmax of 99 Fahrenheit, today Tmax at 102. Anticipate that patient's improvement in fever curve and leukocytosis may lag behind clinical improvement. Hold off on PICC line placement until cultures from 01/24/2025 are definitively negative at 48 hours. Patient is agreeable for LTAC placement to continue 6 weeks of total therapy. Will continue to follow. PDMP PDMP Reviewed: Not Reviewed Attestations Medical Necessity Statement*: Prosthetic valve endocarditis requiring IV antibiotics. Coding Level of Care Code Acute Code for [facility] Diagnoses Prosthetic valve endocarditis T82.6XXA; I33.0 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; B95.61 HIV (human immunodeficiency virus infection) Z21 HIV symptom status: asymptomatic, with no history of HIV-related illness Chronic hepatitis C without hepatic coma B18.2 Viral hepatitis chronicity: chronic Hepatic coma status: without hepatic coma Screen for STD (sexually transmitted disease) Z11.3 Diffuse papular rash R21 Liver cirrhosis K74.60 Thrombocytopenia D69.6 Septic embolism I76
[2025-01-25] MEDS: ibuprofen Oral Susp 100 mg/5mL UDC 200 MG PO ×2 (12:54→20:17)
[2025-01-25] MEDS: prochlorperazine 10 mg Tablet 5 MG PO (16:24)
[2025-01-25] MEDS: GENTAMICIN IV (16:33)
[2025-01-25] MEDS: SODIUM CHLORIDE 0.9% IV (16:33)
[2025-01-25] MEDS: mirtazapine 15 mg Tablet 30 MG PO (20:22)
[2025-01-26] VITALS (14 sets, daily range): BP systolic 85–121; BP diastolic 66–78; PULSE 87–113; RESP 18–26; TEMP 36.5–38.7; O2SAT 94–97
[2025-01-26] MEDS: ondansetron 2 mg/ML SDV 2 mL 4 MG IVP (01:54)
[2025-01-26] MEDS: ibuprofen Oral Susp 100 mg/5mL UDC 200 MG PO ×3 (03:10→21:54)
[2025-01-26 04:57] LABS: Basophils # 0.1 10^3/uL (0.0-0.1); Basophils % 0.3 %; Eosinophils # 0.1 10^3/uL (0.0-0.8); Eosinophils % 0.5 %; Hematocrit 32.8 % (36-47); Lymphocytes # 1.7 10^3/uL (0.8-4.8); Lymphocytes % 8.6 %; Mean Corpuscular HGB Conc 32.9 g/dL (30-55); Mean Corpuscular Hemoglobin 28.4 pg (27-33); Mean Corpuscular Volume 86.3 fl (85-98); Mean Platelet Volume 10.4 fL (7.4-10.4); Monocytes # 1.4 10^3/uL (0.2-0.9); Monocytes % 7.2 %; Neutrophils # 16.12 10^3/uL (1.8-7.7); Neutrophils % 81.9 %; Nucleated Red Blood Cells % 0 %; Platelet Count 324 10^3/cmm (157-399); Red Cell Distribution Width 13.8 % (12.1-15.1); White Blood Count 19.65 10^3/uL (3.29-11.43)
[2025-01-26] MEDS: heparin 5,000 unit/mL INJ 1 mL 5000 UNIT SUBCUT ×2 (05:03→17:44)
[2025-01-26] MEDS: pantoprazole 40 mg SDV IVP (05:04)
[2025-01-26] MEDS: ceFAZolin 2,000 MG in sodium chloride 0.9% (plus) 100 ML 200 MG IV ×3 (05:07→17:44)
[2025-01-26 05:17] LABS: Alanine Aminotransferase 8 U/L (0-33); Alkaline Phosphatase 88 U/L (35-105); Anion Gap 15.4 (5-19); Aspartate Amino Transferase 11 U/L (0-32); Blood Urea Nitrogen 9 mg/dL (6-20); Carbon Dioxide 24 mmol/L (22-29); Creatinine Clr Calc Pharmacy 132.2222; Globulin 4.2 g/dL (1.3-4.6); Glomerular Filtration Rate 110.7 mL/min (90-130); Total Bilirubin 1.1 mg/dL (0.15-1.2); Total Protein 7.2 g/dL (6.6-8.7)
[2025-01-26 05:23] LABS: Calcium 8.3 mg/dL (8.5-10.5); Chloride 95 mmol/L (98-107); Glucose 253 mg/dL (65-115); Osmolality Calculated 279 mOsm/kg (285-295); Potassium 3.4 mmol/L (3.5-5.1); Sodium 131 mmol/L (136-145)
[2025-01-26 08:39] LABS: Magnesium 1.8 mg/dL (1.7-2.3); Phosphorus 2.1 mg/dL (2.5-4.5)
[2025-01-26] MEDS: hyDROXYzine 25 mg Capsule PO ×2 (09:07→17:44)
[2025-01-26] MEDS: rifAMPin 300 mg Capsule PO ×3 (09:07→20:24)
[2025-01-26] MEDS: aspirin 81 mg EC Tablet PO (09:07)
[2025-01-26] MEDS: ATRIPLA 1 EACH PO (09:08)
[2025-01-26] MEDS: ipratropium-albuterol 3 mL Neb INHALATION (09:27)
[2025-01-26] MEDS: metoclopramide 5 mg/mL SDV 2 mL IVP (10:24)
[2025-01-26] MEDS: prochlorperazine 10 mg Tablet 5 MG PO (15:30)
[2025-01-26] MEDS: GENTAMICIN IV (16:20)
[2025-01-26] MEDS: SODIUM CHLORIDE 0.9% IV (16:20)
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
--- NOTE | 2025-01-26 16:33 | P.PN_ITS ---
Subjective 2 Subjective: ID progress note Blood culture negative from 01/21 and 01/24 thus far denies new complaints Medications: Reviewed: Yes Medication Review Details: vancomycin 01/16-01/18; subtherapeutic trough at 4 prior to switch to cefazolin. Cefazolin 2 g IV every 8 hours started January 19-current gentamicin 3mg/kg iv every 24 hrs 01/19- current rifampin 300mg TID 01/21- [facility]- started 2019 to 01/21 Atripla starting 01/22 Vitals/I&O/Wt Last Vital Signs Temp 98.0 F 01/27/25 11:00 Pulse 87 01/27/25 11:00 Resp 12 01/27/25 11:00 BP 109/70 01/27/25 11:00 Pulse Ox 94 01/27/25 11:00 O2 Del Method Room Air 01/27/25 10:00 O2 Flow Rate 91 01/22/25 00:00 01/27/25 01/27/25 01/27/25 06:59 14:59 22:59 Intake Total 1100 / 3072.6 700 / 700 566.6 / 1266.6 Balance 1100 / 3072.6 700 / 700 566.6 / 1266.6 Weight last 48 hrs Weight 81 kg Physical Exam 2 Narrative: patient not seen today, case discussed with hospitalist Data 01/27/25 05:33 01/27/25 05:33 A&P Assessment and plan (1) Prosthetic valve endocarditis: 39-year-old lady with history of HIV and hepatitis C, unfortunately relapsed with regards to IV drug use currently 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 Blood cultures are positive for MSSA from day of admission. Follow-up blood cultures from 04/20/2025 are pending to date. Noted to have a 1 x 1 cm vegetation on the tricuspid valve. All clinical signs and symptoms consistent with prosthetic valve endocarditis. Discontinue vancomycin Start cefazolin 2 g IV every 8 hours. Patient's chart notes allergy to amoxicillin. Patient reports that she recently had an antibiotic for UTI following which she broke out into a diffuse rash she is uncertain which antibiotic this was but reports that it was likely penicillin . For this reason preferring cefazolin over nafcillin for now. Start gentamicin 3 mg/kg IV every 24 hours in addition to cefazolin. Additionally plan to add rifampin 300 mg 3 times daily, however this would need to wait until we can switch her HIV regimen over. Patient is currently on Biktarvy, rifampin is contraindicated with Biktarvy. Will switch HIV regimen to Atripla and start rifampin alongside. This will need to wait until outpatient pharmacy will be open after as a Atripla or any other HIV medicine is not currently available on formulary as an inpatient. Follow-up blood culture from 825 is currently pending. If patient remains persistently bacteremic or has signs or symptoms of worsening heart failure, will likely need urgent surgery. (2) Endocarditis due to methicillin susceptible Staphylococcus aureus (MSSA): MSSA positive blood cultures as noted above. (3) HIV (human immunodeficiency virus infection): Currently on treatment with Biktarvy since 2019 at which time HIV was a new diagnosis for the patient.. Patient did not complete viral load and CD4 as ordered in September 2024. Last viral load from April 2024 was undetectable. CD4 count from June 2023 at 984. Viral load and CD4 ordered today. Will likely need to switch therapy from Biktarvy to Atripla to enable use of rifampin for endocarditis. (4) Hepatitis C: History of hepatitis C. Patient was first diagnosed in 2019. Patient stated that she had completed Mavyret with Dr. Whalen at that time. HCVRNA rechecked in 2023 was still positive with a log of 6.83. She was retreated with Vosevi in late 2023. Posttreatment HCVRNA was ordered in September however has not been completed. Will check today. Liver imaging from February 2024 had shown a slightly nodular surface of the liver concerning for cirrhosis. She is due for annual HCC surveillance imaging, will obtain repeat imaging while she is currently admitted. (5) Screen for STD (sexually transmitted disease): Patient has a diffuse papular rash affecting face, bilateral upper extremities and legs. She thinks this was related to recent use of an antibiotic however uncertain which one this was. Rash concerning for potentially secondary syphilis. Will check RPR with reflex, FTA-ABS from the serum. Lumbar puncture was obtained upon admission which showed CSF WBC of 8, CSF glucose of 76 and a normal total protein. Given the above picture less likely to be bacterial meningitis however will obtain VDRL from CSF to rule out neurosyphilis. (6) Diffuse papular rash: Patient states this is currently improving. Uncertain cause. May be related to recent outpatient medication use. Syphilis screen pending. (7) Liver cirrhosis: Known liver cirrhosis, repeat abdominal imaging to assess for HCC surveillance (8) Thrombocytopenia: Acute thrombocytopenia most likely related to endocarditis, possibly also contributed by liver cirrhosis. (9) Septic embolism: Plan January 20, 2025 Daily labs not available today. Febrile to 100.9 Fahrenheit. Blood cultures from January 18, 2025 reported positive for Staphylococcus aureus, presumably will be MSSA compatible with prior cultures from the . Repeat blood cultures from 04/21/2025 are pending so far. Patient started treatment with cefazolin 2 g IV every 8 hours along with gentamicin 3 mg/kg IV every 24 hours on January 19, 2025. Aiming to add rifampin 300 mg 3 times daily once we obtain Atripla, anticipated by tomorrow. In the interim continue Biktarvy for HIV. Pending HIV viral load, CD4 count and HCVRNA. If fails to respond to antibiotic treatment alone, may need to transfer for cardiothoracic surgery and consideration for surgical intervention. This has been discussed with the patient. January 21, 2025 Tmax as noted above. Leukocytosis at 16,000 today. Thus far blood cultures from 01/19/2025 are negative. Started cefazolin plus gentamicin on January 18. Add rifampin 300 mg 3 times daily today. Discontinue Biktarvy and switch to Atripla to allow concomitant administration wth Rifampin January 22, 2025 Febrile to 102 Fahrenheit. Leukocytosis at 16,000, stable. CT of the thoracolumbar spine that was performed yesterday did not show any signs of osteomyelitis discitis or epidural abscess. Incidentally note was made of multiple pulmonary lesions which appeared to be septic emboli. These were most likely present on admission, discovered only yesterday. Platelet count is improving at 123 today. Blood culture from 01/19/2025 and from yesterday remains negative so far. Most patients with PVE are expected become afebrile three to five days after initiation of appropriate antimicrobial therapy. Patient is day 4 of cefazolin and gentamicin today. Patients with?Staphylococcus aureus?PVE may respond more slowly, remaining febrile for five to seven days after initiation of therapy. Currently patient is not exhibiting any signs of heart failure. Septic emboli were likely present on admission, detected on CT yesterday. CT of the abdomen and pelvis is being ordered today by the primary team to assess for any abdominal sources of infection given patient has persistent vomiting. Currently blood culture is negative as of January 19, 2025. If patient develops persisting bacteremia, persistent fever beyond 5 to 7 days of appropriate antibiotic therapy, it may be suggestive of a paravalvular extension of infection in which case a JESSE would recommended to be repeated. At this present time, as of the last echocardiogram there are no signs of prosthetic valve dysfunction or paravalvular extension of infection therefore continuation of IV antibiotics is recommended. Should there be a change in the cardiac status, patient may need to be referred for early valvular surgery. Continue cefazolin, gentamicin and rifampin. Gentamicin trough is due today. HIV viral load is not detected. HIV regimen changed from Biktarvy to Atripla to allow for concomitant administration of rifampin. HCVRNA not detected, correlating with successfully treated hepatitis C infection. Pending CD4 count. January 23, 2025 Febrile 101 Fahrenheit. Leukocytosis at 18,000. CT of the abdomen and pelvis negative for any acute events. Reviewed demonstrated bilateral septic emboli involving the lungs. Platelet count continues to improve. Blood culture remaining negative so far from January 19 and January 21, 2025. Continue cefazolin, gentamicin (last trough at 0.3), and rifampin. Patient continues to be febrile to 101. Day 5 of organism directed therapy today started with cefazolin. If patient continues to be febrile over the next 24 hours, recommend to repeat JESSE to assess for any paravalvular extension of infection. Considered transitioning cefazolin to nafcillin, however patient reports allergy to amoxicillin as diffuse rash. Currently she has a rash affecting her face arms and legs which patient states started after being given amoxicillin recently for UTI. She is hesitant to switch therapy to nafcillin at this time. RPR negative. HIV viral load undetectable, CD4 count 500, HCV RNA undetectable. Unlikely [place] , PCT. January 24, 2025 T max 99F now. Feels much better today, less nausesous, wants to eat today. leukocytosis at 21K, uptrending from 18K, however clinically patient appears better today. JESSE completed. Large vegetation of 1.7 x 1.8 cm on tricuspid valve with mild TR per verbal report, No paravalvular extension of infection or abscess noted. Blood cx last + on 01/19, thus far negative from 01/21. Continue Cefazolin 2g iv every 8 hrs, gentamicin and rifampin. Cr reviewed normal. January 25, 2025 Tmax 102 Fahrenheit this afternoon. Patient has been refusing ibuprofen and Tylenol due to gastritis She is continuing to feel clinically better. White blood cell count at 17,000 today. Blood cultures are remaining negative from 01/21 and January 24 thus far. JESSE with large 1.7 x 1.5 cm vegetation on the prosthetic valve. Mild TR. Evidence of septic emboli to the lungs. No drainable collection. Abdominal CT without any persisting intra-abdominal source of infection. CT of the cervical thoracic and lumbar spine without any signs of discitis osteomyelitis or epidural abscess. Since blood cultures are clear, patient is clinically improving, JESSE without any evidence of paravalvular extension of infection, leukocytosis remains stable at 17,000, continue treatment with cefazolin gentamicin and rifampin. Platelet count is recovered. Stable kidney and liver function. Fever curve yesterday with a Tmax of 99 Fahrenheit, today Tmax at 102. Anticipate that patient's improvement in fever curve and leukocytosis may lag behind clinical improvement. Hold off on PICC line placement until cultures from 01/24/2025 are definitively negative at 48 hours. Patient is agreeable for LTAC placement to continue 6 weeks of total therapy. Will continue to follow. January 26, 2025 contnues to be febrile to tmax 101.6F, no new complaints blood cx negative from 01/21 and 01/[address] PICC Line tomorrow since blood cx negative as above Contnue cefazolin, gentamicin and rifampin , started 01/19 on cefazolin + gentamicin. Day 6 of clear culture today Clinically continues to improve PDMP PDMP Reviewed: Not Reviewed Attestations 2 Medical Necessity Statement*: per admitting Coding Level of Care Code Acute Code for [facility] Diagnoses Prosthetic valve endocarditis T82.6XXA; I33.0 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; B95.61 HIV (human immunodeficiency virus infection) Z21 HIV symptom status: asymptomatic, with no history of HIV-related illness Chronic hepatitis C without hepatic coma B18.2 Viral hepatitis chronicity: chronic Hepatic coma status: without hepatic coma Screen for STD (sexually transmitted disease) Z11.3 Diffuse papular rash R21 Liver cirrhosis K74.60 Thrombocytopenia D69.6 Septic embolism I76
[2025-01-26] MEDS: sodium chlor 0.9% + KCl 40 mEq 40 MEQ/1,000 ML BAG 250 MEQ IV (17:41)
--- NOTE | 2025-01-26 18:14 | PM.MISC ---
Miscellaneous Note Note: The patient is wondering why she is getting mirtazapine 30 mg qHS, stating that she takes mirtazapine 15 mg nightly at home, and even with the 50 mg dose at home, it makes her restless and gives her hot flashes. She states that the 30 mg makes her more restless and gives her more hot flashes, and that she would rather have a 15 mg dose. Will reduce the current dose of 30 mg nightly to 50 mg nightly.
--- NOTE | 2025-01-26 18:14 | PC.NURSE ---
Provider is updated that patient would like to take her home dose of mirtazapine of 15 mg at bedtime instead of the 2 tabs (30mg) that we have given her the last few days. She states that it gives her hot flashes and more restless. Provider ordered the home dose of mirtazapine 15mg PO at bedtime.
[2025-01-26] MEDS: mirtazapine 15 mg Tablet PO (20:24)
[2025-01-26] MEDS: LORazepam 1 mg Tablet 0.5 MG PO (21:54)
[2025-01-27] MEDS: metoclopramide 5 mg/mL SDV 2 mL IVP ×2 (02:57→10:27)
[2025-01-27] MEDS: ceFAZolin 2,000 MG in sodium chloride 0.9% (plus) 100 ML 200 MG IV ×3 (02:57→17:41)
--- NOTE | 2025-01-27 04:14 | PC.NURSE ---
Patient refusing to allow this nurse to unhook IV antibiotic, from [facility], that was finished. Patient became agitated and raised voice. Patient yelled that things have been beeping and keeping her awake, that she was now cold after being sweaty and that she was nauseous. PRN Reglan had been given to patient prior to antibiotic administration. Offered patient other medications available for nausea and patient refused. Asked patient if there was anything that could be done to help make her more comfortable or if she had any needs at this time, patient said she did not need anything. TELEMARKETER attempted to get vital signs and patient refused temp, O2, and blood pressure. Telemetry still in place. Patient then refused morning lab draw.
[2025-01-27] MEDS: ondansetron 2 mg/ML SDV 2 mL 4 MG IVP (05:05)
[2025-01-27] MEDS: heparin 5,000 unit/mL INJ 1 mL 5000 UNIT SUBCUT ×2 (05:25→17:42)
[2025-01-27] MEDS: pantoprazole 40 mg SDV IVP (05:25)
[2025-01-27 05:54] LABS: Basophils # 0.1 10^3/uL (0.0-0.1); Basophils % 0.3 %; Eosinophils # 0.1 10^3/uL (0.0-0.8); Eosinophils % 0.7 %; Hematocrit 33.4 % (36-47); Lymphocytes # 1.4 10^3/uL (0.8-4.8); Lymphocytes % 6.6 %; Mean Corpuscular Hemoglobin 28.6 pg (27-33); Mean Corpuscular Volume 89.3 fl (85-98); Mean Platelet Volume 10.7 fL (7.4-10.4); Monocytes # 1.2 10^3/uL (0.2-0.9); Monocytes % 5.8 %; Neutrophils # 18.04 10^3/uL (1.8-7.7); Neutrophils % 85.2 %; Nucleated Red Blood Cells % 0 %; Platelet Count 330 10^3/cmm (157-399); Red Blood Count 3.74 10^6/uL (3.85-5.65); Red Cell Distribution Width 14.2 % (12.1-15.1); White Blood Count 21.15 10^3/uL (3.29-11.43)
[2025-01-27 06:02] LABS: Alanine Aminotransferase 8 U/L (0-33); Albumin Level 2.9 g/dL (3.5-5.2); Alkaline Phosphatase 87 U/L (35-105); Blood Urea Nitrogen 7 mg/dL (6-20); Calcium 8.3 mg/dL (8.5-10.5); Carbon Dioxide 23 mmol/L (22-29); Chloride 95 mmol/L (98-107); Globulin 4.2 g/dL (1.3-4.6); Glomerular Filtration Rate 136.6 mL/min (90-130); Glucose 160 mg/dL (65-115); Osmolality Calculated 271 mOsm/kg (285-295); Sodium 130 mmol/L (136-145); Total Bilirubin 0.8 mg/dL (0.15-1.2); Total Protein 7.1 g/dL (6.6-8.7)
[2025-01-27 06:03] LABS: Anion Gap 16.3 (5-19); Aspartate Amino Transferase 19 U/L (0-32); Potassium 4.3 mmol/L (3.5-5.1)
[2025-01-27 06:18] LABS: Magnesium 1.7 mg/dL (1.7-2.3); Phosphorus 1.8 mg/dL (2.5-4.5)
[2025-01-27 07:00] VITALS: BP 99/68; PULSE 94; RESP 14; TEMP 36.6; O2SAT 96
[2025-01-27] MEDS: hyDROXYzine 25 mg Capsule PO ×2 (09:06→17:42)
[2025-01-27] MEDS: rifAMPin 300 mg Capsule PO ×3 (09:06→20:41)
[2025-01-27] MEDS: aspirin 81 mg EC Tablet PO (09:06)
[2025-01-27] MEDS: ATRIPLA 1 EACH PO (09:06)
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
[2025-01-27 10:00] VITALS: PULSE 86; RESP 18; O2SAT 94
[2025-01-27 11:00] VITALS: BP 109/70; PULSE 87; RESP 12; TEMP 36.7; O2SAT 94
--- NOTE | 2025-01-27 12:31 | PC.NURSE ---
Provider is updated that Ms Cerdas, she has red area under her breast. Can I have an order for nystatin power? Order is placed.
--- NOTE | 2025-01-27 13:53 | XR_ITS ---
WS: [id number] XR chest 1V portable [id number] REASON FOR EXAM: Post PICC insertion FINDINGS: A right arm PICC line has been placed. The tip is in the mid to distal SVC. The optometric technologist was told to inform the PICC line nurse to advance the catheter of the 1 remaining centimeter outside the skin which would place it within the distal SVC a position appropriate for use. XR/XR chest 1V portable [id number] IMPRESSION: Right arm PICC line placement as above.
--- NOTE | 2025-01-27 15:02 | PICC.NOTE ---
Single lumen PICC placed to right basilic vein. Referred to vascular access nurse for PICC placement due to need for IV antibiotics x 6 weeks. Risks and benefits discussed and informed consent obtained from pt. Right arm assessed with right basilic vein measuring 5.0 mm, straight, and apparent best choice for placement. Using sterile technique and MST, right basilic vein accessed x 1 stick. Mid-arm circumference measured 10 cm from right AC 35 cm. Trimmed cath 37 cm with 0 cm external length noted. CXR shows tip in SVC, in good position for use per radiologist. Line secured with stat-lock. Insertion site covered with Biopatch and TSM. Report given to bedside nurse, LUCAS Carpenter.
[2025-01-27] MEDS: prochlorperazine 10 mg Tablet 5 MG PO (16:17)
[2025-01-27] MEDS: SODIUM CHLORIDE 0.9% IV (16:18)
[2025-01-27] MEDS: GENTAMICIN IV (16:18)
--- NOTE | 2025-01-27 17:33 | P.PN_ITS ---
Subjective 2 Subjective: ID progress note Last febrile at 5: 30pm last evening WBC count at 21K today states she was nauseous last evening, howevre overall feels stronger Medications: Reviewed: Yes Medication Review Details: vancomycin 01/16-01/18; subtherapeutic trough at 4 prior to switch to cefazolin. Cefazolin 2 g IV every 8 hours started January 19-current gentamicin 3mg/kg iv every 24 hrs 01/19- current day rifampin 300mg TID 01/21- [facility]- started 2019 to 01/21 Atripla starting 01/22 Vitals/I&O/Wt Last Vital Signs Temp 98.0 F 01/27/25 11:00 Pulse 87 01/27/25 11:00 Resp 12 01/27/25 11:00 BP 109/70 01/27/25 11:00 Pulse Ox 94 01/27/25 11:00 O2 Del Method Room Air 01/27/25 10:00 O2 Flow Rate 91 01/22/25 00:00 01/27/25 01/27/25 01/27/25 06:59 14:59 22:59 Intake Total 1100 / 3072.6 700 / 700 566.6 / 1266.6 Balance 1100 / 3072.6 700 / 700 566.6 / 1266.6 Weight last 48 hrs Weight 81 kg Physical Exam 2 Narrative: General: No acute distress, AO x3 HEENT: PERRLA, pupils bilaterally equal and reactive, pallors not present Chest: Normal vesicular breath sounds, no added sounds, equal good air entry bilaterally CVS: S1-S2 regular, no murmurs, no tachycardia, no gallops, no rubs Abdomen: Soft, nontender, no organomegaly, bowel sounds present Neuro: No focal deficits, no facial deformity, AO x3, power 5/5 in all limbs Data 01/27/25 05:33 01/27/25 05:33 A&P Assessment and plan (1) Prosthetic valve endocarditis: 39-year-old lady with history of HIV and hepatitis C, unfortunately relapsed with regards to IV drug use currently 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 Blood cultures are positive for MSSA from day of admission. Follow-up blood cultures from 04/20/2025 are pending to date. Noted to have a 1 x 1 cm vegetation on the tricuspid valve. All clinical signs and symptoms consistent with prosthetic valve endocarditis. Discontinue vancomycin Start cefazolin 2 g IV every 8 hours. Patient's chart notes allergy to amoxicillin. Patient reports that she recently had an antibiotic for UTI following which she broke out into a diffuse rash she is uncertain which antibiotic this was but reports that it was likely penicillin . For this reason preferring cefazolin over nafcillin for now. Start gentamicin 3 mg/kg IV every 24 hours in addition to cefazolin. Additionally plan to add rifampin 300 mg 3 times daily, however this would need to wait until we can switch her HIV regimen over. Patient is currently on Biktarvy, rifampin is contraindicated with Biktarvy. Will switch HIV regimen to Atripla and start rifampin alongside. This will need to wait until outpatient pharmacy will be open after as a Atripla or any other HIV medicine is not currently available on formulary as an inpatient. Follow-up blood culture from 825 is currently pending. If patient remains persistently bacteremic or has signs or symptoms of worsening heart failure, will likely need urgent surgery. (2) Endocarditis due to methicillin susceptible Staphylococcus aureus (MSSA): MSSA positive blood cultures as noted above. (3) HIV (human immunodeficiency virus infection): Currently on treatment with Biktarvy since 2019 at which time HIV was a new diagnosis for the patient.. Patient did not complete viral load and CD4 as ordered in September 2024. Last viral load from April 2024 was undetectable. CD4 count from June 2023 at 984. Viral load and CD4 ordered today. Will likely need to switch therapy from Biktarvy to Atripla to enable use of rifampin for endocarditis. (4) Septic embolism: (5) Hepatitis C: History of hepatitis C. Patient was first diagnosed in 2019. Patient stated that she had completed Mavyret with Dr. Whalen at that time. HCVRNA rechecked in 2023 was still positive with a log of 6.83. She was retreated with Vosevi in late 2023. Posttreatment HCVRNA was ordered in September however has not been completed. Will check today. Liver imaging from February 2024 had shown a slightly nodular surface of the liver concerning for cirrhosis. She is due for annual HCC surveillance imaging, will obtain repeat imaging while she is currently admitted. (6) Screen for STD (sexually transmitted disease): Patient has a diffuse papular rash affecting face, bilateral upper extremities and legs. She thinks this was related to recent use of an antibiotic however uncertain which one this was. Rash concerning for potentially secondary syphilis. Will check RPR with reflex, FTA-ABS from the serum. Lumbar puncture was obtained upon admission which showed CSF WBC of 8, CSF glucose of 76 and a normal total protein. Given the above picture less likely to be bacterial meningitis however will obtain VDRL from CSF to rule out neurosyphilis. (7) IVDU (intravenous drug user): (8) Diffuse papular rash: Patient states this is currently improving. Uncertain cause. May be related to recent outpatient medication use. Syphilis screen pending. (9) Liver cirrhosis: Known liver cirrhosis, repeat abdominal imaging to assess for HCC surveillance (10) Thrombocytopenia: Acute thrombocytopenia most likely related to endocarditis, possibly also contributed by liver cirrhosis. 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 Febrile to 100.9 Fahrenheit. Blood cultures from January 18, 2025 reported positive for Staphylococcus aureus, presumably will be MSSA compatible with prior cultures from the . Repeat blood cultures from 04/21/2025 are pending so far. Patient started treatment with cefazolin 2 g IV every 8 hours along with gentamicin 3 mg/kg IV every 24 hours on January 19, 2025. Aiming to add rifampin 300 mg 3 times daily once we obtain Atripla, anticipated by tomorrow. In the interim continue Biktarvy for HIV. Pending HIV viral load, CD4 count and HCVRNA. If fails to respond to antibiotic treatment alone, may need to transfer for cardiothoracic surgery and consideration for surgical intervention. This has been discussed with the patient. January 21, 2025 Tmax as noted above. Leukocytosis at 16,000 today. Thus far blood cultures from 01/19/2025 are negative. Started cefazolin plus gentamicin on January 18. Add rifampin 300 mg 3 times daily today. Discontinue Biktarvy and switch to Atripla to allow concomitant administration wth Rifampin January 22, 2025 Febrile to 102 Fahrenheit. Leukocytosis at 16,000, stable. CT of the thoracolumbar spine that was performed yesterday did not show any signs of osteomyelitis discitis or epidural abscess. Incidentally note was made of multiple pulmonary lesions which appeared to be septic emboli. These were most likely present on admission, discovered only yesterday. Platelet count is improving at 123 today. Blood culture from 01/19/2025 and from yesterday remains negative so far. Most patients with PVE are expected become afebrile three to five days after initiation of appropriate antimicrobial therapy. Patient is day 4 of cefazolin and gentamicin today. Patients with?Staphylococcus aureus?PVE may respond more slowly, remaining febrile for five to seven days after initiation of therapy. Currently patient is not exhibiting any signs of heart failure. Septic emboli were likely present on admission, detected on CT yesterday. CT of the abdomen and pelvis is being ordered today by the primary team to assess for any abdominal sources of infection given patient has persistent vomiting. Currently blood culture is negative as of January 19, 2025. If patient develops persisting bacteremia, persistent fever beyond 5 to 7 days of appropriate antibiotic therapy, it may be suggestive of a paravalvular extension of infection in which case a JESSE would recommended to be repeated. At this present time, as of the last echocardiogram there are no signs of prosthetic valve dysfunction or paravalvular extension of infection therefore continuation of IV antibiotics is recommended. Should there be a change in the cardiac status, patient may need to be referred for early valvular surgery. Continue cefazolin, gentamicin and rifampin. Gentamicin trough is due today. HIV viral load is not detected. HIV regimen changed from Biktarvy to Atripla to allow for concomitant administration of rifampin. HCVRNA not detected, correlating with successfully treated hepatitis C infection. Pending CD4 count. January 23, 2025 Febrile 101 Fahrenheit. Leukocytosis at 18,000. CT of the abdomen and pelvis negative for any acute events. Reviewed demonstrated bilateral septic emboli involving the lungs. Platelet count continues to improve. Blood culture remaining negative so far from January 19 and January 21, 2025. Continue cefazolin, gentamicin (last trough at 0.3), and rifampin. Patient continues to be febrile to 101. Day 5 of organism directed therapy today started with cefazolin. If patient continues to be febrile over the next 24 hours, recommend to repeat JESSE to assess for any paravalvular extension of infection. Considered transitioning cefazolin to nafcillin, however patient reports allergy to amoxicillin as diffuse rash. Currently she has a rash affecting her face arms and legs which patient states started after being given amoxicillin recently for UTI. She is hesitant to switch therapy to nafcillin at this time. RPR negative. HIV viral load undetectable, CD4 count 500, HCV RNA undetectable. Unlikely [place] , PCT. January 24, 2025 T max 99F now. Feels much better today, less nausesous, wants to eat today. leukocytosis at 21K, uptrending from 18K, however clinically patient appears better today. JESSE completed. Large vegetation of 1.7 x 1.8 cm on tricuspid valve with mild TR per verbal report, No paravalvular extension of infection or abscess noted. Blood cx last + on 01/19, thus far negative from 01/21. Continue Cefazolin 2g iv every 8 hrs, gentamicin and rifampin. Cr reviewed normal. January 25, 2025 Tmax 102 Fahrenheit this afternoon. Patient has been refusing ibuprofen and Tylenol due to gastritis She is continuing to feel clinically better. White blood cell count at 17,000 today. Blood cultures are remaining negative from 01/21 and January 24 thus far. JESSE with large 1.7 x 1.5 cm vegetation on the prosthetic valve. Mild TR. Evidence of septic emboli to the lungs. No drainable collection. Abdominal CT without any persisting intra-abdominal source of infection. CT of the cervical thoracic and lumbar spine without any signs of discitis osteomyelitis or epidural abscess. Since blood cultures are clear, patient is clinically improving, JESSE without any evidence of paravalvular extension of infection, leukocytosis remains stable at 17,000, continue treatment with cefazolin gentamicin and rifampin. Platelet count is recovered. Stable kidney and liver function. Fever curve yesterday with a Tmax of 99 Fahrenheit, today Tmax at 102. Anticipate that patient's improvement in fever curve and leukocytosis may lag behind clinical improvement. Hold off on PICC line placement until cultures from 01/24/2025 are definitively negative at 48 hours. Patient is agreeable for LTAC placement to continue 6 weeks of total therapy. Will continue to follow. January 26, 2025 contnues to be febrile to tmax 101.6F, no new complaints blood cx negative from 01/21 and 01/[address] PICC Line tomorrow since blood cx negative as above Contnue cefazolin, gentamicin and rifampin , started 01/19 on cefazolin + gentamicin. Day 6 of clear culture today Clinically continues to improve January 27, 2025: Picc line placed this morning Blood cx remains negative from 01/21 and 01/24- confirmed with micro lab Currently last febrile 24 hrs ago, hope that starting to improve fever curve at this point Continue cefazolin, gentamicin and rifampin - day 7 of clear cx today If continues to be persistent febrile, then needs repeat CT chest to reassess septic emboli- r/o progression to empyema, abscess, etc. Clinically continues to improve If continues to show improvement, will plan d/c to LTAC on Cefazolin 2 g iv x 6 weeks, Gentamicin x 2 weeks and rifampin x 6 weeks. reveiwed normal kidney and liver function PDMP PDMP Reviewed: Not Reviewed Attestations 2 Medical Necessity Statement*: per admitting Coding Level of Care Code Acute Code for [facility] Fwd Diagnoses Prosthetic valve endocarditis T82.6XXA; I33.0 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; B95.61 HIV (human immunodeficiency virus infection) Z21 HIV symptom status: asymptomatic, with no history of HIV-related illness Septic embolism I76 Chronic hepatitis C without hepatic coma B18.2 Viral hepatitis chronicity: chronic Hepatic coma status: without hepatic coma Screen for STD (sexually transmitted disease) Z11.3 IVDU (intravenous drug user) F19.90 Diffuse papular rash R21 Liver cirrhosis K74.60 Thrombocytopenia D69.6 Methamphetamine abuse F15.10 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
[2025-01-27] MEDS: nystatin powder 15 gm Btl 1 APPLIC TOPICAL (17:42)
--- NOTE | 2025-01-27 19:36 | PC.NURSE ---
Patient has refused to wear her telemetry all shift.
[2025-01-27] MEDS: mirtazapine 15 mg Tablet PO (20:41)
[2025-01-27 23:00] VITALS: BP 84/56; TEMP 36.8
[2025-01-28] MEDS: ceFAZolin 2,000 MG in sodium chloride 0.9% (plus) 100 ML 200 MG IV ×3 (02:53→19:45)
[2025-01-28] MEDS: metoclopramide 5 mg/mL SDV 2 mL IVP (02:53)
--- NOTE | 2025-01-28 04:00 | PC.NURSE ---
Upon entering room to turn off patient IV antibiotics and flush line patient began yelling and using profanities. Unhooked IV antibiotic and flushed line. Line was painful with flushing. Patient stated' that was probably her fault too and that no one cared . Asked patient if she would like IV removed, as she had a PICC line placed the previous day, patient refused removal. Patient does not want us to ruin her picc line by overusing it and letting the picc line run dry for hours . Patient then began throwing things around room. Asked patient if there was anything I could do for her. She stated 'no, that if there was at this point she would just do it herself . Call light within reach.
--- NOTE | 2025-01-28 04:34 | PC.NURSE ---
Patient was screaming fuck this place, fuck you This nurse went to check on patient and patient yelled I'm fucking freezing but I am not going to ask you bitches for anything. This nurse educated patient that there are 11 other patients on floor and her screaming is waking everyone up, if she could please stop screaming and cussing at staff we would very much appreciate it. Patient proceeded to tell this nurse to fuck off . House supe and security were called to deescalate situation.
[2025-01-28] MEDS: acetaminophen 325 mg Tablet 650 MG PO (04:44)
[2025-01-28] MEDS: LORazepam 1 mg Tablet 0.5 MG PO (04:45)
[2025-01-28 05:07] LABS: Basophils # 0.1 10^3/uL (0.0-0.1); Basophils % 0.2 %; Eosinophils # 0.2 10^3/uL (0.0-0.8); Eosinophils % 1.2 %; Hematocrit 33.1 % (36-47); Lymphocytes # 2.8 10^3/uL (0.8-4.8); Lymphocytes % 13.6 %; Mean Corpuscular HGB Conc 31.7 g/dL (30-55); Mean Corpuscular Hemoglobin 28.8 pg (27-33); Mean Corpuscular Volume 90.7 fl (85-98); Mean Platelet Volume 10.1 fL (7.4-10.4); Monocytes # 1.2 10^3/uL (0.2-0.9); Monocytes % 5.8 %; Neutrophils # 15.92 10^3/uL (1.8-7.7); Neutrophils % 77.9 %; Nucleated Red Blood Cells % 0 %; Platelet Count 256 10^3/cmm (157-399); Red Blood Count 3.65 10^6/uL (3.85-5.65); Red Cell Distribution Width 14.4 % (12.1-15.1); White Blood Count 20.44 10^3/uL (3.29-11.43)
--- NOTE | 2025-01-28 05:12 | PC.NURSE ---
Patient refused telemetry and vital sign monitoring for majority of shift. material control supervisor and security able to get patient to be cooperative with monitoring.
[2025-01-28 06:44] LABS: Alanine Aminotransferase 8 U/L (0-33); Albumin Level 3.2 g/dL (3.5-5.2); Alkaline Phosphatase 99 U/L (35-105); Anion Gap 14.6 (5-19); Aspartate Amino Transferase 16 U/L (0-32); Blood Urea Nitrogen 7 mg/dL (6-20); Calcium 8.4 mg/dL (8.5-10.5); Carbon Dioxide 22 mmol/L (22-29); Chloride 99 mmol/L (98-107); Creatinine Clr Calc Pharmacy 156.1044; Globulin 3.6 g/dL (1.3-4.6); Glomerular Filtration Rate 136.6 mL/min (90-130); Glucose 136 mg/dL (65-115); Magnesium 1.5 mg/dL (1.7-2.3); Osmolality Calculated 274 mOsm/kg (285-295); Phosphorus 1.5 mg/dL (2.5-4.5); Potassium 3.6 mmol/L (3.5-5.1); Sodium 132 mmol/L (136-145); Total Protein 6.8 g/dL (6.6-8.7)
[2025-01-28 07:00] VITALS: PULSE 98; RESP 20; TEMP 36.6; O2SAT 96
[2025-01-28 08:05] VITALS: RESP 20; O2SAT 96
[2025-01-28] MEDS: ATRIPLA 1 EACH PO (08:18)
[2025-01-28] MEDS: aspirin 81 mg EC Tablet PO (08:18)
[2025-01-28] MEDS: rifAMPin 300 mg Capsule PO ×3 (08:18→21:09)
[2025-01-28] MEDS: hyDROXYzine 25 mg Capsule PO ×2 (08:18→18:25)
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
[2025-01-28] MEDS: sodium chloride 0.9% 1,000 ML 999 ML IV (14:03)
[2025-01-28 15:00] VITALS: BP 99/82; PULSE 95; RESP 12; TEMP 36.6; O2SAT 97
--- NOTE | 2025-01-28 15:32 | P.PN_ITS ---
Subjective 2 Subjective: Infectious disease progress note. Afebrile for 48 hours. WBC count is stable at 20,000. no acute interim events overnight. Medications: Reviewed: Yes Medication Review Details: vancomycin 01/16-01/18; subtherapeutic trough at 4 prior to switch to cefazolin. Cefazolin 2 g IV every 8 hours started January 19-current gentamicin 3mg/kg iv every 24 hrs 01/19- current rifampin 300mg TID 01/21- Bikatrvy- started 2019 to 01/21 Atripla starting 01/22 Vitals/I&O/Wt Last Vital Signs Temp 97.9 F 01/28/25 07:00 Pulse 98 01/28/25 07:00 Resp 20 H 01/28/25 08:05 BP 84/56 01/27/25 23:00 Pulse Ox 96 01/28/25 08:05 O2 Del Method Room Air 01/28/25 08:05 O2 Flow Rate 91 01/22/25 00:00 01/28/25 01/28/25 01/28/25 06:59 14:59 22:59 Intake Total 100 / 1666.6 820 / 820 Output Total 360 / 360 Balance 100 / 1666.6 460 / 460 Weight last 48 hrs Weight 79.787 kg Physical Exam 2 Narrative: Patient not seen today, care plan discussed with case managemnet and primary team Data 01/28/25 04:35 01/28/25 06:10 A&P Assessment and plan (1) Prosthetic valve endocarditis: 39-year-old lady with history of HIV and hepatitis C, unfortunately relapsed with regards to IV drug use currently 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 Blood cultures are positive for MSSA from day of admission. Follow-up blood cultures from 04/20/2025 are pending to date. Noted to have a 1 x 1 cm vegetation on the tricuspid valve. All clinical signs and symptoms consistent with prosthetic valve endocarditis. Discontinue vancomycin Start cefazolin 2 g IV every 8 hours. Patient's chart notes allergy to amoxicillin. Patient reports that she recently had an antibiotic for UTI following which she broke out into a diffuse rash she is uncertain which antibiotic this was but reports that it was likely penicillin . For this reason preferring cefazolin over nafcillin for now. Start gentamicin 3 mg/kg IV every 24 hours in addition to cefazolin. Additionally plan to add rifampin 300 mg 3 times daily, however this would need to wait until we can switch her HIV regimen over. Patient is currently on Biktarvy, rifampin is contraindicated with Biktarvy. Will switch HIV regimen to Atripla and start rifampin alongside. This will need to wait until outpatient pharmacy will be open after as a Atripla or any other HIV medicine is not currently available on formulary as an inpatient. Follow-up blood culture from 825 is currently pending. If patient remains persistently bacteremic or has signs or symptoms of worsening heart failure, will likely need urgent surgery. (2) Endocarditis due to methicillin susceptible Staphylococcus aureus (MSSA): MSSA positive blood cultures as noted above. (3) HIV (human immunodeficiency virus infection): Currently on treatment with Biktarvy since 2019 at which time HIV was a new diagnosis for the patient.. Patient did not complete viral load and CD4 as ordered in September 2024. Last viral load from April 2024 was undetectable. CD4 count from June 2023 at 984. Viral load and CD4 ordered today. Will likely need to switch therapy from Biktarvy to Atripla to enable use of rifampin for endocarditis. (4) Septic embolism: (5) Hepatitis C: History of hepatitis C. Patient was first diagnosed in 2019. Patient stated that she had completed Mavyret with Dr. Whalen at that time. HCVRNA rechecked in 2023 was still positive with a log of 6.83. She was retreated with Vosevi in late 2023. Posttreatment HCVRNA was ordered in September however has not been completed. Will check today. Liver imaging from February 2024 had shown a slightly nodular surface of the liver concerning for cirrhosis. She is due for annual HCC surveillance imaging, will obtain repeat imaging while she is currently admitted. (6) Screen for STD (sexually transmitted disease): Patient has a diffuse papular rash affecting face, bilateral upper extremities and legs. She thinks this was related to recent use of an antibiotic however uncertain which one this was. Rash concerning for potentially secondary syphilis. Will check RPR with reflex, FTA-ABS from the serum. Lumbar puncture was obtained upon admission which showed CSF WBC of 8, CSF glucose of 76 and a normal total protein. Given the above picture less likely to be bacterial meningitis however will obtain VDRL from CSF to rule out neurosyphilis. (7) IVDU (intravenous drug user): (8) Diffuse papular rash: Patient states this is currently improving. Uncertain cause. May be related to recent outpatient medication use. Syphilis screen pending. (9) Liver cirrhosis: Known liver cirrhosis, repeat abdominal imaging to assess for HCC surveillance (10) Thrombocytopenia: Acute thrombocytopenia most likely related to endocarditis, possibly also contributed by liver cirrhosis. 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 Febrile to 100.9 Fahrenheit. Blood cultures from January 18, 2025 reported positive for Staphylococcus aureus, presumably will be MSSA compatible with prior cultures from the . Repeat blood cultures from 04/21/2025 are pending so far. Patient started treatment with cefazolin 2 g IV every 8 hours along with gentamicin 3 mg/kg IV every 24 hours on January 19, 2025. Aiming to add rifampin 300 mg 3 times daily once we obtain Atripla, anticipated by tomorrow. In the interim continue Biktarvy for HIV. Pending HIV viral load, CD4 count and HCVRNA. If fails to respond to antibiotic treatment alone, may need to transfer for cardiothoracic surgery and consideration for surgical intervention. This has been discussed with the patient. January 21, 2025 Tmax as noted above. Leukocytosis at 16,000 today. Thus far blood cultures from 01/19/2025 are negative. Started cefazolin plus gentamicin on January 18. Add rifampin 300 mg 3 times daily today. Discontinue Biktarvy and switch to Atripla to allow concomitant administration wth Rifampin January 22, 2025 Febrile to 102 Fahrenheit. Leukocytosis at 16,000, stable. CT of the thoracolumbar spine that was performed yesterday did not show any signs of osteomyelitis discitis or epidural abscess. Incidentally note was made of multiple pulmonary lesions which appeared to be septic emboli. These were most likely present on admission, discovered only yesterday. Platelet count is improving at 123 today. Blood culture from 01/19/2025 and from yesterday remains negative so far. Most patients with PVE are expected become afebrile three to five days after initiation of appropriate antimicrobial therapy. Patient is day 4 of cefazolin and gentamicin today. Patients with?Staphylococcus aureus?PVE may respond more slowly, remaining febrile for five to seven days after initiation of therapy. Currently patient is not exhibiting any signs of heart failure. Septic emboli were likely present on admission, detected on CT yesterday. CT of the abdomen and pelvis is being ordered today by the primary team to assess for any abdominal sources of infection given patient has persistent vomiting. Currently blood culture is negative as of January 19, 2025. If patient develops persisting bacteremia, persistent fever beyond 5 to 7 days of appropriate antibiotic therapy, it may be suggestive of a paravalvular extension of infection in which case a JESSE would recommended to be repeated. At this present time, as of the last echocardiogram there are no signs of prosthetic valve dysfunction or paravalvular extension of infection therefore continuation of IV antibiotics is recommended. Should there be a change in the cardiac status, patient may need to be referred for early valvular surgery. Continue cefazolin, gentamicin and rifampin. Gentamicin trough is due today. HIV viral load is not detected. HIV regimen changed from Biktarvy to Atripla to allow for concomitant administration of rifampin. HCVRNA not detected, correlating with successfully treated hepatitis C infection. Pending CD4 count. January 23, 2025 Febrile 101 Fahrenheit. Leukocytosis at 18,000. CT of the abdomen and pelvis negative for any acute events. Reviewed demonstrated bilateral septic emboli involving the lungs. Platelet count continues to improve. Blood culture remaining negative so far from January 19 and January 21, 2025. Continue cefazolin, gentamicin (last trough at 0.3), and rifampin. Patient continues to be febrile to 101. Day 5 of organism directed therapy today started with cefazolin. If patient continues to be febrile over the next 24 hours, recommend to repeat JESSE to assess for any paravalvular extension of infection. Considered transitioning cefazolin to nafcillin, however patient reports allergy to amoxicillin as diffuse rash. Currently she has a rash affecting her face arms and legs which patient states started after being given amoxicillin recently for UTI. She is hesitant to switch therapy to nafcillin at this time. RPR negative. HIV viral load undetectable, CD4 count 500, HCV RNA undetectable. Unlikely [place] , PCT. January 24, 2025 T max 99F now. Feels much better today, less nausesous, wants to eat today. leukocytosis at 21K, uptrending from 18K, however clinically patient appears better today. JESSE completed. Large vegetation of 1.7 x 1.8 cm on tricuspid valve with mild TR per verbal report, No paravalvular extension of infection or abscess noted. Blood cx last + on 01/19, thus far negative from 01/21. Continue Cefazolin 2g iv every 8 hrs, gentamicin and rifampin. Cr reviewed normal. January 25, 2025 Tmax 102 Fahrenheit this afternoon. Patient has been refusing ibuprofen and Tylenol due to gastritis She is continuing to feel clinically better. White blood cell count at 17,000 today. Blood cultures are remaining negative from 01/21 and January 24 thus far. JESSE with large 1.7 x 1.5 cm vegetation on the prosthetic valve. Mild TR. Evidence of septic emboli to the lungs. No drainable collection. Abdominal CT without any persisting intra-abdominal source of infection. CT of the cervical thoracic and lumbar spine without any signs of discitis osteomyelitis or epidural abscess. Since blood cultures are clear, patient is clinically improving, JESSE without any evidence of paravalvular extension of infection, leukocytosis remains stable at 17,000, continue treatment with cefazolin gentamicin and rifampin. Platelet count is recovered. Stable kidney and liver function. Fever curve yesterday with a Tmax of 99 Fahrenheit, today Tmax at 102. Anticipate that patient's improvement in fever curve and leukocytosis may lag behind clinical improvement. Hold off on PICC line placement until cultures from 01/24/2025 are definitively negative at 48 hours. Patient is agreeable for LTAC placement to continue 6 weeks of total therapy. Will continue to follow. January 26, 2025 contnues to be febrile to tmax 101.6F, no new complaints blood cx negative from 01/21 and 01/[address] PICC Line tomorrow since blood cx negative as above Contnue cefazolin, gentamicin and rifampin , started 01/19 on cefazolin + gentamicin. Day 6 of clear culture today Clinically continues to improve January 27, 2025: Picc line placed this morning Blood cx remains negative from 01/21 and 01/24- confirmed with micro lab Currently last febrile 24 hrs ago, hope that starting to improve fever curve at this point Continue cefazolin, gentamicin and rifampin - day 7 of clear cx today If continues to be persistent febrile, then needs repeat CT chest to reassess septic emboli- r/o progression to empyema, abscess, etc. Clinically continues to improve If continues to show improvement, will plan d/c to LTAC on Cefazolin 2 g iv x 6 weeks, Gentamicin x 2 weeks and rifampin x 6 weeks. reveiwed normal kidney and liver function January 28, 2025 Blood cultures is negative from 528 and 531. Last fever over 24 hours ago, Tmax 100.6 Fahrenheit on January 26, 2025. Fever Guirgius currently improving Leukocytosis stable at 20,000. Anticipate delayed resolution of leukocytosis given extensive septic emboli, and large size of vegetation. However patient is overall clinically improving. Continue cefazolin 2 g iv every 8 hrs until March 10, 2025, Rifampin 300mg TID until March 10, 2025 gentamicin for a 2 week course until 02/04/25. Gentamicin trough to be checked today. Currently on Atripla, changed from Biktarvy to allow for concomitant use of rifampin. Check viral load after 1 month of change to Atripla. This will be done as outpatient in follow-up. HIV VL Undetectable, Cd4 count 500 PICC line was placed on January 27, 2025. HCV RNA not detected, s/p successful treatment with Vosevi. Next SVR check in 6 months as outpatient. This documentation was created by [employer] methods examiner software. Every effort was made to ensure accuracy of methods examiner. Any obvious errors or omissions should be clarified with the author of the document. PDMP PDMP Reviewed: Not Reviewed Attestations 2 Medical Necessity Statement*: per admitting Coding Level of Care Code Acute Code for Chg Fwd Diagnoses Prosthetic valve endocarditis T82.6XXA; I33.0 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; B95.61 HIV (human immunodeficiency virus infection) Z21 HIV symptom status: asymptomatic, with no history of HIV-related illness Septic embolism I76 Chronic hepatitis C without hepatic coma B18.2 Viral hepatitis chronicity: chronic Hepatic coma status: without hepatic coma Screen for STD (sexually transmitted disease) Z11.3 IVDU (intravenous drug user) F19.90 Diffuse papular rash R21 Liver cirrhosis K74.60 Thrombocytopenia D69.6 Methamphetamine abuse F15.10 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
[2025-01-28 16:04] LABS: Gentamicin Trough 0.3 ug/mL (0.0-8.0)
[2025-01-28] MEDS: magnesium sulfate premix 4 GM/100 ML PREMIX IV (16:14)
[2025-01-28] MEDS: heparin 5,000 unit/mL INJ 1 mL 5000 UNIT SUBCUT (18:22)
[2025-01-28] MEDS: SODIUM CHLORIDE 0.9% IV (18:25)
[2025-01-28] MEDS: GENTAMICIN IV (18:25)
[2025-01-28 19:08] VITALS: BP 99/82
[2025-01-28] MEDS: potassium phosphate (mMol PO4) 30 MMOL in sodium chloride 0.9% (100 ml) 100 ML 25 MMOL IV (20:27)
[2025-01-28 20:29] VITALS: BP 84/60; PULSE 89; RESP 16; TEMP 36.6; O2SAT 98
[2025-01-28] MEDS: mirtazapine 15 mg Tablet PO (21:09)
[2025-01-29] VITALS (8 sets, daily range): BP systolic 84–121; BP diastolic 56–77; PULSE 78–109; RESP 15–21; TEMP 36.6–38.6; O2SAT 93–100
[2025-01-29] MEDS: ceFAZolin 2,000 MG in sodium chloride 0.9% (plus) 100 ML 200 MG IV ×3 (02:28→17:22)
[2025-01-29] MEDS: ondansetron 2 mg/ML SDV 2 mL 4 MG IVP (02:59)
[2025-01-29 05:49] LABS: Phosphorus 2.9 mg/dL (2.5-4.5)
[2025-01-29] MEDS: heparin 5,000 unit/mL INJ 1 mL 5000 UNIT SUBCUT ×2 (06:09→17:22)
[2025-01-29] MEDS: pantoprazole 40 mg SDV IVP (06:09)
[2025-01-29 08:46] LABS: Basophils % 0.1 %; Eosinophils # 0.3 10^3/uL (0.0-0.8); Eosinophils % 1.8 %; Hematocrit 27.7 % (36-47); Lymphocytes # 1.1 10^3/uL (0.8-4.8); Lymphocytes % 7.4 %; Mean Corpuscular HGB Conc 31.4 g/dL (30-55); Mean Corpuscular Hemoglobin 28.4 pg (27-33); Mean Corpuscular Volume 90.5 fl (85-98); Mean Platelet Volume 11.1 fL (7.4-10.4); Monocytes # 0.7 10^3/uL (0.2-0.9); Neutrophils # 12.01 10^3/uL (1.8-7.7); Neutrophils % 85.1 %; Nucleated Red Blood Cells % 0 %; Platelet Count 184 10^3/cmm (157-399); Red Blood Count 3.06 10^6/uL (3.85-5.65); Red Cell Distribution Width 14.7 % (12.1-15.1); White Blood Count 14.14 10^3/uL (3.29-11.43)
[2025-01-29 08:52] LABS: Phosphorus 2.9 mg/dL (2.5-4.5)
[2025-01-29 09:02] LABS: Albumin Level 2.7 g/dL (3.5-5.2); Blood Urea Nitrogen 7 mg/dL (6-20); Calcium 7.8 mg/dL (8.5-10.5); Carbon Dioxide 24 mmol/L (22-29); Chloride 99 mmol/L (98-107); Creatinine Clr Calc Pharmacy 159.6111; Glomerular Filtration Rate 136.6 mL/min (90-130); Glucose 118 mg/dL (65-115); Sodium 134 mmol/L (136-145)
[2025-01-29] MEDS: ATRIPLA 1 EACH PO (09:04)
[2025-01-29 09:05] LABS: Anion Gap 15.1 (5-19); Potassium 4.1 mmol/L (3.5-5.1)
[2025-01-29] MEDS: rifAMPin 300 mg Capsule PO ×3 (09:05→21:20)
[2025-01-29] MEDS: hyDROXYzine 25 mg Capsule PO ×2 (09:05→17:22)
[2025-01-29] MEDS: clotrimazole-betamethasone cream 15gm 1 APPLIC TOPICAL ×3 (09:06→21:21)
[2025-01-29] MEDS: nystatin powder 15 gm Btl 1 APPLIC TOPICAL ×2 (09:08→17:23)
--- NOTE | 2025-01-29 10:54 | PM.PN ---
Subjective Subjective: No acute events overnight. No fever spikes recorded overnight. Tmax- 99.8. She was seen at the bedside, has no new complaints. She denies chest pain, shortness of breath. Medications: Reviewed: Yes Medication Review Details: vancomycin 01/16-01/18; subtherapeutic trough at 4 prior to switch to cefazolin. Cefazolin 2 g IV every 8 hours started January 19-current gentamicin 3mg/kg iv every 24 hrs 01/19- current rifampin 300mg TID 01/21- Bikatrvy- started 2019 to 01/21 Atripla starting 01/22 Vitals/I&O/Wt Last Vital Signs Temp 98.5 F 01/29/25 08:00 Pulse 82 01/29/25 08:50 Resp 18 01/29/25 08:50 BP 100/77 01/29/25 08:00 Pulse Ox 96 01/29/25 08:50 O2 Del Method Room Air 01/29/25 08:50 O2 Flow Rate 91 01/22/25 00:00 01/28/25 01/29/25 01/29/25 22:59 06:59 14:59 Intake Total 1816.6 / 2636.6 690 / 3326.6 240 / 240 Balance 1816.6 / 2276.6 690 / 2966.6 240 / 240 Weight last 48 hrs Weight 83.5 kg Weight 79.787 kg Physical Exam Narrative: General -Awake, alert, no acute distress HEENT-normocephalic, atraumatic, neck is supple Lungs-clear to auscultation bilaterally, no wheezes or crackles CVS -S1-S2, regular rate and rhythm Abdomen -soft, nontender, normal bowel sounds Extremities-no pedal edema Neurology -no gross focal deficits Data 01/29/25 04:57 01/29/25 04:57 Micro: Microbiology 01/24/25 05:46 Blood Culture - Final Blood NO GROWTH AFTER 5 DAYS 01/24/25 05:45 Blood Culture - Final Blood NO GROWTH AFTER 5 DAYS A&P Assessment and plan (1) Prosthetic valve endocarditis: (2) Endocarditis due to methicillin susceptible Staphylococcus aureus (MSSA): MSSA positive blood cultures as noted above. (3) HIV (human immunodeficiency virus infection): (4) Septic embolism: (5) Hepatitis C: (6) Screen for STD (sexually transmitted disease): (7) IVDU (intravenous drug user): (8) Diffuse papular rash: (9) Liver cirrhosis: (10) Thrombocytopenia: . 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 There is a large 1.78 x 1.5 cm vegetation seen on prosthetic valve. Mild tricuspid regurgitation -Blood cultures remain negative from 01/21, 01/24 , WBC trending down - Continue IV cefazolin, gentamicin and rifampin - If patient continues to be fever free, plan to d/c to LTAC on Cefazolin 2 g iv x 6 weeks - March 10 2025 , Gentamicin x 2 weeks - 02/04/2025 rifampin x 6 weeks- March 10 2025 -CT of the lumbar and thoracic spine negative for osteomyelitis, discitis - Infectious disease following # Pulmonary septic embolism - Continue antibiotics # HIV - Patient was on Biktarvy , currently switched to Atripla to enable use of rifampin for endocarditis - Per infectious disease, check viral load after 1 month of change toAtripla - HIV viral load is undetectable, CD4 count is 500 # Hepatitis C -HCV currently negative - Status posttreatment with Vosevi in late 2023. # Diffuse papular rash - Patient states rash appeared after recent antibiotic use - RPR is negative, FTA-ABS from the serum are both negative. # Substance use disorder # IV drug use, IV methamphetamine - Continue to encourage cessation # Congenital mitral valve prolapse: # H/O mitral valve repair: - no acute issues at this time #Hypokalemia #Hypomagnesemia #Hypophosphatemia - Continue to replace as appropriate # Thrombocytopenia -In the setting of acute illness -Monitor PDMP PDMP Reviewed: Not Reviewed Attestations Medical Necessity Statement*: Patient continues to require inpatient care for IV antibiotics for MSSA bacteremia, infective endocarditis Coding Level of Care Code Acute Code for [facility] Diagnoses Prosthetic valve endocarditis T82.6XXA; I33.0 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; B95.61 HIV (human immunodeficiency virus infection) Z21 HIV symptom status: asymptomatic, with no history of HIV-related illness Septic embolism I76 Chronic hepatitis C without hepatic coma B18.2 Viral hepatitis chronicity: chronic Hepatic coma status: without hepatic coma Screen for STD (sexually transmitted disease) Z11.3 IVDU (intravenous drug user) F19.90 Diffuse papular rash R21 Liver cirrhosis K74.60 Thrombocytopenia D69.6 Methamphetamine abuse F15.10 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
--- NOTE | 2025-01-29 13:51 | XR_ITS ---
WS: [id number] XR chest 1V portable [id number] REASON FOR EXAM: confirm PICC placement FINDINGS: Right arm PICC line is present with the tip in the distal SVC. Tip overlies the right eighth rib posteriorly which is the position noted on 01/27/2025. Reticular and groundglass opacities in the right lower lung have increased compared to the previous examination. There is also an area of focal consolidation which may be atelectasis in the right lung base. Mild cardiomegaly with prosthetic valve. The chest is otherwise unchanged. XR/XR chest 1V portable [id number] IMPRESSION: PICC line remains in position. Increased lung opacities in the right lower lung.
--- NOTE | 2025-01-29 14:00 | PICC.NOTE ---
Floor nurse contacted vascular access nurse stating patient states she feels like she can hear a rushing noise by her ear when the PICC is flushed. Recommendation made to consult Dr. Aguirre for orders for CXR to confirm PICC tip. Following CXR, radiologist confirmed tip in distal SVC, unmoved from original placement and ok to use.
[2025-01-29] MEDS: prochlorperazine 10 mg Tablet 5 MG PO (15:31)
--- NOTE | 2025-01-29 15:35 | PC.NURSE ---
Nausea Patient c/o nausea, patient given compazine po.
[2025-01-29 16:20] LABS: Urine Random Sodium 147 mmol/L
[2025-01-29] MEDS: SODIUM CHLORIDE 0.9% IV (16:22)
[2025-01-29] MEDS: GENTAMICIN IV (16:22)
[2025-01-29] MEDS: mirtazapine 15 mg Tablet PO (21:20)
[2025-01-30] VITALS (7 sets, daily range): BP systolic 87–100; BP diastolic 59–71; PULSE 83–97; RESP 15–18; TEMP 36.7–37.2; O2SAT 92–98
[2025-01-30] MEDS: metoclopramide 5 mg/mL SDV 2 mL IVP (02:18)
[2025-01-30] MEDS: ceFAZolin 2,000 MG in sodium chloride 0.9% (plus) 100 ML 200 MG IV ×3 (02:18→17:28)
[2025-01-30 05:19] LABS: Basophils # 0.1 10^3/uL (0.0-0.1); Basophils % 0.4 %; Eosinophils # 0.3 10^3/uL (0.0-0.8); Hematocrit 31.2 % (36-47); Lymphocytes % 14.5 %; Mean Corpuscular HGB Conc 31.7 g/dL (30-55); Mean Corpuscular Hemoglobin 28.6 pg (27-33); Mean Corpuscular Volume 90.2 fl (85-98); Mean Platelet Volume 10.6 fL (7.4-10.4); Monocytes # 1.4 10^3/uL (0.2-0.9); Monocytes % 10.3 %; Neutrophils % 72.3 %; Nucleated Red Blood Cells % 0 %; Platelet Count 247 10^3/cmm (157-399); Red Blood Count 3.46 10^6/uL (3.85-5.65); Red Cell Distribution Width 14.6 % (12.1-15.1)
[2025-01-30 05:54] LABS: Alanine Aminotransferase 6 U/L (0-33); Albumin Level 3.1 g/dL (3.5-5.2); Alkaline Phosphatase 111 U/L (35-105); Aspartate Amino Transferase 14 U/L (0-32); Blood Urea Nitrogen 6 mg/dL (6-20); Calcium 8.6 mg/dL (8.5-10.5); Carbon Dioxide 27 mmol/L (22-29); Chloride 97 mmol/L (98-107); Creatinine Clr Calc Pharmacy 134.6919; Globulin 3.9 g/dL (1.3-4.6); Glomerular Filtration Rate 110.7 mL/min (90-130); Glucose 131 mg/dL (65-115); Osmolality Calculated 279 mOsm/kg (285-295); Sodium 135 mmol/L (136-145); Total Bilirubin 0.7 mg/dL (0.15-1.2)
[2025-01-30 05:58] LABS: Anion Gap 15.1 (5-19); Potassium 4.1 mmol/L (3.5-5.1)
[2025-01-30] MEDS: heparin 5,000 unit/mL INJ 1 mL 5000 UNIT SUBCUT (06:16)
[2025-01-30] MEDS: pantoprazole 40 mg SDV IVP (06:16)
[2025-01-30] MEDS: clotrimazole-betamethasone cream 15gm 1 APPLIC TOPICAL ×3 (09:28→20:20)
[2025-01-30] MEDS: rifAMPin 300 mg Capsule PO ×3 (09:28→20:19)
[2025-01-30] MEDS: nystatin powder 15 gm Btl 1 APPLIC TOPICAL ×2 (09:28→17:28)
[2025-01-30] MEDS: hyDROXYzine 25 mg Capsule PO ×2 (09:28→17:27)
[2025-01-30] MEDS: ATRIPLA 1 EACH PO (09:29)
--- NOTE | 2025-01-30 09:59 | CT_ITS ---
WS: [id number] CT CHEST TECHNIQUE: Noncontrast CT of the chest with coronal and sagittal reformatted images. CLINICAL INFORMATION: follow up septic emboli COMPARISON: CT 01/22/2025 DLP: 336.[address] scans at [facility] use at least one of these dose optimization techniques: automated exposure control; mA and/or kV adjustment per patient size (includes targeted exams where dose is matched to clinical indication); or iterative reconstruction. FINDINGS: Previously described cavitary lesions compatible with septic emboli are again seen in both lungs. These are similar in appearance compared to previous with slightly more cavitation involving some of the nodules. The number of nodules and cavitary lesions are stable in appearance. Chronic emphysematous changes. No pleural fluid. No other significant changes. CT/CT chest con [id number] IMPRESSION: 1. Previously described septic emboli are similar in appearance with a few nod ules undergoing additional cavitation today. No other remarkable changes 2. Cholecystectomy clips. 3. No other interval changes.
--- NOTE | 2025-01-30 10:36 | P.PN_ITS ---
Subjective 2 Subjective: ID progress note febrile to tmax 101F no clinical change otherwise continues to feel better Medications: Reviewed: Yes Medication Review Details: vancomycin 01/16-01/18; subtherapeutic trough at 4 prior to switch to cefazolin. Cefazolin 2 g IV every 8 hours started January 19-current gentamicin 3mg/kg iv every 24 hrs 01/19- current day 12 of rifampin 300mg TID 01/21- Bikatrvy- started 01/21 Atripla starting 01/22- Picc line placed on 01/27 Vitals/I&O/Wt Last Vital Signs Temp 98.0 F 01/30/25 07:45 Pulse 83 01/30/25 09:34 Resp 16 01/30/25 09:34 BP 88/60 01/30/25 07:45 Pulse Ox 96 01/30/25 09:34 O2 Del Method Room Air 01/30/25 09:34 O2 Flow Rate 91 01/22/25 00:00 01/29/25 01/30/25 01/30/25 22:59 06:59 14:59 Intake Total 806.6 / 1746.6 350 / 2096.6 580 / 580 Output Total 400 / 600 700 / 1300 Balance 406.6 / 1146.6 -350 / 796.6 580 / 580 Weight last 48 hrs Weight 85.638 kg Weight 83.5 kg Physical Exam 2 Narrative: Patient not seen today, care plan discussed with case managemnet and primary team Data 01/30/25 04:11 01/30/25 04:11 Micro: Microbiology 01/24/25 05:46 Blood Culture - Final Blood NO GROWTH AFTER 5 DAYS 01/24/25 05:45 Blood Culture - Final Blood NO GROWTH AFTER 5 DAYS A&P Assessment and plan (1) Prosthetic valve endocarditis: 39-year-old lady with history of HIV and hepatitis C, unfortunately relapsed with regards to IV drug use currently 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 Blood cultures are positive for MSSA from day of admission. Follow-up blood cultures from 04/20/2025 are pending to date. Noted to have a 1 x 1 cm vegetation on the tricuspid valve. All clinical signs and symptoms consistent with prosthetic valve endocarditis. Discontinue vancomycin Start cefazolin 2 g IV every 8 hours. Patient's chart notes allergy to amoxicillin. Patient reports that she recently had an antibiotic for UTI following which she broke out into a diffuse rash she is uncertain which antibiotic this was but reports that it was likely penicillin . For this reason preferring cefazolin over nafcillin for now. Start gentamicin 3 mg/kg IV every 24 hours in addition to cefazolin. Additionally plan to add rifampin 300 mg 3 times daily, however this would need to wait until we can switch her HIV regimen over. Patient is currently on Biktarvy, rifampin is contraindicated with Biktarvy. Will switch HIV regimen to Atripla and start rifampin alongside. This will need to wait until outpatient pharmacy will be open after as a Atripla or any other HIV medicine is not currently available on formulary as an inpatient. Follow-up blood culture from 825 is currently pending. If patient remains persistently bacteremic or has signs or symptoms of worsening heart failure, will likely need urgent surgery. (2) Endocarditis due to methicillin susceptible Staphylococcus aureus (MSSA): MSSA positive blood cultures as noted above. (3) HIV (human immunodeficiency virus infection): Currently on treatment with Biktarvy since 2019 at which time HIV was a new diagnosis for the patient.. Patient did not complete viral load and CD4 as ordered in September 2024. Last viral load from April 2024 was undetectable. CD4 count from June 2023 at 984. Viral load and CD4 ordered today. Will likely need to switch therapy from Biktarvy to Atripla to enable use of rifampin for endocarditis. (4) Septic embolism: (5) Hepatitis C: History of hepatitis C. Patient was first diagnosed in 2019. Patient stated that she had completed Mavyret with Dr. Whalen at that time. HCVRNA rechecked in 2023 was still positive with a log of 6.83. She was retreated with Vosevi in late 2023. Posttreatment HCVRNA was ordered in September however has not been completed. Will check today. Liver imaging from February 2024 had shown a slightly nodular surface of the liver concerning for cirrhosis. She is due for annual HCC surveillance imaging, will obtain repeat imaging while she is currently admitted. (6) Screen for STD (sexually transmitted disease): Patient has a diffuse papular rash affecting face, bilateral upper extremities and legs. She thinks this was related to recent use of an antibiotic however uncertain which one this was. Rash concerning for potentially secondary syphilis. Will check RPR with reflex, FTA-ABS from the serum. Lumbar puncture was obtained upon admission which showed CSF WBC of 8, CSF glucose of 76 and a normal total protein. Given the above picture less likely to be bacterial meningitis however will obtain VDRL from CSF to rule out neurosyphilis. (7) IVDU (intravenous drug user): (8) Diffuse papular rash: Patient states this is currently improving. Uncertain cause. May be related to recent outpatient medication use. Syphilis screen pending. (9) Liver cirrhosis: Known liver cirrhosis, repeat abdominal imaging to assess for HCC surveillance (10) Thrombocytopenia: Acute thrombocytopenia most likely related to endocarditis, possibly also contributed by liver cirrhosis. 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 Febrile to 100.9 Fahrenheit. Blood cultures from January 18, 2025 reported positive for Staphylococcus aureus, presumably will be MSSA compatible with prior cultures from the . Repeat blood cultures from 04/21/2025 are pending so far. Patient started treatment with cefazolin 2 g IV every 8 hours along with gentamicin 3 mg/kg IV every 24 hours on January 19, 2025. Aiming to add rifampin 300 mg 3 times daily once we obtain Atripla, anticipated by tomorrow. In the interim continue Biktarvy for HIV. Pending HIV viral load, CD4 count and HCVRNA. If fails to respond to antibiotic treatment alone, may need to transfer for cardiothoracic surgery and consideration for surgical intervention. This has been discussed with the patient. January 21, 2025 Tmax as noted above. Leukocytosis at 16,000 today. Thus far blood cultures from 01/19/2025 are negative. Started cefazolin plus gentamicin on January 18. Add rifampin 300 mg 3 times daily today. Discontinue Biktarvy and switch to Atripla to allow concomitant administration wth Rifampin January 22, 2025 Febrile to 102 Fahrenheit. Leukocytosis at 16,000, stable. CT of the thoracolumbar spine that was performed yesterday did not show any signs of osteomyelitis discitis or epidural abscess. Incidentally note was made of multiple pulmonary lesions which appeared to be septic emboli. These were most likely present on admission, discovered only yesterday. Platelet count is improving at 123 today. Blood culture from 01/19/2025 and from yesterday remains negative so far. Most patients with PVE are expected become afebrile three to five days after initiation of appropriate antimicrobial therapy. Patient is day 4 of cefazolin and gentamicin today. Patients with?Staphylococcus aureus?PVE may respond more slowly, remaining febrile for five to seven days after initiation of therapy. Currently patient is not exhibiting any signs of heart failure. Septic emboli were likely present on admission, detected on CT yesterday. CT of the abdomen and pelvis is being ordered today by the primary team to assess for any abdominal sources of infection given patient has persistent vomiting. Currently blood culture is negative as of January 19, 2025. If patient develops persisting bacteremia, persistent fever beyond 5 to 7 days of appropriate antibiotic therapy, it may be suggestive of a paravalvular extension of infection in which case a JESSE would recommended to be repeated. At this present time, as of the last echocardiogram there are no signs of prosthetic valve dysfunction or paravalvular extension of infection therefore continuation of IV antibiotics is recommended. Should there be a change in the cardiac status, patient may need to be referred for early valvular surgery. Continue cefazolin, gentamicin and rifampin. Gentamicin trough is due today. HIV viral load is not detected. HIV regimen changed from Biktarvy to Atripla to allow for concomitant administration of rifampin. HCVRNA not detected, correlating with successfully treated hepatitis C infection. Pending CD4 count. January 23, 2025 Febrile 101 Fahrenheit. Leukocytosis at 18,000. CT of the abdomen and pelvis negative for any acute events. Reviewed demonstrated bilateral septic emboli involving the lungs. Platelet count continues to improve. Blood culture remaining negative so far from January 19 and January 21, 2025. Continue cefazolin, gentamicin (last trough at 0.3), and rifampin. Patient continues to be febrile to 101. Day 5 of organism directed therapy today started with cefazolin. If patient continues to be febrile over the next 24 hours, recommend to repeat JESSE to assess for any paravalvular extension of infection. Considered transitioning cefazolin to nafcillin, however patient reports allergy to amoxicillin as diffuse rash. Currently she has a rash affecting her face arms and legs which patient states started after being given amoxicillin recently for UTI. She is hesitant to switch therapy to nafcillin at this time. RPR negative. HIV viral load undetectable, CD4 count 500, HCV RNA undetectable. Unlikely [place] , PCT. January 24, 2025 T max 99F now. Feels much better today, less nausesous, wants to eat today. leukocytosis at 21K, uptrending from 18K, however clinically patient appears better today. JESSE completed. Large vegetation of 1.7 x 1.8 cm on tricuspid valve with mild TR per verbal report, No paravalvular extension of infection or abscess noted. Blood cx last + on 01/19, thus far negative from 01/21. Continue Cefazolin 2g iv every 8 hrs, gentamicin and rifampin. Cr reviewed normal. January 25, 2025 Tmax 102 Fahrenheit this afternoon. Patient has been refusing ibuprofen and Tylenol due to gastritis She is continuing to feel clinically better. White blood cell count at 17,000 today. Blood cultures are remaining negative from 01/21 and January 24 thus far. JESSE with large 1.7 x 1.5 cm vegetation on the prosthetic valve. Mild TR. Evidence of septic emboli to the lungs. No drainable collection. Abdominal CT without any persisting intra-abdominal source of infection. CT of the cervical thoracic and lumbar spine without any signs of discitis osteomyelitis or epidural abscess. Since blood cultures are clear, patient is clinically improving, JESSE without any evidence of paravalvular extension of infection, leukocytosis remains stable at 17,000, continue treatment with cefazolin gentamicin and rifampin. Platelet count is recovered. Stable kidney and liver function. Fever curve yesterday with a Tmax of 99 Fahrenheit, today Tmax at 102. Anticipate that patient's improvement in fever curve and leukocytosis may lag behind clinical improvement. Hold off on PICC line placement until cultures from 01/24/2025 are definitively negative at 48 hours. Patient is agreeable for LTAC placement to continue 6 weeks of total therapy. Will continue to follow. January 26, 2025 contnues to be febrile to tmax 101.6F, no new complaints blood cx negative from 01/21 and 01/[address] PICC Line tomorrow since blood cx negative as above Contnue cefazolin, gentamicin and rifampin , started 01/19 on cefazolin + gentamicin. Day 6 of clear culture today Clinically continues to improve January 27, 2025: Picc line placed this morning Blood cx remains negative from 01/21 and 01/24- confirmed with micro lab Currently last febrile 24 hrs ago, hope that starting to improve fever curve at this point Continue cefazolin, gentamicin and rifampin - day 7 of clear cx today If continues to be persistent febrile, then needs repeat CT chest to reassess septic emboli- r/o progression to empyema, abscess, etc. Clinically continues to improve If continues to show improvement, will plan d/c to LTAC on Cefazolin 2 g iv x 6 weeks, Gentamicin x 2 weeks and rifampin x 6 weeks. reveiwed normal kidney and liver function January 28, 2025 Blood cultures is negative from 528 and 531. Last fever over 24 hours ago, Tmax 100.6 Fahrenheit on January 26, 2025. Fever Guirgius currently improving Leukocytosis stable at 20,000. Anticipate delayed resolution of leukocytosis given extensive septic emboli, and large size of vegetation. However patient is overall clinically improving. Continue cefazolin 2 g iv every 8 hrs until March 10, 2025, Rifampin 300mg TID until March 10, 2025 gentamicin for a 2 week course until 02/04/25. Gentamicin trough to be checked today. Currently on Atripla, changed from Biktarvy to allow for concomitant use of rifampin. Check viral load after 1 month of change to Atripla. This will be done as outpatient in follow-up. HIV VL Undetectable, Cd4 count 500 PICC line was placed on January 27, 2025. HCV RNA not detected, s/p successful treatment with Vosevi. Next SVR check in 6 months as outpatient. January 30, 2025: care plan discussed with primary team, chart reveiwed. T max 101F last evening. Per review of chart, patient has last taken tylenol on 01/28, no antipyretic since then. Overall clically stable[place] [address] chesttoday to r/o interval development of lung abscess or empyema. Check resp panel and UA, with urine cx if UA +. overall iven clinical stability and overall imporvement, intermittent fever likely related to known illness, however pertinent to r/o any developing complications. Continue cefazolin, gentamicin and rifampin as above This documentation was created by [employer] transcription manager software. Every effort was made to ensure accuracy of transcription manager. Any obvious errors or omissions should be clarified with the author of the document. PDMP PDMP Reviewed: Not Reviewed Attestations 2 Medical Necessity Statement*: per admitting Coding Level of Care Code Acute Code for Chg Fwd Diagnoses Prosthetic valve endocarditis T82.6XXA; I33.0 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; B95.61 HIV (human immunodeficiency virus infection) Z21 HIV symptom status: asymptomatic, with no history of HIV-related illness Septic embolism I76 Chronic hepatitis C without hepatic coma B18.2 Viral hepatitis chronicity: chronic Hepatic coma status: without hepatic coma Screen for STD (sexually transmitted disease) Z11.3 IVDU (intravenous drug user) F19.90 Diffuse papular rash R21 Liver cirrhosis K74.60 Thrombocytopenia D69.6 Methamphetamine abuse F15.10 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
--- NOTE | 2025-01-30 12:29 | P.PN_ITS ---
Subjective 2 Subjective: Fever spike overnight Tmax- 101.4F . She was seen at the bedside, has no new complaints. She denies chest pain, shortness of breath. Medications: Reviewed: Yes Medication Review Details: vancomycin 01/16-01/18; subtherapeutic trough at 4 prior to switch to cefazolin. Cefazolin 2 g IV every 8 hours started January 19-current gentamicin 3mg/kg iv every 24 hrs 01/19- current day rifampin 300mg TID 01/21- Bikatrvy- started 2019 to 01/21 Atripla starting 01/22 Vitals/I&O/Wt Last Vital Signs Temp 98.0 F 01/30/25 07:45 Pulse 83 01/30/25 09:34 Resp 16 01/30/25 09:34 BP 88/60 01/30/25 07:45 Pulse Ox 96 01/30/25 09:34 O2 Del Method Room Air 01/30/25 09:34 O2 Flow Rate 91 01/22/25 00:00 01/29/25 01/30/25 01/30/25 22:59 06:59 14:59 Intake Total 806.6 / 1746.6 350 / 2096.6 580 / 580 Output Total 400 / 600 700 / 1300 Balance 406.6 / 1146.6 -350 / 796.6 580 / 580 Weight last 48 hrs Weight 85.638 kg Weight 83.5 kg Physical Exam 2 Narrative: General -Awake, alert , no acute distress HEENT-normocephalic, atraumatic, neck is supple Lungs-clear to auscultation bilaterally, no wheezes or crackles CVS -S1-S2, regular rate and rhythm Abdomen -soft, nontender, normal bowel sounds SKIn - maculopapular rash - improved Extremities-no pedal edema Neurology -no gross focal deficits Data 01/30/25 04:11 01/30/25 04:11 A&P Assessment and plan (1) Prosthetic valve endocarditis: (2) Endocarditis due to methicillin susceptible Staphylococcus aureus (MSSA): MSSA positive blood cultures as noted above. (3) HIV (human immunodeficiency virus infection): (4) Septic embolism: (5) Hepatitis C: (6) Screen for STD (sexually transmitted disease): (7) IVDU (intravenous drug user): (8) Diffuse papular rash: (9) Liver cirrhosis: (10) Thrombocytopenia: . 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 There is a large 1.78 x 1.5 cm vegetation seen on prosthetic valve. Mild tricuspid regurgitation -Blood cultures remain negative from 01/21, 01/24 , WBC trending down - Continue IV cefazolin, gentamicin and rifampin - If patient continues to be fever free, plan to d/c to LTAC on Cefazolin 2 g iv x 6 weeks - March 10 2025 , Gentamicin x 2 weeks - 02/04/2025 rifampin x 6 weeks- March 10 2025 -CT of the lumbar and thoracic spine negative for osteomyelitis, discitis - Infectious disease following -Fever overnight , Per ID, repeat CT chest to evaluate for abscess , empyema # Pulmonary septic embolism - Continue antibiotics --Fever overnight , Per ID, repeat CT chest to evaluate for abscess , empyema # HIV -Patient was on Biktarvy , currently switched to Atripla to enable use of rifampin for endocarditis - Per infectious disease, check viral load after 1 month of change to Atripla - HIV viral load is undetectable, CD4 count is 500 #Hepatitis C -HCV currently negative -Status post-treatment with Vosevi in late 2023. #Diffuse papular rash -Patient states rash appeared after recent antibiotic use -Improved -RPR is negative, FTA-ABS from the serum are both negative. # Substance use disorder # IV drug use, IV methamphetamine - Continue to encourage cessation # Congenital mitral valve prolapse: # H/O mitral valve repair: - no acute issues at this time #Hypokalemia #Hypomagnesemia #Hypophosphatemia - Continue to replace as appropriate #Thrombocytopenia -In the setting of acute illness -Monitor PDMP PDMP Reviewed: Not Reviewed Attestations 2 Medical Necessity Statement*: Patient continues to require inpatient care for IV antibiotics for MSSA bacteremia, infective endocarditis. Coding Level of Care Code Acute Code for [facility] Diagnoses Prosthetic valve endocarditis T82.6XXA; I33.0 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; B95.61 HIV (human immunodeficiency virus infection) Z21 HIV symptom status: asymptomatic, with no history of HIV-related illness Septic embolism I76 Chronic hepatitis C without hepatic coma B18.2 Viral hepatitis chronicity: chronic Hepatic coma status: without hepatic coma Screen for STD (sexually transmitted disease) Z11.3 IVDU (intravenous drug user) F19.90 Diffuse papular rash R21 Liver cirrhosis K74.60 Thrombocytopenia D69.6 Methamphetamine abuse F15.10 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
[2025-01-30 14:24] LABS: Adenovirus Not Detected (NOT DETECT); Chlamydia Pneumoniae Not Detected (NOT DETECT); Coronavirus 229E,HKU1,NL63,OC4 Not Detected (NOT DETECT); Human Metapneumovirus Not Detected (NOT DETECT); Human Rhinovirus/Enterovirus Not Detected (NOT DETECT); Influenza A Not Detected (NOT DETECT); Influenza A H1 Not Detected (NOT DETECT); Influenza A H1-2009 Not Detected (NOT DETECT); Influenza A H3 Not Detected (NOT DETECT); Influenza B Not Detected (NOT DETECT); Mycoplasma Pneumoniae Not Detected (NOT DETECT); Parainfluenza Virus Type 1 Not Detected (NOT DETECT); Parainfluenza Virus Type 2 Not Detected (NOT DETECT); Parainfluenza Virus Type 3 Not Detected (NOT DETECT); Parainfluenza Virus Type 4 Not Detected (NOT DETECT); Respiratory Syncytial Virus A Not Detected (NOT DETECT); Respiratory Syncytial Virus B Not Detected (NOT DETECT); SARS-COV-2 Not Detected (NOT DETECT)
[2025-01-30] MEDS: GENTAMICIN IV (16:12)
[2025-01-30] MEDS: SODIUM CHLORIDE 0.9% IV (16:12)
[2025-01-30 16:23] LABS: Osmolality Serum 276 mOsm/kg (278-305)
[2025-01-30] MEDS: ondansetron 2 mg/ML SDV 2 mL 4 MG IVP ×2 (17:27→23:30)
[2025-01-30 17:31] LABS: Bilirubin Urine 1+ (Negative); Blood Urine Trace (Negative); Glucose Urine UA Negative (Normal); Ketones Urine Negative (Negative); Leukocyte Esterase Urine 1+ (Negative); Nitrate Urine Positive (Negative); Protein Urine Trace (Negative); Specific Gravity, Urine 1.019 (1.005-1.030); Urine Appearance Cloudy (CLEAR)
[2025-01-30 17:36] LABS: Add Urine Microscopic? YES; Bacteria Urine None Seen /hpf; Hyaline Casts Urine 23.57 /lpf; RBC Urine 0-2 /hpf (0-2); WBC Urine 0-5 /hpf (0-5)
[2025-01-30 17:59] LABS: Urine Color Orange (Yellow)
[2025-01-30 18:00] LABS: Add Urine Culture? Yes
[2025-01-30] MEDS: mirtazapine 15 mg Tablet PO (20:19)
[2025-01-31] VITALS (8 sets, daily range): BP systolic 88–101; BP diastolic 62–72; PULSE 75–116; RESP 16–22; TEMP 36.4–39.4; O2SAT 91–97
[2025-01-31] MEDS: ceFAZolin 2,000 MG in sodium chloride 0.9% (plus) 100 ML 200 MG IV (02:03)
--- NOTE | 2025-01-31 03:09 | PC.NURSE ---
Fever DIMITRI [place] notified this nurse that patient is running a 102 fever this AM. This nurse pulled prn tylenol for patient and went to administer it. Upon informing patient that this nurse had tylenol for patient's fever, patient stated I already took my own Tylenol for it, the bottle is over there and the doctor knows I have it. Patient showed nurse home bottle of mixture Tylenol/Ibuprofen. Each table contains 250mg Tylenol and 125mg Ibuprofen. Patient states that she self administered two tablets. This nurse educated patient regarding prn ordered meds and to not self administer any home medications unless approved by the physician with order given to nurse. Patient verbalizes understanding. Patient temperature to be retaken in approximately one hour. PRN Tylenol returned to pyxis.
[2025-01-31] MEDS: pantoprazole 40 mg SDV IVP (05:29)
[2025-01-31 05:49] LABS: Basophils # 0.1 10^3/uL (0.0-0.1); Basophils % 0.3 %; Eosinophils # 0.1 10^3/uL (0.0-0.8); Eosinophils % 0.7 %; Hematocrit 27.5 % (36-47); Lymphocytes % 6.3 %; Mean Corpuscular Hemoglobin 29.1 pg (27-33); Mean Corpuscular Volume 91.1 fl (85-98); Mean Platelet Volume 9.3 fL (7.4-10.4); Monocytes # 1.4 10^3/uL (0.2-0.9); Monocytes % 8.6 %; Neutrophils # 13.46 10^3/uL (1.8-7.7); Neutrophils % 83.5 %; Nucleated Red Blood Cells % 0 %; Platelet Count 207 10^3/cmm (157-399); Red Blood Count 3.02 10^6/uL (3.85-5.65); Red Cell Distribution Width 14.6 % (12.1-15.1)
[2025-01-31 06:29] LABS: Alanine Aminotransferase < 5 U/L (0-33); Albumin Level 2.9 g/dL (3.5-5.2); Alkaline Phosphatase 95 U/L (35-105); Anion Gap 12.6 (5-19); Aspartate Amino Transferase 11 U/L (0-32); Blood Urea Nitrogen 7 mg/dL (6-20); Calcium 8.3 mg/dL (8.5-10.5); Carbon Dioxide 27 mmol/L (22-29); Chloride 98 mmol/L (98-107); Globulin 3.5 g/dL (1.3-4.6); Glomerular Filtration Rate 79.4 mL/min (90-130); Glucose 156 mg/dL (65-115); Osmolality Calculated 279 mOsm/kg (285-295); Potassium 3.6 mmol/L (3.5-5.1); Sodium 134 mmol/L (136-145); Total Bilirubin 0.6 mg/dL (0.15-1.2); Total Protein 6.4 g/dL (6.6-8.7)
[2025-01-31] MEDS: hyDROXYzine 25 mg Capsule PO ×2 (08:54→17:36)
[2025-01-31] MEDS: rifAMPin 300 mg Capsule PO ×3 (08:54→20:50)
[2025-01-31] MEDS: ceFAZolin 2,000 MG in sodium chloride 0.9% (plus) 100 ML 100 MG IV (08:54)
[2025-01-31] MEDS: aspirin 81 mg EC Tablet PO (08:54)
[2025-01-31] MEDS: ondansetron 2 mg/ML SDV 2 mL 4 MG IVP ×2 (08:54→22:59)
[2025-01-31] MEDS: ATRIPLA 1 EACH PO (08:55)
[2025-01-31] MEDS: nystatin powder 15 gm Btl 1 APPLIC TOPICAL ×2 (08:56→17:36)
[2025-01-31] MEDS: clotrimazole-betamethasone cream 15gm 1 APPLIC TOPICAL ×3 (08:56→20:51)
--- NOTE | 2025-01-31 11:51 | PM.PN ---
Subjective Subjective: Fever spikes overnight Tmax- 102.9F . She was seen at the bedside, has no new complaints. She denies chest pain, shortness of breath. Medications: Reviewed: Yes Medication Review Details: vancomycin 01/16-01/18; subtherapeutic trough at 4 prior to switch to cefazolin. Cefazolin 2 g IV every 8 hours started January 19-current gentamicin 3mg/kg iv every 24 hrs 01/19- current day rifampin 300mg TID 01/21- Bikatrvy- started 2019 to 01/21 Atripla starting 01/22- Picc line placed on 01/27 Vitals/I&O/Wt Last Vital Signs Temp 98.4 F 01/31/25 11:36 Pulse 87 01/31/25 11:36 Resp 17 01/31/25 11:36 BP 101/72 01/31/25 11:36 Pulse Ox 97 01/31/25 11:36 O2 Del Method Room Air 01/31/25 11:36 O2 Flow Rate 91 01/22/25 00:00 01/30/25 01/31/25 01/31/25 22:59 06:59 14:59 Intake Total 446.6 / 1266.6 100 / 1366.6 Output Total 100 / 100 500 / 600 Balance 346.6 / 1166.6 -400 / 766.6 Weight last 48 hrs Weight 88.269 kg Weight 85.638 kg Physical Exam Narrative: General -Awake, alert , no acute distress HEENT-normocephalic, atraumatic, neck is supple Lungs-clear to auscultation bilaterally, no wheezes or crackles CVS -S1-S2, regular rate and rhythm Abdomen -soft, nontender, normal bowel sounds SKIn - maculopapular rash - improved Extremities-no pedal edema Neurology -no gross focal deficits Data 01/31/25 05:36 01/31/25 05:36 A&P Assessment and plan (1) Prosthetic valve endocarditis: (2) Endocarditis due to methicillin susceptible Staphylococcus aureus (MSSA): MSSA positive blood cultures as noted above. (3) HIV (human immunodeficiency virus infection): (4) Septic embolism: (5) Hepatitis C: (6) Screen for STD (sexually transmitted disease): (7) IVDU (intravenous drug user): (8) Diffuse papular rash: (9) Liver cirrhosis: (10) Thrombocytopenia: . 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 There is a large 1.78 x 1.5 cm vegetation seen on prosthetic valve. Mild tricuspid regurgitation -Blood cultures remain negative from 01/21, 01/24 - Continue IV cefazolin, gentamicin and rifampin -Patient having fever spikes -Repeat CT chest negative for abscess , empyema . It showed -Repeat Blood cultures - Initial plan prior to continued fever spikes - If patient continues to be fever free, plan to d/c to LT[facility] on Cefazolin 2 g iv x 6 weeks - March 10 2025 , Gentamicin x 2 weeks - 02/04/2025 rifampin x 6 weeks- March 10 2025 -CT of the lumbar and thoracic spine negative for osteomyelitis, discitis - Infectious disease following -Fever overnight , Per ID, repeat CT chest to evaluate for abscess # Pulmonary septic embolism - Continue antibiotics --Repeat CT chest - negative for abscess , empyema , septic emboli are similar in appearance with a few nodules undergoing additional cavitation today # Suspected acute UTI - Unclear if fever spikes is due to possible UTI. Patient's UA shows signs of UTI - Urine cultures pending - Will plan to switch cefazolin to meropenem for now pending urine cultures - ID not available this weekend until Sunday # HIV -Patient was on Biktarvy , currently switched to Atripla to enable use of rifampin for endocarditis - Per infectious disease, check viral load after 1 month of change to Atripla - HIV viral load is undetectable, CD4 count is 500 #Hepatitis C -HCV currently negative -Status post-treatment with Vosevi in late 2023. #Diffuse papular rash -Patient states rash appeared after recent antibiotic use -Improved -RPR is negative, FTA-ABS from the serum are both negative. # Substance use disorder # IV drug use, IV methamphetamine - Continue to encourage cessation # Congenital mitral valve prolapse: # H/O mitral valve repair: - no acute issues at this time #Hypokalemia #Hypomagnesemia #Hypophosphatemia - Continue to replace as appropriate #Thrombocytopenia -In the setting of acute illness -Monitor PDMP PDMP Reviewed: Not Reviewed Attestations Medical Necessity Statement*: Patient continues to require inpatient care for IV antibiotics for MSSA bacteremia, infective endocarditis. Coding Level of Care Code Acute Code for g Fwd Diagnoses Prosthetic valve endocarditis T82.6XXA; I33.0 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; B95.61 HIV (human immunodeficiency virus infection) Z21 HIV symptom status: asymptomatic, with no history of HIV-related illness Septic embolism I76 Chronic hepatitis C without hepatic coma B18.2 Viral hepatitis chronicity: chronic Hepatic coma status: without hepatic coma Screen for STD (sexually transmitted disease) Z11.3 IVDU (intravenous drug user) F19.90 Diffuse papular rash R21 Liver cirrhosis K74.60 Thrombocytopenia D69.6 Methamphetamine abuse F15.10 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
[2025-01-31] MEDS: meropenem 1,000 mg SDV 1000 MG IVP ×2 (15:22→22:59)
[2025-01-31 15:44] LABS: Gentamicin Trough 0.3 ug/mL (0.0-8.0)
[2025-01-31] MEDS: GENTAMICIN IV (17:35)
[2025-01-31] MEDS: SODIUM CHLORIDE 0.9% IV (17:35)
[2025-01-31] MEDS: mirtazapine 15 mg Tablet PO (20:50)
[2025-01-31] MEDS: acetaminophen 325 mg Tablet 650 MG PO (21:40)
[2025-02-01] VITALS (9 sets, daily range): BP systolic 80–98; BP diastolic 57–67; PULSE 80–108; RESP 16–18; TEMP 36.6–36.9; O2SAT 93–98
[2025-02-01] MEDS: ondansetron 2 mg/ML SDV 2 mL 4 MG IVP (05:40)
[2025-02-01] MEDS: pantoprazole 40 mg SDV IVP (05:40)
[2025-02-01] MEDS: meropenem 1,000 mg SDV 1000 MG IVP ×2 (06:04→15:58)
[2025-02-01 08:50] LABS: Basophils # 0.1 10^3/uL (0.0-0.1); Basophils % 0.3 %; Eosinophils # 0.1 10^3/uL (0.0-0.8); Eosinophils % 0.6 %; Lymphocytes % 5.3 %; Mean Corpuscular HGB Conc 31.7 g/dL (30-55); Mean Corpuscular Hemoglobin 28.8 pg (27-33); Mean Corpuscular Volume 90.9 fl (85-98); Mean Platelet Volume 9.5 fL (7.4-10.4); Monocytes # 1.6 10^3/uL (0.2-0.9); Neutrophils # 16.67 10^3/uL (1.8-7.7); Nucleated Red Blood Cells % 0 %; Platelet Count 225 10^3/cmm (157-399); Red Blood Count 3.19 10^6/uL (3.85-5.65); Red Cell Distribution Width 14.4 % (12.1-15.1); White Blood Count 19.59 10^3/uL (3.29-11.43)
[2025-02-01 09:11] LABS: Blood Urea Nitrogen 9 mg/dL (6-20); Calcium 8.5 mg/dL (8.5-10.5); Carbon Dioxide 27 mmol/L (22-29); Chloride 96 mmol/L (98-107); Creatinine Clr Calc Pharmacy 102.9734; Glomerular Filtration Rate 79.4 mL/min (90-130); Glucose 186 mg/dL (65-115); Phosphorus 3.2 mg/dL (2.5-4.5); Sodium 134 mmol/L (136-145)
[2025-02-01] MEDS: rifAMPin 300 mg Capsule PO ×3 (09:12→20:18)
[2025-02-01] MEDS: aspirin 81 mg EC Tablet PO (09:12)
[2025-02-01] MEDS: hyDROXYzine 25 mg Capsule PO ×2 (09:12→18:52)
[2025-02-01] MEDS: clotrimazole-betamethasone cream 15gm 1 APPLIC TOPICAL ×3 (09:17→20:20)
[2025-02-01] MEDS: nystatin powder 15 gm Btl 1 APPLIC TOPICAL ×2 (09:17→18:52)
[2025-02-01] MEDS: SODIUM CHLORIDE 0.9% IV (15:58)
[2025-02-01] MEDS: GENTAMICIN IV (15:58)
--- NOTE | 2025-02-01 17:06 | P.PN_ITS ---
Subjective 2 Subjective: Feels better today. Denies pain at this time. Has been up and walking around. Medications: Reviewed: Yes Vitals/I&O/Wt Last Vital Signs Temp 98.4 F 02/01/25 15:00 Pulse 88 02/01/25 15:00 Resp 17 02/01/25 15:00 BP 86/57 02/01/25 15:00 Pulse Ox 98 02/01/25 15:00 O2 Del Method Room Air 02/01/25 15:00 O2 Flow Rate 91 01/22/25 00:00 02/01/25 02/01/25 02/01/25 06:59 14:59 22:59 Intake Total 600 / 600 Balance 600 / 600 Weight last 48 hrs Weight 196 lb 1.6 oz Weight 194 lb 9.6 oz Physical Exam 2 Narrative: General: Cooperative patient in no apparent distress. Well developed. HEENT: Normocephalic, Atraumatic. External ears normal. Nasal passages patent without drainage. MMM. Heart: RRR. Resp: LCTA. No respiratory distress, no use of accessory muscles. Abd: Soft, non-tender. Non-distended. Extremities: No edema. Skin: No rash or lesions on exposed areas. Neuro: No focal motor or sensory loss. Gait is normal. Data 02/01/25 08:33 02/01/25 08:33 Micro: Microbiology 01/31/25 15:13 Blood Culture - Preliminary Blood NEGATIVE TO DATE 01/31/25 15:00 Blood Culture - Preliminary Blood NEGATIVE TO DATE 01/30/25 17:17 Urine Culture - Final Urine,Clean Catch A&P Assessment and plan (1) Prosthetic valve endocarditis: (2) Endocarditis due to methicillin susceptible Staphylococcus aureus (MSSA): (3) HIV (human immunodeficiency virus infection): (4) Septic embolism: (5) Hepatitis C: (6) Screen for STD (sexually transmitted disease): (7) IVDU (intravenous drug user): (8) Diffuse papular rash: (9) Liver cirrhosis: (10) Thrombocytopenia: . 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 Continue inpatient monitoring. She was on IV cefazolin, gentamicin, rifampin. meropenem added. ID disease consulted. JESSE shows: Prosthetic tricuspid valve. There is a large 1.78 x 1.5 cm vegetation seen on prosthetic valve. Mild tricuspid regurgitation Blood cultures remain negative from 01/21, 01/24. Initial shows Staph aureus. Was having regular fevers, but afebrile today. Repeat CT 01/30/25 of chest negative for abscess , empyema . It showed septic emboli are similar in appearance with a few nodules undergoing additional cavitation today Will have ID re-evaluate once they are available. Previously on treatment for HIV with Biktarvy , currently switched to Atripla to enable use of rifampin for endocarditis - Per infectious disease, check viral load after 1 month of change to Atripla. HIV viral load is undetectable, CD4 count is 500 hepatitis C status is currently negative. she is status post-treatment with Vosevi in late 2023. Recommend she abstain from future IV drug use. Recheck a.m. labs. She did develop a slight elevation in her white blood cell count overnight, which could be due to switching antibiotics. Code Status: Full IVF: None DVT PPx: Heparin GI PPx: Protonix ABx: Gentamicin, meropenem, rifampin Diet: Regular Discharge plan: Home when appropriate PDMP PDMP Reviewed: Not Reviewed Attestations 2 Medical Necessity Statement*: Patient continues to require inpatient care for IV antibiotics for MSSA bacteremia, infective endocarditis. Coding Level of Care Code Acute Code for Chg Fwd Moderate MDM includes number and complexity of problems actively addressed during encounter, amount and/or complexity of data reviewed/ordered and described risk of complication, morbidity or mortality of management as documented Diagnoses Prosthetic valve endocarditis, 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; I33.0 Encounter type: subsequent encounter 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; B95.61 HIV (human immunodeficiency virus infection) Z21 HIV symptom status: asymptomatic, with no history of HIV-related illness Septic embolism I76 Chronic hepatitis C without hepatic coma B18.2 Viral hepatitis chronicity: chronic Hepatic coma status: without hepatic coma Screen for STD (sexually transmitted disease) Z11.3 IVDU (intravenous drug user) F19.90 Diffuse papular rash R21 Other cirrhosis of liver K74.69 Hepatic cirrhosis type: other cirrhosis Thrombocytopenia D69.6 Methamphetamine abuse F15.10 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
[2025-02-01] MEDS: mirtazapine 15 mg Tablet PO (20:17)
[2025-02-02] MEDS: ceFAZolin 2,000 MG in sodium chloride 0.9% (plus) 100 ML 200 MG IV ×3 (02:34→18:00)
[2025-02-02 04:00] VITALS: BP 86/66; PULSE 80; RESP 20; TEMP 36.9; O2SAT 99
[2025-02-02] MEDS: pantoprazole 40 mg SDV IVP (06:05)
[2025-02-02] MEDS: ATRIPLA 1 EACH PO (06:06)
[2025-02-02 06:11] LABS: Basophils # 0.1 10^3/uL (0.0-0.1); Basophils % 0.5 %; Eosinophils # 0.3 10^3/uL (0.0-0.8); Eosinophils % 2.4 %; Hematocrit 29.3 % (36-47); Lymphocytes # 1.6 10^3/uL (0.8-4.8); Lymphocytes % 14.6 %; Mean Corpuscular HGB Conc 31.1 g/dL (30-55); Mean Corpuscular Hemoglobin 28.1 pg (27-33); Mean Corpuscular Volume 90.4 fl (85-98); Mean Platelet Volume 9.6 fL (7.4-10.4); Monocytes # 1.3 10^3/uL (0.2-0.9); Monocytes % 11.6 %; Neutrophils # 7.72 10^3/uL (1.8-7.7); Neutrophils % 70.1 %; Nucleated Red Blood Cells % 0 %; Platelet Count 260 10^3/cmm (157-399); Red Blood Count 3.24 10^6/uL (3.85-5.65); Red Cell Distribution Width 14.5 % (12.1-15.1); White Blood Count 11.01 10^3/uL (3.29-11.43)
[2025-02-02 06:34] LABS: Alanine Aminotransferase < 5 U/L (0-33); Alkaline Phosphatase 113 U/L (35-105); Anion Gap 15.2 (5-19); Aspartate Amino Transferase 12 U/L (0-32); Blood Urea Nitrogen 8 mg/dL (6-20); Calcium 8.5 mg/dL (8.5-10.5); Carbon Dioxide 27 mmol/L (22-29); Chloride 99 mmol/L (98-107); Creatinine Clr Calc Pharmacy 136.1204; Globulin 3.5 g/dL (1.3-4.6); Glomerular Filtration Rate 110.7 mL/min (90-130); Glucose 108 mg/dL (65-115); Osmolality Calculated 283 mOsm/kg (285-295); Potassium 4.2 mmol/L (3.5-5.1); Sodium 137 mmol/L (136-145); Total Bilirubin 0.5 mg/dL (0.15-1.2); Total Protein 6.5 g/dL (6.6-8.7)
[2025-02-02 07:26] VITALS: BP 91/65; PULSE 92; RESP 16; TEMP 36.9; O2SAT 94
[2025-02-02 08:23] VITALS: PULSE 88; RESP 16; O2SAT 93
[2025-02-02] MEDS: rifAMPin 300 mg Capsule PO ×2 (09:33→18:00)
[2025-02-02] MEDS: nystatin powder 15 gm Btl 1 APPLIC TOPICAL (09:33)
[2025-02-02] MEDS: aspirin 81 mg EC Tablet PO (09:33)
[2025-02-02] MEDS: clotrimazole-betamethasone cream 15gm 1 APPLIC TOPICAL (09:33)
[2025-02-02] MEDS: hyDROXYzine 25 mg Capsule PO ×2 (09:33→18:21)
[2025-02-02 12:11] VITALS: BP 95/65; PULSE 85; RESP 18; TEMP 36.9
[2025-02-02 14:38] LABS: Osmolality Urine 432 mOsm/kg (50-1200)
--- NOTE | 2025-02-02 15:29 | P.PN_ITS ---
Subjective 2 Subjective: ID progress note last febrile to tmax 100.6F on 01/31 at 9 pm continues to feel better, much improved compared to admission. leukocytosis improved at 11K today Blood cx from 01/31 remains negative to date Medications: Reviewed: Yes Medication Review Details: vancomycin 01/16-01/18; subtherapeutic trough at 4 prior to switch to cefazolin. Cefazolin 2 g IV every 8 hours started January 19-current gentamicin 3mg/kg iv every 24 hrs 01/19- current day rifampin 300mg TID 01/21- Bikatrvy- started 2019 to 01/21 Atripla starting 01/22- Picc line placed on 01/27 Vitals/I&O/Wt Last Vital Signs Temp 98.4 F 02/02/25 12:11 Pulse 85 02/02/25 12:11 Resp 18 02/02/25 12:11 BP 95/65 02/02/25 12:11 Pulse Ox 93 02/02/25 08:23 O2 Del Method Room Air 02/02/25 12:11 O2 Flow Rate 91 01/22/25 00:00 02/02/25 02/02/25 02/02/25 06:59 14:59 22:59 Intake Total 580 / 1506.6 340 / 340 Balance 580 / 1506.6 340 / 340 Weight last 48 hrs Weight 87.453 kg Weight 88.949 kg Physical Exam 2 Narrative: General: No acute distress, AO x3 HEENT: PERRLA, pupils bilaterally equal and reactive, pallors not present Chest: Normal vesicular breath sounds, no added sounds, equal good air entry bilaterally CVS: S1-S2 regular, no murmurs, no tachycardia, no gallops, no rubs Abdomen: Soft, nontender, no organomegaly, bowel sounds present Neuro: No focal deficits, no facial deformity, AO x3, power 5/5 in all limbs Data 02/02/25 06:03 02/02/25 06:03 Micro: Microbiology 01/31/25 15:13 Blood Culture - Preliminary Blood NEGATIVE TO DATE 01/31/25 15:00 Blood Culture - Preliminary Blood NEGATIVE TO DATE A&P Assessment and plan (1) Prosthetic valve endocarditis: 39-year-old lady with history of HIV and hepatitis C, unfortunately relapsed with regards to IV drug use currently 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 Blood cultures are positive for MSSA from day of admission. Follow-up blood cultures from 04/20/2025 are pending to date. Noted to have a 1 x 1 cm vegetation on the tricuspid valve. All clinical signs and symptoms consistent with prosthetic valve endocarditis. Discontinue vancomycin Start cefazolin 2 g IV every 8 hours. Patient's chart notes allergy to amoxicillin. Patient reports that she recently had an antibiotic for UTI following which she broke out into a diffuse rash she is uncertain which antibiotic this was but reports that it was likely penicillin . For this reason preferring cefazolin over nafcillin for now. Start gentamicin 3 mg/kg IV every 24 hours in addition to cefazolin. Additionally plan to add rifampin 300 mg 3 times daily, however this would need to wait until we can switch her HIV regimen over. Patient is currently on Biktarvy, rifampin is contraindicated with Biktarvy. Will switch HIV regimen to Atripla and start rifampin alongside. This will need to wait until outpatient pharmacy will be open after as a Atripla or any other HIV medicine is not currently available on formulary as an inpatient. Follow-up blood culture from 825 is currently pending. If patient remains persistently bacteremic or has signs or symptoms of worsening heart failure, will likely need urgent surgery. (2) Endocarditis due to methicillin susceptible Staphylococcus aureus (MSSA): MSSA positive blood cultures as noted above. (3) HIV (human immunodeficiency virus infection): Currently on treatment with Biktarvy since 2019 at which time HIV was a new diagnosis for the patient.. Patient did not complete viral load and CD4 as ordered in September 2024. Last viral load from April 2024 was undetectable. CD4 count from June 2023 at 984. Viral load and CD4 ordered today. Will likely need to switch therapy from Biktarvy to Atripla to enable use of rifampin for endocarditis. (4) Septic embolism: (5) Hepatitis C: History of hepatitis C. Patient was first diagnosed in 2019. Patient stated that she had completed Mavyret with Dr. Whalen at that time. HCVRNA rechecked in 2023 was still positive with a log of 6.83. She was retreated with Vosevi in late 2023. Posttreatment HCVRNA was ordered in September however has not been completed. Will check today. Liver imaging from February 2024 had shown a slightly nodular surface of the liver concerning for cirrhosis. She is due for annual HCC surveillance imaging, will obtain repeat imaging while she is currently admitted. (6) Screen for STD (sexually transmitted disease): Patient has a diffuse papular rash affecting face, bilateral upper extremities and legs. She thinks this was related to recent use of an antibiotic however uncertain which one this was. Rash concerning for potentially secondary syphilis. Will check RPR with reflex, FTA-ABS from the serum. Lumbar puncture was obtained upon admission which showed CSF WBC of 8, CSF glucose of 76 and a normal total protein. Given the above picture less likely to be bacterial meningitis however will obtain VDRL from CSF to rule out neurosyphilis. (7) IVDU (intravenous drug user): (8) Diffuse papular rash: Patient states this is currently improving. Uncertain cause. May be related to recent outpatient medication use. Syphilis screen pending. (9) Liver cirrhosis: Known liver cirrhosis, repeat abdominal imaging to assess for HCC surveillance (10) Thrombocytopenia: Acute thrombocytopenia most likely related to endocarditis, possibly also contributed by liver cirrhosis. 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 Febrile to 100.9 Fahrenheit. Blood cultures from January 18, 2025 reported positive for Staphylococcus aureus, presumably will be MSSA compatible with prior cultures from the . Repeat blood cultures from 04/21/2025 are pending so far. Patient started treatment with cefazolin 2 g IV every 8 hours along with gentamicin 3 mg/kg IV every 24 hours on January 19, 2025. Aiming to add rifampin 300 mg 3 times daily once we obtain Atripla, anticipated by tomorrow. In the interim continue Biktarvy for HIV. Pending HIV viral load, CD4 count and HCVRNA. If fails to respond to antibiotic treatment alone, may need to transfer for cardiothoracic surgery and consideration for surgical intervention. This has been discussed with the patient. January 21, 2025 Tmax as noted above. Leukocytosis at 16,000 today. Thus far blood cultures from 01/19/2025 are negative. Started cefazolin plus gentamicin on January 18. Add rifampin 300 mg 3 times daily today. Discontinue Biktarvy and switch to Atripla to allow concomitant administration wth Rifampin January 22, 2025 Febrile to 102 Fahrenheit. Leukocytosis at 16,000, stable. CT of the thoracolumbar spine that was performed yesterday did not show any signs of osteomyelitis discitis or epidural abscess. Incidentally note was made of multiple pulmonary lesions which appeared to be septic emboli. These were most likely present on admission, discovered only yesterday. Platelet count is improving at 123 today. Blood culture from 01/19/2025 and from yesterday remains negative so far. Most patients with PVE are expected become afebrile three to five days after initiation of appropriate antimicrobial therapy. Patient is day 4 of cefazolin and gentamicin today. Patients with?Staphylococcus aureus?PVE may respond more slowly, remaining febrile for five to seven days after initiation of therapy. Currently patient is not exhibiting any signs of heart failure. Septic emboli were likely present on admission, detected on CT yesterday. CT of the abdomen and pelvis is being ordered today by the primary team to assess for any abdominal sources of infection given patient has persistent vomiting. Currently blood culture is negative as of January 19, 2025. If patient develops persisting bacteremia, persistent fever beyond 5 to 7 days of appropriate antibiotic therapy, it may be suggestive of a paravalvular extension of infection in which case a JESSE would recommended to be repeated. At this present time, as of the last echocardiogram there are no signs of prosthetic valve dysfunction or paravalvular extension of infection therefore continuation of IV antibiotics is recommended. Should there be a change in the cardiac status, patient may need to be referred for early valvular surgery. Continue cefazolin, gentamicin and rifampin. Gentamicin trough is due today. HIV viral load is not detected. HIV regimen changed from Biktarvy to Atripla to allow for concomitant administration of rifampin. HCVRNA not detected, correlating with successfully treated hepatitis C infection. Pending CD4 count. January 23, 2025 Febrile 101 Fahrenheit. Leukocytosis at 18,000. CT of the abdomen and pelvis negative for any acute events. Reviewed demonstrated bilateral septic emboli involving the lungs. Platelet count continues to improve. Blood culture remaining negative so far from January 19 and January 21, 2025. Continue cefazolin, gentamicin (last trough at 0.3), and rifampin. Patient continues to be febrile to 101. Day 5 of organism directed therapy today started with cefazolin. If patient continues to be febrile over the next 24 hours, recommend to repeat JESSE to assess for any paravalvular extension of infection. Considered transitioning cefazolin to nafcillin, however patient reports allergy to amoxicillin as diffuse rash. Currently she has a rash affecting her face arms and legs which patient states started after being given amoxicillin recently for UTI. She is hesitant to switch therapy to nafcillin at this time. RPR negative. HIV viral load undetectable, CD4 count 500, HCV RNA undetectable. Unlikely [place] , PCT. January 24, 2025 T max 99F now. Feels much better today, less nausesous, wants to eat today. leukocytosis at 21K, uptrending from 18K, however clinically patient appears better today. JESSE completed. Large vegetation of 1.7 x 1.8 cm on tricuspid valve with mild TR per verbal report, No paravalvular extension of infection or abscess noted. Blood cx last + on 01/19, thus far negative from 01/21. Continue Cefazolin 2g iv every 8 hrs, gentamicin and rifampin. Cr reviewed normal. January 25, 2025 Tmax 102 Fahrenheit this afternoon. Patient has been refusing ibuprofen and Tylenol due to gastritis She is continuing to feel clinically better. White blood cell count at 17,000 today. Blood cultures are remaining negative from 01/21 and January 24 thus far. JESSE with large 1.7 x 1.5 cm vegetation on the prosthetic valve. Mild TR. Evidence of septic emboli to the lungs. No drainable collection. Abdominal CT without any persisting intra-abdominal source of infection. CT of the cervical thoracic and lumbar spine without any signs of discitis osteomyelitis or epidural abscess. Since blood cultures are clear, patient is clinically improving, JESSE without any evidence of paravalvular extension of infection, leukocytosis remains stable at 17,000, continue treatment with cefazolin gentamicin and rifampin. Platelet count is recovered. Stable kidney and liver function. Fever curve yesterday with a Tmax of 99 Fahrenheit, today Tmax at 102. Anticipate that patient's improvement in fever curve and leukocytosis may lag behind clinical improvement. Hold off on PICC line placement until cultures from 01/24/2025 are definitively negative at 48 hours. Patient is agreeable for LTAC placement to continue 6 weeks of total therapy. Will continue to follow. January 26, 2025 contnues to be febrile to tmax 101.6F, no new complaints blood cx negative from 01/21 and 01/[address] PICC Line tomorrow since blood cx negative as above Contnue cefazolin, gentamicin and rifampin , started 01/19 on cefazolin + gentamicin. Day 6 of clear culture today Clinically continues to improve January 27, 2025: Picc line placed this morning Blood cx remains negative from 01/21 and 01/24- confirmed with micro lab Currently last febrile 24 hrs ago, hope that starting to improve fever curve at this point Continue cefazolin, gentamicin and rifampin - day 7 of clear cx today If continues to be persistent febrile, then needs repeat CT chest to reassess septic emboli- r/o progression to empyema, abscess, etc. Clinically continues to improve If continues to show improvement, will plan d/c to LTAC on Cefazolin 2 g iv x 6 weeks, Gentamicin x 2 weeks and rifampin x 6 weeks. reveiwed normal kidney and liver function January 28, 2025 Blood cultures is negative from 528 and 531. Last fever over 24 hours ago, Tmax 100.6 Fahrenheit on January 26, 2025. Fever Guirgius currently improving Leukocytosis stable at 20,000. Anticipate delayed resolution of leukocytosis given extensive septic emboli, and large size of vegetation. However patient is overall clinically improving. Continue cefazolin 2 g iv every 8 hrs until March 10, 2025, Rifampin 300mg TID until March 10, 2025 gentamicin for a 2 week course until 02/04/25. Gentamicin trough to be checked today. Currently on Atripla, changed from Biktarvy to allow for concomitant use of rifampin. Check viral load after 1 month of change to Atripla. This will be done as outpatient in follow-up. HIV VL Undetectable, Cd4 count 500 PICC line was placed on January 27, 2025. HCV RNA not detected, s/p successful treatment with Vosevi. Next SVR check in 6 months as outpatient. January 30, 2025: care plan discussed with primary team, chart reveiwed. T max 101F last evening. Per review of chart, patient has last taken tylenol on 01/28, no antipyretic since then. Overall clically stable[place] [id number] chesttoday to r/o interval development of lung abscess or empyema. Check resp panel and UA, with urine cx if UA +. overall iven clinical stability and overall imporvement, intermittent fever likely related to known illness, however pertinent to r/o any developing complications. Continue cefazolin, gentamicin and rifampin as above February 02, 2025 Afberile for over 24 hrs. WBC count improved at 11,000 today. Patient is clinically feeling much improved compared to admission. CT chest on 01/30 without any progression wit regards septic emboli. No empyema. No lung abscess noted. Blood culture from January 31, January 24, January 21 remain negative to date. She will complete 2 weeks of gentamicin on 02/04. Continue cefazolin 2 g iv every 8 hrs and Po Rifampin 300mg TID with weekly labs CBC, LFT, creatinine until March 10, 2025 to complete 6 week course for PVE. PAtient planned to be discharged to LTAC where weekly labs will be completed. F/up in ID clinic on February 24, 2025 at 2:30pm. Check VL in one month (biktarvy switched to atripla on 01/21 to allow concomitant use of Rifampin). VL this admission undetectable. CD4 count in 3 months, currently ~ 500 this admission. HCV RNA not detected s/p successful treatment- indicated SVR. If patient develops signs of clinical worsening. recurrence of high grade fever, signs of heart failure, she will need referral to CT surgery to assess for surgical intervention. Since she is currently clinically much improved, early surgery may not be indicated at this time. Stable for discharge from ID standpoint. This documentation was created by [employer] operations support representative software. Every effort was made to ensure accuracy of operations support representative. Any obvious errors or omissions should be clarified with the author of the document. PDMP PDMP Reviewed: Not Reviewed Attestations 2 Medical Necessity Statement*: per admitting Coding Level of Care Code Acute Code for Chg Fwd High MDM includes number and complexity of problems actively addressed during encounter, amount and/or complexity of data reviewed/ordered and described risk of complication, morbidity or mortality of management as documented Diagnoses Prosthetic valve endocarditis, 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; I33.0 Encounter type: subsequent encounter 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; B95.61 HIV (human immunodeficiency virus infection) Z21 HIV symptom status: asymptomatic, with no history of HIV-related illness Septic embolism I76 Chronic hepatitis C without hepatic coma B18.2 Hepatic coma status: without hepatic coma Viral hepatitis chronicity: chronic Screen for STD (sexually transmitted disease) Z11.3 IVDU (intravenous drug user) F19.90 Diffuse papular rash R21 Other cirrhosis of liver K74.69 Hepatic cirrhosis type: other cirrhosis Thrombocytopenia D69.6 Methamphetamine abuse F15.10 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
--- NOTE | 2025-02-02 15:39 | P.TS_ITS ---
Transfer Summary Providers Date of Admission: 01/17/25 15:09 Date of Discharge/Transfer: 02/02/25 Attending Provider at Admission: Neto Jara MD Attending Provider at Transfer: Jae Florez MD Consults: Cardiology: Dr. Forman Infectious disease: Dr. Aguirre Primary Care Provider: Sherie Henry Transfer Plans: Anticipated date of transfer: 02/02/25 . Diagnoses at Discharge Discharge Diagnosis (1) Prosthetic valve endocarditis: Status: Acute Qualifiers: Encounter type: subsequent encounter Qualified Code(s): T82.6XXD - Infection and inflammatory reaction due to cardiac valve prosthesis, subsequent encounter; I33.0 - Acute and subacute infective endocarditis (2) Endocarditis due to methicillin susceptible Staphylococcus aureus (MSSA): Status: Acute (3) HIV (human immunodeficiency virus infection): Status: Acute Qualifiers: HIV symptom status: asymptomatic, with no history of HIV-related illness Qualified Code(s): Z21 - Asymptomatic human immunodeficiency virus [HIV] infection status (4) Septic embolism: Status: Acute (5) Hepatitis C: Status: Acute Qualifiers: Viral hepatitis chronicity: chronic Hepatic coma status: without hepatic coma Qualified Code(s): B18.2 - Chronic viral hepatitis C (6) Screen for STD (sexually transmitted disease): Status: Acute (7) IVDU (intravenous drug user): Status: Acute (8) Diffuse papular rash: Status: Acute (9) Liver cirrhosis: Status: Acute Qualifiers: Hepatic cirrhosis type: other cirrhosis Qualified Code(s): K74.69 - Other cirrhosis of liver (10) Thrombocytopenia: Status: Acute (11) Methamphetamine abuse: Status: Acute (12) Tricuspid valve replaced: Status: Acute Permanent problem details: Dominguez II bioprosthetic valve (13) Congenital mitral valve prolapse: Status: Resolved (14) H/O mitral valve repair: Status: Acute (15) Depression: Status: Acute (16) Headache: Status: Acute Qualifiers: Headache chronicity pattern: acute headache Headache type: unspecified Intractability: intractable Qualified Code(s): R51.9 - Headache, unspecified Reason for Visit Reason for Visit head and neck pain, fever Hospital Course Hospital Course Margarita Cortes is a 39 year old female with HIV, currently on treatment with Biktarvy, hepatitis C with recurrence treated x2, 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 She has a history of IV drug use in the past in the days leading up to the tricuspid valve endocarditis in 2019 and diagnosis of hepatitis C and HIV. Patient remained sober off of drugs for about 3 years, however has recently relapsed with current active IV drug use since the passing of her mother. She has been reusing needles at home washing them with peroxide and tap water. She was last seen in the clinic in September 2024 at which time she was ordered for HCVRNA after retreatment with Vosevi and also ordered for HIV viral load and CD4 count. However patient did not complete these tests as ordered. She is currently admitted to the hospital since January 16, 2025 after presenting with fever up to 103 Fahrenheit, chills and headache along with intractable vomiting. She was noted to be lethargic. Initially concern was for meningitis therefore patient underwent lumbar puncture in the emergency room. Subsequently her blood cultures returned positive for MSSA from admission. Echocardiogram showed a 1 x 1 cm mass, likely of vegetation on the tricuspid valve. She had a repeat JESSE which showed her to have 1.78 x 1.5 cm vegetation on prosthetic valve with mild TR. During hospitalization CT lung was done which was consistent with multiple septic emboli. Repeat CT ruled out empyema or lung abscess with last CT scan done on 01/30. Further imaging of lumbar and thoracic spine ruled out discitis. ID was consulted and she has finished 14-day course of gentamicin. During hospitalization HIV RNA count and CD4 counts were checked and were found to be appropriate for undercontrolled treated HIV. As per ID recommendations patient would need rifampin for which her home dose of Biktarvy for HIV was changed to a Atripla. Her hospitalization was prolonged because of multiple positive blood cultures. Her subsequent blood cultures from 01/21 and so far negative. Patient would need at least 6 weeks of IV antibiotics overall for management of MSSA endocarditis. Safe discharge planning were discussed in detail with the patient and she requested to be transition to LTAC versus SNF. She has been transferred to LTAC for further management. Given significantly large prosthetic valve endocarditis vegetation along with septic emboli to the lung it is believed that patient would have occasional fevers on and off while being on treatment though clinically she continues to improve and her blood cultures have remained negative. If patient continues to start spiking persistent fever she should be evaluated by CT surgery. Currently patient is fever free for last 48 hours. White count on day of discharge is 11,000. Her antibiotic course during hospitalization as below. Vancomycin?01/16-01/18; subtherapeutic trough at 4 prior to switch to cefazolin. Cefazolin 2 g IV every 8 hours started January 19-current gentamicin 3mg/kg iv every 24 hrs 01/19- current day rifampin 300mg TID 01/21- Bikatrvy- started 2019 to 01/21 Atripla starting 01/22- Picc line placed on 01/27 Transfer on date of discharge was delayed as was awaiting authorization from insurance prior to transfer to LTAC. Physical Exam Narrative: General well-developed well-nourished female, AO x 3, not drowsy, she has multiple excoriations over the face and arms. Skin as above she has track lewis up the left dorsal forearm. She has injection site right flexor. No sign of abscess or erythema CV regular S4 S1-S2 no loud murmur Lungs clear to auscultation bilaterally Neuro patient is alert and oriented x 3 she moves all extremities symmetrically Psych anxious mood and affect intermittently tearful remorseful. Patient does report hoarding uncontrolled anxiety and mood instability. TS Data Studies Completed and Pending Pending at discharge Category Date Time Status Blood Culture Routine Lab 01/31/25 15:13 Results CRP [C Reactive Protein] Routine Lab 02/02/25 15:38 Ordered Completed Studies During Hospitalization Category Date Time Status CT cervical spin wo con* [id number] Urgent Cat Scan 01/16/25 11:[address] chest abdpel w/*[id number] Routine Cat Scan 01/22/25 08:[address] chest wo con [id number] Routine Cat Scan 01/30/25 09:[address] head wo con* [id number] Urgent Cat Scan 01/16/25 11:[address] lumbar spine w con [id number] Routine Cat Scan 01/21/25 14:[address] thoracic spine w con [id number] Routine Cat Scan 01/21/25 14:38 Completed CXRP [XR chest 1V portable [id number]] Routine Exams 01/27/25 13:53 Completed CXRP [XR chest 1V portable [id number]] Stat Exams 01/17/25 22:40 Completed CXRP [XR chest 1V portable [id number]] Stat Exams 01/29/25 13:51 Completed Fluoro guided lumbar puncture [FL guided lumbarpunc dx* Exams 01/16/25 13:04 Completed 00104] Stat XR chest 1V portable [id number] Urgent Exams 01/16/25 11:09 Completed CV req echo JESSE bedside [id number] Routine Ultrasound 01/24/25 12:00 Completed CV. echo complete* [id number] Routine Ultrasound 01/17/25 08:48 Completed US abdomen complete* [id number] Routine Ultrasound 01/20/25 15:53 Completed Laboratory Last Values WBC 11.01 10^3/uL (3.29-11.43) 02/02/25 06:03 RBC 3.24 10^6/uL (3.85-5.65) L 02/02/25 06:03 Hgb 9.10 g/dL (11.27-16.99) L 02/02/25 06:03 Hct 29.3 % (36-47) L 02/02/25 06:03 MCV 90.4 fl (85-98) 02/02/25 06:03 MCH 28.1 pg (27-33) 02/02/25 06:03 MCHC 31.1 g/dL (30-55) 02/02/25 06:03 RDW 14.5 % (12.1-15.1) 02/02/25 06:03 Plt Count 260 10^3/cmm (157-399) 02/02/25 06:03 MPV 9.6 fL (7.4-10.4) 02/02/25 06:03 Neut % (Auto) 70.1 % 02/02/25 06:03 Lymph % (Auto) 14.6 % 02/02/25 06:03 [place] % (Auto) 11.6 % 02/02/25 06:03 Eos % (Auto) 2.4 % 02/02/25 06:03 Baso % (Auto) 0.5 % 02/02/25 06:03 Neut # (Auto) 7.72 10^3/uL (1.8-7.7) H 02/02/25 06:03 Lymph # (Auto) 1.6 10^3/uL (0.8-4.8) 02/02/25 06:03 [place] # (Auto) 1.3 10^3/uL (0.2-0.9) H 02/02/25 06:03 Eos # (Auto) 0.3 10^3/uL (0.0-0.8) 02/02/25 06:03 Baso # (Auto) 0.1 10^3/uL (0.0-0.1) 02/02/25 06:03 Absolute Lymphs (auto) 1309 cells/uL (850-3900) 01/20/25 15:55 Nucleated RBC % (auto) 0 % 02/02/25 06:03 Nucleated RBCs # 0.0 /100WBC 02/02/25 06:03 ESR 61 mm/hr (0-15) H 01/25/25 06:14 Sodium 137 mmol/L (136-145) 02/02/25 06:03 Potassium 4.2 mmol/L (3.5-5.1) 02/02/25 06:03 Chloride 99 mmol/L (98-107) 02/02/25 06:03 Carbon Dioxide 27 mmol/L (22-29) 02/02/25 06:03 Anion Gap 15.2 (5-19) 02/02/25 06:03 BUN 8 mg/dL (6-20) 02/02/25 06:03 Creatinine 0.6 mg/dL (0.5-0.9) 02/02/25 06:03 GFR Calculation 110.7 mL/min (90-130) 02/02/25 06:03 Glucose 108 mg/dL (65-115) 02/02/25 06:03 Estimat Average Glucose 131 01/19/25 11:55 Hemoglobin A1c 6.2 % (4.0-6.0) H 01/19/25 11:55 Serum Osmolality 276 mOsm/kg (278-305) L 01/28/25 06:10 Calculated Osmolality 283 mOsm/kg (285-295) L 02/02/25 06:03 Lactic Acid 1.1 mmol/L (0.5-2.2) 01/16/25 11:29 Calcium 8.5 mg/dL (8.5-10.5) 02/02/25 06:03 Phosphorus 3.2 mg/dL (2.5-4.5) 02/01/25 08:33 Magnesium 2.0 mg/dL (1.7-2.3) 01/29/25 04:57 Iron 15 ug/dL (37-145) L 01/19/25 11:55 TIBC 276 mcg/dl 01/19/25 11:55 % Saturation 5.4 % (20-50) L 01/19/25 11:55 Unsat Iron Binding 261 ug/dL (112-347) 01/19/25 11:55 Total Bilirubin 0.5 mg/dL (0.15-1.2) 02/02/25 06:03 AST 12 U/L (0-32) 02/02/25 06:03 ALT < 5 U/L (0-33) 02/02/25 06:03 Alkaline Phosphatase 113 U/L (35-105) H 02/02/25 06:03 Ammonia 42 umol/L (11-51) 01/20/25 15:55 C-Reactive Protein 121.6 mg/L (0.0-4.9) H 01/25/25 06:14 C-React Prot High Sens 22.400 mg/dL (0.0-0.3) H 01/17/25 05:13 Total Protein 6.5 g/dL (6.6-8.7) L 02/02/25 06:03 Albumin 3.0 g/dL (3.5-5.2) L 02/02/25 06:03 Globulin 3.5 g/dL (1.3-4.6) 02/02/25 06:03 Lipase 15 U/L (13-60) 01/22/25 13:04 Vitamin B12 > 2000 pg/mL (232-1245) H 01/19/25 11:55 Folate 10.3 ng/mL (4.8-37.3) 01/20/25 15:55 Procalcitonin 9.40 ng/mL (0-0.5) H 01/19/25 11:55 TSH 0.77 uIU/mL (0.27-4.20) 01/19/25 11:55 HCG, Qual Negative (Negative) 01/16/25 11:29 Urine Color Chauncey (Yellow) A 01/30/25 17:17 Urine Appearance Cloudy (CLEAR) A 01/30/25 17:17 Urine pH 6.0 (5-7) 01/30/25 17:17 Ur Specific [place] 1.019 (1.005-1.030) 01/30/25 17:17 Urine Protein Trace (Negative) A 01/30/25 17:17 Urine Glucose (UA) Negative (Normal) 01/30/25 17:17 Urine Ketones Negative (Negative) 01/30/25 17:17 Urine Blood Trace (Negative) A 01/30/25 17:17 Urine Nitrate Positive (Negative) A 01/30/25 17:17 Urine Bilirubin 1+ (Negative) H 01/30/25 17:17 Urine Urobilinogen 1.0 mg/dL (Negative) 01/30/25 17:17 Ur Leukocyte Esterase 1+ (Negative) A 01/30/25 17:17 Urine RBC 0-2 /hpf (0-2) 01/30/25 17:17 Urine WBC 0-5 /hpf (0-5) 01/30/25 17:17 Ur Squamous Epith Cells 6-10 /hpf (0-5) 01/30/25 17:17 Amorphous Sediment Not Reportable 01/30/25 17:17 Urine Bacteria None seen /hpf (NONE) 01/30/25 17:17 Hyaline Casts 23.57 /lpf 01/30/25 17:17 Urine Osmolality 432 mOsm/kg (50-1200) 01/29/25 15:37 Ur Random Sodium 147 mmol/L 01/29/25 15:37 CSF Appearance Clear (CLEAR) 01/16/25 14:00 CSF Color Colorless (COLORLESS) 01/16/25 14:00 CSF WBC 8 /uL (0-5) H 01/16/25 14:00 CSF RBC 1 10^3/uL (0-0) H 01/16/25 14:00 CSF Mononuclear # Auto 0.007 10^3/uL (50-90) L 01/16/25 14:00 CSF Mononuclear WBCs % 88 % (50-90) 01/16/25 14:00 CSF Polynuclear WBCs # 0.001 10^3/uL (0-10) 01/16/25 14:00 CSF Polynuclear WBCs % 13 % (0-10) H 01/16/25 14:00 CSF Diff Comment Yes 01/16/25 14:00 CSF Glucose 76 mg/dL (40-70) H 01/16/25 14:00 CSF Total Protein 29 mg/dL (15-45) 01/16/25 14:00 CSF VDRL Non-reactive 01/16/25 14:06 Gentamicin Trough 0.3 ug/mL (0.0-8.0) 01/31/25 15:13 Vancomycin Trough < 4.0 ug/mL (10-15) L 01/18/25 03:49 Lymphocyte Subset Cmmnt Not Reportable 01/20/25 15:55 % CD3/CD4 Cells 38 % (30-61) 01/20/25 15:55 Absolute CD4 Count 500 cells/uL (490-1740) 01/20/25 15:55 CD4/CD8 Ratio 1.04 (0.86-5.00) 01/20/25 15:55 % CD8 Cells 37 % (12-42) 01/20/25 15:55 Absolute CD8 Count 478 cells/uL (180-1170) 01/20/25 15:55 RPR w/Rflx to Titer Non-reactive (NON-REACTIVE) 01/19/25 11:55 T.pallidum Ab (FTA-ABS) Non-reactive 01/19/25 11:55 Adenovirus (PCR) Not detected (NOT DETECT) 01/30/25 12:30 Lyme Ab (Western Blot) <0.90 index 01/19/25 11:55 C. pneumoniae DNA (PCR) Not detected (NOT DETECT) 01/30/25 12:30 Coronavirus 229E (PCR) Not detected (NOT DETECT) 01/30/25 12:30 E. chaffeensis IgG Ab <1:64 01/19/25 11:55 E. chaffeensis IgM Ab <1:20 01/19/25 11:55 E. chaffeensis Interp See note 01/19/25 11:55 E. chaffeensis Comment Not Reportable 01/19/25 11:55 Hep Bs Antigen Non-reactive (Nonreactive) 01/20/25 15:55 Hep B Core Total Ab Non-reactive (Nonreactive) 01/20/25 15:55 HCV RNA (PCR) IUs/ml <1.18 not detected Log IU/mL (NOT DETECTED) 01/19/25 11:55 HCV RNA (PCR) IU log10 <15 not detected IU/mL (NOT DETECTED) 01/19/25 11:55 HIV-1 RNA copies/mL Not detected (NOT DETECTED) 01/19/25 11:55 HIV-1 RNA (PCR) log10 Not detected copies/mL (NOT DETECTED) 01/19/25 11:55 Human Metapneumovir PCR Not detected (NOT DETECT) 01/30/25 12:30 Influenza A (H1) PCR Not detected (NOT DETECT) 01/30/25 12:30 Influenza A (PCR) Negative (Negative) 01/16/25 13:00 Influ A (H1/09) PCR Not detected (NOT DETECT) 01/30/25 12:30 Influenza A (H3) PCR Not detected (NOT DETECT) 01/30/25 12:30 Influenza Type A (PCR) Not detected (NOT DETECT) 01/30/25 12:30 Influenza Type B (PCR) Not detected (NOT DETECT) 01/30/25 12:30 M. pneumoniae (PCR) Not detected (NOT DETECT) 01/30/25 12:30 Parainfluenza 1 (PCR) Not detected (NOT DETECT) 01/30/25 12:30 Parainfluenza 2 (PCR) Not detected (NOT DETECT) 01/30/25 12:30 Parainfluenza 3 (PCR) Not detected (NOT DETECT) 01/30/25 12:30 Parainfluenza 4 (PCR) Not detected (NOT DETECT) 01/30/25 12:30 RSV (PCR) Negative (Negative) 01/16/25 13:00 RSV Type A (PCR) Not detected (NOT DETECT) 01/30/25 12:30 RSV Type B (PCR) Not detected (NOT DETECT) 01/30/25 12:30 Entero/Rhino (PCR) Not detected (NOT DETECT) 01/30/25 12:30 Rickettsia IgG Ab Not detected 01/19/25 11:55 Rickettsia IgM Ab Not detected 01/19/25 11:55 SARS-CoV-2 (PCR) Not detected (NOT DETECT) 01/30/25 12:30 Radiology Impressions Cervical Spine CT 01/16/25 11:08 IMPRESSION: 1. No evidence of acute fracture or dislocation. 2. Normal prevertebral soft tissues. 3. Mild central canal stenosis C6-7 due to disc osteophyte complex. Head CT 01/16/25 11:08 IMPRESSION: 1. No evidence of intracranial hemorrhage or mass effect. 2. No acute intracranial findings. Lumbar Puncture Fluoroscopy 01/16/25 13:04 IMPRESSION: Uncomplicated lumbar puncture for CSF. Normal opening pressure: 18 ccH2O. Abdomen Ultrasound 01/20/25 15:53 Impression: 1. Prior cholecystectomy. 2. Mild hepatomegaly. Mild surface nodularity similar to the most recent exam may indicate early changes of cirrhosis. 3. Negative kidneys. Lumbar Spine CT 01/21/25 14:37 IMPRESSION: 1. No enhancing masses or abscesses in the lumbar spine. 2. No epidural enhancement. 3. No central stenosis. Thoracic Spine CT 01/21/25 14:38 IMPRESSION: 1. No thoracic spine osteomyelitis identified. 2. Numerous bilateral, multilobar pulmonary cavitary lesions. With history of positive blood cultures suspect septic embolic disease. 3. Reactive mediastinal and hilar lymph nodes. Chest/Abdomen/Pelvis CT 01/22/25 08:42 IMPRESSION: 1. Multiple cavitary and non cavitary nodules in both lungs, consistent with septic emboli. 2. Two small filling defects within subsegmental pulmonary artery branches in the right lower lobe which are contiguous with non cavitary nodules, consistent with septic emboli. 3. Slightly increased RV/LV ratio could indicate mildly elevated right heart pressure. IMPRESSION: 1. No acute findings. 2. Probable 2.9 cm hemorrhagic cyst in the left adnexa. No further imaging is recommended. (Reference: Sean) References: Sean et al. Management of Incidental Adnexal Findings on CT and MRI: A White Paper of the ACR Incidental Findings Committee, J Am Valorie Radiol. 2019;17(2):248-254. COMMENTS: Consistent with the [employer]'s Incidental Findings Committee white paper (J Am Valorie Radiol 2018): Any incidental renal lesion less than 1 cm or classified as too small to characterize, or any incidental cystic renal lesion characterized as simple-appearing, is likely benign. No follow-up imaging is recommended for these lesions per consensus recommendations based on imaging criteria. ADDENDUM: 01/22/25 [id number] THIS REPORT CONTAINS FINDINGS THAT MAY BE CRITICAL TO PATIENT CARE. The findings were verbally communicated via telephone conference with JAE FLOREZ at 6:15 PM CDT on 01/22/2025. The findings were acknowledged and understood. Chest X-Ray 01/29/25 13:51 IMPRESSION: PICC line remains in position. Increased lung opacities in the right lower lung. Chest CT 01/30/25 09:59 IMPRESSION: 1. Previously described septic emboli are similar in appearance with a few nodules undergoing additional cavitation today. No other remarkable changes 2. Cholecystectomy clips. 3. No other interval changes. Microbiology 01/31/25 15:13 Blood Blood Culture - Preliminary NEGATIVE TO DATE 01/31/25 15:00 Blood Blood Culture - Preliminary NEGATIVE TO DATE 01/30/25 17:17 Urine,Clean Catch Urine Culture - Final 01/24/25 05:46 Blood Blood Culture - Final NO GROWTH AFTER 5 DAYS 01/24/25 05:45 Blood Blood Culture - Final NO GROWTH AFTER 5 DAYS 01/21/25 04:29 Blood Blood Culture - Final NO GROWTH AFTER 5 DAYS 01/21/25 04:20 Blood Blood Culture - Final NO GROWTH AFTER 5 DAYS 01/16/25 11:29 Blood Blood Culture - Final Staphylococcus aureus 01/19/25 02:41 Blood Blood Culture - Final Staphylococcus aureus 01/18/25 16:05 Blood Blood Culture - Final Staphylococcus aureus 01/16/25 11:45 Blood Blood Culture - Final Staphylococcus aureus 01/16/25 14:00 Cerebrospinal Fluid Gram Stain - Final 01/16/25 14:00 Cerebrospinal Fluid CSF Culture - Final Imaging Echo: Radiologist's impression: CONCLUSIONS Normal left ventricular size, systolic function and wall thickness, with no regional wall motion abnormalities. Left ventricular ejection fraction is estimated at 60 %. Grade II/IV diastolic dysfunction, moderately elevated filling pressures. Tricuspid valve appeared to be thickened , there is a globular 1x1 cm mass attached to the posterior cusp of the tricuspid valve suspicious for vegetation, trace tricuspid valve regurgitation. if clinically indicated JESSE is the good modality to further investigate. Mild aortic valve calcification. No aortic valve stenosis. Moderate aortic valve regurgitation. Right atrial pressure is around 15 mm of mercury. Antonio Bird MD (Electronically Signed) Final Date: 18 Jan 2025 13:06 JESSE: CONCLUSIONS LV systolic function is normal. No atrial left atrial appendage thrombus. Mild mitral regurgitation. Prosthetic tricuspid valve. There is a large 1.78 x 1.5 cm vegetation seen on prosthetic valve. Mild tricuspid regurgitation Tiago Forman MD (Electronically Signed) Final Date: 25 January 2025 12:17 Recent Clincial Data Last Vital Signs Temp 98.4 F 02/02/25 12:11 Pulse 85 02/02/25 12:11 Resp 18 02/02/25 12:11 BP 95/65 02/02/25 12:11 Pulse Ox 93 02/02/25 08:23 O2 Del Method Room Air 02/02/25 12:11 O2 Flow Rate 91 01/22/25 00:00 Vital Signs Temp Pulse Resp BP Pulse Ox O2 Del Method 02/02/25 12:11 98.4 F 85 18 95/65 Room Air 02/02/25 08:23 88 16 93 Room Air 02/02/25 07:26 98.5 F 92 16 91/65 94 Room Air 02/02/25 04:00 98.4 F 80 20 H 86/66 99 Room Air Intake & Output/Weight 01/31/25 02/01/25 02/02/25 02/03/25 06:59 06:59 06:59 06:59 Intake Total 1366.6 / 1366.6 346.6 / 346.6 1506.6 / 1506.6 340 / 340 Output Total 600 / 600 Balance 766.6 / 766.6 346.6 / 346.6 1506.6 / 1506.6 340 / 340 Weight 88.269 kg 88.949 kg 87.453 kg Vitals Last Vital Signs Temp 98.4 F 02/02/25 12:11 Pulse 85 02/02/25 12:11 Resp 18 02/02/25 12:11 BP 95/65 02/02/25 12:11 Pulse Ox 93 02/02/25 08:23 O2 Del Method Room Air 02/02/25 12:11 O2 Flow Rate 91 01/22/25 00:00 TS Medications Medications Acetaminophen (Acetaminophen 325 Mg Tablet) 650 mg PO Q6H PRN PRN Reason: Mild/Mod Pain Or Temp >/= 101 Last Admin: 01/31/25 21:40 Dose: 650 mg Albuterol/Ipratropium (Ipratropium-Albuterol 3 Ml Neb) 3 ml INHALATION Q6H PRN PRN Reason: SHORTNESS OF BREATH Last Admin: 01/26/25 09:27 Dose: 3 ml Aspirin (Aspirin 81 Mg Ec Tablet) 81 mg PO DAILY TONA Last Admin: 06/09/25 09:33 Dose: 81 mg Betamethasone/Clotrimazole (Clotrimazole-Betamethasone Cream 15gm) 1 applic TOPICAL TID PRN PRN Reason: excoriation Heparin Sodium (Porcine) (Heparin 5,000 Unit/Ml Inj 1 Ml) 5,000 unit SUBCUT Q12H [facility] Last Admin: 02/02/25 05:26 Dose: Not Given Hydroxyzine Pamoate (Hydroxyzine 25 Mg Capsule) 25 mg PO BID [facility] Last Admin: 02/02/25 09:33 Dose: 25 mg Gentamicin Sulfate 264 mg/ (Sodium Chloride) 106.6 mls @ 213.2 mls/hr IV Q24H [facility] Last Infusion: 02/01/25 18:22 Dose: Infused Cefazolin Sodium 2,000 mg/ (Sodium Chloride) 100 mls @ 200 mls/hr IV Q8H [facility] Last Infusion: 02/02/25 13:19 Dose: Infused Ibuprofen (Ibuprofen Oral Susp 100 Mg/5ml Udc) 600 mg PO Q8H PRN PRN Reason: fever Metoclopramide HCl (Metoclopramide 5 Mg/Ml Sdv 2 Ml) 5 mg IVP Q6H PRN PRN Reason: NAUSEA AND VOMITING Last Admin: 01/30/25 02:18 Dose: 5 mg Mirtazapine (Mirtazapine 15 Mg Tablet) 15 mg PO BEDTIME [facility] Last Admin: 02/01/25 20:17 Dose: 15 mg Non-Formulary Medication (Atripla) 1 tab PO QAM [facility] Last Admin: 02/02/25 06:06 Dose: 1 tab Nystatin (Nystatin Powder 15 Gm Btl) 1 applic TOPICAL BID PRN PRN Reason: excoriation Ondansetron HCl (Ondansetron 2 Mg/Ml Sdv 2 Ml) 4 mg IVP Q6H PRN PRN Reason: NAUSEA AND VOMITING Last Admin: 02/01/25 05:40 Dose: 4 mg Pantoprazole Sodium (Pantoprazole 40 Mg Sdv) 40 mg IVP Q24H [facility] Last Admin: 02/02/25 06:05 Dose: 40 mg Prochlorperazine (Prochlorperazine 10 Mg Tablet) 5 mg PO Q8H PRN PRN Reason: N/V Last Admin: 01/29/25 15:31 Dose: 5 mg Rifampin (Rifampin 300 Mg Capsule) 300 mg PO TID [facility] Last Admin: 02/02/25 09:33 Dose: 300 mg Discontinued Medications Albuterol/Ipratropium (Ipratropium-Albuterol 3 Ml Neb) 3 ml INHALATION Q4H PRN PRN Reason: SHORTNESS OF BREATH Last Admin: 01/17/25 23:16 Dose: 3 ml Betamethasone/Clotrimazole (Clotrimazole-Betamethasone Cream 15gm) 1 applic TOPICAL TID [facility] Last Admin: 02/02/25 15:12 Dose: Not Given Cefazolin Sodium (Cefazolin 2,000 Mg Sdv) 2,000 mg IVP Q8H [facility]; Protocol Last Admin: 01/24/25 20:57 Dose: Not Given Cefepime HCl (Cefepime 2,000 Mg Sdv) 2,000 mg IVP NOW ONE; Protocol Stop: 01/16/25 13:13 Last Admin: 01/16/25 14:45 Dose: 2,000 mg Cefepime HCl (Cefepime 2,000 Mg Sdv) 2,000 mg IVP Q12H [facility]; Protocol Last Admin: 01/17/25 08:55 Dose: 2,000 mg Cyanocobalamin (Cyanocobalamin 1,000 Mcg Tablet) 5,000 mcg PO DAILY [facility] Last Admin: 01/19/25 09:27 Dose: 5,000 mcg Cyanocobalamin (Cyanocobalamin 1,000 Mcg/Ml Sdv) 1,000 mcg IM ONCE ONE Stop: 01/19/25 11:17 Last Admin: 01/19/25 12:02 Dose: Not Given Hydroxyzine Pamoate (Hydroxyzine 25 Mg Capsule) 25 mg PO BID [facility] Last Admin: 01/18/25 08:38 Dose: 25 mg Hydroxyzine Pamoate (Hydroxyzine 25 Mg Capsule) 25 mg PO TID [facility] Last Admin: 01/19/25 09:27 Dose: 25 mg Vancomycin HCl 1,000 mg/ (Sodium Chloride) 250 mls @ 250 mls/hr IV ONCE ONE; Protocol Stop: 01/16/25 14:05 Last Infusion: 01/16/25 18:05 Dose: Infused Sodium Chloride (Sodium Chloride 0.9%) 1,710 mls @ 1,710 mls/hr 30 ml/kg infuse over 1 hr (1710 ml) IV .Q1H ONE Stop: 01/16/25 14:23 Last Infusion: 01/16/25 18:04 Dose: Infused Meropenem 2,000 mg/ Sodium (Chloride) 50 mls @ 100 mls/hr IV ONCE ONE Stop: 01/16/25 15:14 Last Infusion: 01/16/25 18:04 Dose: Infused Potassium Chloride/Sodium Chloride (Sodium Chlor 0.9% + Kcl 20 Meq) 20 meq in 1,000 mls @ 150 mls/hr IV .Q6H40M [facility] Last Admin: 01/18/25 11:37 Dose: Not Given Vancomycin HCl / Sodium (Chloride) 250 mls @ 0 mls/hr [id number] PROTOCOL TONA; Protocol Vancomycin HCl (Vancocin) 1,250 mg in 250 mls @ 166.667 mls/hr IV Q12H [facility] Last Infusion: 01/18/25 06:36 Dose: Infused Lactated Ringer's (Lactated Ringers) 1,000 mls @ 999 mls/hr IV .Q1H1M ONE Stop: 01/17/25 09:53 Last Infusion: 01/17/25 21:00 Dose: Infused Vancomycin HCl (Vancocin) 1,250 mg in 250 mls @ 166.667 mls/hr IV Q8H [facility] Last Infusion: 01/19/25 05:09 Dose: Infused Gentamicin Sulfate 264 mg/ (Sodium Chloride) 106.6 mls @ 213.2 mls/hr [id number] Q24H [facility] Last Infusion: 01/19/25 12:02 Dose: Infused Gentamicin Sulfate 264 mg/ (Sodium Chloride) 106.6 mls @ 213.2 mls/hr IV Q24H [facility] Last Infusion: 01/22/25 17:13 Dose: Infused Lidocaine HCl 5 ml/ Potassium (Chloride) 105 mls @ 26.25 mls/hr IV Q4H [facility] Stop: 01/23/25 16:29 Last Infusion: 01/23/25 14:12 Dose: Infused Sodium Chloride (Sodium Chloride 0.9% (Plus)) Confirm Administered Dose 100 mls @ as directed .ROUTE .STK-MED ONE Stop: 01/24/25 10:07 Last Infusion: 01/24/25 21:00 Dose: Infused Lactated Ringer's (Lactated Ringers) 1,000 mls @ 500 mls/hr IV .Q2H ONE Stop: 01/26/25 18:26 Last Admin: 01/26/25 20:20 Dose: Not Given Potassium Chloride/Sodium Chloride (Sodium Chlor 0.9% + Kcl 40 Meq) 40 meq in 1,000 mls @ 250 mls/hr IV .Q4H [facility] Stop: 01/26/25 20:44 Last Infusion: 01/26/25 23:48 Dose: Infused Magnesium Sulfate (Magnesium Sulfate Premix) 4 gm in 100 mls @ 50 mls/hr IV ONCE ONE Stop: 01/28/25 15:31 Last Infusion: 01/28/25 18:45 Dose: Infused Potassium Phosphate 30 mmol/ (Sodium Chloride) 110 mls @ 25 mls/hr IV ONCE ONE Stop: 01/28/25 17:56 Last Infusion: 01/29/25 00:32 Dose: Infused Sodium Chloride (Sodium Chloride 0.9%) 1,000 mls @ 999 mls/hr IV .Q1H1M ONE Stop: 01/28/25 14:42 Last Infusion: 01/28/25 16:18 Dose: Infused Magnesium Sulfate (Magnesium Sulfate Premix) 4 gm in 100 mls @ 50 mls/hr IV ONCE ONE Stop: 01/28/25 17:44 Last Admin: 01/28/25 16:14 Dose: Not Given Ibuprofen (Ibuprofen Oral Susp 100 Mg/5ml Udc) 200 mg PO Q6H [facility] Last Admin: 01/26/25 21:54 Dose: 200 mg Iohexol (Iohexol 350 Mg/Ml 500 Ml Btl (Per Ml)) 0 ml IV ONCE ONE Stop: 01/21/25 15:09 Last Admin: 01/21/25 15:10 Dose: 100 ml Iohexol (Iohexol 350 Mg/Ml 500 Ml Btl (Per Ml)) 0 ml IV ONCE ONE Stop: 01/22/25 17:24 Last Admin: 01/22/25 17:23 Dose: 100 ml Ketamine HCl (Ketamine 50 Mg/Ml Syr 1 Ml) Confirm Administered Dose 50 mg .ROUTE .STK-MED ONE Stop: 01/24/25 11:19 Ketorolac Tromethamine (Ketorolac 10 Mg Tablet) 10 mg PO Q6H PRN PRN Reason: PAIN Ketorolac Tromethamine (Ketorolac 30 Mg/Ml Inj) 30 mg IVP Q6H PRN PRN Reason: MODERATE PAIN Stop: 01/21/25 15:42 Last Admin: 01/21/25 00:11 Dose: 30 mg Lidocaine HCl (Lidocaine 1% Mpf 30 Ml Sdv) 15 ml .ROUTE .STK-MED ONE Stop: 01/16/25 15:18 Lorazepam (Lorazepam 1 Mg/0.5 Ml Injection) 1 mg IVP ONCE ONE Stop: 01/16/25 12:20 Last Admin: 01/16/25 14:00 Dose: Not Given Lorazepam (Lorazepam 1 Mg Tablet) 1 mg PO Q8H PRN PRN Reason: ANXIETY Last Admin: 01/19/25 00:36 Dose: 1 mg Lorazepam (Lorazepam 1 Mg Tablet) 0.5 mg PO Q8H PRN PRN Reason: ANXIETY Last Admin: 01/28/25 04:45 Dose: 0.5 mg Meropenem (Meropenem 1,000 Mg Sdv) 1,000 mg IVP Q8H [facility]; Protocol Last Admin: 01/16/25 21:08 Dose: 1,000 mg Meropenem (Meropenem 1,000 Mg Sdv) 2 mg IVP Q8H [facility]; Protocol Meropenem (Meropenem 1,000 Mg Sdv) 2,000 mg IVP Q8H [facility]; Protocol Last Admin: 01/18/25 08:19 Dose: Not Given Meropenem (Meropenem 1,000 Mg Sdv) 1,000 mg IVP Q8H [facility]; Protocol Last Admin: 02/01/25 15:58 Dose: 1,000 mg Methylprednisolone Sodium Succinate (Methylprednisolone Sod Succ 125 Mg/2 Ml Inj) 125 mg IVP ONCE ONE Stop: 01/17/25 23:03 Last Admin: 01/17/25 23:24 Dose: 125 mg Mirtazapine (Mirtazapine 15 Mg Tablet) 15 mg PO BEDTIME [facility] Last Admin: 01/17/25 20:19 Dose: 15 mg Mirtazapine (Mirtazapine 15 Mg Tablet) 30 mg PO BEDTIME [facility] Last Admin: 01/25/25 20:22 Dose: 30 mg Morphine Sulfate (Morphine 4 Mg/Ml Sdv 1 Ml) 2 mg IVP Q4H PRN PRN Reason: SEVERE PAIN Last Admin: 01/18/25 14:24 Dose: 2 mg Non-Formulary Medication (Nlmxuoejf-Kxfhsnli-Caxpnqr Ala [Biktarvy]) 1 tab PO DAILY [facility] Last Admin: 01/21/25 09:12 Dose: 1 tab Non-Formulary Medication (Etonogestrel [Nexplanon]) 0 implant .ROUTE .COMPLEX [facility] Non-Formulary Medication (Atripla) 1 tab PO DAILY [facility] Last Admin: 02/01/25 15:53 Dose: Not Given Nystatin (Nystatin Powder 15 Gm Btl) 1 applic TOPICAL BID [facility] Last Admin: 02/02/25 09:33 Dose: 1 applic Ondansetron HCl (Ondansetron Hcl Odt 4 Mg Tab) 4 mg PO Q6H PRN PRN Reason: NAUSEA Last Admin: 01/18/25 19:39 Dose: 4 mg Ondansetron HCl (Ondansetron 2 Mg/Ml Sdv 2 Ml) 4 mg IVP Q8H PRN PRN Reason: vomiting, or N/V if npo Last Admin: 01/21/25 07:57 Dose: 4 mg Pantoprazole Sodium (Pantoprazole 40 Mg Sdv) 40 mg IVP Q24H [facility] Last Admin: 01/17/25 16:43 Dose: 40 mg Potassium Chloride (Potassium Chloride Er 20 Meq Tablet) 40 meq PO ONCE ONE Stop: 01/17/25 08:55 Last Admin: 01/17/25 10:13 Dose: 40 meq Potassium Chloride (Potassium Chloride Oral Liq 20 Meq/15 Ml Udc) 80 meq PO ONCE ONE Stop: 01/22/25 08:43 Last Admin: 01/22/25 10:50 Dose: 80 meq Potassium Chloride (Potassium Chloride Er 20 Meq Tablet) 40 meq PO ONCE ONE Stop: 01/23/25 08:21 Last Admin: 01/23/25 09:12 Dose: 40 meq Potassium Chloride (Potassium Chloride Er 20 Meq Tablet) 80 meq PO ONCE ONE Stop: 01/23/25 11:27 Last Admin: 01/23/25 14:10 Dose: 80 meq Prochlorperazine Edisylate (Prochlorperazine 10 Mg/2 Ml Inj) 10 mg IVP ONCE ONE Stop: 01/18/25 20:58 Last Admin: 01/18/25 21:26 Dose: 10 mg Prochlorperazine Edisylate (Prochlorperazine 10 Mg/2 Ml Inj) 10 mg IVP ONCE ONE Stop: 01/26/25 16:33 Last Admin: 01/26/25 20:19 Dose: Not Given Propofol (Propofol 10 Mg/Ml Sdv 20 Ml) Confirm Administered Dose 400 mg .ROUTE .STK-MED ONE Stop: 01/24/25 11:19 Scopolamine (Scopolamine 1 Mg Patch) 1 patch TRANSDERMA ONCE ONE Stop: 01/21/25 09:19 Last Admin: 01/21/25 10:54 Dose: 1 patch Sodium Chloride (Sodium Chloride 1 Gm Tablet) 2 gm PO TID [facility] Allergies amoxicillin Allergy (Severe, Verified 10/07/24 13:34) rash Home Medications aspirin 81 mg tablet,delayed release 81 mg PO DAILY 11/04/20 [History Confirmed 01/16/25] cyanocobalamin (vitamin B-12) 5,000 mcg capsule 5,000 mcg PO DAILY 90 days #90 caps 12/27/20 [Rx Confirmed 01/16/25] etonogestrel 68 mg subdermal implant (Nexplanon) See Rx Instructions .Route .COMPLEX 02/24/22 [History Confirmed 01/16/25] ondansetron 4 mg disintegrating tablet 4 mg PO Q6H PRN Nausea 02/24/22 [History Confirmed 01/16/25] bictegravir 50 mg-emtricitabine 200 mg-tenofovir alafenam 25 mg tablet (Biktarvy) 1 tab PO DAILY 90 days #90 tabs 10/07/24 [Rx Confirmed 01/16/25] hydroxyzine HCl 25 mg tablet 25 mg PO BID 01/16/25 [History Confirmed 01/16/25] ketorolac 10 mg tablet 10 mg PO Q6H PRN Pain 01/16/25 [History Confirmed 01/16/25] mirtazapine 15 mg tablet 15 mg PO BEDTIME 01/16/25 [History Confirmed 01/16/25] efavirenz 600 mg-emtricitabine 200 mg-tenofovir disoprox 300 mg tablet 1 tab PO DAILY 30 days #30 tabs 01/20/25 [Rx] Discharge Plan Discharge Patient Disposition: Home Condition: Stable Prescriptions: New ynnsfikot-fispwpctpqin-wpnzhsq 600-200-300 mg tablet 1 tab PO DAILY 30 Days Qty: 30 0RF Rx Instructions: must be taken on empty stomach rifampin 300 mg capsule 300 mg PO Q8H 42 Days Qty: 126 0RF Discontinued Biktarvy 50-200-25 mg tablet 1 tab PO DAILY 90 Days Qty: 90 5RF No Action aspirin 81 mg tablet,delayed release (DR/EC) 81 mg PO DAILY Nexplanon 68 mg implant See Rx Instructions .ROUTE .COMPLEX Rx Instructions: Implant put in 3 years ago ondansetron 4 mg tablet,disintegrating 4 mg PO Q6H PRN (Reason: Nausea) cyanocobalamin (vitamin B-12) 5,000 mcg capsule 5,000 mcg PO DAILY 90 Days Qty: 90 0RF ketorolac 10 mg tablet 10 mg PO Q6H PRN (Reason: Pain) hydroxyzine HCl 25 mg tablet 25 mg PO BID mirtazapine 15 mg tablet 15 mg PO BEDTIME Referrals: [facility] [Provider Group, Infectious Disease] - 02/24/25 2:30 pm Sherie Henry PA [Primary Care Provider, [facility]] - 01/27/25 9:40 am Discharge Diet: Cardiac Discharge Activity: Resume usual activity and Increase activity as tolerated Patient Instructions: Rifampin (By mouth), Efavirenz/Emtricitabine/Tenofovir (By mouth) (Atripla), Fever - Adult, Thrombocytopenia (DC), Opioid Safety Transfer Attestations Time Spent in Transfer Care: greater than 30 min Specific Discharge Activities: educating patient, discussing with pcp/other providers, discussing with patient case manager/social workers/dc planners, documenting/other paperwork and evaluating patient/reviewing data Status at Transfer: Cognitive status at transfer: cognitively intact ; Behavioral status at transfer: cooperative ; Functional status at transfer: independent ambulation ; Overall status at transfer: patient is back to baseline Quality Metrics Clinical Quality Measures [ No reported AMI, CVA or VTE this stay] Coding Level of Care Code 11381 Total time (in minutes) for Discharge: 75 Diagnoses Prosthetic valve endocarditis, 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; 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 Encounter type: subsequent encounter 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; 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 HIV (human immunodeficiency virus infection) Z21 HIV symptom status: asymptomatic, with no history of HIV-related illness Septic embolism I76 Chronic hepatitis C without hepatic coma B18.2 Viral hepatitis chronicity: chronic Hepatic coma status: without hepatic coma Screen for STD (sexually transmitted disease) Z11.3 IVDU (intravenous drug user) F19.90 Diffuse papular rash R21 Other cirrhosis of liver K74.69 Hepatic cirrhosis type: other cirrhosis Thrombocytopenia D69.6 Methamphetamine abuse F15.10 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
[2025-02-02] MEDS: GENTAMICIN IV (15:50)
[2025-02-02] MEDS: SODIUM CHLORIDE 0.9% IV (15:50)
[2025-02-02 15:59] VITALS: BP 97/61; PULSE 89; RESP 18; TEMP 36.6
[2025-02-02 16:11] LABS: C Reactive Protein 67.4 mg/L (0.0-4.9)
[2025-02-02] MEDS: ondansetron 2 mg/ML SDV 2 mL 4 MG IVP (18:21)
== END 2025-02-02 19:09 | DRG 314 ==
LOC: ER 13:27 → MEDSURG 15:18 → CSU 01-23 20:34 → ICU 01-24 11:09 → CSU 01-24 12:28 → MEDSURG 01-29 10:53
PROVIDERS: Emergency Medicine; Family Medicine; Internal Medicine; Student in an Organized Health Care Education/Training Program; Admitting Provider Internal Medicine; Emergency Provider Physician Assistant; PCP Physician Assistant; Visit Provider Student in an Organized Health Care Education/Training Program
DX: T82.6XXA Infection and inflammatory reaction due to cardiac valve prosthesis, initial encounter (principal); I26.90 Septic pulmonary embolism without acute cor pulmonale; I33.0 Acute and subacute infective endocarditis; R78.81 Bacteremia; I76 Septic arterial embolism; F41.9 Anxiety disorder, unspecified; Z21 Asymptomatic human immunodeficiency virus [HIV] infection status; Z66 Do not resuscitate; Z79.899 Other long term (current) drug therapy; Z79.82 Long term (current) use of aspirin; Z88.0 Allergy status to penicillin; F15.10 Other stimulant abuse, uncomplicated; B95.61 Methicillin susceptible Staphylococcus aureus infection as the cause of diseases classified elsewhere; D69.6 Thrombocytopenia, unspecified; B18.2 Chronic viral hepatitis C; R21 Rash and other nonspecific skin eruption; K74.60 Unspecified cirrhosis of liver; F19.90 Other psychoactive substance use, unspecified, uncomplicated; Z95.4 Presence of other heart-valve replacement; Z98.890 Other specified postprocedural states; F32.9 Major depressive disorder, single episode, unspecified; E87.6 Hypokalemia; E83.42 Hypomagnesemia; E83.39 Other disorders of phosphorus metabolism
CPT/HCPCS: 36415; 36573; 36592; 62328; 70450; 71045; 71250; 71260; 72125; 72129; 72132; 74177; 76700; 80053; 80069; 80170; 80202; 80503; 81001; 82140; 82607; 82746; 82945; 83036; 83540; 83550; 83605; 83690; 83735; 83930; 83935; 84100; 84145; 84157; 84300; 84443; 84703; 85025; 85651; 86140; 86141; 86360; 86592; 86618; 86666; 86704; 86757; 86780; 87040; 87070; 87075; 87077; 87086; 87150; 87186; 87205; 87340; 87486; 87522; 87536; 87581; 87633; 87637; 89050; 93005; 93306; 94640; 96365; 96372; 96375; 96376; 99285; G0378; J0690; J0692; J0780; J1580; J1644; J1885; J2185; J2270; J2405; J2470; J2704; J2765; J2919; J3370; J3475; J3480; J7030; J7050; J7120; J9999; Q0162; Q0164

== ENCOUNTER 2025-08-03 07:40 | Outpatient (CLI) | payer MEDICAID, SELFPAY ==
--- NOTE | 2025-08-03 07:46 | MRR_ITS ---
PROCEDURE INFORMATION: Exam: MR Pelvis Without and With Contrast Exam date and time: 08/03/2025 8:00 AM Age: 40 years old Clinical indication: Condition or disease; Ovarian conditions; Other: Left ovarian mass; Prior surgery; Surgery date: 6+ months; Surgery type: Prosthetic valve endocarditis; Left ovarian 2.5 cm potential solid lesion without definite vascularity; Was noted on an US done on 04-15-25 TECHNIQUE: Imaging protocol: Magnetic resonance imaging of the pelvis without and with contrast. Contrast material: MULTIHANCE; Contrast volume: 18 ml; Contrast route: INTRAVENOUS (IV); COMPARISON: US pelv w/transvag [id number] 07/06/2025 1:17 PM FINDINGS: Intestine: Unremarkable. No bowel obstruction. No mucosal thickening. Intraperitoneal space: There is a small amount of free fluid in the pelvis. Urinary bladder: Bladder is decompressed, unremarkable. Reproductive: The left ovary measures 4.5 x 2.7 x 2.2 cm. Adjacent to the left ovary is a T1 hyperintense nonenhancing hemorrhagic or proteinaceous cyst associated with the left adnexa that measures 2.6 x 2 cm. The uterus measures 5.9 x 4.5 x 9.2 cm. There is a tampon in the vagina. The endometrium is 2 mm in thickness. There is 9 mm intramural anterior fundal uterine probable fibroid. The junctional zone is indistinct from adjacent myometrium, appearance of the uterus suggestive of adenomyosis. Right ovary measures 1.7 x 1 cm. No suspicious right adnexal mass. Lymph nodes: No enlarged nodes. Bones/joints: Bone marrow signal is normal. Soft tissues: Unremarkable. MR/MR pelvis wo/w con [id number] IMPRESSION: The left adnexal lesion in question is most suggestive of a hemorrhagic or proteinaceous cysts without suspicious enhancement.
[2025-08-03] MEDS: gadobenate dimeglumine 20 mL vial IV (08:48)
== END 2025-08-03 07:41 | disposition home or self-care (01) ==
LOC: RAD 07:42
PROVIDERS: PCP Physician Assistant; Visit Provider Physician Assistant
DX: N83.8 Other noninflammatory disorders of ovary, fallopian tube and broad ligament (principal); N83.292 Other ovarian cyst, left side; R18.8 Other ascites
CPT/HCPCS: 72197

== ENCOUNTER → 2025-08-13 12:38 | Outpatient (BNVA) | payer MEDICAID, SELFPAY | PROVIDERS: PCP Physician Assistant; Visit Provider Student in an Organized Health Care Education/Training Program | DX: Z21 Asymptomatic human immunodeficiency virus [HIV] infection status (principal); I33.0 Acute and subacute infective endocarditis; B95.61 Methicillin susceptible Staphylococcus aureus infection as the cause of diseases classified elsewhere | CPT/HCPCS: 36415; 86360; 87522; 87536 ==